=== PATIENT | female | born 1950 | race African-American/Black ===

== ENCOUNTER 2016-10-17 16:00 | Inpatient (IN) | payer OTHER ==
--- NOTE | 2016-10-17 16:33 | PDOC ---
History of Present Illness - General History Source: Patient, Family Exam Limitations: No Limitations - History of Present Illness Initial Comments: 10/17/16 18:46 The patient is a 66 year old female, with a significant past medical history of hypertension and diabetes, who presents to the emergency department via EMS for evaluation. The patient lives with family, who are at the bedside. Over the past couple of days, the patients family state that she has not been at her normal baseline. They report that she has been weak, has not been eating well and has seemed confused. The patient additionally reports some vague mid back pain. The patient denies fever, chills, nausea, vomiting, diarrhea or abdominal pain. The patient is a poor historian. The patient states that she has not seen a doctor in 2 years (questionable adherence to medications). Family members confirm that the patient does not have a primary care physician. Allergies: None reported. Past Surgical History: None reported. Social History: Non smoker. Denies alcohol or drug use. Family Contact Information: Ramila Valencia Relationship to Patient: Sister Cell <Patience Martin - Last Filed: 10/17/16 23:48> <Brian Anaya - Last Filed: 10/17/16 23:56> - General Chief Complaint: Weakness Stated Complaint: LOW BLOOD SUGAR Time Seen by Provider: 10/17/16 16:32 Past History <Patience Martin - Last Filed: 10/17/16 23:48> - Past Medical History Cancer: Yes Diabetes: Yes HTN: Yes - Immunization History Td Vaccination: Yes Immunization Up to Date: Yes - Psycho/Social/Smoking Cessation Hx Suicidal Ideation: No Smoking Status: No Number of Cigarettes Smoked Daily: 0 <Brian Anaya - Last Filed: 10/17/16 23:56> - Past Medical History Allergies/Adverse Reactions: Allergies Allergy/AdvReac Type Severity Reaction Status Date / Time No Known Allergies Allergy Verified 10/17/16 17:08 Home Medications: Ambulatory Orders Azithromycin [Zithromax Z-THEODORA (5 DAYS)] 250 mg PO DAILY #6 tablet 08/03/11 Fluticasone Prop 0.05% Nasal [Flonase] 2 spray NS BID #0 spraybtl 08/03/11 Review of Systems - Review of Systems Able to Perform ROS?: Yes Comments:: 10/17/16 17:48 CONSTITUTIONAL: +Weakness, confusion. No fever, no chills, no fatigue EYES: No visual changes ENT: No ear pain, no sore throat CARDIOVASCULAR: No chest pain, no palpitations RESPIRATORY: No cough, no SOB GI: No abdominal pain, no nausea, no vomiting, no constipation, no diarrhea GENITOURINARY: No dysuria, no frequency, no hematuria MUSCULOSKELETAL: +Back pain. No joint pain, no myalgias SKIN: No rash NEURO: No headache <Patience Martin - Last Filed: 10/17/16 23:48> *Physical Exam - Physical Exam Comments: 10/17/16 16:45 EXAMINATION CONSTITUTIONAL: Awake and alert; oriented to self, place, and month; does not know the day of the week or the year; well-nourished; in no apparent distress HEAD: Normocephalic; atraumatic EYES: Right pupil is irregular and poorly reactive; left cornea is partially opacified with an irregular and nonreactive pupil; conjunctiva are pale ENMT: External appears normal; mucous membranes are dry NECK: Supple; non-tender; no cervical lymphadenopathy CARD: Normal S1, S2; no murmurs, rubs, or gallops RESP: Normal chest excursion with respiration; breath sounds clear and equal bilaterally; no wheezes, rhonchi, or rales ABD: Soft, non-distended; non-tender; no palpable organomegaly, no palpable hernias EXT: Normal ROM in all four extremities; non-tender to palpation; distal pulses intact SKIN: Warm, dry, no rash NEURO: Cranial nerves II through XII are grossly intact; motor: Upper extremities: 5/5 bilaterally, lower extremities 4/5 bilaterally; no pronation drift; <Brian Anaya - Last Filed: 10/17/16 23:56> Heart Score/ECG Review #1 ECG reviewed & interpreted by me at: 16:29 (Vent Rate: 125 bpm. Sinus rhythm with frequent ventricular complexes. ) <Patience Martin - Last Filed: 10/17/16 23:48> ED Treatment Course - LABORATORY CBC & Chemistry Diagram: 10/17/16 22:40 10/17/16 22:40 <Patience Martin - Last Filed: 10/17/16 23:48> - LABORATORY CBC & Chemistry Diagram: 10/17/16 22:40 10/17/16 22:40 <Brian Anaya - Last Filed: 10/17/16 23:56> Medical Decision Making - Medical Decision Making 10/17/16 20:54 EXAM: CT/HEAD CT WITHOUT CONTRAST Reviewed By: Dr. Steven Mobley IMPRESSION: Negative exam. The intracranial structures demonstrate no discrete noncontrast abnormality. Apparent incidental note is made of scleral calcification of the partially imaged left ocular globe as well as increased density within the vitreous chamber probably on the basis of previous inflammation, injury or infection. Correlate clinically. Call placed to Dr. Zayra Covarrubias [phone] at 20:55. Connected and case discussed. <Patience Martin - Last Filed: 10/17/16 23:48> - Critical Care Time Total Critical Care Time (minutes): 50 Critical Care Statement: The care of this patient involved high complexity decision making to prevent further life threatening deterioration of the patient 's condition and/or to evalute & treat vital organ system(s) failure or risk of failure. - Medical Decision Making 10/17/16 21:54 Patient seen and evaluated by me immediately upon arrival. Patient is a 66-year-old female with history of hypertension, noncompliant with her medication regimen has not seen a physician in over 2 years presents with generalized weakness and malaise. In the ER, patient is awake, alert, oriented to place and month, but does not know the year, without focal neurological deficits. Patient's vital signs are noted to be normal and stable. Initial EKG revealed hyperacute T waves. CBC reveals moderate anemia likely of chronic disease. CMP reveals evidence of acute renal failure with hyperkalemia, hypocalcemia, elevated anion gap and significantly decreased bicarbonate. Montiel catheter was placed with no production of urine. I suspect prerenal azotemia at this time. Patient has been aggressively resuscitated with normal saline, she has also received an amp of calcium gluconate, 2 A of sodium bicarbonate, 2 A of dextrose and 5 units of insolent IV. Patient has also received 30 g of Kayexalate by mouth. Case was discussed with Dr. Bates of nephrology. He agrees with the plan of care. Will repeat chemistry to evaluate for progress and treatment. Will consider hemodialysis if patient becomes hemodynamically unstable, develops pulmonary edema or worsening acidosis. 10/17/16 23:55 Patient reassessed. Patient is currently resting comfortably without evidence of pulmonary edema. Bilateral renal ultrasound reveals atrophic kidneys, collapsed bladder without masses or lesions. Repeat potassium is noted to be 5.9. BUN/creatinine are unchanged. Sodium bicarbonate is now 10. We'll continue to hydrate. At this time, I do not believe patient requires emergent dialysis ( she may require later date). We'll continue as planned. <Brian Anaya - Last Filed: 10/17/16 23:56> *DC/Admit/Observation/Transfer - Attestations Scribe Attestion: 10/17/16 16:46 Documentation prepared by Patience Martin, acting as medical lab technologist for Brian Anaya MD. <Patience Martin - Last Filed: 10/17/16 23:48> - Discharge Dispostion Admit: Yes - Attestations Physician Attestion: 10/17/16 21:11 The documentation was prepared by the scribe under my direct supervision. I have reviewed the documentation which correctly represents the findings, medical decision-making and critical action taken by me. <Brian Anaya - Last Filed: 10/17/16 23:56> Diagnosis at time of Disposition: Hyperkalemia Acute renal failure Qualifiers: Acute renal failure type: unspecified Qualified Code(s): N17.9 - Acute kidney failure, unspecified
[2016-10-17] MEDS ORDERED: SODIUM CHLORIDE 500 ML IV STA ×2 (16:47→20:32)
[2016-10-17 17:08] VITALS: BMI 39.0
[2016-10-17 17:39] LABS: INR 1.04 (0.82-1.09); PROTHROMBIN TIME (PATIENT) 11.5 SEC (9.98-11.88)
[2016-10-17 18:22] LABS: MCH 21.7 pg (25.7-33.7); MCHC 31.5 g/dl (32.0-36.0); MEAN PLT VOLUME 7.7 fl (7.5-11.1); PLATELET COUNT 421 K/MM3 (134-434); RDW 16.2 % (11.6-15.6); WHITE BLOOD COUNT 7.6 K/mm3 (4.0-10.0)
[2016-10-17 20:08] LABS: HYPOCHROMIA 2+; METAMYELOCYTE 1 % (0-2); MICROCYTOSIS 2+
[2016-10-17 20:09] LABS: OVALOCYTES 1+
[2016-10-17 20:15] LABS: ALBUMIN 2.4 g/dl (3.4-5.0); BILIRUBIN,TOTAL 0.4 mg/dL (0.2-1.0); GLUCOSE,RANDOM 121 mg/dL (74-106); MAGNESIUM 1.9 mg/dL (1.8-2.4); SGOT/AST 17 U/L (15-37); SGPT/ALT 15 U/L (12-78); TOT PROT 6.5 g/dl (6.4-8.2)
[2016-10-17 20:20] LABS: ALK PHOS 124 U/L (45-117); COCKROFT - GAULT 3.6805; TROPONIN I 0.04 ng/ml (0.00-0.05)
[2016-10-17 20:27] LABS: ANION GAP 24 (8-16); CO2 5 mmol/L (21-32)
[2016-10-17 20:31] LABS: CREATININE 21.2 mg/dL (0.55-1.02)
[2016-10-17] MEDS ORDERED: SODIUM BICARBONATE 8.4% 50 MEQ/50 ML DISP.SYRIN IVPUSH ONE ×2 (20:31→20:58)
[2016-10-17] MEDS ORDERED: CALCIUM GLUCONATE 10% - 1,000 MG/10 ML VIAL IVPUSH ONE ×2 (20:31→23:40)
[2016-10-17] MEDS ORDERED: SODIUM POLYSTYRENE SULFONATE 15 GM/60 ML BOTTLE PO ONE (20:32)
[2016-10-17] MEDS ORDERED: SODIUM BICARBONATE 8.4% - 50 ML ONE ×2 (20:36→20:58)
[2016-10-17] MEDS ORDERED: CALCIUM GLUCONATE 10% - 1,000 MG/10 ML VIAL ONE ×2 (20:36→23:52)
[2016-10-17] MEDS ORDERED: SODIUM POLYSTYRENE SULFONATE 15 GM/60 ML BOTTLE ONE (20:36)
[2016-10-17 20:37] LABS: CALCIUM < 5.0 mg/dL (8.5-10.1)
[2016-10-17 20:46] LABS: URINE APPEARANCE CLOUDY; URINE BILIRUBIN NEGATIVE (NEGATIVE); URINE COLOR YELLOW; URINE GLUCOSE (UA) 1+ (NEGATIVE); URINE KETONE TRACE (NEGATIVE); URINE LEUK ESTERASE NEGATIVE (NEGATIVE); URINE NITRITE NEGATIVE (NEGATIVE); URINE UROBILINOGEN NEGATIVE E.U./dl (0.2-1.0)
[2016-10-17 20:48] LABS: URINE BLOOD 1+ (NEGATIVE); URINE PROTEIN 3+ (NEGATIVE)
[2016-10-17] MEDS ORDERED: DEXTROSE 50%-WATER 50 ML VIAL IVPUSH ONE (20:55)
[2016-10-17] MEDS ORDERED: INSULIN REGULAR HUMAN 100 UNITS/ML *VIAL IVPUSH ONE (20:56)
[2016-10-17] MEDS ORDERED: DEXTROSE 50%-WATER 50 ML DISP.SYRIN ONE (20:57)
[2016-10-17] MEDS ORDERED: INSULIN (NOVOLOG) ASPART 100 UNITS/ML 10ML VIAL ONE (20:59)
[2016-10-17 21:11] LABS: URINE MUCUS RARE; URINE RBC 4 /hpf (0-3); URINE WBC 11 /hpf (3-5); YEAST FEW
--- NOTE | 2016-10-17 22:01 | HP ---
CHIEF COMPLAINT: Lethargy, deviation from baseline functional status PCP: Has not seen a PCP in >2 years HISTORY OF PRESENT ILLNESS: Patient is a 66 year old female with PMH of HTN, DM & legally blind who is brought in to ED by sisters for lethargy & poor baseline functional status. Patient has been feeling lethargic for some time now, >1-2 weeks, and has had increasing difficulty with ambulation. In the last few days, her breathing has deteriorated and she has been bed-bound. Patient also notes vomiting & diarrhea in last few days. Patient reports that she has not seen a PCP in over 2 years. Denies fever, chest pain, abdominal pain, headache. ER course was notable for: (1)BUN/Creatinine: 90/21.2 (2)Potassium 7.4 with EKG changes (peaked T-waves) (3)Given Calcium gluconate, Kayexelate, Insulin & bicarb in ED Recent Travel: NONE REPORTED PAST MEDICAL HISTORY: ABOVE PAST SURGICAL HISTORY: NONE REPORTED Social History: Smoking: NONE REPORTED Alcohol: NONE REPORTED Drugs: NONE REPORTED Family History: Father: COLON CA Mother: LUNG CA Siblings: DIALYSIS, BREAST, RECTAL [place] Allergies No Known Allergies Allergy (Verified 10/17/16 17:08) HOME MEDICATIONS: Home Medications Medication Instructions Recorded Azithromycin [Zithromax Z-THEODORA (5 250 mg PO DAILY #6 tablet 08/03/11 DAYS)] Fluticasone Prop 0.05% Nasal 2 spray NS BID #0 spraybtl 08/03/11 [Flonase] REVIEW OF SYSTEMS CONSTITUTIONAL: Absent: fever, chills, diaphoresis, generalized weakness, malaise, loss of appetite, weight change HEENT: Absent: rhinorrhea, nasal congestion, throat pain, throat swelling, difficulty swallowing, mouth swelling, ear pain, eye pain, visual changes CARDIOVASCULAR: Absent: chest pain, syncope, palpitations, irregular heart rate, lightheadedness , peripheral edema RESPIRATORY: Absent: cough, shortness of breath, dyspnea with exertion, orthopnea, wheezing, stridor, hemoptysis GASTROINTESTINAL: Absent: abdominal pain, abdominal distension, nausea, vomiting, diarrhea, constipation, melena, hematochezia GENITOURINARY: Absent: dysuria, frequency, urgency, hesitancy, hematuria, flank pain, genital pain MUSCULOSKELETAL: Absent: myalgia, arthralgia, joint swelling, back pain, neck pain SKIN: Absent: rash, itching, pallor HEMATOLOGIC/IMMUNOLOGIC: Absent: easy bleeding, easy bruising, lymphadenopathy, frequent infections ENDOCRINE: Absent: unexplained weight gain, unexplained weight loss, heat intolerance, cold intolerance NEUROLOGIC: Absent: headache, focal weakness or paresthesias, dizziness, unsteady gait, seizure, mental status changes, bladder or bowel incontinence PSYCHIATRIC: Absent: anxiety, depression, suicidal or homicidal ideation, hallucinations. PHYSICAL EXAMINATION Vital Signs - 24 hr 10/17/16 10/17/16 16:00 19:54 Temperature 97.2 F L Pulse Rate 90 Pulse Rate [ 95 H Left] Respiratory 18 20 Rate Blood Pressure 117/50 Blood Pressure 120/40 [Arm] O2 Sat by Pulse 100 100 Oximetry (%) GENERAL: Awake, alert, and fully oriented, labored breathing. Morbidly obese HEAD: Normal with no signs of trauma. EYES: Pupils equal, round and reactive to light, extraocular movements intact, sclera anicteric, conjunctiva clear. No lid lag. EARS, NOSE, THROAT: Ears normal, nares patent, oropharynx clear without exudates. Moist mucous membranes. NECK: Normal range of motion, supple without lymphadenopathy, JVD, or masses. LUNGS: Mildly decreased breath sounds bilaterally, no wheezing noted HEART: Regular rate and rhythm, normal S1 and S2 without murmur, rub or gallop. ABDOMEN: Soft, nontender, not distended, normoactive bowel sounds, no guarding, no rebound, no masses. No hepatomegaly or splenomegaly. MUSCULOSKELETAL: Normal range of motion at all joints. No bony deformities or tenderness. No CVA tenderness. UPPER EXTREMITIES: 2+ pulses, warm, well-perfused. No cyanosis. No clubbing. No peripheral edema. LOWER EXTREMITIES: 2+ pulses, warm, well-perfused. No calf tenderness. (+) 1 pitting edema bilateral LE NEUROLOGICAL: Cranial nerves II-XII intact. Normal speech. Normal gait. PSYCHIATRIC: Cooperative. Good eye contact. Appropriate mood and affect. SKIN: Warm, dry, normal turgor, no rashes or lesions noted, normal capillary refill. Laboratory Results - last 24 hr 10/17/16 10/17/16 10/17/16 16:01 16:01 17:15 WBC 7.6 Cancelled Corrected WBC (auto) Cancelled RBC 3.71 Cancelled Hgb 8.1 L Cancelled Hct 25.6 L Cancelled MCV 69.0 L Cancelled MCHC 31.5 L Cancelled RDW 16.2 H Cancelled Plt Count 421 Cancelled MPV 7.7 Cancelled Neutrophils % 81.0 Cancelled Lymphocytes % 11.0 Cancelled Monocytes % 4.0 Cancelled Eosinophils % 1.0 Cancelled Basophils % Cancelled Band Neutrophils 1.0 Metamyelocytes 1 Myelocytes 1 Nucleated RBCs 1 H Cancelled Differential Comment Cancelled Hypersegmented Neuts Cancelled Smudge Cells Cancelled Toxic Granulation Cancelled Dohle Bodies Cancelled Trudy Rods Cancelled Platelet Estimate Cancelled Platelet Comment Cancelled RBC Morphology Cancelled Polychromasia Cancelled Hypochromic-Microcytic 2+ Cancelled Poikilocytosis Cancelled Basophilic Stippling Cancelled Anisocytosis Cancelled Microcytosis 2+ Cancelled Macrocytosis Cancelled Spherocytes Cancelled Siderocytes Cancelled Sickle Cells Cancelled Target Cells Cancelled Tear Drop Cells Cancelled Ovalocytes 1+ Cancelled Stomatocytes Cancelled Helmet Cells Cancelled Sampson-Conner Bodies Cancelled [place] Rings Cancelled [place] Cells Cancelled Acanthocytes (Spur) Cancelled Rouleaux 1+ Cancelled Fragmented RBCs Cancelled Schistocytes Cancelled Morphology Comment Cancelled INR Sodium Cancelled Potassium Cancelled Chloride Cancelled Carbon Dioxide Cancelled Anion Gap Cancelled BUN Cancelled Creatinine Cancelled Creat Clearance w eGFR Cancelled Random Glucose Cancelled Calcium Cancelled Magnesium Cancelled Total Bilirubin Cancelled AST Cancelled ALT Cancelled Alkaline Phosphatase Cancelled Creatine Kinase Cancelled CK-MB (CK-2) Troponin I Cancelled Total Protein Cancelled Albumin Cancelled Lipase Cancelled Urine Color Urine Appearance Urine pH Ur Specific [place] Urine Protein Urine Glucose (UA) Urine Ketones Urine Blood Urine Nitrite Urine Bilirubin Urine Urobilinogen Ur Leukocyte Esterase Urine RBC Urine WBC Ur Epithelial Cells Urine Mucus Urine Yeast 10/17/16 10/17/16 10/17/16 17:15 17:15 18:38 WBC Corrected WBC (auto) RBC Hgb Hct MCV MCHC RDW Plt Count MPV Neutrophils % Lymphocytes % Monocytes % Eosinophils % Basophils % Band Neutrophils Metamyelocytes Myelocytes Nucleated RBCs Differential Comment Hypersegmented Neuts Smudge Cells Toxic Granulation Dohle Bodies Trudy Rods Platelet Estimate Platelet Comment RBC Morphology Polychromasia Hypochromic-Microcytic Poikilocytosis Basophilic Stippling Anisocytosis Microcytosis Macrocytosis Spherocytes Siderocytes Sickle Cells Target Cells Tear Drop Cells Ovalocytes Stomatocytes Helmet Cells Sampson-Conner Bodies [place] Rings Jason Cells Acanthocytes (Spur) Rouleaux Fragmented RBCs Schistocytes Morphology Comment INR 1.04 Sodium Cancelled 137 Potassium Cancelled 7.4 H* Chloride Cancelled 108 H Carbon Dioxide Cancelled 5 L Anion Gap Cancelled 24 H BUN Cancelled 90 H Creatinine Cancelled 21.2 H* Creat Clearance w eGFR Cancelled 1.63 Random Glucose Cancelled 121 H Calcium Cancelled < 5.0 L* Magnesium Cancelled 1.9 Total Bilirubin Cancelled 0.4 AST Cancelled 17 ALT Cancelled 15 Alkaline Phosphatase Cancelled 124 H Creatine Kinase Cancelled 1134 H CK-MB (CK-2) 8.317 H Troponin I Cancelled 0.04 Total Protein Cancelled 6.5 Albumin Cancelled 2.4 L Lipase Cancelled 322 Urine Color Urine Appearance Urine pH Ur Specific [place] Urine Protein Urine Glucose (UA) Urine Ketones Urine Blood Urine Nitrite Urine Bilirubin Urine Urobilinogen Ur Leukocyte Esterase Urine RBC Urine WBC Ur Epithelial Cells Urine Mucus Urine Yeast 10/17/16 19:53 WBC Corrected WBC (auto) RBC Hgb Hct MCV MCHC RDW Plt Count MPV Neutrophils % Lymphocytes % Monocytes % Eosinophils % Basophils % Band Neutrophils Metamyelocytes Myelocytes Nucleated RBCs Differential Comment Hypersegmented Neuts Smudge Cells Toxic Granulation Dohle Bodies Trudy Rods Platelet Estimate Platelet Comment RBC Morphology Polychromasia Hypochromic-Microcytic Poikilocytosis Basophilic Stippling Anisocytosis Microcytosis Macrocytosis Spherocytes Siderocytes Sickle Cells Target Cells Tear Drop Cells Ovalocytes Stomatocytes Helmet Cells Sampson-Conner Bodies [place] Rings Jason Cells Acanthocytes (Spur) Rouleaux Fragmented RBCs Schistocytes Morphology Comment INR Sodium Potassium Chloride Carbon Dioxide Anion Gap BUN Creatinine Creat Clearance w eGFR Random Glucose Calcium Magnesium Total Bilirubin AST ALT Alkaline Phosphatase Creatine Kinase CK-MB (CK-2) Troponin I Total Protein Albumin Lipase Urine Color Yellow Urine Appearance Cloudy Urine pH 5.0 Ur Specific [place] 1.017 Urine Protein 3+ H Urine Glucose (UA) 1+ H Urine Ketones Trace H Urine Blood 1+ H Urine Nitrite Negative Urine Bilirubin Negative Urine Urobilinogen Negative Ur Leukocyte Esterase Negative Urine RBC 4 Urine WBC 11 Ur Epithelial Cells Rare Urine Mucus Rare Urine Yeast Few ASSESSMENT/PLAN: 66 year old female with PMH of HTN, DM & legally blind who is brought in to ED by sisters for lethargy & poor baseline functional status. Found to be in renal failure with hyperkalemia. #Acute on chronic? renal failure -IVF NS @125mls/hr -etiology unknown at this point (no new meds or contrast exposure) -US (-) for hydronephrosis but does show bilateral renal atrophy (suggesting a chronic etiology) -will need Dialysis in AM -discussed case with Dr Covarrubias, nephrology consulted -CXR reviewed; NEED to continue to monitor pulmonary function (to ensure no pulmonary edema) -continue to trend creatinine/BUN -monitor urine output #Hyperkalemia -Calcium gluconate, Kayexelate, Insulin given in ED -continue to trend (7.4 --> 5.9 thus far) -serial ECG -continuous cardiac monitoring; telemetry floor #DM -Insulin sliding scale -HBA1C #HTN -stable at present -reassess in AM Prophylaxis/FEN -SCD's -Diabetic, Renal diet; IVF NS@125; will monitor electrolytes Visit type - Emergency Visit Emergency Visit: Yes ED Registration Date: 10/17/16 Care time: The patient presented to the Emergency Department on the above date and was hospitalized for further evaluation of their emergent condition. - New Patient This patient is new to me today: Yes Date on this admission: 10/18/16 - Critical Care Critical Care patient: Yes Total Critical Care Time (in minutes): 40 Critical Care Statement: The care of this patient involved high complexity decision making to prevent further life threatening deterioration of the patient 's condition and/or to evalute & treat vital organ system(s) failure or risk of failure.
[2016-10-17 22:45] LABS: BASOPHIL 0.2 % (0-2.0); EOSINOPHIL 0.4 % (0-4.5); MCH 21.4 pg (25.7-33.7); MCHC 31.5 g/dl (32.0-36.0); MEAN CELL VOLUME 68.1 fl (80-96); MEAN PLT VOLUME 7.6 fl (7.5-11.1); NEUTROPHILS 76.5 % (42.8-82.8); PLATELET COUNT 427 K/MM3 (134-434); RDW 15.8 % (11.6-15.6); WHITE BLOOD COUNT 6.9 K/mm3 (4.0-10.0)
--- NOTE | 2016-10-17 23:11 | PN ---
<Jareth Gusman - Last Filed: 10/17/16 23:16> Teaching Attending Note Name of Resident: Teofilo Shin <Pierre Cordova - Last Filed: 10/17/16 23:19> Teaching Attending Note ATTENDING PHYSICIAN STATEMENT I saw and evaluated the patient. I reviewed the resident's note and discussed the case with the resident. I agree with the resident's findings and plan as documented. SUBJECTIVE: The patient is a 66 year old female, accompanied by family, with a significant past medical history of hypertension and diabetes, who presents to the emergency department via EMS for evaluation of abnormalities from her baseline, weakness, back pain, vomiting, and diarrhea. As per family the patient has seemed confused at home lately. Family members confirm that the patient does not have a primary care physician and has not been treated as an outpatient in over 2 years Allergies: None Past Surgical History: None reported. Social History: Non smoker. Denies alcohol or drug use. Lives with family Family History: Brother is on dialysis, Father: colon cancer. Mother: Lung cancer. Sisters: breast and rectal cancer. OBJECTIVE: Vital Signs: Last Vital Signs Temp Pulse Resp BP Pulse Ox 97.2 F L 95 H 20 120/40 100 10/17/16 16:00 10/17/16 19:54 10/17/16 19:54 10/17/16 19:54 10/17/16 19:54 Physical Exam: GENERAL: (+) Morbidly obese. Awake, alert, and fully oriented, in no acute distress HEENT: Atraumatic. PERRLA, EOMI. Moist mucosa. No JVD LUNGS: (+) Decreased air entry bilaterally. HEART: Regular rate and rhythm, normal S1 and S2, no murmurs, rubs or gallops, peripheral pulses normal and equal bilaterally. ABDOMEN: Soft, nontender, normoactive bowel sounds. No guarding, no rebound. No masses EXTREMITIES: (+) 1+ pitting edema b/l. Normal inspection, Normal range of motion, No clubbing or cyanosis. NEUROLOGICAL: Cranial nerves II through XII grossly intact. Normal speech, normal gait, no focal sensorimotor deficits SKIN: Warm, Dry, normal turgor, no rashes or lesions noted. Labs: CBCD WBC 6.9 K/mm3 (4.0-10.0) 10/17/16 22:40 RBC 3.35 M/mm3 (3.60-5.2) L 10/17/16 22:40 Hgb 7.2 GM/dL (10.7-15.3) L D 10/17/16 22:40 Hct 22.8 % (32.4-45.2) L 10/17/16 22:40 MCV 68.1 fl (80-96) L 10/17/16 22:40 MCHC 31.5 g/dl (32.0-36.0) L 10/17/16 22:40 RDW 15.8 % (11.6-15.6) H 10/17/16 22:40 Plt Count 427 K/MM3 (134-434) 10/17/16 22:40 MPV 7.6 fl (7.5-11.1) 10/17/16 22:40 CMP Sodium 137 mmol/L (136-145) 10/17/16 18:38 Potassium 7.4 mmol/L (3.5-5.1) H* 10/17/16 18:38 Chloride 108 mmol/L (98-107) H 10/17/16 18:38 Carbon Dioxide 5 mmol/L (21-32) L 10/17/16 18:38 Anion Gap 24 (8-16) H 10/17/16 18:38 BUN 90 mg/dL (7-18) H 10/17/16 18:38 Creatinine 21.2 mg/dL (0.55-1.02) H* 10/17/16 18:38 Creat Clearance w eGFR 1.63 (>60) 10/17/16 18:38 Calcium < 5.0 mg/dL (8.5-10.1) L* 10/17/16 18:38 Total Bilirubin 0.4 mg/dL (0.2-1.0) 10/17/16 18:38 AST 17 U/L (15-37) 10/17/16 18:38 ALT 15 U/L (12-78) 10/17/16 18:38 Alkaline Phosphatase 124 U/L (45-117) H 10/17/16 18:38 Total Protein 6.5 g/dl (6.4-8.2) 10/17/16 18:38 Albumin 2.4 g/dl (3.4-5.0) L 10/17/16 18:38 Imaging: ECG-hyperacute T waves ASSESSMENT AND PLAN: 66 year old female with acute renal failure. 1. Acute renal failure- etiology at this time unknown. Patient had no outpatient care for over 2 years. Minimal urinary output at this time. No contrast exposure, no new medications, no history of kidney stones. -Trial with IVF -Ultrasound of kidney stat -Monitor creatinine -As per ED physician, case was discussed with nephologist a plan is to correct electrolyte abnormalities and give trial of fluids, monitor creatinine levels. -If urinary output remains minimal and electrolyte abnormalities persist emergent dialysis will be indicated -Monitor on telemetry -Frequent reassessments of pulmonary status while on IVF 2. Acute hyperkalemia and hypocalcemia with evidence of hyperacute T waves on ECG. Received in ED with insulin, calcium gluconate, and Kayexalate. Will repeat potassium 3. History of diabetes- non compliant with outpatient follow up, does not take any medications at home. -Insulin sliding scale -Hemoglobin A1C 4. HTN stable monitor renal function and will adjust medications accordingly. This is 66 yof presented with acute renal insuff, 3 fold rise in serum creatinine from baseline, reduction of more than 75% in estimate GFR and amenorrhea complicated by significant electrolyte abnormality and based on these findings this patient meets medical necessity for inpatient hospitalization with anticipated length of stay greater than 2 midnights. Documentation prepared by Pierre Cordova, acting as medical device engineer for Dr. Naseem MD.
[2016-10-17] MEDS ORDERED: ACETAMINOPHEN 325 MG TABLET (FP) PO PRN (23:22)
[2016-10-17 23:23] LABS: ALBUMIN 2.3 g/dl (3.4-5.0); ANION GAP 22 (8-16); BILIRUBIN,TOTAL 0.3 mg/dL (0.2-1.0); CO2 10 mmol/L (21-32); GLUCOSE,RANDOM 92 mg/dL (74-106); SGOT/AST 16 U/L (15-37); SGPT/ALT 13 U/L (12-78)
[2016-10-17 23:35] LABS: ALK PHOS 113 U/L (45-117); COCKROFT - GAULT 3.6805
[2016-10-17 23:39] LABS: CREATININE 21.2 mg/dL (0.55-1.02)
[2016-10-17 23:40] LABS: CALCIUM < 5.0 mg/dL (8.5-10.1)
[2016-10-17] MEDS ORDERED: SODIUM CHLORIDE 1,000 ML IV SCH (23:45)
[2016-10-18 06:47] LABS: MCH 21.8 pg (25.7-33.7); MCHC 32.3 g/dl (32.0-36.0); MEAN CELL VOLUME 67.6 fl (80-96); PLATELET COUNT 413 K/MM3 (134-434); RDW 15.7 % (11.6-15.6); WHITE BLOOD COUNT 6.7 K/mm3 (4.0-10.0)
[2016-10-18 07:07] LABS: ALBUMIN 2.1 g/dl (3.4-5.0); ANION GAP 20 (8-16); CO2 10 mmol/L (21-32); GLUCOSE,RANDOM 68 mg/dL (74-106); MAGNESIUM 1.7 mg/dL (1.8-2.4)
[2016-10-18 07:19] LABS: ALK PHOS 108 U/L (45-117); BILIRUBIN,TOTAL 0.3 mg/dL (0.2-1.0); CHOLESTEROL 144 mg/dL (50-200); LDL CHOLESTEROL (ONLY SJRH) 69 mg/dL (5-100); SGOT/AST 18 U/L (15-37); SGPT/ALT 11 U/L (12-78); TOT PROT 5.6 g/dl (6.4-8.2); TROPONIN I 0.07 ng/ml (0.00-0.05)
[2016-10-18 07:42] LABS: ARTERIAL BLD GAS O2 SATURATION 97.7 % (90-98.9); ARTERIAL BLOOD GAS BASE EXCESS -16.7 meq/l (-2-2); ARTERIAL BLOOD GAS HCO3 9.7 meq/L (22-26)
[2016-10-18 07:53] LABS: CALCIUM < 5.0 mg/dL (8.5-10.1); CREATININE 20.5 mg/dL (0.55-1.02); PHOSPHOROUS 10.3 mg/dL (2.5-4.9)
[2016-10-18 07:57] LABS: ALLENS TEST POSITIVE; ART PUNCT SITE LEFT RADIAL; LPM/O2% 21%; PT. ON O2? NO
[2016-10-18 07:59] LABS: ARTERIAL BLOOD GAS pH 7.21 (7.35-7.45)
[2016-10-18] MEDS ORDERED: CALCIUM GLUCONATE 10% - 1,000 MG/10 ML VIAL IVPB ONE (08:43)
[2016-10-18] MEDS ORDERED: CALCIUM GLUCONATE IVPB SCH (08:45)
[2016-10-18] MEDS ORDERED: DEXTROSE IVPB SCH (08:45)
[2016-10-18] MEDS ORDERED: WATER IVPB SCH (08:45)
[2016-10-18] MEDS ORDERED: CALCIUM GLUCONATE 10% - 1,000 MG/10 ML VIAL ONE (09:07)
[2016-10-18 09:15] LABS: HYPOCHROMIA 2+; POLYCHROMASIA 1+
[2016-10-18 09:16] LABS: ANISOCYTOSIS 1+; MICROCYTOSIS 1+
[2016-10-18 09:22] LABS: TEAR DROP CELLS 1+
[2016-10-18 09:23] LABS: FRAGMENTED CELL 1+; OVALOCYTES 2+
--- NOTE | 2016-10-18 09:28 | CONSULT ---
Consult - text type - Consultation Consultation Note: Renal Consult for DAVI/Hyperkalemia/Hypocalcemia/Metabolic Acidosis This is a 66 year old woman with PMhx of Hypertension, DM Type 2 not currently taking medications that presented with fatigue/malaise and found to have acute renal failure, hyperkalemia and hypocalcemia. PMhx: as above Allergies: NKDA Family Hx: Brother with dialysis. ROS: No FERMIN, chest pain, abd pain, Vomiting. No flank pain, kidney stones, No confusion, lethargy, weakness. No metallic taste in the mouth. Home Meds: Home Medications Medication Instructions Recorded Unobtainable [Unobtainable] 10/18/16 Vital Signs Temperature 97.2 F L 10/17/16 16:00 Pulse Rate 88 10/18/16 08:42 Respiratory Rate 24 10/18/16 08:42 Blood Pressure 156/52 10/18/16 08:42 O2 Sat by Pulse Oximetry (%) 96 10/18/16 08:42 Intake & Output 10/15/16 10/16/16 10/17/16 10/18/16 23:59 23:59 23:59 23:59 Output Total 100 Balance -100 Weight 200 lb CBC, BMP 10/18/16 06:26 10/18/16 06:26 Laboratory Tests 10/17/16 10/18/16 10/18/16 19:53 06:26 06:26 MCV 67.6 L ABG pH ABG pCO2 at Pt Temp ABG HCO3 ABG O2 Content Phosphorus 10.3 H* Magnesium 1.7 L Creatine Kinase 948 H Albumin 2.1 L Urine Protein 3+ H Urine Glucose (UA) 1+ H Urine Ketones Trace H Urine Blood 1+ H 10/18/16 07:30 MCV ABG pH 7.21 L* ABG pCO2 at Pt Temp 25.3 L ABG HCO3 9.7 L* ABG O2 Content 9.6 L* Phosphorus Magnesium Creatine Kinase Albumin Urine Protein Urine Glucose (UA) Urine Ketones Urine Blood Current Medications Acetaminophen (Tylenol -) 650 mg PO Q6H PRN PRN Reason: FEVER OR PAIN Chlorhexidine Gluconate (Hibiclens For Decolonization -) 1 applic TP HS ZANA Epoetin Samuel (Epogen -) 10,000 units IVPUSH ONCE ONE Stop: 04/12/17 09:13 Sodium Chloride (Normal Saline -) 1,000 mls @ 125 mls/hr IV ASDIR [facility] Last Admin: 10/18/16 00:30 Dose: 125 mls/hr Calcium Gluconate 13,000 mg/ (Dextrose) 1,130 mls @ 50 mls/hr IVPB Q22H [facility] Insulin Aspart (Novolog Vial Sliding Scale -) 1 vial SQ ACHS ZANA PRN Reason: Protocol Mupirocin (Bactroban Ointment (For Decolonization) -) 1 applic NS BID [facility] Stop: 10/23/16 09:59 A/P 66 year old woman with PMhx of Hypertension, DM Type 2 not currently taking medications that presented with fatigue/malaise and found to have acute renal failure, hyperkalemia and hypocalcemia. #Acute Renal Failure Pt w/o significant improvement in renal function despite For Emergent HD Pt consented to procedure for temporary HD catheter placement per vascular Sx for 2.5 hr treatment today, and additional HD tomorrow Urine studies to determine etiology of CKD Dose all meds for Cr Cl less then 10 #Hyperkalemia secondary to renal failure improved s/p medical management Check EKG this AM #Anion Gap Metabolic acidosis secondary to renal failure check Lactic Acid level expect improvement with HD no bicarb gtt because of hypocalcemia #Hypocalcemia Ca < 5, etiology likely secondary hyperphospahtemia/renal failure Calcium Gluconate 2g IVPB followed by Calcium gluconate gtt Ternd Ca Q12h #Hyperphospahtemia Start Phos binders with meals low phos diet #Microcytic Anemia check stool occult bloot r/o bleed iron studies with dialysis no heparin with HD at this time will hold transfusion because of low Ca levels (citrate in PRBC can worsen Ca levels) #Hypertension Trend BP for now #Proteinuria Check UPCR Thank you Will follow Full consult to follow David Schroeder DO
--- NOTE | 2016-10-18 10:00 | MSN ---
Progress Note (short form) - Note Progress Note: SUBJECTIVE: Pt seen and examined at bedside. Pt has no complaints at this time. States she has noticed a decrease in urine output over the past few weeks and has been having diarrhea over the past few days. She has been bed bound over the past few days as well. Denies CP, palps, SOB, or abdominal pain. Denies nausea or vomiting. Denies headache or acute change in vision. GARCIA was performed at bedside to test for occult blood. Active Medications Generic Name Dose Route Start Last Admin Trade Name Freq PRN Reason Stop Dose Admin Acetaminophen 650 mg 10/17/16 23:22 Tylenol - PO Q6H PRN FEVER OR PAIN Chlorhexidine Gluconate 1 applic 10/18/16 22:00 Hibiclens For Decolonization - TP HS ZANA Epoetin Samuel 10,000 unit 10/18/16 11:00 Procrit - IVPUSH 10/18/16 11:01 ONCE ONE Sodium Chloride 1,000 mls @ 125 mls/hr 10/17/16 23:45 10/18/16 00:30 Normal Saline - IV 125 mls/hr ASDIR ZANA Administration Calcium Gluconate 13,000 mg/ 1,130 mls @ 50 mls/hr 10/18/16 09:22 Dextrose IVPB Q22H ZANA Insulin Aspart 1 vial 10/18/16 07:00 Novolog Vial Sliding Scale - SQ ACHS [facility] Protocol Mupirocin 1 applic 10/18/16 10:00 Bactroban Ointment (For Decolonization) - NS 10/23/16 09:59 BID ZANA OBJECTIVE: Vital Signs Period Temp Pulse Resp BP Sys/Rolle Pulse Ox Last 24 Hr 97.2 F 88-95 14-24 117-156/40-69 96-100 GENERAL: AAOx3 in NAD, appears lethargic HEAD: NC, AT, -icterus, EOMI, R PERRL, fixed dilated L pupil (pt has Hx of cataract Sx in L eye) NECK: -JVD, supple, -LAD HEART: RRR +S1/S2 with diastolic murmur LUNGS: CTAB ABDOMEN: Soft, ND, NTTP, no guarding/rigidity, NBS, no hemorrhoids seen, no masses palpated during GARCIA, no gross blood identified on fingertip EXT: Trace edema BL LE NEURO: Normal speech CBC,CMP WBC 6.7 K/mm3 (4.0-10.0) 10/18/16 06:26 Corrected WBC (auto) Cancelled 10/17/16 17:15 RBC 3.13 M/mm3 (3.60-5.2) L 10/18/16 06:26 Hgb 6.8 GM/dL (10.7-15.3) L* 10/18/16 06:26 Hct 21.2 % (32.4-45.2) L 10/18/16 06:26 MCV 67.6 fl (80-96) L 10/18/16 06:26 MCHC 32.3 g/dl (32.0-36.0) 10/18/16 06:26 RDW 15.7 % (11.6-15.6) H 10/18/16 06:26 Plt Count 413 K/MM3 (134-434) 10/18/16 06:26 MPV 8.0 fl (7.5-11.1) 10/18/16 06:26 Neutrophils % 82.0 % (42.8-82.8) 10/18/16 06:26 Lymphocytes % 15.0 % (8-40) 10/18/16 06:26 Monocytes % 3.0 % (3.8-10.2) L 10/18/16 06:26 Eosinophils % 0.4 % (0-4.5) 10/17/16 22:40 Basophils % 0.2 % (0-2.0) 10/17/16 22:40 Band Neutrophils 1.0 % (0-10) 10/17/16 16:01 Metamyelocytes 1 % (0-2) 10/17/16 16:01 Myelocytes 1 % (0-2) 10/17/16 16:01 Nucleated RBCs Cancelled 10/17/16 17:15 Differential Comment Cancelled 10/17/16 17:15 Hypersegmented Neuts Cancelled 10/17/16 17:15 Smudge Cells Cancelled 10/17/16 17:15 Toxic Granulation Cancelled 10/17/16 17:15 Dohle Bodies Cancelled 10/17/16 17:15 Trudy Rods Cancelled 10/17/16 17:15 Platelet Estimate Cancelled 10/17/16 17:15 Platelet Comment Cancelled 10/17/16 17:15 Platelet Comment Cancelled 10/17/16 17:15 RBC Morphology Cancelled 10/17/16 17:15 Polychromasia 1+ 10/18/16 06:26 Hypochromic-Microcytic 2+ 10/18/16 06:26 Poikilocytosis Cancelled 10/17/16 17:15 Basophilic Stippling Cancelled 10/17/16 17:15 Anisocytosis 1+ 10/18/16 06:26 Microcytosis 1+ 10/18/16 06:26 Macrocytosis Cancelled 10/17/16 17:15 Spherocytes Cancelled 10/17/16 17:15 Siderocytes Cancelled 10/17/16 17:15 Sickle Cells Cancelled 10/17/16 17:15 Target Cells Cancelled 10/17/16 17:15 Tear Drop Cells 1+ 10/18/16 06:26 Ovalocytes 2+ 10/18/16 06:26 Stomatocytes Cancelled 10/17/16 17:15 Helmet Cells Cancelled 10/17/16 17:15 [place] Bodies Cancelled 10/17/16 17:15 [place] Rings Cancelled 10/17/16 17:15 Steens Cells Cancelled 10/17/16 17:15 Acanthocytes (Spur) Cancelled 10/17/16 17:15 Rouleaux 1+ 10/18/16 06:26 Fragmented RBCs 1+ 10/18/16 06:26 Schistocytes Cancelled 10/17/16 17:15 Morphology Comment Slide scanned 10/18/16 06:26 Sodium 143 mmol/L (136-145) 10/18/16 06:26 Potassium 5.8 mmol/L (3.5-5.1) H 10/18/16 06:26 Chloride 113 mmol/L (98-107) H 10/18/16 06:26 Carbon Dioxide 10 mmol/L (21-32) L 10/18/16 06:26 Anion Gap 20 (8-16) H 10/18/16 06:26 BUN 88 mg/dL (7-18) H 10/18/16 06:26 Creatinine 20.5 mg/dL (0.55-1.02) H* 10/18/16 06:26 Creat Clearance w eGFR 1.69 (>60) 10/18/16 06:26 Random Glucose 68 mg/dL (74-106) L D 10/18/16 06:26 Hemoglobin A1c % 8.0 % (4.8-6.0) H 10/18/16 06:26 Calcium < 5.0 mg/dL (8.5-10.1) L* 10/18/16 06:26 Phosphorus 10.3 mg/dL (2.5-4.9) H* 10/18/16 06:26 Magnesium 1.7 mg/dL (1.8-2.4) L 10/18/16 06:26 Total Bilirubin 0.3 mg/dL (0.2-1.0) 10/18/16 06:26 AST 18 U/L (15-37) 10/18/16 06:26 ALT 11 U/L (12-78) L 10/18/16 06:26 Alkaline Phosphatase 108 U/L (45-117) 10/18/16 06:26 Creatine Kinase 948 IU/L (26-192) H 10/18/16 06:26 CK-MB (CK-2) 8.317 ng/ml (0.5-3.6) H 10/17/16 18:38 Troponin I 0.07 ng/ml (0.00-0.05) H 10/18/16 06:26 Total Protein 5.6 g/dl (6.4-8.2) L 10/18/16 06:26 Albumin 2.1 g/dl (3.4-5.0) L 10/18/16 06:26 Triglycerides 75 mg/dL (35-160) 10/18/16 06:26 Cholesterol 144 mg/dL (50-200) 10/18/16 06:26 Total LDL Cholesterol 69 mg/dL (5-100) 10/18/16 06:26 HDL Cholesterol 68 mg/dL (40-60) H 10/18/16 06:26 Lipase 322 U/L (73-393) 10/17/16 18:38 Urine Test Results Urine Color Yellow 10/17/16 19:53 Urine Appearance Cloudy 10/17/16 19:53 Urine pH 5.0 (5.0-8.0) 10/17/16 19:53 Ur Specific [place] 1.017 (1.001-1.035) 10/17/16 19:53 Urine Protein 3+ (NEGATIVE) H 10/17/16 19:53 Urine Glucose (UA) 1+ (NEGATIVE) H 10/17/16 19:53 Urine Ketones Trace (NEGATIVE) H 10/17/16 19:53 Urine Blood 1+ (NEGATIVE) H 10/17/16 19:53 Urine Nitrite Negative (NEGATIVE) 10/17/16 19:53 Urine Bilirubin Negative (NEGATIVE) 10/17/16 19:53 Ur Leukocyte Esterase Negative (NEGATIVE) 10/17/16 19:53 Urine RBC 4 /hpf (0-3) 10/17/16 19:53 Urine WBC 11 /hpf (3-5) 10/17/16 19:53 Ur Epithelial Cells Rare /hpf (FEW) 10/17/16 19:53 Urine Mucus Rare 10/17/16 19:[address]: No acute pathology CXR: Clear, no atelectasis or infiltrates Renal US: BL renal atrophy. No hydroneprhosis A/P: Pt is a 66 yo F with a PMHx of DM and HTN who presents to the ED with lethargy x1-2wks and SOB. Pt was found to have significantly elevated BUN/Cr with severe electrolyte imbalances 2/2 acute on chronic renal failure. Emergent HD was deferred overnight. 1. Acute renal failure with chronic kidney disease -BUN/Cr of 90/21.2 with metabolic acidosis and electrolyte imbalances upon presentation. Renal US shows BL renal atrophy. Pt has noticed oliguria past couple weeks -No significant improvement with Tx. Needs emergent HD -Most likely 2/2 to chronic condition (Hx of DM, HTN) -Renal consult appreciated -Surgery consult appreciated. HD cath placed -Pt to go for HD today (2.5 hrs) and tomorrow. Dr. Schroeder on the case -Urine Cr, Urine Na ordered -Dose meds with Cr Cl of <10 2. Hyperkalemia -2/2 renal failure -Trending down from 7.4 to 5.7 -EKG on presentation showed classic changes ([place] interval upper limit of nml, peaked T waves) -IV calcium, insulin, and kaexylate given in ED -Repeat EKG pending 3. Anion gap metabolic acidosis -2/2 renal failure -Expected improvement with HD -Lactic acid pending 4. Hypocalcemia -2/2 hyperphosphatemia/renal failure -Calcium gluconate 2g IVPB and gtt started -Trend Ca Q12H 5. Hyperphosphatemia -Phos binders with meals -Low phos diet 6. Microcytic anemia -Trending down, Hgb of 6.8 most recent -Stool occult negative -Iron studies pending -Hold heparin during HD -Hold PRBCs 2/2 hypocalcemia -? transfusion once calcium is nml and electrolyte imbalances corrected -Order type and screen and PRBCs 7. Diabetes -HgbA1C of 8.0% -Pt is not on anything at home for DM. Stopped taking Metformin 500mg BID two years ago per pt 8. HTN -Stable -Trend after HD -Start BP medication if necessary. Pt stopped taking BP med two years ago. Does not remember name of med 9. FEN -Given 1L NS in ED. Currently getting 1L NS @125cc/hr -Check CMP s/p HD -Renal diet 10. PPX -Hold AC 2/2 to anemia -SCDs -EAB 11. Dispo -Admitted to ICU. LOS in question right now Steven Holloway, MS3 Problem List - Problems (1) Acute renal failure (2) Hyperkalemia
--- NOTE | 2016-10-18 10:27 | PROC ---
Central Line Insertion - Procedure Note TIME OUT performed prior to this procedure with verbal confirmation of correct patient identity, correct side, agreement of the procedure, correct patient position, availability of necessary equipment. The consent form is complete and accurate. Risk of possible infection and bleeding have been discussed with the patient. Safety precautions based on patient history or medication use has been addressed. Indication: Other (hemodialysis) Central Line: Dialysis Cath, Dual Lumen Area prepped with Chlorhexidine solution then draped using sterile barrier protection. Anesthesia: Lidocaine 1% Technique used: Seldinger Site: Right Femoral Dark venous non-pulsatile flow noted from hub of needle. The catheter was introduced. Guide wire removed intact. Each port aspirated then flushed with sterile normal saline and capped. Line secured to skin with nylon suture. Biopatch placed around base of line. Sterile occlusive dressing applied. No complications. Patient tolerated the procedure well.
[2016-10-18 10:47] LABS: ANION GAP 21 (8-16); CO2 9 mmol/L (21-32); GLUCOSE,RANDOM 84 mg/dL (74-106)
[2016-10-18 11:00] LABS: CALCIUM < 5.0 mg/dL (8.5-10.1); CREATININE 19.5 mg/dL (0.55-1.02)
[2016-10-18] MEDS ORDERED: EPOETIN ALFA 10,000 UNIT/1 ML VIAL IVPUSH ONE (11:00)
[2016-10-18] MEDS: DEXTROSE 5% IVPB SCH (11:05)
[2016-10-18] MEDS: CALCIUM GLUCONATE IVPB SCH (11:05)
[2016-10-18] MEDS: WATER IVPB SCH (11:05)
--- NOTE | 2016-10-18 12:32 | EKG ---
Test Reason : Blood Pressure : / mmHG Vent. Rate : 115 BPM Atrial Rate : 091 BPM P-R Int : 170 ms QRS Dur : 076 ms QT Int : 430 ms P-R-T Axes : 056 -09 062 degrees QTc Int : 594 ms SINUS RHYTHM WITH FREQUENT PREMATURE VENTRICULAR COMPLEXES NONSPECIFIC ST ABNORMALITY PROLONGED QT ABNORMAL ECG WHEN COMPARED WITH ECG OF 17-OCT-2016 16:29, QRS DURATION HAS DECREASED CRITERIA FOR SEPTAL INFARCT ARE NO LONGER PRESENT Confirmed by KEENAN HURT MD ([id number]) on 10/18/2016 12:32:47 PM Referred By: Confirmed By:KEENAN HURT MD
[2016-10-18] MEDS ORDERED: PARICALCITOL 5 MCG/ML VIAL IVPUSH ONE (13:00)
--- NOTE | 2016-10-18 14:16 | EKG ---
Test Reason : Blood Pressure : / mmHG Vent. Rate : 097 BPM Atrial Rate : 097 BPM P-R Int : 140 ms QRS Dur : 062 ms QT Int : 404 ms P-R-T Axes : 056 031 -69 degrees QTc Int : 513 ms NORMAL SINUS RHYTHM NONSPECIFIC ST AND T WAVE ABNORMALITY PROLONGED QT ABNORMAL ECG WHEN COMPARED WITH ECG OF 17-OCT-2016 19:38, PREMATURE VENTRICULAR COMPLEXES ARE NO LONGER PRESENT NONSPECIFIC T WAVE ABNORMALITY NOW EVIDENT IN INFERIOR LEADS NONSPECIFIC T WAVE ABNORMALITY, WORSE IN LATERAL LEADS Confirmed by LICHA CERVANTES, KEENAN ([id number]) on 10/18/2016 2:16:39 PM Referred By: Confirmed By:KEENAN HURT MD
--- NOTE | 2016-10-18 14:16 | EKG ---
Test Reason : Blood Pressure : / mmHG Vent. Rate : 091 BPM Atrial Rate : 091 BPM P-R Int : 140 ms QRS Dur : 060 ms QT Int : 406 ms P-R-T Axes : 054 023 -27 degrees QTc Int : 499 ms NORMAL SINUS RHYTHM LOW VOLTAGE QRS PROLONGED QT ABNORMAL ECG WHEN COMPARED WITH ECG OF 18-OCT-2016 00:35, NO SIGNIFICANT CHANGE WAS FOUND Confirmed by KEENAN HURT MD ([id number]) on 10/18/2016 2:16:30 PM Referred By: Confirmed By:KEENAN HURT MD
--- NOTE | 2016-10-18 15:10 | PN ---
Teaching Attending Note Name of Resident: Natalia Maxwell ATTENDING PHYSICIAN STATEMENT I saw and evaluated the patient. I reviewed the resident's note and discussed the case with the resident. I agree with the resident's findings and plan as documented. SUBJECTIVE: Pt seen and examined in the ICU. Briefly, 66yo female with h/o HTN, DM who presented with worsening lethargy x 2 weeks. Also with difficulty ambulating and worsening shortness of breath, nausea, and vomiting. Does not follow up regularly with her PMD. No subjective fevers but with chills. Noted to be in acute renal failure with hyperkalemia and EKG changes, given medical treatment, HD catheter placed in right groin for HD. OBJECTIVE: Last Vital Signs Temp Pulse Resp BP Pulse Ox 97.2 F L 91 H 18 148/64 100 10/17/16 16:00 10/18/16 12:41 10/18/16 12:41 10/18/16 12:41 10/18/16 12:41 Intake & Output 10/15/16 10/16/16 10/17/16 10/18/16 23:59 23:59 23:59 23:59 Output Total 100 Balance -100 Weight 200 lb Gen: somnolent but arousable Heart: RRR Lung: decreased breath sounds at the bases Abd: soft, nontender Ext: no edema CBC, BMP 10/18/16 06:26 10/18/16 09:40 Active Medications Acetaminophen (Tylenol -) 650 mg PO Q6H PRN PRN Reason: FEVER OR PAIN Calcium Acetate (Phoslo -) 1,334 mg PO TID ZANA Chlorhexidine Gluconate (Hibiclens For Decolonization -) 1 applic TP HS ZANA Sodium Chloride (Normal Saline -) 1,000 mls @ 125 mls/hr IV ASDIR ZANA Last Admin: 10/18/16 00:30 Dose: 125 mls/hr Calcium Gluconate 13,000 mg/ (Dextrose) 1,130 mls @ 50 mls/hr IVPB Q22H [facility] Last Admin: 10/18/16 11:05 Dose: 50 mls/hr Insulin Aspart (Novolog Vial Sliding Scale -) 1 vial SQ ACHS ZANA PRN Reason: Protocol Mupirocin (Bactroban Ointment (For Decolonization) -) 1 applic NS BID ZANA Stop: 10/23/16 09:59 ASSESSMENT AND PLAN: Altered Mental Status Acute Kidney Injury Hyperkalemia Hypocalcemia Metabolic Acidosis Rhabdomyolysis Anemia HTN DM - HD per renal - received calcium, bicarb, albuterol, insulin/D50 - monitor lytes - IVF - monitor urine output, creatinine - trend CPK - monitor H/H - empiric protonix although likely chronic anemia - aspiration precautions - renal work up in progress - can monitor in ICU overnight critical care time spent in reviewing chart, evaluating patient and formulating plan 35 min Carlton Howe MD
--- NOTE | 2016-10-18 15:32 | CONSULT ---
Consultation: REQUESTING PROVIDER: CONSULT REQUEST: HISTORY OF PRESENT ILLNESS: 66 YF with PMH of HTN, DM & legally blind who is brought in to ED by sisters for lethargy & poor baseline functional status. Patient has been feeling lethargic,l and dificulty abulation for 2 weeks. Patient reports vomiting & diarrhea in last few days. been bed-bound for two weeks. found to have ARF, EKG changes 2/2 hyperkalemia. BUN/Creatinine: 90/21.2,Potassium 7.4 with EKG changes (peaked T-waves) Given Calcium gluconate, Kayexelate, Insulin & bicarb in ED. admitted to ICU for acute HD and EKG changes. The patient denies fever, chills, cough, hemoptysis, diaphoresis, chest pain, shortness of breath, headache. The patient denies jaw/ back pain lower extremity pain/swelling, calf tenderness/pain. The patient denies recent travel, recent surgery. Patient reports known HTN and DM, not taken meds and not seen a PCP in over 2 years. Recent Travel: NONE REPORTED PAST MEDICAL HISTORY: ABOVE PAST SURGICAL HISTORY: NONE REPORTED Social History: Smoking: NONE REPORTED Alcohol: NONE REPORTED Drugs: NONE REPORTED Family History: Father: COLON CA Mother: LUNG CA Siblings: DIALYSIS, BREAST, RECTAL CA REVIEW OF SYSTEMS: CONSTITUTIONAL: generalized weakness, malaise, Absent: fever, chills, diaphoresis, , loss of appetite, weight change HEENT: Absent: rhinorrhea, nasal congestion, throat pain, throat swelling, difficulty swallowing, mouth swelling, ear pain, eye pain, visual changes CARDIOVASCULAR: Absent: chest pain, syncope, palpitations, irregular heart rate, lightheadedness , peripheral edema RESPIRATORY: Absent: cough, shortness of breath, dyspnea with exertion, orthopnea, wheezing, stridor, hemoptysis GASTROINTESTINAL: Absent: abdominal pain, abdominal distension, nausea, vomiting, diarrhea, constipation, melena, hematochezia GENITOURINARY: Absent: dysuria, frequency, urgency, hesitancy, hematuria, flank pain, genital pain MUSCULOSKELETAL: Absent: myalgia, arthralgia, joint swelling, back pain, neck pain SKIN: Absent: rash, itching, pallor HEMATOLOGIC/IMMUNOLOGIC: Absent: easy bleeding, easy bruising, lymphadenopathy, frequent infections PHYSICAL EXAMINATION Vital Signs - 24 hr 10/18/16 10/18/16 10/18/16 06:35 08:42 12:41 Temperature Pulse Rate Pulse Rate [ 90 88 91 H Left] Respiratory 14 24 18 Rate Blood Pressure Blood Pressure 154/69 156/52 148/64 [Arm] O2 Sat by Pulse 98 96 100 Oximetry (%) 10/18/16 15:05 Temperature 98.4 F Pulse Rate 88 Pulse Rate [ Left] Respiratory 18 Rate Blood Pressure 158/66 Blood Pressure [Arm] O2 Sat by Pulse Oximetry (%) GENERAL: Awake, alert, and fully oriented, in no acute distress. HEAD: Normal with no signs of trauma. EYES: Pupils equal, round and reactive to light, extraocular movements intact, sclera anicteric, conjunctiva clear. No lid lag. EARS, NOSE, THROAT: Ears normal, nares patent, oropharynx clear without exudates. Moist mucous membranes. NECK: Normal range of motion, supple without lymphadenopathy, JVD, or masses. LUNGS: Breath sounds equal, clear to auscultation bilaterally. No wheezes, and no crackles. No accessory muscle use. HEART: Regular rate and rhythm, normal S1 and S2 without murmur, rub or gallop. ABDOMEN: Soft, nontender, not distended, normoactive bowel sounds, no guarding, no rebound, no masses. No hepatomegaly or splenomegaly. MUSCULOSKELETAL: Normal range of motion at all joints. No bony deformities or tenderness. No CVA tenderness. UPPER EXTREMITIES: 2+ pulses, warm, well-perfused. No cyanosis. No clubbing. Cap refill <2 seconds. No peripheral edema. LOWER EXTREMITIES: 2+ pulses, warm, well-perfused. No calf tenderness. No peripheral edema. NEUROLOGICAL: Cranial nerves II-XII intact. Normal speech. Normal gait. PSYCHIATRIC: Cooperative. Good eye contact. Appropriate mood and affect. SKIN: Warm, dry, normal turgor, no rashes or lesions noted. Laboratory Results - last 24 hr 10/17/16 10/17/16 10/17/16 22:40 22:40 22:40 WBC 6.9 RBC 3.35 L Hgb 7.2 L D Hct 22.8 L MCV 68.1 L MCHC 31.5 L RDW 15.8 H Plt Count 427 MPV 7.6 Neutrophils % 76.5 Lymphocytes % 14.6 D Monocytes % 8.3 D Eosinophils % 0.4 Basophils % 0.2 Polychromasia Hypochromic-Microcytic Anisocytosis Microcytosis Tear Drop Cells Ovalocytes Rouleaux Fragmented RBCs Morphology Comment Puncture Site ABG pH ABG pCO2 at Pt Temp ABG pO2 at Pt Temp ABG HCO3 ABG O2 Sat (Measured) ABG O2 Content ABG Base Excess Marcio Test O2 Delivery Device Oxygen Flow Rate PEEP Sodium 143 Potassium 5.9 H D Chloride 111 H Carbon Dioxide 10 L D Anion Gap 22 H BUN 92 H Creatinine 21.2 H* Creat Clearance w eGFR 1.63 POC Glucometer Random Glucose 92 D Hemoglobin A1c % Calcium < 5.0 L* Phosphorus Magnesium Ferritin Total Bilirubin 0.3 D AST 16 ALT 13 Alkaline Phosphatase 113 Creatine Kinase 1055 H Troponin I Total Protein 6.0 L Albumin 2.3 L Triglycerides Cholesterol Total LDL Cholesterol HDL Cholesterol Stool Occult Blood Blood Type O POSITIVE Antibody Screen Negative 10/18/16 10/18/16 10/18/16 06:26 06:26 06:26 WBC 6.7 RBC 3.13 L Hgb 6.8 L* Hct 21.2 L MCV 67.6 L MCHC 32.3 RDW 15.7 H Plt Count 413 MPV 8.0 Neutrophils % 82.0 Lymphocytes % 15.0 Monocytes % 3.0 L Eosinophils % Basophils % Polychromasia 1+ Hypochromic-Microcytic 2+ Anisocytosis 1+ Microcytosis 1+ Tear Drop Cells 1+ Ovalocytes 2+ Rouleaux 1+ Fragmented RBCs 1+ Morphology Comment Slide scanned Puncture Site ABG pH ABG pCO2 at Pt Temp ABG pO2 at Pt Temp ABG HCO3 ABG O2 Sat (Measured) ABG O2 Content ABG Base Excess Marcio Test O2 Delivery Device Oxygen Flow Rate PEEP Sodium 143 Potassium 5.8 H Chloride 113 H Carbon Dioxide 10 L Anion Gap 20 H BUN 88 H Creatinine 20.5 H* Creat Clearance w eGFR 1.69 POC Glucometer Random Glucose 68 L D Hemoglobin A1c % 8.0 H Calcium < 5.0 L* Phosphorus 10.3 H* Magnesium 1.7 L Ferritin Total Bilirubin 0.3 AST 18 ALT 11 L Alkaline Phosphatase 108 Creatine Kinase 948 H Troponin I 0.07 H Total Protein 5.6 L Albumin 2.1 L Triglycerides 75 Cholesterol 144 Total LDL Cholesterol 69 HDL Cholesterol 68 H Stool Occult Blood Blood Type Antibody Screen 10/18/16 10/18/16 10/18/16 07:30 09:35 09:40 WBC RBC Hgb Hct MCV MCHC RDW Plt Count MPV Neutrophils % Lymphocytes % Monocytes % Eosinophils % Basophils % Polychromasia Hypochromic-Microcytic Anisocytosis Microcytosis Tear Drop Cells Ovalocytes Rouleaux Fragmented RBCs Morphology Comment Puncture Site Left radial ABG pH 7.21 L* ABG pCO2 at Pt Temp 25.3 L ABG pO2 at Pt Temp 113.0 H ABG HCO3 9.7 L* ABG O2 Sat (Measured) 97.7 ABG O2 Content 9.6 L* ABG Base Excess -16.7 L* Marcio Test Positive O2 Delivery Device Room air Oxygen Flow Rate 21% PEEP 0.0 Sodium 141 Potassium 5.7 H Chloride 111 H Carbon Dioxide 9 L Anion Gap 21 H BUN 82 H Creatinine 19.5 H* Creat Clearance w eGFR POC Glucometer Random Glucose 84 D Hemoglobin A1c % Calcium < 5.0 L* Phosphorus Magnesium Ferritin Total Bilirubin AST ALT Alkaline Phosphatase Creatine Kinase Troponin I Total Protein Albumin Triglycerides Cholesterol Total LDL Cholesterol HDL Cholesterol Stool Occult Blood Negative Blood Type Antibody Screen 10/18/16 10/18/16 09:40 11:10 WBC RBC Hgb Hct MCV MCHC RDW Plt Count MPV Neutrophils % Lymphocytes % Monocytes % Eosinophils % Basophils % Polychromasia Hypochromic-Microcytic Anisocytosis Microcytosis Tear Drop Cells Ovalocytes Rouleaux Fragmented RBCs Morphology Comment Puncture Site ABG pH ABG pCO2 at Pt Temp ABG pO2 at Pt Temp ABG HCO3 ABG O2 Sat (Measured) ABG O2 Content ABG Base Excess Marcio Test O2 Delivery Device Oxygen Flow Rate PEEP Sodium Potassium Chloride Carbon Dioxide Anion Gap BUN Creatinine Creat Clearance w eGFR POC Glucometer 102.73516 Random Glucose Hemoglobin A1c % Calcium Phosphorus Magnesium Ferritin 160.467 Total Bilirubin AST ALT Alkaline Phosphatase Creatine Kinase Troponin I Total Protein Albumin Triglycerides Cholesterol Total LDL Cholesterol HDL Cholesterol Stool Occult Blood Blood Type Antibody Screen Active Medications Generic Name Dose Route Start Last Admin Trade Name Freq PRN Reason Stop Dose Admin Acetaminophen 650 mg 10/17/16 23:22 Tylenol - PO Q6H PRN FEVER OR PAIN Calcium Acetate 1,334 mg 10/18/16 14:00 Phoslo - PO TID ZANA Chlorhexidine Gluconate 1 applic 10/18/16 22:00 Hibiclens For Decolonization - TP HS ZANA Sodium Chloride 1,000 mls @ 125 mls/hr 10/17/16 23:45 10/18/16 00:30 Normal Saline - IV 125 mls/hr ASDIR ZANA Administration Calcium Gluconate 13,000 mg/ 1,130 mls @ 50 mls/hr 10/18/16 09:22 10/18/16 11: 05 Dextrose IVPB 50 mls/hr Q22H ZANA Administration Insulin Aspart 1 vial 10/18/16 07:00 Novolog Vial Sliding Scale - SQ ACHS [facility] Protocol Mupirocin 1 applic 10/18/16 10:00 Bactroban Ointment (For Decolonization) - NS 10/23/16 09:59 BID [facility] ASSESSMENT/PLAN: Pt is a 66 yo F with a PMHx of DM and HTN who presents to the ED with lethargy x1-2wks and SOB. Pt was found to have significantly elevated BUN/Cr with severe electrolyte imbalances 2/2 acute on chronic renal failure. Acute renal failure with chronic kidney disease: Metabolic AcidosisMost likely secondary to untreated uncontrolled chronic DM/HTN to chronic condition, BUN/Cr 90/21.2 unknown ideiology at [facility], Urine studies to determine etiology of CKD temporary HD cath in place. currently on HD per nephrology, and additional HD tomorrow BL renal atrophy on US. Cr Cl less then 10 Altered Mental Status- metabolic encephalopathy improving close to base line. Hyperkalemia-secondary to renal failure-EKG MI interval upper limit of nml, peaked T waves. Improvement with medical treatment will trend after HD - HD per renal - repeat EKG in AM Hypocalcemia <5, 2/2 to renal failure and hyperphosphatemia -Calcium gluconate 2g IVPB and gtt started -Trend Ca Q12H per nephrology Anion gap metabolic acidosis-secondary to renal failure lactic acid elevated trend, susspect improvement post HD Hyperphosphatemia -Phos binders with meals -Low phos diet Microcytic anemia-Trending down, Hgb of 6.8 most recent -Stool occult negative less likely GI bleed but not ruled out -Iron studies pending -Hold heparin during HD -Hold PRBCs 2/2 hypocalcemia -? transfusion once calcium is nml and electrolyte imbalances corrected -Order type and screen and PRBCs Rhabdomyolysis- secondary to kidney injury and bed ridden IVF Diabetes -HgbA1C of 8.0% -Pt is not on anything at home for DM. Stopped taking Metformin 500mg BID two years ago per pt HTN-Stable -Trend after HD -Start BP medication if necessary. Pt stopped taking BP med two years ago. Does not remember name of med FEN -NS @125cc/hr -replete electolyte as needed after HD. elevated Ca+ -Renal diebetic low Na diet PPX -SCDs- Hold AC 2/2 to anemia - empiric protonix although likely chronic anemia - aspiration precautions -EAB Dispo: We will continue to follow the patient in ICU . Thank you for this consultative opportunity. Visit type - Emergency Visit Emergency Visit: Yes ED Registration Date: 10/17/16 Care time: The patient presented to the Emergency Department on the above date and was hospitalized for further evaluation of their emergent condition. - New Patient This patient is new to me today: Yes Date on this admission: 10/17/16 - Critical Care Critical Care patient: Yes Total Critical Care Time (in minutes): 56 Critical Care Statement: The care of this patient involved high complexity decision making to prevent further life threatening deterioration of the patient 's condition and/or to evalute & treat vital organ system(s) failure or risk of failure.
[2016-10-18] MEDS ORDERED: ACETAMINOPHEN 325 MG TABLET (FP) PO PRN (15:39)
[2016-10-18] MEDS ORDERED: SODIUM CHLORIDE 1,000 ML IV SCH (15:39)
--- NOTE | 2016-10-18 16:10 | PN ---
Teaching Attending Note Name of Resident: Paula Mayfield ATTENDING PHYSICIAN STATEMENT I saw and evaluated the patient. I reviewed the resident's note and discussed the case with the resident. I agree with the resident's findings and plan as documented. SUBJECTIVE: Patient is fatigued. OBJECTIVE: Vital Signs Period Temp Pulse Resp BP Sys/Rolle Pulse Ox Last 24 Hr 98.4 F 88-95 14-24 120-158/40-69 96-100 HEART: S1 S2, RRR LUNGS: Clear ABDOMEN: Obese, soft, non-tender, non-distended, normal BS EXTREMITIES: No edema ASSESSMENT AND PLAN: This is a 66-year-old woman with a history of HTN, type 2 DM who presented to the ER with lethargy. 1. Acute renal failure with hyperkalemia, metabolic acidosis, hypocalcemia, hyperphosphatemia - HD to start today - Regular insulin, D50, calcium gluconate, sodium bicarbonate, Kayexalate given in ER - PhosLo and calcium gluconate IV drip started 2. Anemia secondary to CKD - Procrit started 3. Type 2 diabetes mellitus - Continue Novolog sliding scale 4. HTN
[2016-10-18] MEDS: INSULIN SLIDING SCALE (NOVOLOG) 1 VIAL SQ SCH ×2 (16:40→22:43)
[2016-10-18 17:12] LABS: COCKROFT - GAULT 3.9015
[2016-10-18 17:27] LABS: CALCIUM 5.3 mg/dL (8.5-10.1)
--- NOTE | 2016-10-18 17:27 | PN ---
Physical Exam: SUBJECTIVE: Patient seen and examined, feels weak, sob, denies chest pain, palpitations, headache dizziness, denies problems with bowel or bladder. OBJECTIVE: Vital Signs Period Temp Pulse Resp BP Sys/Rolle Pulse Ox Last 24 Hr 97.4 F-98.4 F 82-94 14-24 146-180/52-75 96-100 GENERAL: The patient is awake, alert, and fully oriented, in no acute distress. HEAD: Normal with no signs of trauma. NECK: Trachea midline, full range of motion, supple. LUNGS: tachypnic, Breath sounds equal, clear to auscultation bilaterally, no wheezes, no crackles, no accessory muscle use. HEART: Regular rate and rhythm, S1, S2 without murmur, rub or gallop. ABDOMEN: Soft, nontender, nondistended, normoactive bowel sounds, no guarding, no rebound, no hepatosplenomegaly, no masses. EXTREMITIES: 2+ pulses, warm, well-perfused, no edema. NEUROLOGICAL: Cranial nerves II through XII grossly intact. Normal speech, gait not observed. PSYCH: Normal mood, normal affect. SKIN: Warm, dry, normal turgor, no rashes or lesions noted Laboratory Results - last 24 hr 10/17/16 10/17/16 10/17/16 22:40 22:40 22:40 WBC 6.9 RBC 3.35 L Hgb 7.2 L D Hct 22.8 L MCV 68.1 L MCHC 31.5 L RDW 15.8 H Plt Count 427 MPV 7.6 Neutrophils % 76.5 Lymphocytes % 14.6 D Monocytes % 8.3 D Eosinophils % 0.4 Basophils % 0.2 Polychromasia Hypochromic-Microcytic Anisocytosis Microcytosis Tear Drop Cells Ovalocytes Rouleaux Fragmented RBCs Morphology Comment Puncture Site ABG pH ABG pCO2 at Pt Temp ABG pO2 at Pt Temp ABG HCO3 ABG O2 Sat (Measured) ABG O2 Content ABG Base Excess Marcio Test O2 Delivery Device Oxygen Flow Rate PEEP Sodium 143 Potassium 5.9 H D Chloride 111 H Carbon Dioxide 10 L D Anion Gap 22 H BUN 92 H Creatinine 21.2 H* Creat Clearance w eGFR 1.63 POC Glucometer Random Glucose 92 D Hemoglobin A1c % Calcium < 5.0 L* Phosphorus Magnesium Ferritin Total Bilirubin 0.3 D AST 16 ALT 13 Alkaline Phosphatase 113 Creatine Kinase 1055 H Troponin I Total Protein 6.0 L Albumin 2.3 L Triglycerides Cholesterol Total LDL Cholesterol HDL Cholesterol Stool Occult Blood Anti-Streptolysin Scrn Blood Type O POSITIVE Antibody Screen Negative 10/18/16 10/18/16 10/18/16 06:26 06:26 06:26 WBC 6.7 RBC 3.13 L Hgb 6.8 L* Hct 21.2 L MCV 67.6 L MCHC 32.3 RDW 15.7 H Plt Count 413 MPV 8.0 Neutrophils % 82.0 Lymphocytes % 15.0 Monocytes % 3.0 L Eosinophils % Basophils % Polychromasia 1+ Hypochromic-Microcytic 2+ Anisocytosis 1+ Microcytosis 1+ Tear Drop Cells 1+ Ovalocytes 2+ Rouleaux 1+ Fragmented RBCs 1+ Morphology Comment Slide scanned Puncture Site ABG pH ABG pCO2 at Pt Temp ABG pO2 at Pt Temp ABG HCO3 ABG O2 Sat (Measured) ABG O2 Content ABG Base Excess Marcio Test O2 Delivery Device Oxygen Flow Rate PEEP Sodium 143 Potassium 5.8 H Chloride 113 H Carbon Dioxide 10 L Anion Gap 20 H BUN 88 H Creatinine 20.5 H* Creat Clearance w eGFR 1.69 POC Glucometer Random Glucose 68 L D Hemoglobin A1c % 8.0 H Calcium < 5.0 L* Phosphorus 10.3 H* Magnesium 1.7 L Ferritin Total Bilirubin 0.3 AST 18 ALT 11 L Alkaline Phosphatase 108 Creatine Kinase 948 H Troponin I 0.07 H Total Protein 5.6 L Albumin 2.1 L Triglycerides 75 Cholesterol 144 Total LDL Cholesterol 69 HDL Cholesterol 68 H Stool Occult Blood Anti-Streptolysin Scrn Blood Type Antibody Screen 10/18/16 10/18/16 10/18/16 07:30 09:35 09:40 WBC RBC Hgb Hct MCV MCHC RDW Plt Count MPV Neutrophils % Lymphocytes % Monocytes % Eosinophils % Basophils % Polychromasia Hypochromic-Microcytic Anisocytosis Microcytosis Tear Drop Cells Ovalocytes Rouleaux Fragmented RBCs Morphology Comment Puncture Site Left radial ABG pH 7.21 L* ABG pCO2 at Pt Temp 25.3 L ABG pO2 at Pt Temp 113.0 H ABG HCO3 9.7 L* ABG O2 Sat (Measured) 97.7 ABG O2 Content 9.6 L* ABG Base Excess -16.7 L* Macrio Test Positive O2 Delivery Device Room air Oxygen Flow Rate 21% PEEP 0.0 Sodium 141 Potassium 5.7 H Chloride 111 H Carbon Dioxide 9 L Anion Gap 21 H BUN 82 H Creatinine 19.5 H* Creat Clearance w eGFR POC Glucometer Random Glucose 84 D Hemoglobin A1c % Calcium < 5.0 L* Phosphorus Magnesium Ferritin Total Bilirubin AST ALT Alkaline Phosphatase Creatine Kinase Troponin I Total Protein Albumin Triglycerides Cholesterol Total LDL Cholesterol HDL Cholesterol Stool Occult Blood Negative Anti-Streptolysin Scrn Blood Type Antibody Screen 10/18/16 10/18/16 10/18/16 09:40 11:10 13:05 WBC RBC Hgb Hct MCV MCHC RDW Plt Count MPV Neutrophils % Lymphocytes % Monocytes % Eosinophils % Basophils % Polychromasia Hypochromic-Microcytic Anisocytosis Microcytosis Tear Drop Cells Ovalocytes Rouleaux Fragmented RBCs Morphology Comment Puncture Site ABG pH ABG pCO2 at Pt Temp ABG pO2 at Pt Temp ABG HCO3 ABG O2 Sat (Measured) ABG O2 Content ABG Base Excess Marcio Test O2 Delivery Device Oxygen Flow Rate PEEP Sodium Potassium Chloride Carbon Dioxide Anion Gap BUN Creatinine Creat Clearance w eGFR POC Glucometer 102.53002 Random Glucose Hemoglobin A1c % Calcium Phosphorus Magnesium Ferritin 160.467 Total Bilirubin AST ALT Alkaline Phosphatase Creatine Kinase Troponin I Total Protein Albumin Triglycerides Cholesterol Total LDL Cholesterol HDL Cholesterol Stool Occult Blood Anti-Streptolysin Scrn < 200 Blood Type Antibody Screen 10/18/16 16:30 WBC RBC Hgb Hct MCV MCHC RDW Plt Count MPV Neutrophils % Lymphocytes % Monocytes % Eosinophils % Basophils % Polychromasia Hypochromic-Microcytic Anisocytosis Microcytosis Tear Drop Cells Ovalocytes Rouleaux Fragmented RBCs Morphology Comment Puncture Site ABG pH ABG pCO2 at Pt Temp ABG pO2 at Pt Temp ABG HCO3 ABG O2 Sat (Measured) ABG O2 Content ABG Base Excess Marcio Test O2 Delivery Device Oxygen Flow Rate PEEP Sodium Potassium Chloride Carbon Dioxide Anion Gap BUN Creatinine Creat Clearance w eGFR POC Glucometer 114.03502 Random Glucose Hemoglobin A1c % Calcium Phosphorus Magnesium Ferritin Total Bilirubin AST ALT Alkaline Phosphatase Creatine Kinase Troponin I Total Protein Albumin Triglycerides Cholesterol Total LDL Cholesterol HDL Cholesterol Stool Occult Blood Anti-Streptolysin Scrn Blood Type Antibody Screen Active Medications Generic Name Dose Route Start Last Admin Trade Name Freq PRN Reason Stop Dose Admin Acetaminophen 650 mg 10/18/16 15:39 Tylenol - PO Q6H PRN FEVER OR PAIN Calcium Acetate 1,334 mg 10/18/16 14:00 Phoslo - PO TID [facility] Chlorhexidine Gluconate 1 applic 10/18/16 22:00 Hibiclens For Decolonization - TP HS [facility] Epoetin Samuel 10,000 unit 10/19/16 06:00 Procrit - IVPUSH 10/19/16 06:01 ONCE ONE Calcium Gluconate 13,000 mg/ 1,130 mls @ 50 mls/hr 10/18/16 09:22 10/18/16 11: 05 Dextrose IVPB 50 mls/hr Q22H [facility] Administration Insulin Aspart 1 vial 10/18/16 16:30 10/18/16 16:40 Novolog Vial Sliding Scale - SQ Not Given ACHS [facility] Protocol Mupirocin 1 applic 10/18/16 10:00 Bactroban Ointment (For Decolonization) - NS 10/23/16 09:59 BID [facility] ASSESSMENT/PLAN: This is a 66 year old female with a PMHx of Chronic kidney disease, HTN, DM & legally blind, who presented to the emergency room for weakness. Patient has not seen a doctor nor taken any medications in 2 years. Found to be severely hyperkalemic and hypocalemic in the emergency room. Dialysis. #Altered mental status ml metabolic -correct electrolytes abnormalities #Acute on chronic kidney injury: -Dialysis today -nephro consult -avoid neprotoxic drugs #hyperkalemia: -received calcium, bicarb, albuterol, insulin/D50 -dialysis #hypocalcemia: -given calcium gluconate 2gm -started on calcium glucondate drip; 13gms in [id number] at 50cc/hr; recheck Ca; if >8 can stop -get ionized calcium #hyperphosphatemia: -will bring down slowly; -getting dialysis -phosphate binders #Anemia most likely chronic vs acute -iron studies -may be secondary to renal failure vs blood loss -denies blood/dark stool; -fobt negative -epgen -will get 1 Unit of PRBC after dialysis #htn: -cont home meds #DM: -insulin ss; bgm FEN Fluids: po Electrolytes: see above Diet: renal VTE prophylaxis: scds Disposition: icu monitoring overnight Visit type - Emergency Visit Emergency Visit: Yes ED Registration Date: 10/17/16 Care time: The patient presented to the Emergency Department on the above date and was hospitalized for further evaluation of their emergent condition. - New Patient This patient is new to me today: Yes Date on this admission: 10/18/16 - Critical Care Critical Care patient: Yes Total Critical Care Time (in minutes): 35 Critical Care Statement: The care of this patient involved high complexity decision making to prevent further life threatening deterioration of the patient 's condition and/or to evalute & treat vital organ system(s) failure or risk of failure.
[2016-10-18 20:53] LABS: MCH 21.1 pg (25.7-33.7); MCHC 31.6 g/dl (32.0-36.0); MEAN CELL VOLUME 66.9 fl (80-96); PLATELET COUNT 367 K/MM3 (134-434); RDW 15.2 % (11.6-15.6); WHITE BLOOD COUNT 6.7 K/mm3 (4.0-10.0)
[2016-10-18 21:51] LABS: COCKROFT - GAULT 6.7915; MAGNESIUM 1.6 mg/dL (1.8-2.4); PHOSPHOROUS 5.4 mg/dL (2.5-4.9)
[2016-10-18 22:00] LABS: CALCIUM 6.5 mg/dL (8.5-10.1); CREATININE 11.5 mg/dL (0.55-1.02)
[2016-10-18 22:26] LABS: HYPOCHROMIA 2+; MICROCYTOSIS 1+; PLATELET ESTIMATE ADEQUATE (NORMAL); POLYCHROMASIA 1+
[2016-10-18 22:27] LABS: SCHISTOCYTES 1+; TARGET CELLS 2+
[2016-10-18] MEDS: CALCIUM ACETATE 667 MG CAPSULE (FP) PO SCH (22:43)
[2016-10-18] MEDS: CHLORHEXIDINE GLUCONATE 4% CLEANSER FOR DECOLONIZATION TP SCH (22:43)
[2016-10-18] MEDS: MUPIROCIN 2% TOPICAL OINTMENT FOR DECOLONIZATION NS SCH (22:44)
[2016-10-19] MEDS ORDERED: CALCIUM GLUCONATE 10% - 1,000 MG/10 ML VIAL IVPB ONE (04:15)
[2016-10-19 06:06] LABS: SERUM IRON 86 ug/dL (27-139); TOTAL IRON BINDING CAPACITY 139 ug/dL (250-450); UIBC 53 ug/dL (118-369)
[2016-10-19 06:14] LABS: MCH 21.8 pg (25.7-33.7); MEAN CELL VOLUME 67.1 fl (80-96); MEAN PLT VOLUME 8.3 fl (7.5-11.1); PLATELET COUNT 335 K/MM3 (134-434); WHITE BLOOD COUNT 6.9 K/mm3 (4.0-10.0)
[2016-10-19] MEDS: INSULIN SLIDING SCALE (NOVOLOG) 1 VIAL SQ SCH ×4 (06:29→21:55)
[2016-10-19] MEDS: CALCIUM ACETATE 667 MG CAPSULE (FP) PO SCH ×3 (06:29→21:46)
[2016-10-19 06:31] LABS: MCHC 32.6 g/dl (32.0-36.0)
[2016-10-19 06:44] LABS: ALBUMIN 1.8 g/dl (3.4-5.0); BILIRUBIN,TOTAL 0.4 mg/dL (0.2-1.0); PHOSPHOROUS 6.2 mg/dL (2.5-4.9); TOT PROT 4.8 g/dl (6.4-8.2)
[2016-10-19 06:50] LABS: COCKROFT - GAULT 6.4005
[2016-10-19 07:03] LABS: CALCIUM 6.3 mg/dL (8.5-10.1); CREATININE 12.2 mg/dL (0.55-1.02)
[2016-10-19] MEDS: MUPIROCIN 2% TOPICAL OINTMENT FOR DECOLONIZATION NS SCH ×2 (09:59→21:58)
--- NOTE | 2016-10-19 10:47 | PN ---
Progress Note (short form) - Note Progress Note: Renal Follow up for DAVI/Hyperkalemia Pt seen and examined at the bedside s/p 1st dialysis yesterday pt without any complaints getting prbc transfusion BP high only 200cc urine output recorded no sob, chest pain, fever or chills Vital Signs Temperature 99.0 F 10/19/16 10:00 Pulse Rate 91 H 10/19/16 10:00 Respiratory Rate 26 H 10/19/16 10:00 Blood Pressure 172/64 10/19/16 10:00 O2 Sat by Pulse Oximetry (%) 100 10/19/16 06:47 Intake & Output 10/16/16 10/17/16 10/18/16 10/19/16 23:59 23:59 23:59 23:59 Intake Total 910 720 Output Total 100 200 150 Balance -100 710 570 Weight 200 lb 195 lb 9.6 oz Gen: NAD, awake and alert CVS: RRR, No M/R Lungs :CTA, no rales or wheeze Abd: soft, Obese, NT/ND Ext: NO edema, clubbing or cyanosis : No bladder distension, cueva in place Access: Femoral HD catheter CBC, BMP 10/19/16 05:15 10/19/16 05:15 Laboratory Tests 10/19/16 05:15 Calcium 6.3 L* Phosphorus 6.2 H Albumin 1.8 L Laboratory Tests 10/17/16 10/17/16 03:00 19:53 Urine Protein 3+ H Urine Glucose (UA) 1+ H Urine Ketones Trace H Urine Blood 1+ H Urine Creatinine Pending A/P 66 year old woman with PMhx of Hypertension, DM Type 2 not currently taking medications that presented with fatigue/malaise and found to have acute renal failure, hyperkalemia and hypocalcemia. #Acute Renal Failure Etiology of renal dysfunction unclear at this time pt does have family hx of SLE and ESRD (pt at risk for FSGS from APOL1 dyfucntion given that she is and has family hx of CKD and pt at risk for Lupus nephritis however pt denies any facial rash, arthritis, thrombocytopenia that would suggest SLE) SANDRO sent Urine studies pending for 2nd HD today trend BUN/Cr if renal function does not show signs of improvement may need to have halfway HD access placement #Hyperkalemia improved s/p dialysis low k/renal diet #Anion Gap Metabolic acidosis improved s/p HD #Hypocalcemia Corrected Ca is 8.06 d/c calcium gtt Continue Vit D with HD #Hyperphospahtemia continue phos binders #Microcytic Anemia getting PRBC goal Hgb at least > 8 Will give VON with HD #Hypertension Trend BP for now no NARENDRA or ARB until we can determine if the renal function can be improved #Proteinuria Check UPCR David Schroeder DO
--- NOTE | 2016-10-19 11:12 | MSN ---
Progress Note (short form) - Note Progress Note: SUBJECTIVE: Pt seen and examined at bedside. Pt has no complaints at this time. States she has no Sx. Denies fevers, chills, CP, SOB, abdominal pain, N/V/C. Pt states she had an episode of diarrhea this morning. Active Medications Generic Name Dose Route Start Last Admin Trade Name Freq PRN Reason Stop Dose Admin Acetaminophen 650 mg 10/18/16 15:39 Tylenol - PO Q6H PRN FEVER OR PAIN Calcium Acetate 1,334 mg 10/18/16 14:00 10/19/16 06:29 Phoslo - PO 1,334 mg TID ZANA Administration Chlorhexidine Gluconate 1 applic 10/18/16 22:00 10/18/16 22:43 Hibiclens For Decolonization - TP 1 applic HS ZANA Administration Epoetin Samuel 10,000 unit 10/19/16 06:00 Procrit - IVPUSH 10/19/16 06:01 ONCE ONE Insulin Aspart 1 vial 10/18/16 16:30 10/19/16 06:29 Novolog Vial Sliding Scale - SQ Not Given ACHS [facility] Protocol Mupirocin 1 applic 10/18/16 10:00 10/19/16 09:59 Bactroban Ointment (For Decolonization) - NS 10/23/16 09:59 1 applic BID ZANA Administration Paricalcitol 2 mcg 10/19/16 10:36 Zemplar - IVPUSH 10/19/16 10:37 ONCE ONE OBJECTIVE: Vital Signs Period Temp Pulse Resp BP Sys/Rolle Pulse Ox Last 24 Hr 97.4 F-100 F 80-96 17-27 124-180/43-75 98-100 Intake & Output 10/16/16 10/17/16 10/18/16 10/19/16 23:59 23:59 23:59 23:59 Intake Total 910 720 Output Total 100 200 150 Balance -100 710 570 Weight 200 lb 195 lb 9.6 oz GENERAL: AAOx3 in NAD, does not appear as lethargic as yesterday, mental status returning to baseline HEAD: NC, AT, -icterus, EOMI, R PERRL, fixed dilated L pupil (pt has Hx of cataract Sx in L eye) NECK: -JVD, supple, -LAD HEART: RRR +S1/S2 with ?diastolic/systolic murmur LUNGS: CTAB ABDOMEN: Soft, ND, NTTP, no guarding/rigidity, NBS, no hemorrhoids seen, no masses palpated during GARCIA, no gross blood identified on fingertip : Montiel in place draining <100cc clear, yellow urine EXT: Trace edema BL LE NEURO: Normal speech CBC, BMP 10/19/16 05:15 10/19/16 05:15 Urine Test Results Urine Color Yellow 10/17/16 19:53 Urine Appearance Cloudy 10/17/16 19:53 Urine pH 5.0 (5.0-8.0) 10/17/16 19:53 Ur Specific [place] 1.017 (1.001-1.035) 10/17/16 19:53 Urine Protein 3+ (NEGATIVE) H 10/17/16 19:53 Urine Glucose (UA) 1+ (NEGATIVE) H 10/17/16 19:53 Urine Ketones Trace (NEGATIVE) H 10/17/16 19:53 Urine Blood 1+ (NEGATIVE) H 10/17/16 19:53 Urine Nitrite Negative (NEGATIVE) 10/17/16 19:53 Urine Bilirubin Negative (NEGATIVE) 10/17/16 19:53 Ur Leukocyte Esterase Negative (NEGATIVE) 10/17/16 19:53 Urine RBC 4 /hpf (0-3) 10/17/16 19:53 Urine WBC 11 /hpf (3-5) 10/17/16 19:53 Ur Epithelial Cells Rare /hpf (FEW) 10/17/16 19:53 Urine Mucus Rare 10/17/16 19:53 Microbiology 10/17/16 19:53 Urine Culture - Final Urine - Urine Clean Catch NO GROWTH OBTAINED CXR: No change from previous CXR on 10/17/16. No signs of PNA, CHF, PTX, or pleural effusion A/P: Pt is a 66 yo F with a PMHx of DM and HTN who presents to the ED with lethargy x1-2wks and SOB. Pt was found to have significantly elevated BUN/Cr with severe electrolyte imbalances 2/2 acute on chronic renal failure. Emergent HD was deferred overnight. 1. Acute renal failure with chronic kidney disease -Improving s/p 1 HD session yesterday. BUN/Cr of 45/12.2 -Will get another HD session today per Dr. Schroeder -Most likely 2/2 to chronic condition (Hx of DM, HTN) vs. SLE vs. FSGS. Definitive etiology in question -Renal consult appreciated -Surgery consult appreciated. HD cath placed. ? permanent HD placement depending on renal fxn after HD sessions -Urine Cx negative -Urine Cr, Urine Na pending -Dose meds with Cr Cl of <10 2. Hyperkalemia -2/2 renal failure -Resolved. K+ of 4.2 today after 1st HD session -EKG on presentation showed classic changes (HI interval upper limit of nml, peaked T waves). Most recent EKG is normalizing -IV calcium, insulin, and kaexylate given in ED -Repeat EKG pending -Low K+ diet 3. Hypocalcemia -Improving with corrected calcium of ~8 today -2/2 hyperphosphatemia/renal failure -Calcium gluconate gtt stopped -Trend Ca Q12H 4. Hyperphosphatemia -Improving -PhosLo with meals -Low phos diet 5. Microcytic anemia -Trending down, Hgb of 6.1 today -Stool occult negative. Pt will need outpt FU with GI for colonoscopy -Iron studies consistent with anemia of chronic disease -Pt receiving PRBCs today. Goal is Hgb >8 6. Diabetes -HgbA1C of 8.0% -Pt is not on anything at home for DM. Stopped taking Metformin 500mg BID two years ago per pt -POC readings all <150 -Cont SSI -Will discuss DC pt on DM medication once stabilized 7. HTN -Stable -Will order ECHO. Pt has Hx of HTN and murmur/trace edema of BL LE on PE -Pt stopped taking BP med two years ago. Does not remember name of med -Hold NARENDRA/ARB for now until etiology of CKD discovered -Will discuss DC pt on HTN medication once stabilized 8. Anion gap metabolic acidosis -2/2 renal failure -Resolved s/p 1st HD session 9. FEN -No IVF currently -Continue to monitor CBC and CMP -Renal diet 10. PPX -Hold AC 2/2 to anemia -SCDs -EAB 11. Dispo -Admitted to ICU. LOS in question right now. Can be transferred out of ICU to floor today after HD session Steven Holloway, MS3 Problem List - Problems (1) Acute renal failure (2) Hyperkalemia
--- NOTE | 2016-10-19 11:42 | EKG ---
Test Reason : Blood Pressure : / mmHG Vent. Rate : 125 BPM Atrial Rate : 091 BPM P-R Int : 196 ms QRS Dur : 098 ms QT Int : 448 ms P-R-T Axes : 059 -29 071 degrees QTc Int : 646 ms SINUS TACHYCARDIA SEPTAL INFARCT , AGE UNDETERMINED ABNORMAL ECG NO PREVIOUS ECGS AVAILABLE Confirmed by STEFAN CERVANTES, JUAN CARLOS ([id number]) on 10/19/2016 11:42:15 AM Referred By: Confirmed By:JUAN CARLOS AVILES MD
[2016-10-19 14:18] LABS: CALCIUM 4.9 mg/dL (8.7-10.3)
[2016-10-19] MEDS ORDERED: EPOETIN ALFA 10,000 UNIT/1 ML VIAL IVPUSH ONE (15:15)
[2016-10-19] MEDS ORDERED: PARICALCITOL 5 MCG/ML VIAL IVPUSH ONE (15:15)
--- NOTE | 2016-10-19 16:04 | PN ---
Progress Note (short form) - Note Progress Note: Patient seen and examined in the ICU. Awake and alert. Currently receiving pRBCs. No CP or SOB. Intake & Output 10/16/16 10/17/16 10/18/16 10/19/16 23:59 23:59 23:59 23:59 Intake Total 910 870 Output Total 100 200 400 Balance -100 710 470 Weight 200 lb 195 lb 9.6 oz Last Vital Signs Temp Pulse Resp BP Pulse Ox 99.0 F 76 18 164/81 100 10/19/16 14:00 10/19/16 15:55 10/19/16 15:55 10/19/16 15:55 10/19/16 09:00 Active Medications Acetaminophen (Tylenol -) 650 mg PO Q6H PRN PRN Reason: FEVER OR PAIN Calcium Acetate (Phoslo -) 1,334 mg PO TID [facility] Last Admin: 10/19/16 06:29 Dose: 1,334 mg Chlorhexidine Gluconate (Hibiclens For Decolonization -) 1 applic TP HS [facility] Last Admin: 10/18/16 22:43 Dose: 1 applic Insulin Aspart (Novolog Vial Sliding Scale -) 1 vial SQ ACHS ZANA PRN Reason: Protocol Last Admin: 10/19/16 12:53 Dose: Not Given Mupirocin (Bactroban Ointment (For Decolonization) -) 1 applic NS BID [facility] Stop: 10/23/16 09:59 Last Admin: 10/19/16 09:59 Dose: 1 applic Gen: NAD, awake and alert Heart: RRR Lung: decreased breath sounds at the bases Abd: soft, nontender Ext: no edema Laboratory Results - last 24 hr 10/17/16 10/17/16 10/18/16 03:00 22:40 10:40 WBC RBC Hgb Hct MCV MCHC RDW Plt Count MPV Platelet Estimate Polychromasia Hypochromic-Microcytic Microcytosis Target Cells Schistocytes Sodium Potassium Chloride Carbon Dioxide Anion Gap BUN Creatinine Creat Clearance w eGFR POC Glucometer Random Glucose Calcium Phosphorus Magnesium Iron TIBC Iron Saturation Total Bilirubin AST ALT Alkaline Phosphatase Total Protein Albumin PTH Intact PTH Intact Intraop 0 m Urine Creatinine 57.4 Hepatitis A Ab Total Positive Hep Bs Antigen Negative Hep Bs Antibody Non reactive Hep B Core Total Ab Negative Hepatitis C Antibody Anti-Streptolysin Scrn Blood Type O POSITIVE Antibody Screen Negative Crossmatch See Detail Spec Expiration Date 10/18/16 10/18/16 10/18/16 10:40 13:05 13:05 WBC RBC Hgb Hct MCV MCHC RDW Plt Count MPV Platelet Estimate Polychromasia Hypochromic-Microcytic Microcytosis Target Cells Schistocytes Sodium Potassium Chloride Carbon Dioxide Anion Gap BUN Creatinine Creat Clearance w eGFR POC Glucometer Random Glucose Calcium 4.9 L* Phosphorus Magnesium Iron 86 TIBC 139 L Iron Saturation 62 H Total Bilirubin AST ALT Alkaline Phosphatase Total Protein Albumin PTH Intact 875 H PTH Intact Intraop 0 m Urine Creatinine Hepatitis A Ab Total Hep Bs Antigen Hep Bs Antibody Hep B Core Total Ab Hepatitis C Antibody 0.3 Anti-Streptolysin Scrn Blood Type Antibody Screen Crossmatch Spec Expiration Date 10/18/16 10/18/16 10/18/16 13:05 16:00 16:30 WBC RBC Hgb Hct MCV MCHC RDW Plt Count MPV Platelet Estimate Polychromasia Hypochromic-Microcytic Microcytosis Target Cells Schistocytes Sodium 138 Potassium 5.5 H Chloride 109 H Carbon Dioxide 11 L D Anion Gap 18 H BUN 82 H Creatinine 20.0 H* Creat Clearance w eGFR POC Glucometer 114.00700 Random Glucose 84 Calcium 5.3 L* Phosphorus Magnesium Iron TIBC Iron Saturation Total Bilirubin AST ALT Alkaline Phosphatase Total Protein Albumin PTH Intact PTH Intact Intraop 0 m Urine Creatinine Hepatitis A Ab Total Hep Bs Antigen Hep Bs Antibody Hep B Core Total Ab Hepatitis C Antibody Anti-Streptolysin Scrn < 200 Blood Type Antibody Screen Crossmatch Spec Expiration Date 10/18/16 10/18/16 10/18/16 20:35 20:35 22:33 WBC 6.7 RBC 3.12 L Hgb 6.6 L* Hct 20.9 L MCV 66.9 L MCHC 31.6 L RDW 15.2 Plt Count 367 MPV 8.0 Platelet Estimate Adequate Polychromasia 1+ Hypochromic-Microcytic 2+ Microcytosis 1+ Target Cells 2+ Schistocytes 1+ Sodium 139 Potassium 4.1 D Chloride 103 Carbon Dioxide 18 L D Anion Gap 18 H BUN 43 H D Creatinine 11.5 H* D Creat Clearance w eGFR POC Glucometer 148.93648 Random Glucose 79 Calcium 6.5 L* D Phosphorus 5.4 H D Magnesium 1.6 L Iron TIBC Iron Saturation Total Bilirubin AST ALT Alkaline Phosphatase Total Protein Albumin PTH Intact PTH Intact Intraop 0 m Urine Creatinine Hepatitis A Ab Total Hep Bs Antigen Hep Bs Antibody Hep B Core Total Ab Hepatitis C Antibody Anti-Streptolysin Scrn Blood Type Antibody Screen Crossmatch Spec Expiration Date 10/19/16 10/19/16 10/19/16 05:15 05:15 05:56 WBC 6.9 RBC 2.78 L Hgb 6.1 L* Hct 18.7 L MCV 67.1 L MCHC 32.6 RDW 15.0 Plt Count 335 MPV 8.3 Platelet Estimate Polychromasia Hypochromic-Microcytic Microcytosis Target Cells Schistocytes Sodium 138 Potassium 4.2 Chloride 102 Carbon Dioxide 21 Anion Gap 15 BUN 45 H Creatinine 12.2 H* Creat Clearance w eGFR 3.08 POC Glucometer 103.63341 Random Glucose 82 Calcium 6.3 L* Phosphorus 6.2 H Magnesium Iron TIBC Iron Saturation Total Bilirubin 0.4 D AST 15 ALT 13 Alkaline Phosphatase 87 Total Protein 4.8 L Albumin 1.8 L PTH Intact PTH Intact Intraop 0 m Urine Creatinine Hepatitis A Ab Total Hep Bs Antigen Hep Bs Antibody Hep B Core Total Ab Hepatitis C Antibody Anti-Streptolysin Scrn Blood Type Antibody Screen Crossmatch Spec Expiration Date 10/19/16 10/19/16 08:45 12:14 WBC RBC Hgb Hct MCV MCHC RDW Plt Count MPV Platelet Estimate Polychromasia Hypochromic-Microcytic Microcytosis Target Cells Schistocytes Sodium Potassium Chloride Carbon Dioxide Anion Gap BUN Creatinine Creat Clearance w eGFR POC Glucometer 132.04611 Random Glucose Calcium Phosphorus Magnesium Iron TIBC Iron Saturation Total Bilirubin AST ALT Alkaline Phosphatase Total Protein Albumin PTH Intact PTH Intact Intraop 0 m Urine Creatinine Hepatitis A Ab Total Hep Bs Antigen Hep Bs Antibody Hep B Core Total Ab Hepatitis C Antibody Anti-Streptolysin Scrn Blood Type O POSITIVE Antibody Screen Crossmatch See Detail Spec Expiration Date ASSESSMENT AND PLAN: Altered Mental Status Acute Kidney Injury Hyperkalemia Hypocalcemia Metabolic Acidosis Rhabdomyolysis Anemia HTN DM - HD per renal - monitor lytes - monitor urine output, creatinine - monitor H/H - PPI - renal work up in progress Dr Mccullough Critical care time spent in reviewing chart, evaluating patient and formulating plan 35 min
--- NOTE | 2016-10-19 16:15 | PN ---
Physical Exam: SUBJECTIVE: Patient seen and examined, no new complaints, states she is feeling better. Denies chest pain , sob, palpitations, abdominal pain. OBJECTIVE: Vital Signs Period Temp Pulse Resp BP Sys/Rolle Pulse Ox Last 24 Hr 98.5 F-100 F 69-96 17-27 122-180/43-81 98-100 GENERAL: The patient is awake, alert, and fully oriented, in no acute distress. HEAD: Normal with no signs of trauma. LUNGS: Breath sounds equal, clear to auscultation bilaterally, no wheezes, no crackles, no accessory muscle use. HEART: Regular rate and rhythm, S1, S2< +murmur, rub or gallop. ABDOMEN: Soft, nontender, nondistended, normoactive bowel sounds, no guarding, no rebound, no hepatosplenomegaly, no masses. EXTREMITIES: 2+ pulses, warm, well-perfused, Right LE trace edema NEUROLOGICAL: Cranial nerves II through XII grossly intact. Normal speech, gait not observed. PSYCH: Normal mood, normal affect. SKIN: Warm, dry, normal turgor, no rashes or lesions noted Laboratory Results - last 24 hr 10/17/16 10/18/16 10/18/16 22:40 10:40 10:40 WBC RBC Hgb Hct MCV MCHC RDW Plt Count MPV Platelet Estimate Polychromasia Hypochromic-Microcytic Microcytosis Target Cells Schistocytes Sodium Potassium Chloride Carbon Dioxide Anion Gap BUN Creatinine Creat Clearance w eGFR POC Glucometer Random Glucose Calcium Phosphorus Magnesium Iron TIBC Iron Saturation Total Bilirubin AST ALT Alkaline Phosphatase Total Protein Albumin PTH Intact PTH Intact Intraop 0 m Hepatitis A Ab Total Positive Hep Bs Antigen Negative Hep Bs Antibody Non reactive Hep B Core Total Ab Negative Hepatitis C Antibody 0.3 Anti-Streptolysin Scrn Blood Type O POSITIVE Antibody Screen Negative Crossmatch See Detail Spec Expiration Date 10/18/16 10/18/16 10/18/16 13:05 13:05 13:05 WBC RBC Hgb Hct MCV MCHC RDW Plt Count MPV Platelet Estimate Polychromasia Hypochromic-Microcytic Microcytosis Target Cells Schistocytes Sodium Potassium Chloride Carbon Dioxide Anion Gap BUN Creatinine Creat Clearance w eGFR POC Glucometer Random Glucose Calcium 4.9 L* Phosphorus Magnesium Iron 86 TIBC 139 L Iron Saturation 62 H Total Bilirubin AST ALT Alkaline Phosphatase Total Protein Albumin PTH Intact 875 H PTH Intact Intraop 0 m Hepatitis A Ab Total Hep Bs Antigen Hep Bs Antibody Hep B Core Total Ab Hepatitis C Antibody Anti-Streptolysin Scrn < 200 Blood Type Antibody Screen Crossmatch Spec Expiration Date 10/18/16 10/18/16 10/18/16 16:00 16:30 20:35 WBC RBC Hgb Hct MCV MCHC RDW Plt Count MPV Platelet Estimate Polychromasia Hypochromic-Microcytic Microcytosis Target Cells Schistocytes Sodium 138 139 Potassium 5.5 H 4.1 D Chloride 109 H 103 Carbon Dioxide 11 L D 18 L D Anion Gap 18 H 18 H BUN 82 H 43 H D Creatinine 20.0 H* 11.5 H* D Creat Clearance w eGFR POC Glucometer 114.59812 Random Glucose 84 79 Calcium 5.3 L* 6.5 L* D Phosphorus 5.4 H D Magnesium 1.6 L Iron TIBC Iron Saturation Total Bilirubin AST ALT Alkaline Phosphatase Total Protein Albumin PTH Intact PTH Intact Intraop 0 m Hepatitis A Ab Total Hep Bs Antigen Hep Bs Antibody Hep B Core Total Ab Hepatitis C Antibody Anti-Streptolysin Scrn Blood Type Antibody Screen Crossmatch Spec Expiration Date 10/18/16 10/18/16 10/19/16 20:35 22:33 05:15 WBC 6.7 6.9 RBC 3.12 L 2.78 L Hgb 6.6 L* 6.1 L* Hct 20.9 L 18.7 L MCV 66.9 L 67.1 L MCHC 31.6 L 32.6 RDW 15.2 15.0 Plt Count 367 335 MPV 8.0 8.3 Platelet Estimate Adequate Polychromasia 1+ Hypochromic-Microcytic 2+ Microcytosis 1+ Target Cells 2+ Schistocytes 1+ Sodium Potassium Chloride Carbon Dioxide Anion Gap BUN Creatinine Creat Clearance w eGFR POC Glucometer 148.36416 Random Glucose Calcium Phosphorus Magnesium Iron TIBC Iron Saturation Total Bilirubin AST ALT Alkaline Phosphatase Total Protein Albumin PTH Intact PTH Intact Intraop 0 m Hepatitis A Ab Total Hep Bs Antigen Hep Bs Antibody Hep B Core Total Ab Hepatitis C Antibody Anti-Streptolysin Scrn Blood Type Antibody Screen Crossmatch Spec Expiration Date 10/19/16 10/19/16 10/19/16 05:15 05:56 08:45 WBC RBC Hgb Hct MCV MCHC RDW Plt Count MPV Platelet Estimate Polychromasia Hypochromic-Microcytic Microcytosis Target Cells Schistocytes Sodium 138 Potassium 4.2 Chloride 102 Carbon Dioxide 21 Anion Gap 15 BUN 45 H Creatinine 12.2 H* Creat Clearance w eGFR 3.08 POC Glucometer 103.53495 Random Glucose 82 Calcium 6.3 L* Phosphorus 6.2 H Magnesium Iron TIBC Iron Saturation Total Bilirubin 0.4 D AST 15 ALT 13 Alkaline Phosphatase 87 Total Protein 4.8 L Albumin 1.8 L PTH Intact PTH Intact Intraop 0 m Hepatitis A Ab Total Hep Bs Antigen Hep Bs Antibody Hep B Core Total Ab Hepatitis C Antibody Anti-Streptolysin Scrn Blood Type O POSITIVE Antibody Screen Crossmatch See Detail Spec Expiration Date 10/19/16 12:14 WBC RBC Hgb Hct MCV MCHC RDW Plt Count MPV Platelet Estimate Polychromasia Hypochromic-Microcytic Microcytosis Target Cells Schistocytes Sodium Potassium Chloride Carbon Dioxide Anion Gap BUN Creatinine Creat Clearance w eGFR POC Glucometer 132.74248 Random Glucose Calcium Phosphorus Magnesium Iron TIBC Iron Saturation Total Bilirubin AST ALT Alkaline Phosphatase Total Protein Albumin PTH Intact PTH Intact Intraop 0 m Hepatitis A Ab Total Hep Bs Antigen Hep Bs Antibody Hep B Core Total Ab Hepatitis C Antibody Anti-Streptolysin Scrn Blood Type Antibody Screen Crossmatch Spec Expiration Date Active Medications Generic Name Dose Route Start Last Admin Trade Name Freq PRN Reason Stop Dose Admin Acetaminophen 650 mg 10/18/16 15:39 Tylenol - PO Q6H PRN FEVER OR PAIN Calcium Acetate 1,334 mg 10/18/16 14:00 10/19/16 06:29 Phoslo - PO 1,334 mg TID ZANA Administration Chlorhexidine Gluconate 1 applic 10/18/16 22:00 10/18/16 22:43 Hibiclens For Decolonization - TP 1 applic HS ZANA Administration Insulin Aspart 1 vial 10/18/16 16:30 10/19/16 12:53 Novolog Vial Sliding Scale - SQ Not Given ACHS [facility] Protocol Mupirocin 1 applic 10/18/16 10:00 10/19/16 09:59 Bactroban Ointment (For Decolonization) - NS 10/23/16 09:59 1 applic BID ZANA Administration ASSESSMENT/PLAN: This is a 66 year old female with a PMHx of Chronic kidney disease, HTN, DM & legally blind, who presented to the emergency room for weakness. Patient has not seen a doctor nor taken any medications in 2 years. Found to be severely hyperkalemic and hypocalemic in the emergency room. Dialysis. #Altered mental stat;l metabolic: metabolic adicosis: improved -correct electrolytes abnormalities #Acute on chronic kidney injury: -Dialysis as per nephro -nephro consult -avoid neprotoxic drugs #hyperkalemia: -received calcium, bicarb, albuterol, insulin/D50 -dialysis #hypocalcemia: -continue with replacement -trend : corrected Ca today 8.2 #hyperphosphatemia: -will bring down slowly; -getting dialysis -phosphate binders #Anemia most likely chronic vs acute -iron studies -may be secondary to renal failure vs blood loss -denies blood/dark stool; -fobt negative -epgen -2Units of blood today: repeat h/h/ 1-2hr after transfusion #htn: -cont home meds #DM: -insulin ss; bgm #hypoalbuminemia wit proteinuria: -work up for lupris nephritis/ glomerulous nephritic/nephrotic disease work up as per renal FEN Fluids: po Electrolytes: see above Diet: renal VTE prophylaxis: scds Disposition: icu monitoring' if stable after dialysis; transfer to floors Visit type - Emergency Visit Emergency Visit: Yes ED Registration Date: 10/17/16 Care time: The patient presented to the Emergency Department on the above date and was hospitalized for further evaluation of their emergent condition. - New Patient This patient is new to me today: No - Critical Care Critical Care patient: Yes Total Critical Care Time (in minutes): 35 Critical Care Statement: The care of this patient involved high complexity decision making to prevent further life threatening deterioration of the patient 's condition and/or to evalute & treat vital organ system(s) failure or risk of failure.
[2016-10-19 17:06] LABS: MCH 24.2 pg (25.7-33.7); MCHC 33.5 g/dl (32.0-36.0); MEAN CELL VOLUME 72.2 fl (80-96); MEAN PLT VOLUME 7.9 fl (7.5-11.1); PLATELET COUNT 242 K/MM3 (134-434); RDW 19.4 % (11.6-15.6); WHITE BLOOD COUNT 8.8 K/mm3 (4.0-10.0)
--- NOTE | 2016-10-19 17:29 | PN ---
Teaching Attending Note Name of Resident: Paula Mayfield ATTENDING PHYSICIAN STATEMENT I saw and evaluated the patient. I reviewed the resident's note and discussed the case with the resident. I agree with the resident's findings and plan as documented. SUBJECTIVE: No complaints. OBJECTIVE: Vital Signs Period Temp Pulse Resp BP Sys/Rolle Pulse Ox Last 24 Hr 98.5 F-100 F 69-96 17-27 122-179/43-84 98-100 HEART: S1 S2, RRR LUNGS: Clear ABDOMEN: Obese, soft, non-tender, non-distended, normal BS EXTREMITIES: No edema ASSESSMENT AND PLAN: This is a 66-year-old woman with a history of HTN, type 2 DM who presented to the ER with lethargy. 1. Acute renal failure with hyperkalemia, metabolic acidosis, hypocalcemia, hyperphosphatemia - Continue HD as per nephrology - Potassium improved - Metabolic acidosis improved - Continue PhosLo, vitamin D 2. Anemia secondary to CKD - Continue Procrit 3. Type 2 diabetes mellitus - Continue Novolog sliding scale 4. HTN
--- NOTE | 2016-10-19 17:49 | PN ---
Progress Note (short form) - Note Progress Note: Vascular Surgery Will be on stand by for PC when stable. Bandar Cuelalr DO
[2016-10-19] MEDS: hydrALAZINE HCL 10 MG TABLET PO SCH (21:52)
[2016-10-19] MEDS: CHLORHEXIDINE GLUCONATE 4% CLEANSER FOR DECOLONIZATION TP SCH (21:58)
[2016-10-20 00:12] LABS: HEP B SURFACE AB Non Reactive (.)
[2016-10-20 06:30] LABS: MCH 24.3 pg (25.7-33.7); MCHC 33.7 g/dl (32.0-36.0); MEAN CELL VOLUME 72.2 fl (80-96); PLATELET COUNT 259 K/MM3 (134-434); RDW 17.7 % (11.6-15.6); WHITE BLOOD COUNT 9.5 K/mm3 (4.0-10.0)
[2016-10-20 06:34] LABS: ALBUMIN 1.8 g/dl (3.4-5.0); BILIRUBIN,TOTAL 0.6 mg/dL (0.2-1.0)
[2016-10-20 06:41] LABS: COCKROFT - GAULT 8.126; TOT PROT 4.8 g/dl (6.4-8.2)
[2016-10-20] MEDS: CALCIUM ACETATE 667 MG CAPSULE (FP) PO SCH ×3 (06:43→22:33)
[2016-10-20] MEDS: hydrALAZINE HCL 10 MG TABLET PO SCH ×4 (06:43→22:33)
[2016-10-20 06:46] LABS: CREATININE 9.4 mg/dL (0.55-1.02)
[2016-10-20 06:47] LABS: CALCIUM 5.2 mg/dL (8.5-10.1)
[2016-10-20] MEDS: INSULIN SLIDING SCALE (NOVOLOG) 1 VIAL SQ SCH ×5 (07:00→22:44)
--- NOTE | 2016-10-20 07:22 | PN ---
Progress Note (short form) - Note Progress Note: 66 yo female with ARF and hypocalcemia. 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 Cont ICU management Monitor BUN/Cr Code(s): N17.9 - ACUTE KIDNEY FAILURE, UNSPECIFIED Qualifiers: Acute renal failure type: unspecified Qualified Code(s): N17.9 - Acute kidney failure, unspecified
[2016-10-20] MEDS ORDERED: CALCIUM GLUCONATE 10% - 1,000 MG/10 ML VIAL ONE (08:48)
[2016-10-20 08:54] LABS: PLATELET ESTIMATE ADEQUATE (NORMAL)
[2016-10-20] MEDS: MUPIROCIN 2% TOPICAL OINTMENT FOR DECOLONIZATION NS SCH ×3 (09:57→22:44)
[2016-10-20] MEDS ORDERED: CALCIUM GLUCONATE 10% - 1,000 MG/10 ML VIAL IVPB SCH (10:00)
[2016-10-20] MEDS: CALCIUM CARBONATE 650 MG TABLET PO SCH ×2 (12:13→22:33)
[2016-10-20] MEDS: CALCITRIOL 0.25 MCG CAPSULE (FP) PO SCH (12:19)
--- NOTE | 2016-10-20 12:25 | PN ---
Progress Note (short form) - Note Progress Note: Renal Follow up for DAVI/Hyperkalemia Pt seen and examined in the ICU s/p 2nd HD yesterday, tolerated it well no sob or chest pain no fever or chills no FERMIN Vital Signs Temperature 99 F 10/20/16 06:00 Pulse Rate 76 10/20/16 08:00 Respiratory Rate 14 10/20/16 08:00 Blood Pressure 156/65 10/20/16 08:00 O2 Sat by Pulse Oximetry (%) 100 10/20/16 07:54 Intake & Output 10/17/16 10/18/16 10/19/16 10/20/16 23:59 23:59 23:59 23:59 Intake Total 910 1870 120 Output Total 100 200 500 150 Balance -869 241 6971 -30 Weight 200 lb 195 lb 9.6 oz 193 lb 11.2 oz Gen: NAD, awake and alert CVS: RRR, No M/R Lungs :CTA, no rales or wheeze Abd: soft, Obese, NT/ND Ext: NO edema, clubbing or cyanosis : No bladder distension, cueva in place Access: Femoral HD catheter CBC, BMP 10/20/16 05:15 10/20/16 05:15 Current Medications Acetaminophen (Tylenol -) 650 mg PO Q6H PRN PRN Reason: FEVER OR PAIN Last Admin: 10/20/16 12:12 Dose: 650 mg Calcitriol (Rocaltrol -) 0.25 mcg PO DAILY [facility] Last Admin: 10/20/16 12:19 Dose: 0.25 mcg Calcium Acetate (Phoslo -) 1,334 mg PO TID [facility] Last Admin: 10/20/16 06:43 Dose: 1,334 mg Calcium Carbonate (Calcium Carbonate -) 1,300 mg PO BID [facility] Last Admin: 10/20/16 12:13 Dose: 1,300 mg Chlorhexidine Gluconate (Hibiclens For Decolonization -) 1 applic TP HS [facility] Last Admin: 10/19/16 21:58 Dose: 1 applic Hydralazine HCl (Apresoline -) 10 mg PO TID [facility] Last Admin: 10/20/16 12:11 Dose: 10 mg Insulin Aspart (Novolog Vial Sliding Scale -) 1 vial SQ ACHS [facility] PRN Reason: Protocol Last Admin: 10/20/16 12:00 Dose: Not Given Mupirocin (Bactroban Ointment (For Decolonization) -) 1 applic NS BID [facility] Stop: 10/23/16 09:59 Last Admin: 10/20/16 09:57 Dose: 1 applic A/P 66 year old woman with PMhx of Hypertension, DM Type 2 not currently taking medications that presented with fatigue/malaise and found to have acute renal failure, hyperkalemia and hypocalcemia. #Acute Renal Failure SANDRO negative, less likely Lupus Nephritis s/p HD x 2 Trend BUN/Cr no acute indication for dialysis today next dialysis planned for tomorrow Renal Diet #Hyperkalemia improved s/p dialysis low k/renal diet #Anion Gap Metabolic acidosis improved s/p HD #Hypocalcemia Corrected Ca is 6.9 today s/p Calcium Glucoante 2g IV Start PO Calcium, Calcitriol will use higher CA bath with HD #Hyperphospahtemia continue phos binders #Microcytic Anemia s/p PRBC with HD iron studies noted will get VON with HD D #Hypertension Trend BP for now no NARENDRA or ARB until we can determine if the renal function can be improved #Proteinuria Check UPCR David Schroeder DO
--- NOTE | 2016-10-20 13:00 | MSN ---
Progress Note (short form) - Note Progress Note: SUBJECTIVE: Pt seen and examined at bedside. Pt has no complaints at this time. States she has no Sx. Tolerating HD well. Feels less lethargic and more alert compared to presentation. Denies fevers, chills, CP, SOB, abdominal pain, N/V/ C. Pt states she has not had a BM since yesterday morning. Active Medications Generic Name Dose Route Start Last Admin Trade Name Freq PRN Reason Stop Dose Admin Acetaminophen 650 mg 10/18/16 15:39 10/20/16 12:12 Tylenol - PO 650 mg Q6H PRN Administration FEVER OR PAIN Calcitriol 0.25 mcg 10/20/16 11:30 10/20/16 12:19 Rocaltrol - PO 0.25 mcg DAILY [facility] Administration Calcium Acetate 1,334 mg 10/18/16 14:00 10/20/16 06:43 Phoslo - PO 1,334 mg TID [facility] Administration Calcium Carbonate 1,300 mg 10/20/16 11:30 10/20/16 12:13 Calcium Carbonate - PO 1,300 mg BID [facility] Administration Chlorhexidine Gluconate 1 applic 10/18/16 22:00 10/19/16 21:58 Hibiclens For Decolonization - TP 1 applic HS [facility] Administration Epoetin Samuel 10,000 units 10/21/16 08:00 Epogen - IVPUSH 10/21/16 08:01 ONCE ONE Hydralazine HCl 10 mg 10/19/16 22:00 10/20/16 12:11 Apresoline - PO 10 mg TID [facility] Administration Insulin Aspart 1 vial 10/18/16 16:30 10/20/16 12:00 Novolog Vial Sliding Scale - SQ Not Given ACHS [facility] Protocol Mupirocin 1 applic 10/18/16 10:00 10/20/16 09:57 Bactroban Ointment (For Decolonization) - NS 10/23/16 09:59 1 applic BID [facility] Administration OBJECTIVE: Vital Signs Period Temp Pulse Resp BP Sys/Rolle Pulse Ox Last 24 Hr 98.5 F-99.0 F 69-82 14-24 122-172/54-84 100-100 Intake & Output 10/17/16 10/18/16 10/19/16 10/20/16 23:59 23:59 23:59 23:59 Intake Total 910 1870 120 Output Total 100 200 500 150 Balance -594 203 8288 -30 Weight 200 lb 195 lb 9.6 oz 193 lb 11.2 oz GENERAL: AAOx3 in NAD, does not appear as lethargic as yesterday, mental status returning to baseline HEAD: NC, AT, -icterus, EOMI, R PERRL, fixed dilated L pupil (pt has Hx of cataract Sx in L eye) NECK: -JVD, supple, -LAD HEART: RRR +S1/S2 with ?diastolic/systolic murmur LUNGS: CTAB ABDOMEN: Soft, ND, NTTP, no guarding/rigidity, NBS, no hemorrhoids seen, no masses palpated during GARCIA, no gross blood identified on fingertip : Montiel in place draining <100cc clear, yellow urine EXT: Trace edema BL LE NEURO: Normal speech CBC WBC 9.5 K/mm3 (4.0-10.0) 10/20/16 05:15 Corrected WBC (auto) Cancelled 10/17/16 17:15 RBC 3.67 M/mm3 (3.60-5.2) 10/20/16 05:15 Hgb 8.9 GM/dL (10.7-15.3) L 10/20/16 05:15 Hct 26.5 % (32.4-45.2) L 10/20/16 05:15 MCV 72.2 fl (80-96) L 10/20/16 05:15 MCHC 33.7 g/dl (32.0-36.0) 10/20/16 05:15 RDW 17.7 % (11.6-15.6) H 10/20/16 05:15 Plt Count 259 K/MM3 (134-434) 10/20/16 05:15 MPV 8.0 fl (7.5-11.1) 10/20/16 05:15 Neutrophils % 76.0 % (42.8-82.8) 10/20/16 05:15 Lymphocytes % 19.0 % (8-40) D 10/20/16 05:15 Monocytes % 4.0 % (3.8-10.2) 10/20/16 05:15 Eosinophils % 1.0 % (0-4.5) D 10/20/16 05:15 Basophils % 0.2 % (0-2.0) 10/17/16 22:40 Band Neutrophils 1.0 % (0-10) 10/17/16 16:01 Metamyelocytes 1 % (0-2) 10/17/16 16:01 Myelocytes 1 % (0-2) 10/17/16 16:01 Nucleated RBCs Cancelled 10/17/16 17:15 Differential Comment Manual diff done 10/20/16 05:15 Hypersegmented Neuts Cancelled 10/17/16 17:15 Smudge Cells Cancelled 10/17/16 17:15 Toxic Granulation Cancelled 10/17/16 17:15 Dohle Bodies Cancelled 10/17/16 17:15 Trudy Rods Cancelled 10/17/16 17:15 Platelet Estimate Adequate (NORMAL) 10/20/16 05:15 Platelet Comment Cancelled 10/17/16 17:15 Platelet Comment Cancelled 10/17/16 17:15 RBC Morphology Cancelled 10/17/16 17:15 Polychromasia 1+ 10/18/16 20:35 Hypochromic-Microcytic 2+ 10/18/16 20:35 Poikilocytosis Cancelled 10/17/16 17:15 Basophilic Stippling Cancelled 10/17/16 17:15 Anisocytosis 1+ 10/18/16 06:26 Microcytosis 1+ 10/18/16 20:35 Macrocytosis Cancelled 10/17/16 17:15 Spherocytes Cancelled 10/17/16 17:15 Siderocytes Cancelled 10/17/16 17:15 Sickle Cells Cancelled 10/17/16 17:15 Target Cells 2+ 10/18/16 20:35 Tear Drop Cells 1+ 10/18/16 06:26 Ovalocytes 2+ 10/18/16 06:26 Stomatocytes Cancelled 10/17/16 17:15 Helmet Cells Cancelled 10/17/16 17:15 Sampson-[place]ms[place] Bodies Cancelled 10/17/16 17:15 [place] Rings Cancelled 10/17/16 17:15 [place] Cells Cancelled 10/17/16 17:15 Acanthocytes (Spur) Cancelled 10/17/16 17:15 Rouleaux 1+ 10/18/16 06:26 Fragmented RBCs 1+ 10/18/16 06:26 Schistocytes 1+ 10/18/16 20:35 Morphology Comment Slide scanned 10/18/16 06:26 CMP Sodium 136 mmol/L (136-145) 10/20/16 05:15 Potassium 3.8 mmol/L (3.5-5.1) 10/20/16 05:15 Chloride 99 mmol/L (98-107) 10/20/16 05:15 Carbon Dioxide 26 mmol/L (21-32) D 10/20/16 05:15 Anion Gap 11 (8-16) 10/20/16 05:15 BUN 32 mg/dL (7-18) H D 10/20/16 05:15 Creatinine 9.4 mg/dL (0.55-1.02) H* D 10/20/16 05:15 Creat Clearance w eGFR 4.17 (>60) 10/20/16 05:15 POC Glucometer 124.60140 UNITS (()) 10/20/16 06:55 Random Glucose 77 mg/dL (74-106) 10/20/16 05:15 Hemoglobin A1c % 8.0 % (4.8-6.0) H 10/18/16 06:26 Calcium 5.2 mg/dL (8.5-10.1) L* 10/20/16 05:15 Ionized Calcium < 3.0 mg/dL (4.5-5.6) L 10/18/16 13:05 Phosphorus 6.2 mg/dL (2.5-4.9) H 10/19/16 05:15 Magnesium 1.6 mg/dL (1.8-2.4) L 10/18/16 20:35 Iron 68 ug/dL (27-139) 10/19/16 05:15 TIBC 139 ug/dL (250-450) L 10/18/16 13:05 Iron Saturation 62 % (15-55) H 10/18/16 13:05 Ferritin 160.467 ng/ml (6.9-282.5) 10/18/16 09:40 Total Bilirubin 0.6 mg/dL (0.2-1.0) D 10/20/16 05:15 AST 18 U/L (15-37) 10/20/16 05:15 ALT 12 U/L (12-78) 10/20/16 05:15 Alkaline Phosphatase 89 U/L (45-117) 10/20/16 05:15 Creatine Kinase 948 IU/L (26-192) H 10/18/16 06:26 CK-MB (CK-2) 8.317 ng/ml (0.5-3.6) H 10/17/16 18:38 Troponin I 0.07 ng/ml (0.00-0.05) H 10/18/16 06:26 Total Protein 4.8 g/dl (6.4-8.2) L 10/20/16 05:15 Albumin 1.8 g/dl (3.4-5.0) L 10/20/16 05:15 Triglycerides 75 mg/dL (35-160) 10/18/16 06:26 Cholesterol 144 mg/dL (50-200) 10/18/16 06:26 Total LDL Cholesterol 69 mg/dL (5-100) 10/18/16 06:26 HDL Cholesterol 68 mg/dL (40-60) H 10/18/16 06:26 Lipase 322 U/L (73-393) 10/17/16 18:38 PTH Intact 875 pg/mL (15-65) H 10/18/16 13:05 PTH Intact Intraop 0 m (.) 10/18/16 13:05 Microbiology 10/17/16 19:53 Urine Culture - Final Urine - Urine Clean Catch NO GROWTH OBTAINED CXR: No change from previous CXR on 10/19/16. No signs of PNA, CHF, PTX, or pleural effusion A/P: Pt is a 66 yo F with a PMHx of DM and HTN who presents to the ED with lethargy x1-2wks and SOB. Pt was found to have significantly elevated BUN/Cr with severe electrolyte imbalances 2/2 acute on chronic renal failure. Emergent HD was deferred overnight. 1. Acute renal failure with chronic kidney disease -Improving s/p 2nd HD session yesterday. BUN/Cr of 32/9.4 -Will get another HD session tomorrow per Dr. Shaji. White to be removed after HD session tomorrow -Most likely 2/2 to chronic condition (Hx of DM, HTN) vs. FSGS. Less likely lupus nephritis (SANDRO -). Definitive etiology in question -Renal consult appreciated -Surgery consult appreciated. HD cath placed. Plan for permacath placement Sunday -Urine Cx negative -FeNa = 10.1% -Urine protein of 445 mg/dL. Upro/Ucr = 8.27. ? significance since estimated Cr Cl is <10 -Dose meds with Cr Cl of <10 2. Hyperkalemia -2/2 renal failure -Resolved. K+ of 3.8 today after 2nd HD session -EKG on presentation showed classic changes (AK interval upper limit of nml, peaked T waves). Most recent EKG is normalizing -Low K+ diet 3. Hypocalcemia -CCa of ~7 today. Decrease is most likely due to citrate in PRBCs -2/2 hyperphosphatemia/renal failure -Calcium gluconate 2gm IV given this morning -Start oral Ca supplements and calcitriol -Trend Ca Q12H 4. Hyperphosphatemia -Improving -Low phos diet 5. Microcytic anemia -Stable. Hgb of 8.9 today -Pt received 2 units PRBCs yesterday -Stool occult negative. Pt will need outpt FU with GI for colonoscopy -Iron studies consistent with anemia of chronic disease -Goal is to keep Hgb >8 6. Diabetes -HgbA1C of 8.0% -Pt is not on anything at home for DM. Stopped taking Metformin 500mg BID two years ago per pt -POC readings all <170 -Cont SSI. Has only required 2units x2 for coverage -Will discuss DC pt on DM medication once stabilized 7. HTN -Stable -Will order ECHO. Pt has Hx of HTN and murmur/trace edema of BL LE on PE -Pt stopped taking BP med two years ago. Does not remember name of med -Hold NARENDRA/ARB for now until etiology of CKD discovered -Started on Hydralazine 10mg PO TID overnight. FU with BP readings 8. Anion gap metabolic acidosis -2/2 renal failure -Resolved s/p 1st HD session 9. FEN -No IVF currently -Continue to monitor CBC and CMP -Renal diet 10. PPX -Hold AC 2/2 to anemia -SCDs -EAB 11. Dispo -Admitted to ICU. LOS in question right now. Can be transferred out of ICU to floor today. Will receive 3rd HD session tomorrow and then removal of Shiley after with permacath placement on Sunday Steven Holloway, MS3 Problem List - Problems (1) Acute renal failure (2) Hyperkalemia
--- NOTE | 2016-10-20 13:54 | PN ---
Teaching Attending Note Name of Resident: Paula Mayfield ATTENDING PHYSICIAN STATEMENT I saw and evaluated the patient. I reviewed the resident's note and discussed the case with the resident. I agree with the resident's findings and plan as documented. SUBJECTIVE: No complaints. OBJECTIVE: Vital Signs Period Temp Pulse Resp BP Sys/Rolle Pulse Ox Last 24 Hr 98.8 F-99.0 F 69-82 14-24 122-172/54-84 100-100 HEART: S1 S2, RRR LUNGS: Clear ABDOMEN: Obese, soft, non-tender, non-distended, normal BS EXTREMITIES: Trace edema ASSESSMENT AND PLAN: This is a 66-year-old woman with a history of HTN, type 2 DM who presented to the ER with lethargy. 1. Acute renal failure - s/p HD 10/18, 10/19 - Plan for HD tomorrow 2. Hyperkalemia - Improved 3. Hypocalcemia/hyperphosphatemia - s/p calcium gluconate - Continue PhosLo - Rocaltrol, calcium carbonate started 4. Metabolic acidosis - Resolved 5. Anemia secondary to CKD - Continue Epogen with HD - Transfused 2 units PRBCs yesterday 6. Type 2 diabetes mellitus - Continue Novolog sliding scale 7. HTN - Hydralazine started
--- NOTE | 2016-10-20 15:15 | PN ---
Physical Exam: SUBJECTIVE: Patient seen and examined mental status improved, no new complaints denies chest pain, fever, sob, leg swelling. OBJECTIVE: Vital Signs Period Temp Pulse Resp BP Sys/Rolle Pulse Ox Last 24 Hr 98.8 F-99 F 69-82 14-24 134-172/54-84 100-100 GENERAL: The patient is awake, alert, and fully oriented, in no acute distress. HEAD: Normal with no signs of trauma. EYES: PERRL, extraocular movements intact, sclera anicteric, conjunctiva clear. No ptosis. ENT: Ears normal, nares patent, oropharynx clear without exudates, moist mucous membranes. NECK: Trachea midline, full range of motion, supple. LUNGS: Breath sounds equal, clear to auscultation bilaterally, no wheezes, no crackles, no accessory muscle use. HEART: Regular rate and rhythm, S1, S2 +murmur, rub or gallop. ABDOMEN: Soft, nontender, nondistended, normoactive bowel sounds, no guarding, no rebound, no hepatosplenomegaly, no masses. EXTREMITIES: 2+ pulses, warm, well-perfused, no edema. NEUROLOGICAL: Cranial nerves II through XII grossly intact. Normal speech, gait not observed. PSYCH: Normal mood, normal affect. SKIN: Warm, dry, normal turgor, no rashes or lesions noted Laboratory Results - last 24 hr 10/18/16 10/18/16 10/18/16 10:40 13:05 13:05 WBC RBC Hgb Hct MCV MCHC RDW Plt Count MPV Neutrophils % Lymphocytes % Monocytes % Eosinophils % Differential Comment Platelet Estimate Sodium Potassium Chloride Carbon Dioxide Anion Gap BUN Creatinine Creat Clearance w eGFR POC Glucometer Random Glucose Calcium Ionized Calcium < 3.0 L Iron Total Bilirubin AST ALT Alkaline Phosphatase Total Protein Albumin U Random Total Protein Ur Random Sodium Urine Creatinine SANDRO Screen Negative Hep A IgM Ab Confirm Negative Hepatitis A Ab Total Positive H Hep Bs Antigen Negative Hep Bs Antibody Non reactive Hep B Core Total Ab Negative 10/19/16 10/19/16 10/19/16 05:15 15:50 15:50 WBC RBC Hgb Hct MCV MCHC RDW Plt Count MPV Neutrophils % Lymphocytes % Monocytes % Eosinophils % Differential Comment Platelet Estimate Sodium Potassium Chloride Carbon Dioxide Anion Gap BUN Creatinine Creat Clearance w eGFR POC Glucometer Random Glucose Calcium Ionized Calcium Iron 68 Total Bilirubin AST ALT Alkaline Phosphatase Total Protein Albumin U Random Total Protein 445 H Ur Random Sodium 79 Urine Creatinine SANDRO Screen Hep A IgM Ab Confirm Hepatitis A Ab Total Hep Bs Antigen Hep Bs Antibody Hep B Core Total Ab 10/19/16 10/19/16 10/19/16 15:50 16:30 16:59 WBC 8.8 RBC 3.90 D Hgb 9.4 L D Hct 28.1 L D MCV 72.2 L MCHC 33.5 RDW 19.4 H D Plt Count 242 D MPV 7.9 Neutrophils % Lymphocytes % Monocytes % Eosinophils % Differential Comment Platelet Estimate Sodium Potassium Chloride Carbon Dioxide Anion Gap BUN Creatinine Creat Clearance w eGFR POC Glucometer 167.11606 Random Glucose Calcium Ionized Calcium Iron Total Bilirubin AST ALT Alkaline Phosphatase Total Protein Albumin U Random Total Protein Ur Random Sodium Urine Creatinine 53.8 SANDRO Screen Hep A IgM Ab Confirm Hepatitis A Ab Total Hep Bs Antigen Hep Bs Antibody Hep B Core Total Ab 10/19/16 10/20/16 10/20/16 21:50 05:15 05:15 WBC 9.5 RBC 3.67 Hgb 8.9 L Hct 26.5 L MCV 72.2 L MCHC 33.7 RDW 17.7 H Plt Count 259 MPV 8.0 Neutrophils % 76.0 Lymphocytes % 19.0 D Monocytes % 4.0 Eosinophils % 1.0 D Differential Comment Manual diff done Platelet Estimate Adequate Sodium 136 Potassium 3.8 Chloride 99 Carbon Dioxide 26 D Anion Gap 11 BUN 32 H D Creatinine 9.4 H* D Creat Clearance w eGFR 4.17 POC Glucometer 159.62872 Random Glucose 77 Calcium 5.2 L* Ionized Calcium Iron Total Bilirubin 0.6 D AST 18 ALT 12 Alkaline Phosphatase 89 Total Protein 4.8 L Albumin 1.8 L U Random Total Protein Ur Random Sodium Urine Creatinine SANDRO Screen Hep A IgM Ab Confirm Hepatitis A Ab Total Hep Bs Antigen Hep Bs Antibody Hep B Core Total Ab 10/20/16 06:55 WBC RBC Hgb Hct MCV MCHC RDW Plt Count MPV Neutrophils % Lymphocytes % Monocytes % Eosinophils % Differential Comment Platelet Estimate Sodium Potassium Chloride Carbon Dioxide Anion Gap BUN Creatinine Creat Clearance w eGFR POC Glucometer 124.95223 Random Glucose Calcium Ionized Calcium Iron Total Bilirubin AST ALT Alkaline Phosphatase Total Protein Albumin U Random Total Protein Ur Random Sodium Urine Creatinine SANDRO Screen Hep A IgM Ab Confirm Hepatitis A Ab Total Hep Bs Antigen Hep Bs Antibody Hep B Core Total Ab Active Medications Generic Name Dose Route Start Last Admin Trade Name Freq PRN Reason Stop Dose Admin Acetaminophen 650 mg 10/18/16 15:39 10/20/16 12:12 Tylenol - PO 650 mg Q6H PRN Administration FEVER OR PAIN Calcitriol 0.25 mcg 10/20/16 11:30 10/20/16 12:19 Rocaltrol - PO 0.25 mcg DAILY [facility] Administration Calcium Acetate 1,334 mg 10/18/16 14:00 10/20/16 14:51 Phoslo - PO 1,334 mg TID [facility] Administration Calcium Carbonate 1,300 mg 10/20/16 11:30 10/20/16 12:13 Calcium Carbonate - PO 1,300 mg BID [facility] Administration Chlorhexidine Gluconate 1 applic 10/18/16 22:00 10/19/16 21:58 Hibiclens For Decolonization - TP 1 applic HS [facility] Administration Epoetin Samuel 10,000 units 10/21/16 08:00 Epogen - IVPUSH 10/21/16 08:01 ONCE ONE Hydralazine HCl 10 mg 10/19/16 22:00 10/20/16 13:11 Apresoline - PO Not Given TID [facility] Insulin Aspart 1 vial 10/18/16 16:30 10/20/16 12:00 Novolog Vial Sliding Scale - SQ Not Given ACHS [facility] Protocol Mupirocin 1 applic 10/18/16 10:00 10/20/16 09:57 Bactroban Ointment (For Decolonization) - NS 10/23/16 09:59 1 applic BID [facility] Administration ASSESSMENT/PLAN: This is a 66 year old female with a PMHx of Chronic kidney disease, HTN, DM & legally blind, who presented to the emergency room for weakness. Patient has not seen a doctor nor taken any medications in 2 years. Found to be severely hyperkalemic and hypocalemic in the emergency room. Dialysis. #Altered mental ml metabolic encephalopthy / metabolic acidosis secondary to renal failure and hypocalcemia : improved -correct electrolytes abnormalities -dialysis #Acute on chronic kidney injury: -Dialysis tomorrow again; then remove shily -assess renal function/need for permacth or not #hyperkalemia:improved -received calcium, bicarb, albuterol, insulin/D50 -dialysis #hypocalcemia:immporved -continue with replacement -increase calcium bath with dialysis -trend : corrected Ca today 8.2 #hyperphosphatemia: -will bring down slowly; -getting dialysis -phosphate binders #Anemia most likely chronic vs acute -iron studies -may be secondary to renal failure vs blood loss -denies blood/dark stool; -fobt negative -epogen -2Units of blood #htn: -cont home meds #DM: -insulin ss; bgm #hypoalbuminemia wit proteinuria: -work up for lupris nephritis/ glomerulous nephritic/nephrotic disease work up as per renal FEN Fluids: po Electrolytes: see above Diet: renal VTE prophylaxis: scds Disposition: icu monitoring' if stable after dialysis; transfer to floors Visit type - Emergency Visit Emergency Visit: Yes ED Registration Date: 10/17/16 Care time: The patient presented to the Emergency Department on the above date and was hospitalized for further evaluation of their emergent condition. - New Patient This patient is new to me today: No - Critical Care Critical Care patient: Yes Total Critical Care Time (in minutes): 35 Critical Care Statement: The care of this patient involved high complexity decision making to prevent further life threatening deterioration of the patient 's condition and/or to evalute & treat vital organ system(s) failure or risk of failure.
[2016-10-20] MEDS ORDERED: amLODIPine BESYLATE 10 MG TABLET (FP) PO ONE (15:36)
--- NOTE | 2016-10-20 16:11 | PN ---
Progress Note (short form) - Note Progress Note: Patient seen and examined in the ICU. Awake and alert. H&H has remained stable. No CP or SOB. No indication for return of renal function. For HD tomorrow. Intake & Output 10/17/16 10/18/16 10/19/16 10/20/16 23:59 23:59 23:59 23:59 Intake Total 910 1870 120 Output Total 100 200 500 350 Balance -075 887 5516 -230 Weight 200 lb 195 lb 9.6 oz 193 lb 11.2 oz Last Vital Signs Temp Pulse Resp BP Pulse Ox 100.3 F H 74 26 H 180/66 100 10/20/16 10:00 10/20/16 14:00 10/20/16 14:00 10/20/16 14:00 10/20/16 07:54 Active Medications Acetaminophen (Tylenol -) 650 mg PO Q6H PRN PRN Reason: FEVER OR PAIN Last Admin: 10/20/16 12:12 Dose: 650 mg Calcitriol (Rocaltrol -) 0.25 mcg PO DAILY [facility] Last Admin: 10/20/16 12:19 Dose: 0.25 mcg Calcium Acetate (Phoslo -) 1,334 mg PO TID [facility] Last Admin: 10/20/16 14:51 Dose: 1,334 mg Calcium Carbonate (Calcium Carbonate -) 1,300 mg PO BID [facility] Last Admin: 10/20/16 12:13 Dose: 1,300 mg Chlorhexidine Gluconate (Hibiclens For Decolonization -) 1 applic TP HS [facility] Last Admin: 10/19/16 21:58 Dose: 1 applic Epoetin Samuel (Epogen -) 10,000 units IVPUSH ONCE ONE Stop: 10/21/16 08:01 Hydralazine HCl (Apresoline -) 10 mg PO TID [facility] Last Admin: 10/20/16 13:11 Dose: Not Given Insulin Aspart (Novolog Vial Sliding Scale -) 1 vial SQ ACHS [facility] PRN Reason: Protocol Last Admin: 10/20/16 12:00 Dose: Not Given Mupirocin (Bactroban Ointment (For Decolonization) -) 1 applic NS BID [facility] Stop: 10/23/16 09:59 Last Admin: 10/20/16 09:57 Dose: 1 applic Gen: NAD, awake and alert Heart: RRR Lung: decreased breath sounds at the bases Abd: soft, nontender Ext: no edema Laboratory Results - last 24 hr 10/18/16 10/18/16 10/18/16 10:40 13:05 13:05 WBC RBC Hgb Hct MCV MCHC RDW Plt Count MPV Neutrophils % Lymphocytes % Monocytes % Eosinophils % Differential Comment Platelet Estimate Sodium Potassium Chloride Carbon Dioxide Anion Gap BUN Creatinine Creat Clearance w eGFR POC Glucometer Random Glucose Calcium Ionized Calcium < 3.0 L Iron Total Bilirubin AST ALT Alkaline Phosphatase Total Protein Albumin U Random Total Protein Ur Random Sodium Urine Creatinine SANDRO Screen Negative Hep A IgM Ab Confirm Negative Hepatitis A Ab Total Positive H Hep Bs Antigen Negative Hep Bs Antibody Non reactive Hep B Core Total Ab Negative 10/19/16 10/19/16 10/19/16 05:15 15:50 15:50 WBC RBC Hgb Hct MCV MCHC RDW Plt Count MPV Neutrophils % Lymphocytes % Monocytes % Eosinophils % Differential Comment Platelet Estimate Sodium Potassium Chloride Carbon Dioxide Anion Gap BUN Creatinine Creat Clearance w eGFR POC Glucometer Random Glucose Calcium Ionized Calcium Iron 68 Total Bilirubin AST ALT Alkaline Phosphatase Total Protein Albumin U Random Total Protein 445 H Ur Random Sodium 79 Urine Creatinine SANDRO Screen Hep A IgM Ab Confirm Hepatitis A Ab Total Hep Bs Antigen Hep Bs Antibody Hep B Core Total Ab 10/19/16 10/19/16 10/19/16 15:50 16:30 16:59 WBC 8.8 RBC 3.90 D Hgb 9.4 L D Hct 28.1 L D MCV 72.2 L MCHC 33.5 RDW 19.4 H D Plt Count 242 D MPV 7.9 Neutrophils % Lymphocytes % Monocytes % Eosinophils % Differential Comment Platelet Estimate Sodium Potassium Chloride Carbon Dioxide Anion Gap BUN Creatinine Creat Clearance w eGFR POC Glucometer [phone] Random Glucose Calcium Ionized Calcium Iron Total Bilirubin AST ALT Alkaline Phosphatase Total Protein Albumin U Random Total Protein Ur Random Sodium Urine Creatinine 53.8 SANDRO Screen Hep A IgM Ab Confirm Hepatitis A Ab Total Hep Bs Antigen Hep Bs Antibody Hep B Core Total Ab 10/19/16 10/20/16 10/20/16 21:50 05:15 05:15 WBC 9.5 RBC 3.67 Hgb 8.9 L Hct 26.5 L MCV 72.2 L MCHC 33.7 RDW 17.7 H Plt Count 259 MPV 8.0 Neutrophils % 76.0 Lymphocytes % 19.0 D Monocytes % 4.0 Eosinophils % 1.0 D Differential Comment Manual diff done Platelet Estimate Adequate Sodium 136 Potassium 3.8 Chloride 99 Carbon Dioxide 26 D Anion Gap 11 BUN 32 H D Creatinine 9.4 H* D Creat Clearance w eGFR 4.17 POC Glucometer [phone] Random Glucose 77 Calcium 5.2 L* Ionized Calcium Iron Total Bilirubin 0.6 D AST 18 ALT 12 Alkaline Phosphatase 89 Total Protein 4.8 L Albumin 1.8 L U Random Total Protein Ur Random Sodium Urine Creatinine SANDRO Screen Hep A IgM Ab Confirm Hepatitis A Ab Total Hep Bs Antigen Hep Bs Antibody Hep B Core Total Ab 10/20/16 06:55 WBC RBC Hgb Hct MCV MCHC RDW Plt Count MPV Neutrophils % Lymphocytes % Monocytes % Eosinophils % Differential Comment Platelet Estimate Sodium Potassium Chloride Carbon Dioxide Anion Gap BUN Creatinine Creat Clearance w eGFR POC Glucometer [phone] Random Glucose Calcium Ionized Calcium Iron Total Bilirubin AST ALT Alkaline Phosphatase Total Protein Albumin U Random Total Protein Ur Random Sodium Urine Creatinine SANDRO Screen Hep A IgM Ab Confirm Hepatitis A Ab Total Hep Bs Antigen Hep Bs Antibody Hep B Core Total Ab ASSESSMENT AND PLAN: Altered Mental Status Acute Kidney Injury Hyperkalemia Hypocalcemia Metabolic Acidosis Rhabdomyolysis Anemia HTN DM - HD per renal - monitor lytes - monitor urine output, creatinine - monitor H/H - PPI - renal work up in progress - Normal transfusion thresholds Dr Mccullough Critical care time spent in reviewing chart, evaluating patient and formulating plan 35 min
[2016-10-20] MEDS: DEXTROSE 5% IVPB SCH (19:37)
[2016-10-20] MEDS: WATER IVPB SCH (19:37)
[2016-10-20] MEDS: CALCIUM GLUCONATE IVPB SCH (19:37)
[2016-10-20] MEDS ORDERED: PT OWN MED DRAWER 7, Y5N ONE (21:49)
[2016-10-20] MEDS: CHLORHEXIDINE GLUCONATE 4% CLEANSER FOR DECOLONIZATION TP SCH (22:44)
[2016-10-21] MEDS ORDERED: PT OWN MED DRAWER 7, Y5N ONE ×4 (06:27→19:59)
[2016-10-21] MEDS: hydrALAZINE HCL 10 MG TABLET PO SCH ×3 (06:39→22:43)
[2016-10-21] MEDS: CALCIUM ACETATE 667 MG CAPSULE (FP) PO SCH ×3 (06:39→22:43)
[2016-10-21] MEDS: INSULIN SLIDING SCALE (NOVOLOG) 1 VIAL SQ SCH ×4 (06:39→22:44)
[2016-10-21] MEDS ORDERED: EPOETIN ALFA 10,000 UNIT/1 ML VIAL IVPUSH ONE (08:00)
[2016-10-21 08:42] LABS: MCH 24.2 pg (25.7-33.7); MEAN CELL VOLUME 73.3 fl (80-96); MEAN PLT VOLUME 8.1 fl (7.5-11.1); PLATELET COUNT 242 K/MM3 (134-434); RDW 17.9 % (11.6-15.6); WHITE BLOOD COUNT 10.6 K/mm3 (4.0-10.0)
[2016-10-21 09:08] LABS: ALBUMIN 1.8 g/dl (3.4-5.0); BILIRUBIN,TOTAL 0.3 mg/dL (0.2-1.0); COCKROFT - GAULT 7.429; PHOSPHOROUS 4.3 mg/dL (2.5-4.9); TOT PROT 5.2 g/dl (6.4-8.2)
[2016-10-21 09:49] LABS: CALCIUM 5.2 mg/dL (8.5-10.1); CREATININE 10.4 mg/dL (0.55-1.02)
[2016-10-21] MEDS: MUPIROCIN 2% TOPICAL OINTMENT FOR DECOLONIZATION NS SCH ×2 (09:55→22:44)
[2016-10-21] MEDS: CALCITRIOL 0.25 MCG CAPSULE (FP) PO SCH (09:56)
[2016-10-21] MEDS: CALCIUM CARBONATE 650 MG TABLET PO SCH ×2 (09:56→22:43)
--- NOTE | 2016-10-21 10:08 | PN ---
Progress Note (short form) - Note Progress Note: Renal Follow up for DAVI/Hyperkalemia Pt seen and examined in the ICU currently getting 3rd dialysis session tolerating it well UF goal is 2L no sob or chest pain apatite is poor Vital Signs Temperature 97.8 F 10/21/16 06:45 Pulse Rate 74 10/21/16 09:20 Respiratory Rate 18 10/21/16 09:20 Blood Pressure 130/62 10/21/16 09:20 O2 Sat by Pulse Oximetry (%) 97 10/21/16 08:55 Intake & Output 10/18/16 10/19/16 10/20/16 10/21/16 23:59 23:59 23:59 23:59 Intake Total 910 1870 120 480 Output Total 200 500 650 300 Balance 710 1370 -530 180 Weight 195 lb 9.6 oz 193 lb 11.2 oz 199 lb 9.6 oz Gen: NAD, awake and alert CVS: RRR, No M/R Lungs :CTA, no rales or wheeze Abd: soft, Obese, NT/ND Ext: NO edema, clubbing or cyanosis : No bladder distension, cueva in place Access: Femoral HD catheter CBC, BMP 10/21/16 06:50 10/21/16 06:50 Current Medications Acetaminophen (Tylenol -) 650 mg PO Q6H PRN PRN Reason: FEVER OR PAIN Last Admin: 10/20/16 12:12 Dose: 650 mg Calcitriol (Rocaltrol -) 0.25 mcg PO DAILY [facility] Last Admin: 10/21/16 09:56 Dose: 0.25 mcg Calcium Acetate (Phoslo -) 1,334 mg PO TID [facility] Last Admin: 10/21/16 06:39 Dose: 1,334 mg Calcium Carbonate (Calcium Carbonate -) 1,300 mg PO BID [facility] Last Admin: 10/21/16 09:56 Dose: 1,300 mg Chlorhexidine Gluconate (Hibiclens For Decolonization -) 1 applic TP HS [facility] Last Admin: 10/20/16 22:44 Dose: 1 applic Hydralazine HCl (Apresoline -) 10 mg PO TID [facility] Last Admin: 10/21/16 06:39 Dose: 10 mg Insulin Aspart (Novolog Vial Sliding Scale -) 1 vial SQ ACHS [facility] PRN Reason: Protocol Last Admin: 10/21/16 06:39 Dose: Not Given Mupirocin (Bactroban Ointment (For Decolonization) -) 1 applic NS BID [facility] Stop: 10/23/16 09:59 Last Admin: 10/21/16 09:55 Dose: 1 applic A/P 66 year old woman with PMhx of Hypertension, DM Type 2 not currently taking medications that presented with fatigue/malaise and found to have acute renal failure, hyperkalemia and hypocalcemia. #Acute Renal Failure with nephrotoic range proteinuria SANDRO negative, less likely Lupus Nephritis Currently getting 3d HD can d/c femoral HD catheter after dialysis today trend BUN/Cr over the next few days keep MAP> 65 avoid nephrotoxins if no improvement seen, will likely need longer term dialysis #Hypocalcemia Corrected Ca is 6.9 today Getting high Ca bath with dialysis on Calcitrol and oral Ca Carbonate Repeat BMP at 2 pm, if corrected Ca is < 7.5 will need IV Calcium Gluconate PTH pending #Hyperphospahtemia continue phos binders #Microcytic Anemia s/p PRBC with HD iron studies noted will get VON with HD David Schroeder DO
--- NOTE | 2016-10-21 10:17 | PN ---
Progress Note (short form) - Note Progress Note: PULMONARY/CCM Pt seen and examined in the ICU. More awake, alert. No fevers or chills. Receiving HD. Last Vital Signs Temp Pulse Resp BP Pulse Ox 97.8 F 77 18 120/55 97 10/21/16 06:45 10/21/16 10:00 10/21/16 10:00 10/21/16 10:00 10/21/16 08:55 Intake & Output 10/18/16 10/19/16 10/20/16 10/21/16 23:59 23:59 23:59 23:59 Intake Total 910 1870 120 480 Output Total 200 500 650 300 Balance 710 1370 -530 180 Weight 195 lb 9.6 oz 193 lb 11.2 oz 199 lb 9.6 oz Gen: NAD at rest Heart: RRR Lung: decreased breath sounds at the bases Abd: soft, nontender Ext: no edema CBC, BMP 10/21/16 06:50 10/21/16 06:50 Active Medications Acetaminophen (Tylenol -) 650 mg PO Q6H PRN PRN Reason: FEVER OR PAIN Last Admin: 10/20/16 12:12 Dose: 650 mg Calcitriol (Rocaltrol -) 0.25 mcg PO DAILY [facility] Last Admin: 10/21/16 09:56 Dose: 0.25 mcg Calcium Acetate (Phoslo -) 1,334 mg PO TID [facility] Last Admin: 10/21/16 06:39 Dose: 1,334 mg Calcium Carbonate (Calcium Carbonate -) 1,300 mg PO BID [facility] Last Admin: 10/21/16 09:56 Dose: 1,300 mg Chlorhexidine Gluconate (Hibiclens For Decolonization -) 1 applic TP HS [facility] Last Admin: 10/20/16 22:44 Dose: 1 applic Hydralazine HCl (Apresoline -) 10 mg PO TID [facility] Last Admin: 10/21/16 06:39 Dose: 10 mg Insulin Aspart (Novolog Vial Sliding Scale -) 1 vial SQ ACHS [facility] PRN Reason: Protocol Last Admin: 10/21/16 06:39 Dose: Not Given Mupirocin (Bactroban Ointment (For Decolonization) -) 1 applic NS BID [facility] Stop: 10/23/16 09:59 Last Admin: 10/21/16 09:55 Dose: 1 applic A/P Altered Mental Status resolved Acute Kidney Injury Hyperkalemia resolved Hypocalcemia Metabolic Acidosis improving Anemia HTN DM - HD per renal - will d/c HD catheter after today's session - monitor lytes - monitor urine output, creatinine - monitor H/H - aspiration precautions - renal work up in progress - can monitor on floor
--- NOTE | 2016-10-21 10:41 | PN ---
Addendum entered and electronically signed by Mikael Arevalo PA 10/23/16 13:22: LUE vein mapping ordered Original Note: Physical Exam: SUBJECTIVE: Patient seen and examined. She has no complaints. OBJECTIVE: Vital Signs Period Temp Pulse Resp BP Sys/Rolle Pulse Ox Last 24 Hr 97.8 F-99 F 72-87 15-27 120-180/54-95 97-97 GENERAL: The patient is awake, alert, and fully oriented, in no acute distress. LUNGS: Breath sounds equal, clear to auscultation bilaterally, no wheezes, no crackles, no accessory muscle use. HEART: Regular rate and rhythm, S1, S2 without murmur, rub or gallop. ABDOMEN: Obese, soft, nontender, nondistended, normoactive bowel sounds, no guarding, no rebound, no hepatosplenomegaly, no masses. EXTREMITIES: 2+ pulses, warm, well-perfused, trace edema. Laboratory Results - last 24 hr 10/20/16 10/20/16 10/20/16 11:30 17:41 22:39 WBC RBC Hgb Hct MCV MCHC RDW Plt Count MPV Sodium Potassium Chloride Carbon Dioxide Anion Gap BUN Creatinine Creat Clearance w eGFR POC Glucometer [phone] 179.83546 Random Glucose Calcium Phosphorus Total Bilirubin AST ALT Alkaline Phosphatase Total Protein Albumin 10/21/16 10/21/16 06:50 06:50 WBC 10.6 H RBC 4.04 Hgb 9.8 L D Hct 29.6 L MCV 73.3 L MCHC 33.0 RDW 17.9 H Plt Count 242 MPV 8.1 Sodium 133 L Potassium 4.0 Chloride 96 L Carbon Dioxide 28 Anion Gap 9 BUN 40 H D Creatinine 10.4 H* Creat Clearance w eGFR 3.67 POC Glucometer Random Glucose 87 Calcium 5.2 L* Phosphorus 4.3 D Total Bilirubin 0.3 D AST 20 ALT 14 Alkaline Phosphatase 96 Total Protein 5.2 L Albumin 1.8 L Active Medications Generic Name Dose Route Start Last Admin Trade Name Freq PRN Reason Stop Dose Admin Acetaminophen 650 mg 10/18/16 15:39 10/20/16 12:12 Tylenol - PO 650 mg Q6H PRN Administration FEVER OR PAIN Calcitriol 0.25 mcg 10/20/16 11:30 10/21/16 09:56 Rocaltrol - PO 0.25 mcg DAILY [facility] Administration Calcium Acetate 1,334 mg 10/18/16 14:00 10/21/16 06:39 Phoslo - PO 1,334 mg TID [facility] Administration Calcium Carbonate 1,300 mg 10/20/16 11:30 10/21/16 09:56 Calcium Carbonate - PO 1,300 mg BID [facility] Administration Chlorhexidine Gluconate 1 applic 10/18/16 22:00 10/20/16 22:44 Hibiclens For Decolonization - TP 1 applic HS [facility] Administration Hydralazine HCl 10 mg 10/19/16 22:00 10/21/16 06:39 Apresoline - PO 10 mg TID [facility] Administration Insulin Aspart 1 vial 10/18/16 16:30 10/21/16 06:39 Novolog Vial Sliding Scale - SQ Not Given ACHS [facility] Protocol Mupirocin 1 applic 10/18/16 10:00 10/21/16 09:55 Bactroban Ointment (For Decolonization) - NS 10/23/16 09:59 1 applic BID [facility] Administration ASSESSMENT/PLAN: This is a 66-year-old woman with a history of HTN, type 2 DM who presented to the ER with lethargy. 1. Acute renal failure - s/p HD 10/18, 10/19 - HD today - SANDRO negative 2. Hyperkalemia - Improved 3. Hypocalcemia/hyperphosphatemia - Phosphate improved - Calcium remains low (corrected Ca 7.0) - Continue PhosLo, Rocaltrol, calcium carbonate - Calcium gluconate IV as needed 4. Metabolic acidosis - Resolved 5. Anemia secondary to CKD - Hemoglobin stable - Continue Epogen with HD - Transfused 2 units PRBCs 10/19 6. Type 2 diabetes mellitus - Continue Novolog sliding scale 7. HTN - Continue Hydralazine Visit type - Emergency Visit Emergency Visit: Yes ED Registration Date: 10/17/16 Care time: The patient presented to the Emergency Department on the above date and was hospitalized for further evaluation of their emergent condition. - New Patient This patient is new to me today: No - Critical Care Critical Care patient: No - Discharge Referral Referred to [facility] Med P.C.: No
[2016-10-21 14:36] LABS: COCKROFT - GAULT 10.829; CREATININE 7.2 mg/dL (0.55-1.02)
[2016-10-21 16:00] LABS: CALCIUM 6.2 mg/dL (8.5-10.1)
[2016-10-21] MEDS: CHLORHEXIDINE GLUCONATE 4% CLEANSER FOR DECOLONIZATION TP SCH (22:44)
[2016-10-21] MEDS ORDERED: ACETAMINOPHEN 325 MG TABLET (FP) PO PRN (23:02)
[2016-10-22] MEDS: hydrALAZINE HCL 10 MG TABLET PO SCH ×3 (06:30→21:47)
[2016-10-22] MEDS: CALCIUM ACETATE 667 MG CAPSULE (FP) PO SCH ×3 (06:31→21:47)
[2016-10-22] MEDS: INSULIN SLIDING SCALE (NOVOLOG) 1 VIAL SQ SCH ×4 (06:31→22:05)
[2016-10-22 08:40] LABS: MCH 23.8 pg (25.7-33.7); MCHC 31.8 g/dl (32.0-36.0); MEAN CELL VOLUME 74.9 fl (80-96); MEAN PLT VOLUME 7.8 fl (7.5-11.1); PLATELET COUNT 211 K/MM3 (134-434); WHITE BLOOD COUNT 10.4 K/mm3 (4.0-10.0)
[2016-10-22 09:06] LABS: ALBUMIN 1.7 g/dl (3.4-5.0); BILIRUBIN,TOTAL 0.3 mg/dL (0.2-1.0); COCKROFT - GAULT 9.299; MAGNESIUM 1.5 mg/dL (1.8-2.4); PHOSPHOROUS 3.5 mg/dL (2.5-4.9); TOT PROT 4.9 g/dl (6.4-8.2)
[2016-10-22] MEDS: CALCIUM CARBONATE 650 MG TABLET PO SCH ×2 (09:28→21:47)
[2016-10-22] MEDS: CALCITRIOL 0.25 MCG CAPSULE (FP) PO SCH (09:28)
[2016-10-22] MEDS ORDERED: MUPIROCIN 2% TOPICAL OINTMENT FOR DECOLONIZATION NS SCH (10:00)
[2016-10-22 10:02] LABS: CREATININE 8.1 mg/dL (0.55-1.02)
[2016-10-22 10:03] LABS: CALCIUM 6.3 mg/dL (8.5-10.1)
[2016-10-22 11:21] LABS: HYPOCHROMIA 1+; PLATELET COMMENT2 NO CLOTTING DETECTED; PLATELET ESTIMATE ADEQUATE (NORMAL); POLYCHROMASIA 1+
--- NOTE | 2016-10-22 12:23 | PN ---
Physical Exam: SUBJECTIVE: Patient seen and examined. She has no complaints. OBJECTIVE: Vital Signs Period Temp Pulse Resp BP Sys/Rolle Pulse Ox Last 24 Hr 98.8 F-99.0 F 80-88 16-18 133-144/58-85 95-96 GENERAL: The patient is awake, alert, and fully oriented, in no acute distress. LUNGS: Breath sounds equal, clear to auscultation bilaterally, no wheezes, no crackles, no accessory muscle use. HEART: Regular rate and rhythm, S1, S2 without murmur, rub or gallop. ABDOMEN: Obese, soft, nontender, nondistended, normoactive bowel sounds, no guarding, no rebound, no hepatosplenomegaly, no masses. EXTREMITIES: 2+ pulses, warm, well-perfused, trace edema. Laboratory Results - last 24 hr 10/17/16 10/21/16 10/21/16 22:40 11:34 13:30 WBC RBC Hgb Hct MCV MCHC RDW Plt Count MPV Neutrophils % Lymphocytes % Monocytes % Eosinophils % Nucleated RBCs Platelet Estimate Platelet Comment Polychromasia Hypochromic-Microcytic Sodium 136 Potassium 3.7 Chloride 97 L Carbon Dioxide 28 Anion Gap 11 BUN 25 H D Creatinine 7.2 H D Creat Clearance w eGFR POC Glucometer [phone] Random Glucose 107 H D Calcium 6.2 L* Phosphorus Magnesium Total Bilirubin AST ALT Alkaline Phosphatase Total Protein Albumin Blood Type O POSITIVE Antibody Screen Negative Crossmatch See Detail Spec Expiration Date 10/21/16 10/21/16 10/22/16 16:43 21:07 05:50 WBC RBC Hgb Hct MCV MCHC RDW Plt Count MPV Neutrophils % Lymphocytes % Monocytes % Eosinophils % Nucleated RBCs Platelet Estimate Platelet Comment Polychromasia Hypochromic-Microcytic Sodium Potassium Chloride Carbon Dioxide Anion Gap BUN Creatinine Creat Clearance w eGFR POC Glucometer 180.56381 107 88 Random Glucose Calcium Phosphorus Magnesium Total Bilirubin AST ALT Alkaline Phosphatase Total Protein Albumin Blood Type Antibody Screen Crossmatch Spec Expiration Date 10/22/16 10/22/16 10/22/16 07:30 07:30 11:46 WBC 10.4 H RBC 3.90 Hgb 9.3 L Hct 29.2 L MCV 74.9 L MCHC 31.8 L RDW 18.0 H Plt Count 211 MPV 7.8 Neutrophils % 81.0 Lymphocytes % 13.0 D Monocytes % 3.0 L Eosinophils % 3.0 D Nucleated RBCs 2 H Platelet Estimate Adequate Platelet Comment No clotting detected Polychromasia 1+ Hypochromic-Microcytic 1+ Sodium 135 L Potassium 3.8 Chloride 97 L Carbon Dioxide 25 Anion Gap 13 BUN 27 H Creatinine 8.1 H* Creat Clearance w eGFR 4.95 POC Glucometer 85 Random Glucose 88 Calcium 6.3 L* Phosphorus 3.5 Magnesium 1.5 L Total Bilirubin 0.3 AST 14 L D ALT 13 Alkaline Phosphatase 83 Total Protein 4.9 L Albumin 1.7 L Blood Type Antibody Screen Crossmatch Spec Expiration Date Active Medications Generic Name Dose Route Start Last Admin Trade Name Freq PRN Reason Stop Dose Admin Acetaminophen 650 mg 10/21/16 23:02 Tylenol - PO Q6H PRN FEVER OR PAIN Calcitriol 0.25 mcg 10/22/16 10:00 10/22/16 09:28 Rocaltrol - PO 0.25 mcg DAILY [facility] Administration Calcium Acetate 1,334 mg 10/22/16 06:00 10/22/16 06:31 Phoslo - PO 1,334 mg TID [facility] Administration Calcium Carbonate 1,300 mg 10/22/16 10:00 10/22/16 09:28 Calcium Carbonate - PO 1,300 mg BID [facility] Administration Hydralazine HCl 10 mg 10/22/16 06:00 10/22/16 06:30 Apresoline - PO 10 mg TID [facility] Administration Insulin Aspart 1 vial 10/22/16 07:00 10/22/16 11:48 Novolog Vial Sliding Scale - SQ Not Given [facility]S [facility] Protocol ASSESSMENT/PLAN: This is a 66-year-old woman with a history of HTN, type 2 DM who presented to the ER with lethargy. 1. Acute renal failure - s/p HD 10/18, 10/19, 10/21 - SANDRO negative - Monitor BUN/creatinine 2. Hyperkalemia - Improved 3. Hypocalcemia/hyperphosphatemia - Phosphate improved - Corrected calcium is 8.1 - Continue PhosLo, Rocaltrol, calcium carbonate - Calcium gluconate IV as needed 4. Hypomagnesemia - Supplement magnesium 5. Metabolic acidosis - Resolved 6. Anemia secondary to CKD - Hemoglobin stable - Continue Epogen with HD - Transfused 2 units PRBCs 10/19 7. Type 2 diabetes mellitus - Continue Novolog sliding scale 8. HTN - Continue Hydralazine Visit type - Emergency Visit Emergency Visit: Yes ED Registration Date: 10/17/16 Care time: The patient presented to the Emergency Department on the above date and was hospitalized for further evaluation of their emergent condition. - New Patient This patient is new to me today: No - Critical Care Critical Care patient: No - Discharge Referral Referred to [facility] Med P.C.: No
[2016-10-22] MEDS: MAGNESIUM OXIDE 400 MG TABLET (FP) PO SCH ×2 (14:29→21:47)
[2016-10-22] MEDS ORDERED: CHLORHEXIDINE GLUCONATE 4% CLEANSER FOR DECOLONIZATION TP SCH (22:00)
[2016-10-23] MEDS: hydrALAZINE HCL 10 MG TABLET PO SCH ×3 (05:56→23:04)
[2016-10-23] MEDS: CALCIUM ACETATE 667 MG CAPSULE (FP) PO SCH ×3 (05:56→23:04)
[2016-10-23] MEDS: INSULIN SLIDING SCALE (NOVOLOG) 1 VIAL SQ SCH ×4 (06:01→23:00)
[2016-10-23] MEDS ORDERED: PT OWN MED DRAWER 7, Y5N ONE (06:55)
--- NOTE | 2016-10-23 07:54 | PN ---
Physical Exam: SUBJECTIVE: Patient seen and examined at bed side this morning. No complaints. Denies headache, fever, chest pain, sob, cough, palpitations, abdominal pain, nausea or vomiting. Bowel habit normal. Sleep/Appetite normal. OBJECTIVE: Vital Signs Period Temp Pulse Resp BP Sys/Rolle Pulse Ox Last 24 Hr 98.8 F-99.2 F 77-83 16-20 110-150/58-69 95-95 GENERAL: The patient is awake, alert, and fully oriented, in no acute distress. HEAD: Normal with no signs of trauma. EYES: Complete absence of vision of the left eye (legally blind). Right eye- vision normal. PERRL, extraocular movements intact, sclera anicteric, conjunctiva clear. No ptosis. ENT: Ears normal, nares patent, oropharynx clear without exudates, moist mucous membranes. NECK: Trachea midline, full range of motion, supple. LUNGS: Breath sounds equal, clear to auscultation bilaterally, no wheezes, no crackles, no accessory muscle use. HEART: Regular rate and rhythm, S1, S2 without murmur, rub or gallop. ABDOMEN: Soft, nontender, nondistended, normoactive bowel sounds, no guarding, no rebound, no hepatosplenomegaly, no masses. EXTREMITIES: Upper: 2+ pulses, warm, well-perfused, no edema. Lower: 2+ pulses, warm, well-perfused. No calf tenderness. (+) 1 pitting edema bilateral LE NEUROLOGICAL: Cranial nerves II through XII grossly intact. Normal speech, gait not observed. PSYCH: Normal mood, normal affect. SKIN: Warm, dry, normal turgor, no rashes or lesions noted Laboratory Results - last 24 hr 10/17/16 10/22/16 10/22/16 22:40 07:30 07:30 WBC 10.4 H RBC 3.90 Hgb 9.3 L Hct 29.2 L MCV 74.9 L MCHC 31.8 L RDW 18.0 H Plt Count 211 MPV 7.8 Neutrophils % 81.0 Lymphocytes % 13.0 D Monocytes % 3.0 L Eosinophils % 3.0 D Nucleated RBCs 2 H Platelet Estimate Adequate Platelet Comment No clotting detected Polychromasia 1+ Hypochromic-Microcytic 1+ Sodium 135 L Potassium 3.8 Chloride 97 L Carbon Dioxide 25 Anion Gap 13 BUN 27 H Creatinine 8.1 H* Creat Clearance w eGFR 4.95 POC Glucometer Random Glucose 88 Calcium 6.3 L* Phosphorus 3.5 Magnesium 1.5 L Total Bilirubin 0.3 AST 14 L D ALT 13 Alkaline Phosphatase 83 Total Protein 4.9 L Albumin 1.7 L Blood Type O POSITIVE Antibody Screen Negative Crossmatch See Detail Spec Expiration Date 10/22/16 10/22/16 10/22/16 11:46 16:27 22:02 WBC RBC Hgb Hct MCV MCHC RDW Plt Count MPV Neutrophils % Lymphocytes % Monocytes % Eosinophils % Nucleated RBCs Platelet Estimate Platelet Comment Polychromasia Hypochromic-Microcytic Sodium Potassium Chloride Carbon Dioxide Anion Gap BUN Creatinine Creat Clearance w eGFR POC Glucometer 85 160 111 Random Glucose Calcium Phosphorus Magnesium Total Bilirubin AST ALT Alkaline Phosphatase Total Protein Albumin Blood Type Antibody Screen Crossmatch Spec Expiration Date 10/23/16 05:55 WBC RBC Hgb Hct MCV MCHC RDW Plt Count MPV Neutrophils % Lymphocytes % Monocytes % Eosinophils % Nucleated RBCs Platelet Estimate Platelet Comment Polychromasia Hypochromic-Microcytic Sodium Potassium Chloride Carbon Dioxide Anion Gap BUN Creatinine Creat Clearance w eGFR POC Glucometer 181 Random Glucose Calcium Phosphorus Magnesium Total Bilirubin AST ALT Alkaline Phosphatase Total Protein Albumin Blood Type Antibody Screen Crossmatch Spec Expiration Date Active Medications Generic Name Dose Route Start Last Admin Trade Name Pauloq PRN Reason Stop Dose Admin Acetaminophen 650 mg 10/21/16 23:02 Tylenol - PO Q6H PRN FEVER OR PAIN Calcitriol 0.25 mcg 10/22/16 10:00 10/22/16 09:28 Rocaltrol - PO 0.25 mcg DAILY ZANA Administration Calcium Acetate 1,334 mg 10/22/16 06:00 10/23/16 05:56 Phoslo - PO 1,334 mg TID ZANA Administration Calcium Carbonate 1,300 mg 10/22/16 10:00 10/22/16 21:47 Calcium Carbonate - PO 1,300 mg BID ZANA Administration Hydralazine HCl 10 mg 10/22/16 06:00 10/23/16 05:56 Apresoline - PO 10 mg TID ZANA Administration Insulin Aspart 1 vial 10/22/16 07:00 10/23/16 06:01 Novolog Vial Sliding Scale - SQ 2 units ACHS ZANA Administration Protocol ASSESSMENT/PLAN: Patient is a 66 year old female with PMH of HTN, DM & legally blind who is brought in to ED by sisters for lethargy & poor baseline functional status. Found to be in renal failure with hyperkalemia. # Acute renal failure with nephrotic range proteinuria On arrival, patient's creatinine was 21.2. Dialysis was done and creatinine slowly improved and today's creatinine is 9.3 off dialysis Plan: Place a permacath and AVF placement Dialysis tomorrow after the permacath placement Difficult to perform a biopsy of the kidneys since its atrophic HD as outpatient. #Altered mental ml metabolic encephalopthy / metabolic acidosis secondary to renal failure and hypocalcemia : improved -correct electrolytes abnormalities -Dialysis # Hyperkalemia- resolved -Calcium gluconate, Kayexelate, Insulin given in ED -continue to trend potassium normal since 10/18, today's K-4.1 -continuous cardiac monitoring; telemetry floor # Hypocalcemia:improved -continue with replacement -increase calcium bath with dialysis -trend : corrected Ca today 8.2 # Hyperphosphatemia: - Dialysis tomorrow -Phosphate binders # Diabetes Mellitus -Insulin sliding scale -Diabetic diet -Diet and exercise counseling # Hypertension -stable at present -reassess in AM #Anemia most likely chronic vs acute - H/H 9.4/28.1 -Iron studies normal -may be secondary to renal failure vs blood loss -FOBT negative # FEN Not on IV fluids Electrolytes to be repeated tomorrow Renal diet # Prophylaxis For DVT: On SCD's For GI: Not indicated # Code Status: Full Code # Dispo: Admitted in Med-Surg. Duration of stay unknown. Illness, Investigation and Plan of care explained to the patient. She verbalized understanding. Visit type - Emergency Visit Emergency Visit: Yes ED Registration Date: 10/17/16 Care time: The patient presented to the Emergency Department on the above date and was hospitalized for further evaluation of their emergent condition. - New Patient This patient is new to me today: Yes Date on this admission: 10/23/16 - Critical Care Critical Care patient: No
[2016-10-23 08:06] LABS: MCH 23.7 pg (25.7-33.7); MCHC 31.9 g/dl (32.0-36.0); MEAN CELL VOLUME 74.2 fl (80-96); PLATELET COUNT 219 K/MM3 (134-434); RDW 17.5 % (11.6-15.6); WHITE BLOOD COUNT 6.6 K/mm3 (4.0-10.0)
[2016-10-23 08:51] LABS: COCKROFT - GAULT 8.109; MAGNESIUM 1.5 mg/dL (1.8-2.4); PHOSPHOROUS 3.8 mg/dL (2.5-4.9)
[2016-10-23 09:34] LABS: CALCIUM 6.5 mg/dL (8.5-10.1); CREATININE 9.3 mg/dL (0.55-1.02)
[2016-10-23] MEDS: CALCIUM CARBONATE 650 MG TABLET PO SCH ×2 (10:09→23:05)
[2016-10-23] MEDS: CALCITRIOL 0.25 MCG CAPSULE (FP) PO SCH (10:10)
--- NOTE | 2016-10-23 11:26 | PN ---
Progress Note (short form) - Note Progress Note: Renal Follow up for DAVI/Hyperkalemia Pt seen and examined at the bedside no acute complaints denies sob, chest pain, N/V/D, Abd pain making urine Vital Signs Temperature 99 F 10/23/16 10:00 Pulse Rate 77 10/23/16 10:00 Respiratory Rate 18 10/23/16 10:00 Blood Pressure 134/60 10/23/16 10:00 O2 Sat by Pulse Oximetry (%) 95 10/23/16 00:00 Intake & Output 10/20/16 10/21/16 10/22/16 10/23/16 23:59 23:59 23:59 23:59 Intake Total 120 1130 720 150 Output Total 650 750 Balance -530 380 720 150 Weight 193 lb 11.2 oz 199 lb 9.6 oz 192 lb 11.2 oz 193 lb Gen: NAD, awake and alert CVS: RRR, No M/R Lungs :CTA, no rales or wheeze Abd: soft, Obese, NT/ND Ext: NO edema, clubbing or cyanosis : No bladder distension, cueva in place Access: Femoral HD catheter CBC, BMP 10/23/16 05:56 10/23/16 05:56 Laboratory Tests 10/21/16 10/23/16 06:50 05:56 Calcium 5.2 L* 6.5 L* Phosphorus 3.8 Magnesium 1.5 L Albumin 1.8 L Current Medications Acetaminophen (Tylenol -) 650 mg PO Q6H PRN PRN Reason: FEVER OR PAIN Calcitriol (Rocaltrol -) 0.25 mcg PO DAILY [facility] Last Admin: 10/23/16 10:10 Dose: 0.25 mcg Calcium Acetate (Phoslo -) 1,334 mg PO TID [facility] Last Admin: 10/23/16 05:56 Dose: 1,334 mg Calcium Carbonate (Calcium Carbonate -) 1,300 mg PO BID [facility] Last Admin: 10/23/16 10:09 Dose: 1,300 mg Hydralazine HCl (Apresoline -) 10 mg PO TID [facility] Last Admin: 10/23/16 05:56 Dose: 10 mg Insulin Aspart (Novolog Vial Sliding Scale -) 1 vial SQ ACHS [facility] PRN Reason: Protocol Last Admin: 10/23/16 06:01 Dose: 2 units A/P 66 year old woman with PMhx of Hypertension, DM Type 2 not currently taking medications that presented with fatigue/malaise and found to have acute renal failure, hyperkalemia and hypocalcemia. #Acute Renal Failure with nephrotoic range proteinuria BUN/Cr uptending off dialysis, indicates continued renal dysfunction Will need dialysis termite control technician contacted Vascular about permacath and AVF placement called IR regarding possibility of biopsy however given atrophic kidneys unlikely to be able to do so and unlikely that biopsy will jacquard loom card changer given how advanced her kidney disease is will plan for dialysis tomorrow following access placement outpatient HD unit needs to be arranged #Hypocalcemia Corrected Ca is 8.2 continue Calcitrol and Po Calcium #Hyperphospahtemia continue phos binders #Microcytic Anemia Continue VON with HD David Schroeder DO
--- NOTE | 2016-10-23 13:20 | SPA.PREOP ---
Addendum entered and electronically signed by Mikael Arevalo PA 10/23/16 13:23: LUE vein mapping ordered Original Note: - PRE-OP NOTE Dx: ESRD on HD via shiley Planned Procedure: Insertion of permacatheter and [place] av fistula, possible graft Surgeon: Bandar Cuellar Consent: To be obtained by surgeon after risks, benefits and alternatives explained to patient. Last Vital Signs Temp Pulse Resp BP Pulse Ox 99 F 77 18 134/60 95 10/23/16 10:00 10/23/16 10:00 10/23/16 10:00 10/23/16 10:00 10/23/16 09:00 Lab Results WBC 6.6 K/mm3 (4.0-10.0) D 10/23/16 05:56 RBC 3.79 M/mm3 (3.60-5.2) 10/23/16 05:56 Hgb 9.0 GM/dL (10.7-15.3) L 10/23/16 05:56 Hct 28.2 % (32.4-45.2) L 10/23/16 05:56 MCV 74.2 fl (80-96) L 10/23/16 05:56 MCHC 31.9 g/dl (32.0-36.0) L 10/23/16 05:56 RDW 17.5 % (11.6-15.6) H 10/23/16 05:56 Plt Count 219 K/MM3 (134-434) 10/23/16 05:56 Sodium 134 mmol/L (136-145) L 10/23/16 05:56 Potassium 4.1 mmol/L (3.5-5.1) 10/23/16 05:56 Chloride 95 mmol/L (98-107) L 10/23/16 05:56 Carbon Dioxide 27 mmol/L (21-32) 10/23/16 05:56 Anion Gap 12 (8-16) 10/23/16 05:56 BUN 32 mg/dL (7-18) H 10/23/16 05:56 Creatinine 9.3 mg/dL (0.55-1.02) H* 10/23/16 05:56 Random Glucose 67 mg/dL (74-106) L D 10/23/16 05:56 Calcium 6.5 mg/dL (8.5-10.1) L* 10/23/16 05:56 Blood Type O POSITIVE 10/19/16 08:45 Antibody Screen Negative 10/17/16 22:40 INR 1.04 (0.82-1.09) 10/17/16 17:15 - ASSESSMENT/PLAN 1. Make NPO after midnight except po meds 2. GI/DVT PPX 3. Medical optimization / clearance Problem List - Problems (1) Acute renal failure Code(s): N17.9 - ACUTE KIDNEY FAILURE, UNSPECIFIED Qualifiers: Acute renal failure type: unspecified Qualified Code(s): N17.9 - Acute kidney failure, unspecified Visit type - Case Type Case Type: ED Admission
--- NOTE | 2016-10-23 18:39 | PN ---
Teaching Attending Note Name of Resident: Selena Ruiz ATTENDING PHYSICIAN STATEMENT I saw and evaluated the patient. I reviewed the resident's note and discussed the case with the resident. I agree with the resident's findings and plan as documented. SUBJECTIVE: No complaints. OBJECTIVE: Vital Signs Period Temp Pulse Resp BP Sys/Rolle Pulse Ox Last 24 Hr 98.9 F-99.2 F 77-82 18-18 110-150/60-69 95-95 GENERAL: The patient is awake, alert, and fully oriented, in no acute distress. LUNGS: Breath sounds equal, clear to auscultation bilaterally, no wheezes, no crackles, no accessory muscle use. HEART: Regular rate and rhythm, S1, S2 without murmur, rub or gallop. ABDOMEN: Obese, soft, nontender, nondistended, normoactive bowel sounds, no guarding, no rebound, no hepatosplenomegaly, no masses. EXTREMITIES: 2+ pulses, warm, well-perfused, trace edema. ASSESSMENT AND PLAN: This is a 66-year-old woman with a history of HTN, type 2 DM who presented to the ER with lethargy. 1. Acute renal failure with nephrotic range proteinuria - s/p HD 10/18, 10/19, 10/21 - SANDRO negative - Creatinine increasing - Permacath inserted today for continued HD - HD as per nephrology - Will need outpatient HD arranged 2. Hyperkalemia - Improved 3. Hypocalcemia/hyperphosphatemia - Continue PhosLo, Rocaltrol, calcium carbonate - Calcium gluconate IV as needed 4. Hypomagnesemia - Supplement magnesium 5. Metabolic acidosis - Resolved 6. Anemia secondary to CKD - Continue Epogen with HD - Transfused 2 units PRBCs 10/19 7. Type 2 diabetes mellitus - Continue Novolog sliding scale 8. HTN - Continue Hydralazine
--- NOTE | 2016-10-23 18:57 | PN ---
Progress Note (short form) - Note Progress Note: Vascular Surgery Pt seen and examined. Awaiting vein mapping for avf placement. For PC and avf in am. NPO past midnight Bandar Cuellar dO
[2016-10-24] MEDS: hydrALAZINE HCL 10 MG TABLET PO SCH ×3 (06:33→21:29)
[2016-10-24] MEDS: CALCIUM ACETATE 667 MG CAPSULE (FP) PO SCH ×3 (06:33→21:29)
[2016-10-24] MEDS: INSULIN SLIDING SCALE (NOVOLOG) 1 VIAL SQ SCH ×4 (06:33→21:34)
[2016-10-24 07:36] LABS: MCHC 32.5 g/dl (32.0-36.0); MEAN CELL VOLUME 73.8 fl (80-96); MEAN PLT VOLUME 7.9 fl (7.5-11.1); PLATELET COUNT 245 K/MM3 (134-434); RDW 18.1 % (11.6-15.6); WHITE BLOOD COUNT 5.2 K/mm3 (4.0-10.0)
[2016-10-24 08:08] LABS: MAGNESIUM 1.7 mg/dL (1.8-2.4); PHOSPHOROUS 4.1 mg/dL (2.5-4.9)
[2016-10-24 08:13] LABS: COCKROFT - GAULT 7.6245
[2016-10-24 08:34] LABS: CREATININE 9.9 mg/dL (0.55-1.02)
[2016-10-24 08:35] LABS: CALCIUM 6.6 mg/dL (8.5-10.1)
[2016-10-24] MEDS ORDERED: MAGNESIUM SULF 50% (8.12 MEQ/2 ML-1 GM VIAL) IVPB ONE (09:23)
[2016-10-24 10:11] LABS: METAMYELOCYTE 1 % (0-2); PLATELET ESTIMATE ADEQUATE (NORMAL)
[2016-10-24 10:15] LABS: ANISOCYTOSIS 2+; MICROCYTOSIS 1+; POIKILOCYTOSIS 3+; POLYCHROMASIA 1+
[2016-10-24 10:17] LABS: FRAGMENTED CELL 1+
[2016-10-24] MEDS ORDERED: PT OWN MED DRAWER 7, Y5N ONE ×2 (10:25→15:09)
[2016-10-24] MEDS: CALCIUM CARBONATE 650 MG TABLET PO SCH ×2 (10:56→21:29)
[2016-10-24] MEDS: CALCITRIOL 0.25 MCG CAPSULE (FP) PO SCH (10:56)
[2016-10-24] MEDS ORDERED: EPOETIN ALFA 2,000 UNITS/1 ML VIAL IVPUSH ONE (11:10)
--- NOTE | 2016-10-24 11:10 | PN ---
Progress Note (short form) - Note Progress Note: Renal Follow up for DAVI/Hyperkalemia Pt seen and examined at the bedside no acute complaints no sob, chest pain, fever, or chills s/p vein mapping this AM for AVF and tunneled hd catheter this afternoon Vital Signs Temperature 99 F 10/24/16 09:10 Pulse Rate 78 10/24/16 09:10 Respiratory Rate 18 10/24/16 09:10 Blood Pressure 152/64 10/24/16 09:10 O2 Sat by Pulse Oximetry (%) 95 10/24/16 09:00 Intake & Output 10/21/16 10/22/16 10/23/16 10/24/16 23:59 23:59 23:59 23:59 Intake Total 1130 720 550 Output Total 750 Balance 380 720 550 Weight 199 lb 9.6 oz 192 lb 11.2 oz 193 lb 193 lb 1.6 oz Gen: NAD, awake and alert CVS: RRR, No M/R Lungs :CTA, no rales or wheeze Abd: soft, Obese, NT/ND Ext: NO edema, clubbing or cyanosis CBC, BMP 10/24/16 06:20 10/24/16 06:20 Laboratory Tests 10/24/16 06:20 Phosphorus 4.1 Magnesium 1.7 L Current Medications Acetaminophen (Tylenol -) 650 mg PO Q6H PRN PRN Reason: FEVER OR PAIN Calcitriol (Rocaltrol -) 0.25 mcg PO DAILY [facility] Last Admin: 10/24/16 10:56 Dose: 0.25 mcg Calcium Acetate (Phoslo -) 1,334 mg PO TID [facility] Last Admin: 10/24/16 06:33 Dose: 1,334 mg Calcium Carbonate (Calcium Carbonate -) 1,300 mg PO BID [facility] Last Admin: 10/24/16 10:56 Dose: 1,300 mg Hydralazine HCl (Apresoline -) 10 mg PO TID [facility] Last Admin: 10/24/16 06:33 Dose: 10 mg Insulin Aspart (Novolog Vial Sliding Scale -) 1 vial SQ ACHS [facility] PRN Reason: Protocol Last Admin: 10/24/16 06:33 Dose: Not Given A/P 66 year old woman with PMhx of Hypertension, DM Type 2 not currently taking medications that presented with fatigue/malaise and found to have acute renal failure, hyperkalemia and hypocalcemia. #Subacute Renal failure w/o recovery now ESRD requiing dialysis lack of renal recovery at this time warrents continued HD etiology of CKD appears to be DM/Hypertension but cannot r/o FSGS in (APOL1) however given atrophic kidneys unlikely to recover renal function for permacath and HD catheter placement today HD today following OR outpatient HD unit placement pending #Hypocalcemia Corrected Ca is 8.2 continue Calcitrol and Po Calcium #Hyperphospahtemia continue phos binders #Microcytic Anemia Continue VON with HD David Schroeder DO
[2016-10-24] MEDS ORDERED: HEPARIN NA (PORCINE) 5,000 UNITS/ML 1ML VIAL ONE (11:25)
[2016-10-24] MEDS ORDERED: LIDOCAINE HCL 1%, 10 MG/ML (20ML VIAL) ONE (11:25)
[2016-10-24] MEDS ORDERED: MAGNESIUM OXIDE 400 MG TABLET (FP) PO ONE (11:30)
--- NOTE | 2016-10-24 11:48 | PN ---
Progress Note (short form) - Note Progress Note: Overall feels better. No CP or SOB. For AVF / permacath today. Intake & Output 10/21/16 10/22/16 10/23/16 10/24/16 23:59 23:59 23:59 23:59 Intake Total 1130 720 550 Output Total 750 Balance 380 720 550 Weight 199 lb 9.6 oz 192 lb 11.2 oz 193 lb 193 lb 1.6 oz Last Vital Signs Temp Pulse Resp BP Pulse Ox 99 F 78 18 152/64 95 10/24/16 09:10 10/24/16 09:10 10/24/16 09:10 10/24/16 09:10 10/24/16 09:00 Active Medications Acetaminophen (Tylenol -) 650 mg PO Q6H PRN PRN Reason: FEVER OR PAIN Calcitriol (Rocaltrol -) 0.25 mcg PO DAILY [facility] Last Admin: 10/24/16 10:56 Dose: 0.25 mcg Calcium Acetate (Phoslo -) 1,334 mg PO TID [facility] Last Admin: 10/24/16 06:33 Dose: 1,334 mg Calcium Carbonate (Calcium Carbonate -) 1,300 mg PO BID [facility] Last Admin: 10/24/16 10:56 Dose: 1,300 mg Epoetin Samuel (Epogen -) 10,000 units IVPUSH ONCE ONE Stop: 10/24/16 11:11 Hydralazine HCl (Apresoline -) 10 mg PO TID [facility] Last Admin: 10/24/16 06:33 Dose: 10 mg Insulin Aspart (Novolog Vial Sliding Scale -) 1 vial SQ ACHS [facility] PRN Reason: Protocol Last Admin: 10/24/16 11:18 Dose: Not Given Gen: NAD, awake and alert Heart: RRR Lung: decreased breath sounds at the bases Abd: soft, nontender Ext: no edema Laboratory Results - last 24 hr 10/23/16 10/23/16 10/24/16 16:14 22:58 06:20 WBC 5.2 RBC 4.10 Hgb 9.8 L Hct 30.3 L MCV 73.8 L MCHC 32.5 RDW 18.1 H Plt Count 245 MPV 7.9 Neutrophils % 59.0 D Lymphocytes % 25.0 D Monocytes % 12.0 H D Band Neutrophils 1.0 Metamyelocytes 1 Differential Comment Manual diff done Reactive Lymphocytes 2 Platelet Estimate Adequate Polychromasia 1+ Poikilocytosis 3+ Basophilic Stippling 1+ Anisocytosis 2+ Microcytosis 1+ Macrocytosis 1+ Fragmented RBCs 1+ Morphology Comment Slide scanned Sodium Potassium Chloride Carbon Dioxide Anion Gap BUN Creatinine POC Glucometer 121 132 Random Glucose Calcium Phosphorus Magnesium 10/24/16 10/24/16 10/24/16 06:20 06:31 11:05 WBC RBC Hgb Hct MCV MCHC RDW Plt Count MPV Neutrophils % Lymphocytes % Monocytes % Band Neutrophils Metamyelocytes Differential Comment Reactive Lymphocytes Platelet Estimate Polychromasia Poikilocytosis Basophilic Stippling Anisocytosis Microcytosis Macrocytosis Fragmented RBCs Morphology Comment Sodium 132 L Potassium 4.2 Chloride 96 L Carbon Dioxide 25 Anion Gap 11 BUN 35 H Creatinine 9.9 H* POC Glucometer 114 108 Random Glucose 108 H D Calcium 6.6 L* Phosphorus 4.1 Magnesium 1.7 L ASSESSMENT AND PLAN: Altered Mental Status Acute Kidney Injury Hyperkalemia Hypocalcemia Metabolic Acidosis Rhabdomyolysis Anemia HTN DM - For HD access today - HD per renal - monitor lytes - Normal transfusion thresholds Dr Mccullough
[2016-10-24] MEDS ORDERED: MIDAZOLAM HCL 2 MG/2 ML SINGLE DOSE VIAL ONE (11:51)
--- NOTE | 2016-10-24 13:36 | PN ---
Physical Exam: SUBJECTIVE: Patient seen and examine, no new complaints. Patient did not go for permacath today, she was eating apple sauce with her medications. NPO tonight, no meds, parmacath in am. Denies FERMIN, cp, sob, dizziness, GI or complaints. OBJECTIVE: Vital Signs Period Temp Pulse Resp BP Sys/Rolle Pulse Ox Last 24 Hr 97.5 F-99 F 68-83 18-18 136-153/57-68 95-95 GENERAL: The patient is awake, alert, and fully oriented, in no acute distress. HEAD: Normal with no signs of trauma. EYES: blind in left eye, PERRL, extraocular movements intact, sclera anicteric, conjunctiva clear. No ptosis. LUNGS: Breath sounds equal, clear to auscultation bilaterally, no wheezes, no crackles, no accessory muscle use. HEART: Regular rate and rhythm, S1, S2, systolic murmur, rub or gallop. ABDOMEN: Soft, nontender, nondistended, normoactive bowel sounds, no guarding, no rebound, no hepatosplenomegaly, no masses. EXTREMITIES: 2+ pulses, warm, well-perfused, no edema. NEUROLOGICAL: Cranial nerves II through XII grossly intact. Normal speech, gait not observed. PSYCH: Normal mood, normal affect. SKIN: Warm, dry, normal turgor, no rashes or lesions noted CBC, BMP 10/24/16 06:20 10/24/16 06:20 Active Medications Generic Name Dose Route Start Last Admin Trade Name Freq PRN Reason Stop Dose Admin Acetaminophen 650 mg 10/21/16 23:02 Tylenol - PO Q6H PRN FEVER OR PAIN Calcitriol 0.25 mcg 10/22/16 10:00 10/24/16 10:56 Rocaltrol - PO 0.25 mcg DAILY [facility]ANA Administration Calcium Acetate 1,334 mg 10/22/16 06:00 10/24/16 06:33 Phoslo - PO 1,334 mg TID [facility]ANA Administration Calcium Carbonate 1,300 mg 10/22/16 10:00 10/24/16 10:56 Calcium Carbonate - PO 1,300 mg BID [facility]ANA Administration Epoetin Samuel 10,000 units 10/24/16 11:10 Epogen - IVPUSH 10/24/16 11:11 ONCE ONE Hydralazine HCl 10 mg 10/22/16 06:00 10/24/16 06:33 Apresoline - PO 10 mg TID ZANA Administration Insulin Aspart 1 vial 10/22/16 07:00 10/24/16 11:18 Novolog Vial Sliding Scale - SQ Not Given ACHS [facility] Protocol ASSESSMENT/PLAN: This is a 66 year old female with a PMHx of Chronic kidney disease, HTN, DM & legally blind, who presented to the emergency room for weakness. Patient has not seen a doctor nor taken any medications in 2 years. Found to be severely hyperkalemic and hypocalemic in the emergency room. Dialysis. #Altered mental ml metabolic encephalopthy / metabolic acidosis secondary to renal failure and hypocalcemia : Mental status at baseline; resolved -correct electrolytes abnormalities -Dialysis as outpatient #Acute on chronic kidney injury: secondary to Diabetes and HTN; may even be form FSGS -Permacath tomorrow; keep npo after midnight; -dialysis unit set up #hyperkalemia:wnl; -corrected with; received calcium, bicarb, albuterol, insulin/D50 -dialysis #hypocalcemia: -continue with replacement: calcium carbonate 1300mg po bid and Calcitrol -calcium bath with dialysis #hyperphosphatemia: improved -getting dialysis -phosphate binders: phoslo po tid #Anemia most likely chronic vs acute most likely secondary to renal failure: stable -iron studies -denies blood/dark stool; -fobt negative -epogen -transfuse of hemoglobin <7 #htn: -hydralazine 10mg po tid [facility] #DM: -insulin ss; bgm #hypoalbuminemia with proteinuria: work up for lupuis nephritis/ glomerulous nephritic/nephrotic disease work up as per renal FEN Fluids: n/a Electrolytes: see above Diet: renal, low Na; npo after midnight VTE prophylaxis: scds Disposition: permacath in am Visit type - Emergency Visit Emergency Visit: Yes ED Registration Date: 10/17/16 Care time: The patient presented to the Emergency Department on the above date and was hospitalized for further evaluation of their emergent condition. - New Patient This patient is new to me today: No - Critical Care Critical Care patient: No - Discharge Referral Referred to [facility] Med P.C.: No
--- NOTE | 2016-10-24 13:50 | PN ---
Progress Note (short form) - Note Progress Note: Case canceled today because patient ate applesauce. Scheduled for insertion of permacath insertion and LUE avf tomorrow. Make NPO after midnight. Problem List - Problems (1) Acute renal failure Code(s): N17.9 - ACUTE KIDNEY FAILURE, UNSPECIFIED Qualifiers: Qualified Code(s): N17.9 - Acute kidney failure, unspecified
--- NOTE | 2016-10-24 13:58 | PN ---
Teaching Attending Note Name of Resident: Paula Mayfield ATTENDING PHYSICIAN STATEMENT I saw and evaluated the patient. I reviewed the resident's note and discussed the case with the resident. I agree with the resident's findings and plan as documented. SUBJECTIVE:currently asymptomatic. denies CP, SOB,fever, chills, N/V/C/D OBJECTIVE: Last Vital Signs Temp Pulse Resp BP Pulse Ox 98.1 F 83 18 150/62 95 10/24/16 12:16 10/24/16 12:16 10/24/16 12:16 10/24/16 12:16 10/24/16 09:00 General NAD CV S1 S2 RRR no murmur/rub/gallop Lungs CTA B/L no wheezing/rales/rhonchi ASSESSMENT AND PLAN: 66yo F with PMH HTN, DM and legally blind presented to the ER and was admitted for further evaluation of their emergent condition 1. Acute metabolic encephalopathy- likely uremic in the setting of CKD which has now progressed. s/p HD multiple sessions now tolerated well. plan was for vein mapping today which was cancelled because pt ate. plan for NPO for procedure in AM. cont HD per nephrology. Spoke with VALENTE who is currently setting up HD center for pt to report once medically optimized for discharge 2. Hyperkalemia- resolved with HD 3. Hypomagnesemia- MG iv and po today. recheck 4. Hypocalcemia- Corrected Ca 8.4 based on albumin from 2 days ago. on calcium supplementation 5. Hyperphosphatemia- phoslo 6. DM- controlled here A1c 8.8. not on medications at this time. as not requiring a lot of coverage at this time would not start long actining insulin. start januvia renally dosed. will need to follow up with PMD as outpatient 7. HTN- improved. on hydralazine 10mg TID 8. anemia of chronic disease- s/p 2 units PRBC this admission. Hgb stable 9. DVT ppx- hep sq for pending surgery 10. d/c planning tomorrow after fistula placement. VALENTE setting up HD center.
[2016-10-24] MEDS ORDERED: sitaGLIPtin PHOSPHATE 25 MG TABLET (FP) PO ONE (14:45)
--- NOTE | 2016-10-24 15:32 | PN ---
Progress Note (short form) - Note Progress Note: Pt unable to go for procedure today. No acute need for dialysis today, will delay treatment until tomorrow after tunneled HD catheter is inserted. David Schroeder DO
[2016-10-24] MEDS ORDERED: INSULIN (NOVOLOG) ASPART 100 UNITS/ML 10ML VIAL ONE (16:22)
[2016-10-25] MEDS: INSULIN SLIDING SCALE (NOVOLOG) 1 VIAL SQ SCH ×4 (06:18→21:50)
[2016-10-25] MEDS: hydrALAZINE HCL 10 MG TABLET PO SCH ×3 (06:19→21:53)
[2016-10-25] MEDS: CALCIUM ACETATE 667 MG CAPSULE (FP) PO SCH ×3 (06:20→21:52)
[2016-10-25 06:57] LABS: MCH 23.7 pg (25.7-33.7); MCHC 32.2 g/dl (32.0-36.0); MEAN CELL VOLUME 73.6 fl (80-96); MEAN PLT VOLUME 8.2 fl (7.5-11.1); PLATELET COUNT 241 K/MM3 (134-434); RDW 17.5 % (11.6-15.6); WHITE BLOOD COUNT 5.1 K/mm3 (4.0-10.0)
[2016-10-25 07:25] LABS: BILIRUBIN,TOTAL 0.4 mg/dL (0.2-1.0); COCKROFT - GAULT 7.327; MAGNESIUM 1.5 mg/dL (1.8-2.4); PHOSPHOROUS 4.1 mg/dL (2.5-4.9); TOT PROT 5.1 g/dl (6.4-8.2)
[2016-10-25 07:36] LABS: CALCIUM 6.2 mg/dL (8.5-10.1); CREATININE 10.3 mg/dL (0.55-1.02)
[2016-10-25] MEDS ORDERED: MAGNESIUM SULF 50% (8.12 MEQ/2 ML-1 GM VIAL) IVPB ONE (08:15)
[2016-10-25] MEDS: CALCIUM CARBONATE 650 MG TABLET PO SCH ×2 (09:45→21:52)
--- NOTE | 2016-10-25 10:40 | PN ---
Teaching Attending Note Name of Resident: Paula Mafyield ATTENDING PHYSICIAN STATEMENT I saw and evaluated the patient. I reviewed the resident's note and discussed the case with the resident. I agree with the resident's findings and plan as documented. SUBJECTIVE:currently asymptomatic. denies CP, SOb,fever, chills, N/V/C/D OBJECTIVE: Last Vital Signs Temp Pulse Resp BP Pulse Ox 98.7 F 77 18 132/54 97 10/25/16 09:59 10/25/16 09:59 10/25/16 09:59 10/25/16 09:59 10/24/16 22:00 General NAD CV S1 S2 RRR no murmur/rub/gallop Lungs CTA B/L no wheezing/rales/rhonchi ASSESSMENT AND PLAN: 66yo F with PMH HTN, DM and legally blind presented to the ER and was admitted for further evaluation of their emergent condition 1. Acute metabolic encephalopathy- likely uremic in the setting of CKD which has now progressed. s/p HD multiple sessions now tolerated well. NPO for vein mapping and fistula placement. HD to be set up outpatient by [facility], plan for HD after fistula placement. 2. Hyperkalemia- resolved with HD 3. Hypomagnesemia- MG iv and po today. will need to be d/c on several days of supplement 4. Hypocalcemia- Corrected Ca 8.4 based on albumin from 2 days ago. on calcium supplementation 5. Hyperphosphatemia- now within normal range. on phoslo 6. DM- controlled here A1c 8.8. not on medications at this time. as not requiring a lot of coverage at this time would not start long actining insulin. start januvia renally dosed. will need to follow up with PMD as outpatient 7. HTN- improved. on hydralazine 10mg TID 8. anemia of chronic disease- s/p 2 units PRBC this admission. Hgb stable 9. DVT ppx- hep sq for pending surgery 10. d/c planning today after HD and HD center established
--- NOTE | 2016-10-25 10:56 | PN ---
Progress Note (short form) - Note Progress Note: Renal Follow up for DAVI/Hyperkalemia -> ESRD on HD Pt seen and examined at the bedside awake and alert no acute complaints NPO for procedure for dialysis later today Vital Signs Temperature 98.7 F 10/25/16 09:59 Pulse Rate 77 10/25/16 09:59 Respiratory Rate 18 10/25/16 09:59 Blood Pressure 132/54 10/25/16 09:59 O2 Sat by Pulse Oximetry (%) 97 10/24/16 22:00 Intake & Output 10/22/16 10/23/16 10/24/16 10/25/16 23:59 23:59 23:59 23:59 Intake Total 720 550 950 100 Balance 720 550 950 100 Weight 192 lb 11.2 oz 193 lb 193 lb 1.6 oz 193 lb 3 oz Gen: NAD, awake and alert CVS: RRR, No M/R Lungs :CTA, no rales or wheeze Abd: soft, Obese, NT/ND Ext: NO edema, clubbing or cyanosis CBC, BMP 10/25/16 06:10 10/25/16 06:10 Laboratory Tests 10/25/16 06:10 Calcium 6.2 L* Phosphorus 4.1 Magnesium 1.5 L Albumin 2.0 L Current Medications Acetaminophen (Tylenol -) 650 mg PO Q6H PRN PRN Reason: FEVER OR PAIN Calcitriol (Rocaltrol -) 0.25 mcg PO DAILY [facility] Last Admin: 10/24/16 10:56 Dose: 0.25 mcg Calcium Acetate (Phoslo -) 1,334 mg PO TID [facility] Last Admin: 10/25/16 06:20 Dose: Not Given Calcium Carbonate (Calcium Carbonate -) 1,300 mg PO BID [facility] Last Admin: 10/25/16 09:45 Dose: Not Given Epoetin Samuel (Epogen -) 10,000 units IVPUSH ONCE ONE Stop: 10/25/16 11:11 Hydralazine HCl (Apresoline -) 10 mg PO TID [facility] Last Admin: 10/25/16 06:19 Dose: Not Given Insulin Aspart (Novolog Vial Sliding Scale -) 1 vial SQ ACHS [facility] PRN Reason: Protocol Last Admin: 10/25/16 06:18 Dose: Not Given A/P 66 year old woman with PMhx of Hypertension, DM Type 2 not currently taking medications that presented with fatigue/malaise and found to have acute renal failure, hyperkalemia and hypocalcemia. #Subacute Renal failure w/o recovery now ESRD requiing dialysis for AVF and Permacath placement today HD following the OR outpatient HD unit placement secured can continue HD as outpatient Dose all meds for intermittent HD Will monitor BUN/Cr as outpatient for any signs of recovery #Hypocalcemia Corrected Ca is 7.8 continue Calcitrol and Po Calcium will titrate medications as outpatient #Hyperphospahtemia continue phos binders #Microcytic Anemia Continue VON with HD David Schroeder DO
[2016-10-25] MEDS ORDERED: EPOETIN ALFA 2,000 UNITS/1 ML VIAL IVPUSH ONE (11:10)
[2016-10-25] MEDS ORDERED: MIDAZOLAM HCL 2 MG/2 ML SINGLE DOSE VIAL ONE ×2 (11:26→12:37)
[2016-10-25] MEDS ORDERED: LIDOCAINE HCL/PF 2% SDV 5ML VIAL ONE (11:26)
[2016-10-25] MEDS ORDERED: PROPOFOL 20 ML ONE (11:26)
[2016-10-25] MEDS ORDERED: HEPARIN NA (PORCINE) 5,000 UNITS/ML 1ML VIAL ONE (11:39)
[2016-10-25] MEDS ORDERED: ceFAZolin SODIUM 1 GM VIAL IVPB ONE (12:41)
[2016-10-25] MEDS ORDERED: LIDOCAINE HCL 1%, 10 MG/ML (20ML VIAL) IJ ONE (12:47)
[2016-10-25] MEDS ORDERED: ceFAZolin SODIUM 1 GM VIAL ONE (13:01)
--- NOTE | 2016-10-25 13:30 | OP ---
Operative Note - Note: Operative Date: 10/25/16 Pre-Operative Diagnosis: ESRD Operation: Insertion of permacath Post-Operative Diagnosis: Same as Pre-op Surgeon: Bandar Cuellar Anesthesia: Fractional Estimated Blood Loss (mls): 10 Operative Report Dictated: Yes
[2016-10-25] MEDS ORDERED: ACETAMINOPHEN 325 MG TABLET (FP) PO PRN (13:39)
[2016-10-25] MEDS ORDERED: EPOETIN ALFA 10,000 UNIT/1 ML VIAL IVPUSH ONE (15:00)
[2016-10-25] MEDS: BACITRACIN 30 GM TUBE TOPICAL OINTMENT TP SCH (15:19)
--- NOTE | 2016-10-25 17:04 | PN ---
Physical Exam: SUBJECTIVE: Patient seen and examined, going for AV fistula and permacath today OBJECTIVE: Vital Signs Period Temp Pulse Resp BP Sys/Rolle Pulse Ox Last 24 Hr 97.8 F-98.7 F 74-82 18-20 125-160/54-76 96-97 GENERAL: The patient is awake, alert, and fully oriented, in no acute distress. HEAD: Normal with no signs of trauma. EYES: PERRL, extraocular movements intact, sclera anicteric, conjunctiva clear. No ptosis. ENT: Ears normal, nares patent, oropharynx clear without exudates, moist mucous membranes. NECK: Trachea midline, full range of motion, supple. LUNGS: Breath sounds equal, clear to auscultation bilaterally, no wheezes, no crackles, no accessory muscle use. HEART: Regular rate and rhythm, S1, S2 murmur, rub or gallop. ABDOMEN: Soft, nontender, nondistended, normoactive bowel sounds, no guarding, no rebound, no hepatosplenomegaly, no masses. EXTREMITIES: 2+ pulses, warm, well-perfused, no edema. NEUROLOGICAL: Cranial nerves II through XII grossly intact. Normal speech, gait not observed. PSYCH: Normal mood, normal affect. SKIN: Warm, dry, normal turgor, no rashes or lesions noted Laboratory Results - last 24 hr 10/24/16 10/25/16 10/25/16 21:12 05:46 06:10 WBC 5.1 RBC 3.71 Hgb 8.8 L D Hct 27.3 L MCV 73.6 L MCHC 32.2 RDW 17.5 H Plt Count 241 MPV 8.2 Sodium Potassium Chloride Carbon Dioxide Anion Gap BUN Creatinine Creat Clearance w eGFR POC Glucometer 97 97 Random Glucose Calcium Phosphorus Magnesium Total Bilirubin AST ALT Alkaline Phosphatase Total Protein Albumin 10/25/16 10/25/16 10/25/16 06:10 11:38 14:05 WBC RBC Hgb Hct MCV MCHC RDW Plt Count MPV Sodium 133 L Potassium 4.0 Chloride 96 L Carbon Dioxide 28 Anion Gap 9 BUN 39 H Creatinine 10.3 H* Creat Clearance w eGFR 3.75 POC Glucometer 85 102 Random Glucose 84 D Calcium 6.2 L* Phosphorus 4.1 Magnesium 1.5 L Total Bilirubin 0.4 D AST 9 L D ALT 11 L Alkaline Phosphatase 78 Total Protein 5.1 L Albumin 2.0 L Active Medications Generic Name Dose Route Start Last Admin Trade Name Rosita PRN Reason Stop Dose Admin Acetaminophen 650 mg 10/25/16 13:39 Tylenol - PO Q6H PRN FEVER OR PAIN Bacitracin 1 applic 10/25/16 15:15 10/25/16 15:19 Bacitracin - TP 1 applic DAILY [facility] Administration Calcitriol 0.25 mcg 10/26/16 10:00 Rocaltrol - PO DAILY [facility] Calcium Acetate 1,334 mg 10/25/16 14:00 10/25/16 14:00 Phoslo - PO Not Given TID [facility] Calcium Carbonate 1,300 mg 10/25/16 22:00 Calcium Carbonate - PO BID [facility] Hydralazine HCl 10 mg 10/25/16 14:00 10/25/16 14:00 Apresoline - PO Not Given TID [facility] Insulin Aspart 1 vial 10/25/16 16:30 Novolog Vial Sliding Scale - SQ ACHS [facility] Protocol ASSESSMENT/PLAN: This is a 66 year old female with a PMHx of Chronic kidney disease, HTN, DM & legally blind, who presented to the emergency room for weakness. Patient has not seen a doctor nor taken any medications in 2 years. Found to be severely hyperkalemic and hypocalemic in the emergency room. Dialysis. #Altered mental ml metabolic encephalopthy / metabolic acidosis secondary to renal failure and hypocalcemia : Mental status at baseline; resolved -correct electrolytes abnormalities -Dialysis as outpatient #Acute on chronic kidney injury: secondary to Diabetes and HTN; may even be form FSGS -Permacath -AV fistula not done due to area of open skin laceration ; previous iv? : apply bacitracin -dialysis unit set up #hyperkalemia:wnl; -corrected with; received calcium, bicarb, albuterol, insulin/D50 -dialysis #hypocalcemia: -continue with replacement: calcium carbonate 1300mg po bid and Calcitrol -calcium bath with dialysis #hyperphosphatemia: improved -getting dialysis -phosphate binders: phoslo po tid #Anemia most likely chronic vs acute most likely secondary to renal failure: stable -iron studies -denies blood/dark stool; -fobt negative -epogen -transfuse of hemoglobin <7 #htn: -hydralazine 10mg po tid [facility] #DM: -insulin ss; bgm #hypoalbuminemia with proteinuria: work up for lupuis nephritis/ glomerulous nephritic/nephrotic disease work up as per renal FEN Fluids: n/a Electrolytes: see above Diet: renal, low Na; npo after midnight VTE prophylaxis: scds Disposition: bacitracin apply ; HD TTS Appointment Sunday with Dr. Cuellar Visit type - Emergency Visit Emergency Visit: Yes ED Registration Date: 10/17/16 Care time: The patient presented to the Emergency Department on the above date and was hospitalized for further evaluation of their emergent condition. - New Patient This patient is new to me today: No - Critical Care Critical Care patient: No
--- NOTE | 2016-10-26 00:43 | OP ---
DATE OF OPERATION: 10/25/2016 PREOPERATIVE DIAGNOSIS: End-stage renal disease. POSTOPERATIVE DIAGNOSIS: End-stage renal disease. PROCEDURE: Insertion of PermCath. SURGEON: Bandar Galeano D.O. ANESTHESIA: Fractional. BLOOD LOSS: 10 mL. INDICATION: The patient is a 61-year-old female that needs temporary dialysis, catheter placement. Patient was consented for the procedure understanding all risks, benefits, and alternatives and then taken to the operating room. DESCRIPTION OF PROCEDURE: Once in the operating room, patient was laid on the operating table in a supine manner, and the area of the right neck and chest was prepped and draped in a sterile surgical manner. We then under ultrasound guidance, we visualized the right internal jugular vein and 10 mL of lidocaine 1% was injected there. We then went ahead and punctured the right internal jugular vein and a Micropuncture wire was inserted under fluoroscopy, micropuncture sheath was inserted under fluoroscopy, and a 0.035 floppy guidewire was inserted. We then injected 10 mL of lidocaine 1% above and below the clavicle. We then used a number 15 blade and made a 1-cm incision below the clavicle. We then took a number 11 blade and made a 1-cm incision in the puncture site then tunneled the PermCath up to the puncture site. We then placed our breakaway sheath over the guidewire into the vein under fluoroscopy. Inner cannula and guidewire were removed. Catheter was placed inside the sheath. The sheath was broken away as the catheter was placed inside the vein. Neck of the catheter was tip of the catheter was located outside the right atrium. We then franky back on each port of the catheter. There was good flow. Heparinized saline was injected and 2000 units of IV heparin were injected. 4-0 Biosyn was then used and 2 simple stitches were placed at the puncture site. 2-0 nylon was used to attach the catheter to the skin. Biopatch, Steri-Strips, 4x4s, Tegaderm was then placed. The patient tolerated the procedure without complications. Patient was transferred to PACU in stable condition where chest x-ray will be obtained. BANDAR GALEANO DO [id number]
[2016-10-26] MEDS: CALCIUM ACETATE 667 MG CAPSULE (FP) PO SCH ×2 (05:48→13:39)
[2016-10-26] MEDS: hydrALAZINE HCL 10 MG TABLET PO SCH ×2 (05:48→13:39)
[2016-10-26] MEDS: INSULIN SLIDING SCALE (NOVOLOG) 1 VIAL SQ SCH ×3 (06:19→16:30)
[2016-10-26 08:54] LABS: MCHC 32.3 g/dl (32.0-36.0); MEAN CELL VOLUME 74.5 fl (80-96); MEAN PLT VOLUME 8.2 fl (7.5-11.1); PLATELET COUNT 196 K/MM3 (134-434); RDW 17.9 % (11.6-15.6); WHITE BLOOD COUNT 4.9 K/mm3 (4.0-10.0)
[2016-10-26 09:12] LABS: BILIRUBIN,TOTAL 0.2 mg/dL (0.2-1.0); COCKROFT - GAULT 10.7185; CREATININE 6.9 mg/dL (0.55-1.02); PHOSPHOROUS 3.5 mg/dL (2.5-4.9); TOT PROT 5.1 g/dl (6.4-8.2)
[2016-10-26 09:19] LABS: CALCIUM 6.9 mg/dL (8.5-10.1)
[2016-10-26] MEDS ORDERED: CALCITRIOL 0.25 MCG CAPSULE (FP) PO SCH (10:00)
[2016-10-26] MEDS: CALCIUM CARBONATE 650 MG TABLET PO SCH (10:17)
[2016-10-26] MEDS: BACITRACIN 30 GM TUBE TOPICAL OINTMENT TP SCH (10:18)
--- NOTE | 2016-10-26 11:05 | PN ---
Progress Note (short form) - Note Progress Note: Overall feels better. No CP or SOB. Intake & Output 10/23/16 10/24/16 10/25/16 10/26/16 23:59 23:59 23:59 23:59 Intake Total 550 950 450 150 Output Total 150 Balance 550 950 300 150 Weight 193 lb 193 lb 1.6 oz 193 lb 3 oz 189 lb 4 oz Last Vital Signs Temp Pulse Resp BP Pulse Ox 98.3 F 84 18 157/61 97 10/26/16 08:26 10/26/16 08:26 10/26/16 08:26 10/26/16 08:26 10/26/16 08:27 Active Medications Acetaminophen (Tylenol -) 650 mg PO Q6H PRN PRN Reason: FEVER OR PAIN Bacitracin (Bacitracin -) 1 applic TP DAILY [facility] Last Admin: 10/26/16 10:18 Dose: 1 applic Calcitriol (Rocaltrol -) 0.25 mcg PO DAILY [facility] Last Admin: 10/26/16 10:17 Dose: 0.25 mcg Calcium Acetate (Phoslo -) 1,334 mg PO TID [facility] Last Admin: 10/26/16 05:48 Dose: 1,334 mg Calcium Carbonate (Calcium Carbonate -) 1,300 mg PO BID [facility] Last Admin: 10/26/16 10:17 Dose: 1,300 mg Hydralazine HCl (Apresoline -) 10 mg PO TID [facility] Last Admin: 10/26/16 05:48 Dose: 10 mg Insulin Aspart (Novolog Vial Sliding Scale -) 1 vial SQ ACHS [facility] PRN Reason: Protocol Last Admin: 10/26/16 06:19 Dose: Not Given Gen: NAD, awake and alert Heart: RRR Lung: decreased breath sounds at the bases Abd: soft, nontender Ext: no edema Laboratory Results - last 24 hr 10/25/16 10/25/16 10/25/16 11:38 14:05 17:57 WBC RBC Hgb Hct MCV MCHC RDW Plt Count MPV Sodium Potassium Chloride Carbon Dioxide Anion Gap BUN Creatinine Creat Clearance w eGFR POC Glucometer 85 102 110 Random Glucose Calcium Phosphorus Magnesium Total Bilirubin AST ALT Alkaline Phosphatase Total Protein Albumin 10/25/16 10/26/16 10/26/16 21:48 05:30 07:50 WBC 4.9 RBC 3.71 Hgb 8.9 L Hct 27.6 L MCV 74.5 L MCHC 32.3 RDW 17.9 H Plt Count 196 MPV 8.2 Sodium Potassium Chloride Carbon Dioxide Anion Gap BUN Creatinine Creat Clearance w eGFR POC Glucometer 125 98 Random Glucose Calcium Phosphorus Magnesium Total Bilirubin AST ALT Alkaline Phosphatase Total Protein Albumin 10/26/16 10/26/16 07:50 10:44 WBC RBC Hgb Hct MCV MCHC RDW Plt Count MPV Sodium 137 Potassium 3.7 Chloride 99 Carbon Dioxide 30 Anion Gap 8 BUN 23 H D Creatinine 6.9 H D Creat Clearance w eGFR 5.95 POC Glucometer 124 Random Glucose 93 Calcium 6.9 L* Phosphorus 3.5 Magnesium 2.0 D Total Bilirubin 0.2 D AST 12 L D ALT 9 L Alkaline Phosphatase 76 Total Protein 5.1 L Albumin 2.0 L ASSESSMENT AND PLAN: Altered Mental Status Acute Kidney Injury Hyperkalemia Hypocalcemia Metabolic Acidosis Rhabdomyolysis Anemia HTN DM - HD per renal - monitor lytes - Normal transfusion thresholds Dr Mccullough
--- NOTE | 2016-10-26 11:39 | PN ---
Progress Note (short form) - Note Progress Note: Renal Follow up for DAVI/Hyperkalemia -> ESRD on HD Pt seen and examined at the bedside s/p permacath insertion yesterday s/p dialysis yesterday with 1.5L UF no acute complaints Vital Signs Temperature 98.3 F 10/26/16 11:30 Pulse Rate 82 10/26/16 11:30 Respiratory Rate 18 10/26/16 11:30 Blood Pressure 155/63 10/26/16 11:30 O2 Sat by Pulse Oximetry (%) 97 10/26/16 08:27 Intake & Output 10/23/16 10/24/16 10/25/16 10/26/16 23:59 23:59 23:59 23:59 Intake Total 550 950 450 150 Output Total 150 Balance 550 950 300 150 Weight 193 lb 193 lb 1.6 oz 193 lb 3 oz 189 lb 4 oz Gen: NAD, awake and alert CVS: RRR, No M/R Lungs :CTA, no rales or wheeze Abd: soft, Obese, NT/ND Ext: NO edema, clubbing or cyanosis CBC, BMP 10/26/16 07:50 10/26/16 07:50 Current Medications Acetaminophen (Tylenol -) 650 mg PO Q6H PRN PRN Reason: FEVER OR PAIN Bacitracin (Bacitracin -) 1 applic TP DAILY [facility] Last Admin: 10/26/16 10:18 Dose: 1 applic Calcitriol (Rocaltrol -) 0.25 mcg PO DAILY [facility] Last Admin: 10/26/16 10:17 Dose: 0.25 mcg Calcium Acetate (Phoslo -) 1,334 mg PO TID [facility] Last Admin: 10/26/16 05:48 Dose: 1,334 mg Calcium Carbonate (Calcium Carbonate -) 1,300 mg PO BID [facility] Last Admin: 10/26/16 10:17 Dose: 1,300 mg Hydralazine HCl (Apresoline -) 10 mg PO TID [facility] Last Admin: 10/26/16 05:48 Dose: 10 mg Insulin Aspart (Novolog Vial Sliding Scale -) 1 vial SQ ACHS [facility] PRN Reason: Protocol Last Admin: 10/26/16 11:13 Dose: Not Given A/P 66 year old woman with PMhx of Hypertension, DM Type 2 not currently taking medications that presented with fatigue/malaise and found to have acute renal failure, hyperkalemia and hypocalcemia. #Subacute Renal failure w/o recovery now ESRD requiing dialysis s/p HD yesterday permacath inserted, no AVF placed because of some superficial phlebitis pt to start outpatient dialysis tomorrow at [facility] dialysis tomorrow at 10am #Hypocalcemia continue PO Calcium Carbonate, and Calcitriolo will titrate as outpatient #Hyperphospahtemia continue phos binders #Microcytic Anemia Continue VON with HD David Schroeder DO
--- NOTE | 2016-10-26 12:00 | DS ---
Physical Exam: SUBJECTIVE: Patient seen and examined, AAOx3, does not endorse anymore weakness , HD yesterday. Wanting to go home. Denies chest pain, sob, FERMIN, dizziness, n,v, change din bowel or bladder. OBJECTIVE: Vital Signs Period Temp Pulse Resp BP Sys/Rolle Pulse Ox Last 24 Hr 97.6 F-98.7 F 60-84 17-20 121-162/50-77 97-98 PHYSICAL EXAM GENERAL: The patient is awake, alert, and fully oriented, in no acute distress. HEAD: Normal with no signs of trauma. EYES: PERRL, extraocular movements intact, sclera anicteric, conjunctiva clear. ENT: Ears normal, nares patent, oropharynx clear without exudates, moist mucous membranes. NECK: Trachea midline, full range of motion, supple. LUNGS: Breath sounds equal, clear to auscultation bilaterally, no wheezes, no crackles, no accessory muscle use. HEART: Regular rate and rhythm, S1, S2, +murmur, rub or gallop. ABDOMEN: Soft, nontender, nondistended, normoactive bowel sounds, no guarding, no rebound, no hepatosplenomegaly, no masses. EXTREMITIES: 2+ pulses, warm, well-perfused, no edema. NEUROLOGICAL: Cranial nerves II through XII grossly intact. Normal speech, gait not observed. PSYCH: Normal mood, normal affect. SKIN: Warm, dry, normal turgor, no rashes or lesions noted. LABS Laboratory Results - last 24 hr 10/25/16 10/25/16 10/25/16 14:05 17:57 21:48 WBC RBC Hgb Hct MCV MCHC RDW Plt Count MPV Sodium Potassium Chloride Carbon Dioxide Anion Gap BUN Creatinine Creat Clearance w eGFR POC Glucometer 102 110 125 Random Glucose Calcium Phosphorus Magnesium Total Bilirubin AST ALT Alkaline Phosphatase Total Protein Albumin 10/26/16 10/26/16 10/26/16 05:30 07:50 07:50 WBC 4.9 RBC 3.71 Hgb 8.9 L Hct 27.6 L MCV 74.5 L MCHC 32.3 RDW 17.9 H Plt Count 196 MPV 8.2 Sodium 137 Potassium 3.7 Chloride 99 Carbon Dioxide 30 Anion Gap 8 BUN 23 H D Creatinine 6.9 H D Creat Clearance w eGFR 5.95 POC Glucometer 98 Random Glucose 93 Calcium 6.9 L* Phosphorus 3.5 Magnesium 2.0 D Total Bilirubin 0.2 D AST 12 L D ALT 9 L Alkaline Phosphatase 76 Total Protein 5.1 L Albumin 2.0 L 10/26/16 10:44 WBC RBC Hgb Hct MCV MCHC RDW Plt Count MPV Sodium Potassium Chloride Carbon Dioxide Anion Gap BUN Creatinine Creat Clearance w eGFR POC Glucometer 124 Random Glucose Calcium Phosphorus Magnesium Total Bilirubin AST ALT Alkaline Phosphatase Total Protein Albumin HOSPITAL COURSE: Date of Admission:10/17/16 Date of Discharge: 10/26/16 This is a 66 year old female with a PMHx of Chronic kidney disease, HTN, DM & legally blind, who presented to the emergency room for weakness. Patient has not seen a doctor nor taken any medications in 2 years. Found to be severely hyperkalemic and hypocalemic with altered mental status. She was sse by nephrology and quickly set up for dialysis. Electrolytes were managed medically and with dialysis. She is set up for HD, TTS, at [facility], with follow up with nephrology with in one week. She had permacath placed. AV fistula was not done due to superficial phlebitis, she has appointment with vascular, Dr. Cuellar for this Sunday. #Altered mental ml metabolic encephalopthy / metabolic acidosis secondary to renal failure and hypocalcemia : Mental status at baseline; resolved -correct electrolytes abnormalities medically and with dialysis #Acute on chronic kidney injury: secondary to Diabetes and HTN; may even be form FSGS -Permacath -AV fistula as outpatient -dialysis unit set up #hyperkalemia:wnl; -corrected with; received calcium, bicarb, albuterol, insulin/D50 -dialysis #hypocalcemia: -initially corrected with calcium gluconate drip; continue with replacement: calcium carbonate 1300mg po bid and Calcitrol -calcium bath with dialysis #hyperphosphatemia: improved -getting dialysis -phosphate binders: phoslo po tid #Anemia most likely chronic vs acute most likely secondary to renal failure: stable -iron studies indicate iron deficient anemia -fobt negative -epogen -transfused U PRBC in ER with adequate response #htn: -hydralazine 10mg po tid anisha #DM:controlled -sent home on januvia 25mg daily #hypoalbuminemia with proteinuria: work up for lupuis nephritis/ glomerulous nephritic/nephrotic disease work up as per renal Minutes to complete discharge: 35 Discharge Summary Reason For Visit: ACUTE RENAL FAILURE Current Active Problems Acute metabolic encephalopathy (Acute) Acute renal failure (Acute) Hyperkalemia (Acute) Hyperphosphatemia (Acute) Hypocalcemia (Acute) Condition: Improved - Instructions Diet, Activity, Other Instructions: Mrs. Knapp, please continue to take recommended medications as directed. You are set up for dialysis three times per week, information included. Please follow up with your primary care physician and your leave coordinator to monitor your electrolytes and renal functioning within one week. Follow up appointment with Dr [facility] 5th floor 10/30/16 @ 12:30 If you experience any worsening of symptoms included altered mental status, chest pain, shortness of breath, please return to the emergency room. Referrals: Bandar Cuellar MD [Staff Physician] - David Schroeder MD [Staff Physician] - Disposition: HOME - Home Medications Comprehensive Discharge Medication List: Ambulatory Orders Acetaminophen [Tylenol .Regular Strength -] 650 mg PO Q6H PRN #0 tablet Bacitracin - [Bacitracin Topical Ointment -] 1 applic TP DAILY #1 tube 10/25/16 Calcitriol [Calcitriol -] 0.25 mcg PO DAILY #30 cap 10/25/16 Calcium Acetate [Phoslo -] 1,334 mg PO TID #120 cap 10/25/16 Calcium Carbonate - 1,300 mg PO BID #120 tablet 10/25/16 Hydralazine HCl [Apresoline -] 10 mg PO TID #90 tablet 10/25/16 This patient is new to me today: No Emergency Visit: Yes ED Registration Date: 10/17/16 Care time: The patient presented to the Emergency Department on the above date and was hospitalized for further evaluation of their emergent condition. Critical Care patient: No - Discharge Referral Referred to [facility] Med [facility].C.: No
[2016-10-26 13:39] VITALS: BP 157/68; PULSE 88; TEMP 98.8
--- NOTE | 2016-10-26 14:32 | PN ---
Teaching Attending Note Name of Resident: Paula Mayfield ATTENDING PHYSICIAN STATEMENT I saw and evaluated the patient. I reviewed the resident's note and discussed the case with the resident. I agree with the resident's findings and plan as documented. SUBJECTIVE:currently asymptomatic. states she felt dizzy yesterday but resolved in the evening. has not had any more episodes. able to ambulate to bathroom today. denies CP, SOb,fever, chills, N/V/C/D OBJECTIVE: Last Vital Signs Temp Pulse Resp BP Pulse Ox 98.8 F 88 18 157/68 97 10/26/16 13:38 10/26/16 13:38 10/26/16 13:38 10/26/16 13:38 10/26/16 08:27 General NAD CV S1 S2 RRR no murmur/rub/gallop Lungs CTA B/L no wheezing/rales/rhonchi ASSESSMENT AND PLAN: 66yo F with PMH HTN, DM and legally blind presented to the ER and was admitted for further evaluation of their emergent condition 1. Acute metabolic encephalopathy- likely uremic in the setting of CKD which has now progressed. s/p HD multiple sessions now tolerated well. AV fistula placement cancelled due to skin abrasion on the arm. plan is to do as outpatient. scheduled HD tomorrow at HD center. 2. Hyperkalemia- resolved with HD 3. Hypomagnesemia- MG po for several days 4. Hypocalcemia- Corrected Ca 8.4 based on albumin from 2 days ago. on calcium supplementation 5. Hyperphosphatemia- now within normal range. on phoslo 6. DM- controlled here A1c 8.8. not on medications at this time. as not requiring a lot of coverage at this time would not start long actining insulin. start januvia renally dosed. will need to follow up with PMD as outpatient 7. HTN- improved. on hydralazine 10mg TID 8. anemia of chronic disease- s/p 2 units PRBC this admission. Hgb stable 9. DVT ppx- hep sq 10. d/c home
== END 2016-10-26 17:51 | disposition home health service (06) | DRG 682 ==
LOC: JER 16:00 → JERBED 21:15 → UNDOADMIN 23:10 → JICU 10-18 13:48 → J5S 10-21 22:34
PROVIDERS: ADMIT Internal Medicine; ATTEND Internal Medicine
PROC: 06HM33Z Insertion of Infusion Device into Right Femoral Vein, Percutaneous Approach (ICD-10-PCS; principal; 2016-10-18)
PROC: 30233N1 Transfusion of Nonautologous Red Blood Cells into Peripheral Vein, Percutaneous Approach (ICD-10-PCS; 2016-10-19)
PROC: 5A1D00Z (ICD-10-PCS; 2016-10-25)
DX: N17.9 Acute kidney failure, unspecified (principal); G93.41 Metabolic encephalopathy; I12.0 Hypertensive chronic kidney disease with stage 5 chronic kidney disease or end stage renal disease; E87.2 Acidosis; M62.82 Rhabdomyolysis; H54.8 Legal blindness, as defined in USA; E11.22 Type 2 diabetes mellitus with diabetic chronic kidney disease; N18.6 End stage renal disease; E83.51 Hypocalcemia; Z91.14 Patient's other noncompliance with medication regimen; E83.39 Other disorders of phosphorus metabolism; D63.1 Anemia in chronic kidney disease; R80.8 Other proteinuria; E87.5 Hyperkalemia
CPT/HCPCS: 36415; 36430; 36600; 70450-TC; 71010-TC; 76000-TC; 76775-TC; 76856-TC; 80048; 80053; 80061; 81003; 81015; 82272; 82310; 82330; 82550; 82553; 82570; 82728; 82803; 83036; 83540; 83550; 83690; 83721; 83735; 83970; 84100; 84156; 84300; 84484; 85025; 85027; 85610; 86038; 86063; 86704; 86706; 86708; 86850; 86900; 86901; 86922; 87086; 87340; 93005; 93010; 93306-TC; 93931; 93971; 94760; 97116-GP; 97161-GP; 99285-25; J0885; J1644; P9038; P9058

== ENCOUNTER 2016-11-02 06:55 | Day surgery (SDC) | payer OTHER ==
[2016-11-01 14:51] VITALS: BMI 36.9
[~2016-11-02 06:55] MED LIST: LIDOCAINE HCL 1%, 10 MG/ML (20ML VIAL) IJ ONE
[2016-11-02] MEDS ORDERED: ONDANSETRON 4 MG/2 ML VIAL IVPUSH PRN (08:40)
[2016-11-02] MEDS ORDERED: PROMETHAZINE HCL 25 MG/1 ML VIAL IVPUSH PRN (08:40)
[2016-11-02] MEDS ORDERED: MIDAZOLAM HCL 2 MG/2 ML SINGLE DOSE VIAL ONE (08:55)
[2016-11-02] MEDS ORDERED: PROPOFOL 20 ML ONE ×3 (08:55→10:27)
[2016-11-02] MEDS ORDERED: HEPARIN NA (PORCINE) 5,000 UNITS/ML 1ML VIAL ONE ×2 (09:01→10:11)
[2016-11-02] MEDS ORDERED: LIDOCAINE HCL 1%, 10 MG/ML (20ML VIAL) ONE (09:01)
[2016-11-02] MEDS ORDERED: SODIUM CHLORIDE 1,000 ML IV SCH (09:15)
[2016-11-02] MEDS ORDERED: ceFAZolin SODIUM 1 GM VIAL ONE ×2 (09:26→09:31)
[2016-11-02] MEDS ORDERED: SODIUM CHLORIDE 0.9% P/F 10 ML VIAL IJ ONE ×2 (09:26→09:31)
[2016-11-02] MEDS ORDERED: LIDOCAINE HCL/PF 2% SDV 5ML VIAL ONE (09:29)
[2016-11-02] MEDS ORDERED: ceFAZolin SODIUM 1 GM VIAL IVPB ONE (09:34)
[2016-11-02] MEDS ORDERED: LIDOCAINE HCL 1%, 10 MG/ML (20ML VIAL) IJ ONE (09:41)
[2016-11-02] MEDS ORDERED: hydrALAZINE HCL 20 MG/ML VIAL ONE (09:42)
--- NOTE | 2016-11-02 11:42 | OP ---
Operative Note - Note: Operative Date: 11/02/16 Pre-Operative Diagnosis: ESRD Operation: Creation of left avf Post-Operative Diagnosis: Same as Pre-op Surgeon: Bandar Cuellar Anesthesia: Fractional Estimated Blood Loss (mls): 50 Operative Report Dictated: Yes
--- NOTE | 2016-11-02 11:46 | HP ---
Admitting History and Physical - Admission Chief Complaint: ESRD - Past Medical History Renal/: Yes: Renal Failure - Smoking History Smoking history: Never smoked Have you smoked in the past 12 months: No Aproximately how many cigarettes per day: 0 - Alcohol/Substance Use Hx Alcohol Use: No Home Medications - Allergies Allergies/Adverse Reactions: Allergies Allergy/AdvReac Type Severity Reaction Status Date / Time No Known Allergies Allergy Verified 11/01/16 14:51 - Home Medications Home Medications: Ambulatory Orders Acetaminophen [Tylenol .Regular Strength -] 650 mg PO Q6H PRN #0 tablet Calcitriol [Calcitriol -] 0.25 mcg PO DAILY #30 cap 10/25/16 Calcium Acetate [Phoslo -] 1,334 mg PO TID #120 cap 10/25/16 Calcium Carbonate - 1,300 mg PO BID #120 tablet 10/25/16 Hydralazine HCl [Apresoline -] 10 mg PO TID #90 tablet 10/25/16 Sitagliptin Phosphate [Januvia -] 25 mg PO DAILY@0700 #30 tab 10/26/16 Physical Examination Vital Signs: Vital Signs Temperature 99.1 F 11/02/16 07:31 Pulse Rate 96 H 11/02/16 07:31 Respiratory Rate 20 11/02/16 07:31 Blood Pressure 149/74 11/02/16 07:31 O2 Sat by Pulse Oximetry (%) 98 11/02/16 07:31 Constitutional: Yes: Well Nourished Eyes: Yes: WNL HENT: Yes: WNL Neck: Yes: WNL Cardiovascular: Yes: WNL Respiratory: Yes: WNL Gastrointestinal: Yes: WNL Extremities: Yes: WNL Labs: CBC, BMP 11/02/16 07:20 Assessment/Plan ESRD 1. For creation of avf today
[2016-11-02 12:19] VITALS: TEMP 97.9
[2016-11-02 13:30] VITALS: BP 150/69; PULSE 87
== END 2016-11-02 13:33 | disposition home or self-care (01) ==
LOC: JASU-SURG 06:55
PROVIDERS: ATTEND Surgery Vascular Surgery
PROC: 03180ZD Bypass Left Brachial Artery to Upper Arm Vein, Open Approach (ICD-10-PCS; principal; 2016-11-02 09:00)
DX: E11.22 Type 2 diabetes mellitus with diabetic chronic kidney disease (principal); N18.6 End stage renal disease; Z99.2 Dependence on renal dialysis
CPT/HCPCS: 36415; 84132; 94760; J1644

== ENCOUNTER 2017-01-17 09:41 | Day surgery (SDC) | payer OTHER ==
[2017-01-16 11:32] VITALS: BMI 34.7
[2017-01-17] MEDS ORDERED: MIDAZOLAM HCL 2 MG/2 ML SINGLE DOSE VIAL ONE ×2 (11:27→11:45)
[2017-01-17] MEDS ORDERED: ceFAZolin SODIUM 1 GM VIAL IVPB ONE (11:35)
[2017-01-17] MEDS ORDERED: LIDOCAINE HCL 1%, 10 MG/ML (20ML VIAL) INF ONE (11:45)
[2017-01-17] MEDS ORDERED: LIDOCAINE HCL 1%, 10 MG/ML (20ML VIAL) IJ ONE (11:45)
[2017-01-17] MEDS ORDERED: HEPARIN NA (PORCINE) 5,000 UNITS/ML 1ML VIAL SQ ONE (11:50)
[2017-01-17] MEDS ORDERED: ceFAZolin SODIUM 1 GM VIAL ONE (12:09)
[2017-01-17] MEDS ORDERED: HEPARIN NA (PORCINE) 5,000 UNITS/ML 1ML VIAL ONE (12:09)
[2017-01-17] MEDS ORDERED: PROMETHAZINE HCL 25 MG/1 ML VIAL IVPUSH PRN (13:19)
[2017-01-17] MEDS ORDERED: oxyCODONE HCL 5 MG TABLET PO PRN (13:19)
[2017-01-17] MEDS ORDERED: ONDANSETRON 4 MG/2 ML VIAL IVPUSH PRN (13:19)
[2017-01-17] MEDS ORDERED: POVIDONE-IODINE OINTMENT 10% - 28.4 GM TUBE ONE (13:20)
--- NOTE | 2017-01-17 13:41 | HP ---
Admitting History and Physical - Admission Chief Complaint: ESRD -- here for dialysis access - Past Medical History Renal/: Yes: Renal Failure - Smoking History Smoking history: Never smoked Have you smoked in the past 12 months: No Aproximately how many cigarettes per day: 0 - Alcohol/Substance Use Hx Alcohol Use: No Home Medications - Allergies Allergies/Adverse Reactions: Allergies Allergy/AdvReac Type Severity Reaction Status Date / Time No Known Allergies Allergy Verified 01/16/17 11:23 - Home Medications Home Medications: Ambulatory Orders Hydralazine HCl [Apresoline -] 10 mg PO TID #90 tablet 10/25/16 Sitagliptin Phosphate [Januvia -] 25 mg PO DAILY@0700 #30 tab 10/26/16 Calcium Acetate 667 mg PO TID 01/16/17 Physical Examination Vital Signs: Vital Signs Temperature 98.8 F 01/17/17 10:21 Pulse Rate 87 01/17/17 10:21 Respiratory Rate 20 01/17/17 10:21 Blood Pressure 121/60 01/17/17 10:21 O2 Sat by Pulse Oximetry (%) 100 01/17/17 10:22 Constitutional: Yes: Well Nourished Eyes: Yes: WNL HENT: Yes: WNL Neck: Yes: WNL Cardiovascular: Yes: WNL Respiratory: Yes: WNL Gastrointestinal: Yes: WNL Musculoskeletal: Yes: WNL Extremities: Yes: WNL Edema: No Peripheral Pulses WNL: Yes Labs: CBC, BMP 01/17/17 09:47 Assessment/Plan ESRD 1. for left avg today
--- NOTE | 2017-01-17 13:41 | OP ---
Operative Note - Note: Operative Date: 01/17/17 Pre-Operative Diagnosis: ESRD Operation: Insertion of left avg Post-Operative Diagnosis: Same as Pre-op Surgeon: Bandar Cuellar Anesthesia: Fractional Estimated Blood Loss (mls): 50 Operative Report Dictated: Yes
[2017-01-17 14:17] VITALS: TEMP 98.4
[2017-01-17 16:49] VITALS: BP 90/52; PULSE 88
--- NOTE | 2017-01-19 11:32 | OP ---
DATE OF OPERATION: 01/17/2017 PREOPERATIVE DIAGNOSIS: End-stage renal disease. POSTOPERATIVE DIAGNOSIS: End-stage renal disease. PROCEDURE: Insertion of left arteriovenous graft. SURGEON: Bandar Galeano MD ANESTHESIA: Fractional. BLOOD LOSS: 50 mL. The patient is a 66-year-old female that comes in with a right IJ Perm-A-Cath and needs permanent dialysis access. She had a left AV fistula placed a couple months ago that did not mature and function. Thus, she needs a left AV graft. Patient was consented for the procedure, understanding all risks, benefits, alternatives. Then taken to the operating room. Once in the operating room, she was laid on the operating table in the supine manner and the area of the left arm was prepped and draped in sterile surgical manner. Under ultrasound guidance, using a skin marker we were able to heather our brachial artery above the antecubital space and we were able to heather our axillary vein in the axilla. We then went ahead and injected 15 mL of lidocaine 1% in the left axilla. We then used a 15 blade and made a 7-cm incision. Bovie electrocautery was used to control hemostasis and we were able to get down through all the subcutaneous tissue using Bovie electrocautery. We then got down to the axillary vein. Axillary vein was dissected anterior and posteriorly and vessel loops were placed around it. At this point, we then went ahead and went to above the antecubital space and 10 mL of lidocaine 1% was injected and a 7-cm incision was made using a 15 blade. Bovie electrocautery was then used to control hemostasis. We were able to get down through all the subcutaneous tissue and using Metzenbaum scissors we were able to dissect through the fascia and get down to the brachial artery. Brachial artery was dissected anterior and posteriorly and vessel loops were placed around it proximally and distally. We then went ahead and used a 4-to-7 Propaten graft and using our tunneler we tunneled it from the arterial to the venous portion. Heparin IV 5000 units were administered to the patient. We then went ahead and beveled our arterial end. After 3 minutes of being on IV heparin, we got distal and proximal control on our artery. Using a 15 blade, we made an arteriotomy, extended it to 7 mm using Hayes scissors. Prolene 6-0 stay sutures were placed. We then used 6-0 Prolene double arm and went outside-in on the graft and inside-out on the artery and ran the suture out, performing an anastomosis between the artery and the graft. Once completed, we opened the distal artery first, then the proximal artery, and there was good flow in our AV graft and the AV graft was clamped. The AV graft was then flushed with heparinized saline and sucked out clean. At this point, we went to the venous portion and we got distal and proximal control on our vein. We cut our graft to size and beveled it to about 8 mm. At this point, we went ahead and using a 15 blade made a venotomy and did it for 8 cm using Hayes scissors. We then used 6-0 Prolene stay sutures on the vein. There was a good match between the length on the graft and the venotomy that we just made. We then used 6-0 Prolene double arm, went outside-in on the graft and inside-out on the vein and ran the suture around, performing an anastomosis between the vein and the graft. Once completed, we opened the distal vein first, then the proximal vein. We then opened our vascular clamp on the graft and there was a good thrill in our AV graft and there was good flow in our graft. At this point, both wounds were well irrigated. Vicryl 3-0 was used and the subcutaneous tissue was approximated in an interrupted manner. Surgicel was placed on each wound as well prior. The skin was closed with skin olga for both wounds. Once closed, the area was wet and dried and 4 x 4 Tegaderms were placed. Patient tolerated the procedure well with no complication. Patient transferred to PACU in stable condition. Patient has a good thrill and bruit in the left AV graft. BANDAR GALEANO MD NP/[id number]
== END 2017-01-17 15:00 | disposition home or self-care (01) ==
LOC: JASU-SURG 09:41
PROVIDERS: ATTEND Surgery Vascular Surgery
DX: N18.6 End stage renal disease (principal)
CPT/HCPCS: 36415; 84132; 94760; J1644

== ENCOUNTER 2017-06-30 07:37 | Observation (INO) | payer OTHER ==
--- NOTE | 2017-06-30 08:07 | PDOC ---
Attending Attestation - HPI HPI: 06/30/17 08:29 The patient is a 67 year old female with a significant PMH of HTN, non-insulin dependent diabetes (on Januvia), and ESRD (on dialysis Tue., Thur., Sat.) who presents to the emergency department s/p issues with dialysis access. The patient reports being at dialysis this morning and notes that her Nephrology providers were unable to access her fistula. The patient reports being unable to complete any portion of her dialysis today. Allergies: NKA PCP: Dr. Schultz [place]: Dr. Zayra Covarrubias Vascular: Dr. Bandar Rucker - Physicial Exam PE: 06/30/17 08:29 GENERAL: Awake, alert, and fully oriented, in no acute distress HEAD: No signs of trauma EYES: PERRLA, EOMI, sclera anicteric, conjunctiva clear ENT: Auricles normal inspection, hearing grossly normal, nares patent, oropharynx clear without exudates. Moist mucosa NECK: Normal ROM, supple, no lymphadenopathy, JVD, or masses LUNGS: Breath sounds equal, clear to auscultation bilaterally. No wheezes, and no crackles HEART: (+) Systolic ejection murmur. Regular rate and rhythm, normal S1 and S2, no rubs or gallops ABDOMEN: Soft, nontender, normoactive bowel sounds. No guarding, no rebound. No masses EXTREMITIES: (+) LUE fistula, no bruits. Normal range of motion, no edema. No clubbing or cyanosis. No cords, erythema, or tenderness NEUROLOGICAL: Cranial nerves II through XII grossly intact. Normal speech, normal gait SKIN: Warm, Dry, normal turgor, no rashes or lesions noted. - Medical Decision Making 06/30/17 09:[address] Bandar Rucker regarding this patient. Spoke with Dr. Zayra Covarrubias regarding this patient. Spoke with Dr. Adams for observation of this patient. <Ty Ospina - Last Filed: 06/30/17 13:24> - Resident Resident Name: Mary Coon - ED Attending Attestation I have performed the following: I have examined & evaluated the patient, The case was reviewed & discussed with the resident, I agree w/resident's findings & plan, Exceptions are as noted - Medical Decision Making 06/30/17 08:07 I, Dr. Maru Bobo, DO, attest that this document has been prepared under my direction and personally reviewed by me in its entirety. I further attest, that it accurately reflects all work, treatment, procedures and medical decision -making performed by me. 06/30/17 08:58 a/p: 67yo female due for HD today LUE fistula - vascular surgeon is Dr. Rucker Nephpeyman - Dr. Zayra Root -will check labs -no flow in fistula call placed to [facility] Sx and Nephro 06/30/17 09:[address] Rucker who requests an ultrasound of the graft to eval patency 06/30/17 13:[address] Adams who accepts pt to service ultrasound shows occluded graft - call placed to Dr. Rucker 06/30/17 13:[address] rucker, will go to OR tomorrow to declot the graft <Maru Bobo - Last Filed: 06/30/17 13:46> Heart Score/ECG Review - ECG Intrepretation Comment:: 06/30/17 08:53 sinus at 72, nl axis, nl interval, no acute st/t wave findings <Maru Bobo - Last Filed: 06/30/17 13:46>
--- NOTE | 2017-06-30 08:24 | PDOC ---
History of Present Illness - General Chief Complaint: Dialysis Shunt Problem Stated Complaint: PCP SENT,DIALYSIS SHUNT PROBLEM Time Seen by Provider: 06/30/17 07:54 History Source: Patient Exam Limitations: No Limitations - History of Present Illness Initial Comments: This is a 67 YOF with h/o ESRD (on HD T/Th/Sat and makes a small amount of urine at baseline), NIDDM (on Januvia), HTN (on HCTZ), and glaucoma (uses eyedrops) who presents from her dialysis clinic where staff was unable to draw blood from her LUE AV fistula or to hear a bruit. She did not have any portion of her normal HD session this morning. Her usual sessions last 3 hours 45 minutes, and she has not missed any sessions recently. The patient has no symptoms this morning (no chest pain, palpitations, SOB, swelling of the LUE or other areas of the body, skin changes, itchiness, or other symptoms). She did take her normal medications this morning. Past History - Past Medical History Allergies/Adverse Reactions: Allergies Allergy/AdvReac Type Severity Reaction Status Date / Time No Known Allergies Allergy Verified 06/30/17 07:42 Home Medications: Ambulatory Orders Hydralazine HCl [Apresoline -] 10 mg PO TID #90 tablet 10/25/16 Sitagliptin Phosphate [Januvia -] 25 mg PO DAILY@0700 #30 tab 10/26/16 Calcium Acetate 667 mg PO TID 01/16/17 Anemia: No Asthma: No Cancer: No Cardiac Disorders: No CVA: No COPD: No CHF: No DVT: No Dementia: No Diabetes: Yes Dialysis: Yes (Left arm fistula) GI Disorders: No Disorders: No HTN: Yes Hypercholesterolemia: No Liver Disease: No Seizures: No Thyroid Disease: No - Surgical History Abdominal Surgery: Yes (D&C) Appendectomy: No Cardiac Surgery: No Cholecystectomy: No Lung Surgery: No Neurologic Surgery: No Orthopedic Surgery: No - Immunization History Td Vaccination: Yes Immunization Up to Date: Yes - Suicide/Smoking/Psychosocial Hx Smoking Status: No Smoking History: Never smoked Have you smoked in the past 12 months: No Number of Cigarettes Smoked Daily: 0 Information on smoking cessation initiated: No Hx Alcohol Use: No Drug/Substance Use Hx: No Substance Use Type: None Hx Substance Use Treatment: No Review of Systems - Review of Systems Able to Perform ROS?: Yes Constitutional: No: Chills, Fever, Unexplained wgt Loss HEENTM: No: Nose Congestion, Throat Pain Respiratory: No: Cough, Shortness of Breath Cardiac (ROS): No: Chest Pain, Palpitations ABD/GI: No: Constipated, Diarrhea, Nausea, Vomiting : No: Burning, Dysuria Musculoskeletal: No: Back Pain, Neck Pain Integumentary: No: Bruising, Rash Neurological: No: Headache, Numbness, Tingling, Weakness, Dizziness Endocrine: No: Unexplained Weight Gain, Unexplained Weight Loss *Physical Exam - Vital Signs Last Vital Signs Temp Pulse Resp BP Pulse Ox 98.2 F 76 18 143/68 98 06/30/17 07:39 06/30/17 07:39 06/30/17 07:39 06/30/17 07:39 06/30/17 07:39 - Physical Exam General Appearance: Yes: Nourished, Appropriately Dressed, Other (very pleasant and appropriate adult female ). No: Apparent Distress HEENT: positive: EOMI, MICHAEL, Normal Voice, Hearing Grossly Normal. negative: Scleral Icterus (R), Scleral Icterus (L), Nasal Congestion Neck: positive: Trachea midline, Supple. negative: Tender, Rigid Respiratory/Chest: positive: Lungs Clear, Normal Breath Sounds. negative: Respiratory Distress, Crackles, Rhonchi, Stridor, Wheezing Cardiovascular: positive: Regular Rhythm, Regular Rate, Murmur (2/6 systolic crescebdo-decrescendo murmur at LUSB), Other (AV fistula in place proximal LUE without bruit or thrill). negative: Edema, JVD Gastrointestinal/Abdominal: positive: Normal Bowel Sounds, Soft. negative: Tender, Organomegaly, Pulsatile Mass, Guarding Musculoskeletal: positive: Normal Inspection. negative: Decreased Range of Motion, Vertebral Tenderness Extremity: positive: Normal Capillary Refill, Normal Inspection, Normal Range of Motion. negative: Tender, Cyanosis, Swelling Integumentary: positive: Normal Color, Dry, Warm. negative: Erythema, Rash, Bruising Neurologic: positive: supervisor tan room II-XII NML intact (grossly), Fully Oriented, Alert, Normal Mood/Affect, Normal Response, Motor Strength 5/5, Other (normal gait) ED Treatment Course - LABORATORY CBC & Chemistry Diagram: 06/30/17 08:30 06/30/17 08:30 Medical Decision Making - Medical Decision Making 67F with h/o ESRD on HD TThSat missed HD today as clinic staff noted AV fistula malfunction. Patient states she has been moving many boxes, may have bent the AVF, and she slept on the fistula too. On exam her VS are wnl and she is in no distress, but no bruit or thrill to the LUE AV fistula. 2/6 systolic murmur at LUSB, no edema, no JVD, no e/o fluid overload. Ordered is CBCD, CMP, Mg, Phos, EKG, pages sent to Dr. Cuellar (vascular) and Dr. Schultz (nephrology). 06/30/17 11:[address] Brito who will check in on the patient later today. Will notify HD that the patient will need session as soon as she has access. 06/30/17 12:14 Patient in [place] awaiting eval for access patency. Consult orders placed for Dr. Cuellar (Vascular) and Dr. Covarrubias (Nephrology). *DC/Admit/Observation/Transfer Diagnosis at time of Disposition: ESRD (end stage renal disease) on dialysis AV fistula occlusion Qualifiers: Encounter type: initial encounter Qualified Code(s): T82.898A - Other specified complication of vascular prosthetic devices, implants and grafts, initial encounter - Discharge Dispostion Condition at time of disposition: Guarded Admit: Yes - Referrals - Patient Instructions - Post Discharge Activity
[2017-06-30 08:46] LABS: EOS % 4.6 % (0-4.5); HEMOGLOBIN 13.3 GM/dL (10.7-15.3); LYMPH % 26.5 % (8-40); MCH 23.1 pg (25.7-33.7); MCHC 30.1 g/dl (32.0-36.0); MEAN CELL VOLUME 76.8 fl (80-96); MEAN PLT VOLUME 9.1 fl (7.5-11.1); MONO % 7.3 % (3.8-10.2); NEUT % 60.6 % (42.8-82.8); PLATELET COUNT 261 K/MM3 (134-434); RBC 5.73 M/mm3 (3.60-5.2); RDW 18.2 % (11.6-15.6); WHITE BLOOD COUNT 6.9 K/mm3 (4.0-10.0)
[2017-06-30 09:11] LABS: ALBUMIN 3.9 g/dl (3.4-5.0); ANION GAP 11 (8-16); BILIRUBIN,TOTAL 0.4 mg/dL (0.2-1.0); BLOOD UREA NITROGEN 49 mg/dL (7-18); CALCIUM 9.3 mg/dL (8.5-10.1); CHLORIDE 99 mmol/L (98-107); CO2 25 mmol/L (21-32); GLUCOSE,RANDOM 140 mg/dL (74-106); MAGNESIUM 2.4 mg/dL (1.8-2.4); PHOSPHOROUS 5.3 mg/dL (2.5-4.9); POTASSIUM 4.9 mmol/L (3.5-5.1); SGOT/AST 7 U/L (15-37); SGPT/ALT 11 U/L (12-78); SODIUM 135 mmol/L (136-145); TOT PROT 7.8 g/dl (6.4-8.2)
[2017-06-30 09:17] LABS: ALK PHOS 87 U/L (45-117)
[2017-06-30 09:25] LABS: CREATININE 9.2 mg/dL (0.55-1.02)
[2017-06-30] MEDS ORDERED: ACETAMINOPHEN 325 MG TABLET (FP) PO PRN (16:08)
--- NOTE | 2017-06-30 16:12 | HP ---
Admitting History and Physical - Primary Care Physician PCP: Chanda Schultz - Admission History of Present Illness: The patient is a 67 year old female with a significant PMH of HTN, non-insulin dependent diabetes (on Januvia), and ESRD (on dialysis Tue., Thur., Sat.) who presents to the emergency department s/p issues with dialysis access. The patient reports being at dialysis this morning and notes that her Nephrology providers were unable to access her fistula. The patient reports being unable to complete any portion of her dialysis today. Allergies: NKA PCP: Dr. Schultz Dependency Case Manager: Dr. Zayra Covarrubias Vascular: Dr. Bandar Cuellar pt sen by me in er No other issues vascular and renal consulted History Source: Patient Limitations to Obtaining History: No Limitations - Past Medical History Renal/: Yes: Renal Failure - Smoking History Smoking history: Never smoked Have you smoked in the past 12 months: No Aproximately how many cigarettes per day: 0 - Alcohol/Substance Use Hx Alcohol Use: No Home Medications - Allergies Allergies/Adverse Reactions: Allergies Allergy/AdvReac Type Severity Reaction Status Date / Time No Known Allergies Allergy Verified 06/30/17 07:42 - Home Medications Home Medications: Ambulatory Orders Hydralazine HCl [Apresoline -] 10 mg PO TID #90 tablet 10/25/16 Sitagliptin Phosphate [Januvia -] 25 mg PO DAILY@0700 #30 tab 10/26/16 Calcium Acetate 667 mg PO TID 01/16/17 Review of Systems - Review of Systems Constitutional: reports: No Symptoms Eyes: reports: No Symptoms Neck: reports: No Symptoms Cardiovascular: reports: No Symptoms Respiratory: reports: No Symptoms Gastrointestinal: reports: No Symptoms Genitourinary: reports: No Symptoms Neurological: reports: No Symptoms Endocrine: reports: No Symptoms Psychiatric: reports: No Symptoms Physical Examination Vital Signs: Vital Signs Temperature 98.2 F 06/30/17 07:39 Pulse Rate 68 06/30/17 15:53 Respiratory Rate 20 06/30/17 15:53 Blood Pressure 139/68 06/30/17 15:53 O2 Sat by Pulse Oximetry (%) 97 06/30/17 15:53 Constitutional: Yes: No Distress, Calm Eyes: Yes: Conjunctiva Clear Neck: Yes: Supple Cardiovascular: Yes: Regular Rate and Rhythm Respiratory: Yes: CTA Bilaterally, Diminished (at bases) Gastrointestinal: Yes: Soft Extremities: Yes: Other (left upper - extremity -- no bruie) Edema: No Neurological: Yes: Alert Psychiatric: Yes: Alert Labs: CBC, BMP 06/30/17 08:30 06/30/17 08:30 Imaging - Results Ultrasound: Report Reviewed EKG: Report Reviewed Problem List - Problems (1) Diabetes Code(s): E11.9 - TYPE 2 DIABETES MELLITUS WITHOUT COMPLICATIONS (2) AV fistula occlusion Code(s): T82.898A - [facility] COMPLICATION OF VASCULAR PROSTH DEV/GRFT, INIT Qualifiers: Encounter type: initial encounter Qualified Code(s): T82.898A - Other specified complication of vascular prosthetic devices, implants and grafts, initial encounter (3) ESRD (end stage renal disease) on dialysis Code(s): N18.6 - END STAGE RENAL DISEASE; Z99.2 - DEPENDENCE ON RENAL DIALYSIS Assessment/Plan observe vascular consulted. further management after that keep npo hold po diabetic meds will follow. discussed with er attending also.
--- NOTE | 2017-06-30 16:32 | EKG ---
Test Reason : Blood Pressure : / mmHG Vent. Rate : 072 BPM Atrial Rate : 072 BPM P-R Int : 158 ms QRS Dur : 070 ms QT Int : 376 ms P-R-T Axes : 058 024 042 degrees QTc Int : 411 ms NORMAL SINUS RHYTHM NORMAL ECG WHEN COMPARED WITH ECG OF 18-OCT-2016 11:01, NON-SPECIFIC CHANGE IN ST SEGMENT IN INFERIOR LEADS NONSPECIFIC T WAVE ABNORMALITY NO LONGER EVIDENT IN INFERIOR LEADS QT HAS SHORTENED Confirmed by ANNABELLE CERVANTES, TAN ([id number]) on 06/30/2017 4:31:39 PM Referred By: Confirmed By:TAN ALANIS MD
--- NOTE | 2017-06-30 18:07 | CON.NEP ---
Consult Consult Specialty:: nephrology Reason for Consultation:: hemodialysis management - History of Present Illness Chief Complaint: unable to get dialysis because of nonfunctioning History of Present Illness: recurrent malfunction of av access unable to get dialysis - History Source History Provided By: Patient Limitations to Obtaining History: No Limitations - Past Medical History Renal/: Yes: Renal Failure - Alcohol/Substance Use Hx Alcohol Use: No - Smoking History Smoking history: Never smoked Have you smoked in the past 12 months: No Aproximately how many cigarettes per day: 0 Home Medications - Allergies Allergies/Adverse Reactions: Allergies Allergy/AdvReac Type Severity Reaction Status Date / Time No Known Allergies Allergy Verified 06/30/17 07:42 - Home Medications Home Medications: Ambulatory Orders Hydralazine HCl [Apresoline -] 10 mg PO TID #90 tablet 10/25/16 Sitagliptin Phosphate [Januvia -] 25 mg PO DAILY@0700 #30 tab 10/26/16 Calcium Acetate 667 mg PO TID 01/16/17 Nephrology Consult - Height Height: 5 ft - Weight Weight: 158 lb - BMI Body Mass Index (BMI): 30.8 - Lab Results CBC,BMP: CBC, BMP 06/30/17 08:30 06/30/17 08:30 Anion Gap: Anion Gap Anion Gap 11 (8-16) 06/30/17 08:30 - Physical Examination Vital Signs: Vital Signs Temperature 98.2 F 06/30/17 07:39 Pulse Rate 68 06/30/17 15:53 Respiratory Rate 20 06/30/17 15:53 Blood Pressure 139/68 06/30/17 15:53 O2 Sat by Pulse Oximetry (%) 97 06/30/17 15:53 Constitutional: Yes: Well Nourished, No Distress, Calm Eyes: Yes: WNL, Conjunctiva Clear, EOM Intact HENT: Yes: WNL, Atraumatic, Normocephalic Neck: Yes: WNL, Supple, Trachea Midline Cardiovascular: Yes: WNL, Regular Rate and Rhythm Respiratory: Yes: WNL, Regular, CTA Bilaterally Gastrointestinal: Yes: WNL, Normal Bowel Sounds Renal/: Yes: WNL Access for Hemodialysis: AV Fistula Musculoskeletal: Yes: WNL Extremities: Yes: WNL Edema: No Peripheral Pulses WNL: Yes Integumentary: Yes: WNL Neurological: Yes: WNL, Alert, Oriented Psychiatric: Yes: WNL, Alert, Oriented Assessment/Plan esrd on hd presents with clotted access waiting for vascular eval will dialyze when she has an access no urgent indication for hd
[2017-06-30] MEDS: hydrALAZINE HCL 10 MG TABLET PO SCH (21:34)
[2017-06-30] MEDS: CALCIUM ACETATE 667 MG CAPSULE (FP) PO SCH (21:34)
[2017-06-30] MEDS: INSULIN SLIDING SCALE (NOVOLOG) 1 VIAL SQ SCH (21:34)
[2017-06-30] MEDS: HEPARIN NA (PORCINE) 5,000 UNITS/ML 1ML VIAL SQ SCH (21:36)
[2017-06-30 22:37] VITALS: BMI 30.8
[2017-07-01] MEDS: hydrALAZINE HCL 10 MG TABLET PO SCH (06:10)
[2017-07-01] MEDS: CALCIUM ACETATE 667 MG CAPSULE (FP) PO SCH (06:10)
[2017-07-01] MEDS: INSULIN SLIDING SCALE (NOVOLOG) 1 VIAL SQ SCH (06:10)
[2017-07-01 08:05] LABS: HEMATOCRIT 39.7 % (32.4-45.2); HEMOGLOBIN 12.1 GM/dL (10.7-15.3); MCH 23.2 pg (25.7-33.7); MCHC 30.4 g/dl (32.0-36.0); MEAN CELL VOLUME 76.4 fl (80-96); MEAN PLT VOLUME 8.9 fl (7.5-11.1); PLATELET COUNT 234 K/MM3 (134-434); RDW 17.6 % (11.6-15.6)
[2017-07-01 08:26] LABS: ANION GAP 10 (8-16); BLOOD UREA NITROGEN 57 mg/dL (7-18); CALCIUM 8.7 mg/dL (8.5-10.1); CHLORIDE 101 mmol/L (98-107); CO2 24 mmol/L (21-32); GLUCOSE,RANDOM 87 mg/dL (74-106); POTASSIUM 5.6 mmol/L (3.5-5.1); SODIUM 135 mmol/L (136-145)
[2017-07-01 08:58] LABS: CREATININE 11.3 mg/dL (0.55-1.02)
[2017-07-01] MEDS ORDERED: PROMETHAZINE HCL 25 MG/1 ML VIAL IVPUSH PRN ×2 (09:38→10:56)
[2017-07-01] MEDS ORDERED: ONDANSETRON 4 MG/2 ML VIAL IVPUSH PRN ×2 (09:38→10:56)
[2017-07-01] MEDS ORDERED: SODIUM CHLORIDE 1,000 ML IV SCH ×2 (09:45→10:56)
[2017-07-01] MEDS ORDERED: LIDOCAINE HCL 1%, 10 MG/ML (20ML VIAL) ONE ×2 (09:46→09:57)
[2017-07-01] MEDS ORDERED: HEPARIN NA (PORCINE) 5,000 UNITS/ML 1ML VIAL ONE ×2 (09:47→10:10)
[2017-07-01] MEDS ORDERED: PROPOFOL 20 ML ONE ×2 (09:50)
[2017-07-01] MEDS ORDERED: SODIUM CHLORIDE 0.9% P/F 10 ML VIAL IJ ONE (09:58)
[2017-07-01] MEDS ORDERED: ceFAZolin SODIUM 1 GM VIAL IVPB ONE (09:58)
[2017-07-01] MEDS ORDERED: ceFAZolin SODIUM 1 GM VIAL ONE (09:58)
[2017-07-01] MEDS ORDERED: ASPIRIN 81 MG CHEWABLE TABLETS PO SCH (10:00)
--- NOTE | 2017-07-01 10:34 | OP ---
Operative Note - Note: Operative Date: 07/01/17 Pre-Operative Diagnosis: clottd left avg Operation: venogram, suction thrombectomy, venoplasty left avg Post-Operative Diagnosis: Same as Pre-op Surgeon: Bandar Cuellar Anesthesia: Fractional Estimated Blood Loss (mls): 20 Operative Report Dictated: Yes
[2017-07-01] MEDS: HEPARIN NA (PORCINE) 5,000 UNITS/ML 1ML VIAL SQ SCH (10:37)
[2017-07-01] MEDS ORDERED: ACETAMINOPHEN 325 MG TABLET (FP) PO PRN (10:56)
[2017-07-01] MEDS ORDERED: INSULIN SLIDING SCALE (NOVOLOG) 1 VIAL SQ SCH (11:00)
--- NOTE | 2017-07-01 13:26 | DS ---
Physical Examination Vital Signs: Vital Signs Temperature 98.3 F 07/01/17 11:15 Pulse Rate 79 07/01/17 11:15 Respiratory Rate 20 07/01/17 11:15 Blood Pressure 144/57 07/01/17 11:15 O2 Sat by Pulse Oximetry (%) 98 07/01/17 11:00 Findings/Remarks: comfortable no issues feels well underwent thrombectomy today eating lunch. Constitutional: Yes: No Distress, Calm Eyes: Yes: Conjunctiva Clear Neck: Yes: Supple Cardiovascular: Yes: Regular Rate and Rhythm Respiratory: Yes: CTA Bilaterally Gastrointestinal: Yes: Soft Extremities: Yes: Other (bruie+ - fistula) Edema: No Neurological: Yes: Alert Psychiatric: Yes: Alert Labs: CBC, BMP 07/01/17 05:45 07/01/17 05:45 Discharge Summary Reason For Visit: ARTERIAL FISTULA OCCLUSION; E.R.S.D. Current Active Problems AV fistula occlusion (Acute) Diabetes (Acute) ESRD (end stage renal disease) on dialysis (Acute) Hospital Course: The patient is a 67 year old female with a significant PMH of HTN, non-insulin dependent diabetes (on Januvia), and ESRD (on dialysis Tue., Thur., Sat.) who presents to the emergency department s/p issues with dialysis access. The patient reports being at dialysis this morning and notes that her Nephrology providers were unable to access her fistula. underwent thrombectomy today scheduled for dialysis today If no issues - will discharge after that. pt also wants to home meds reconciled f/u on office in 2 weeks discussed with nursing staff also. Condition: Improved - Instructions Disposition: HOME - Home Medications Comprehensive Discharge Medication List: Ambulatory Orders Hydralazine HCl [Apresoline -] 10 mg PO TID #90 tablet 10/25/16 Sitagliptin Phosphate [Januvia -] 25 mg PO DAILY@0700 #30 tab 10/26/16 Calcium Acetate 667 mg PO TID 01/16/17 Acetaminophen [Tylenol .Regular Strength -] 650 mg PO Q4H PRN tablet 07/01/17 Aspirin [ASA -] 81 mg PO DAILY #0 tab.chew 07/01/17
[2017-07-01] MEDS ORDERED: CALCIUM ACETATE 667 MG CAPSULE (FP) PO SCH (14:00)
[2017-07-01] MEDS ORDERED: hydrALAZINE HCL 10 MG TABLET PO SCH (14:00)
--- NOTE | 2017-07-01 16:17 | PN ---
Progress Note (short form) - Note Progress Note: esrd clotted access Current Medications Acetaminophen (Tylenol -) 650 mg PO Q4H PRN PRN Reason: FEVER OR PAIN Aspirin (Asa -) 81 mg PO DAILY [facility] Calcium Acetate (Phoslo -) 667 mg PO TID [facility] Last Admin: 07/01/17 13:25 Dose: 667 mg Fentanyl (Sublimaze Injection -) 50 mcg IVPUSH [id number] PRN PRN Reason: PAIN Heparin Sodium (Porcine) (Heparin -) 5,000 unit SQ BID [facility] Hydralazine HCl (Apresoline -) 10 mg PO TID [facility] Last Admin: 07/01/17 13:25 Dose: 10 mg Sodium Chloride (Normal Saline -) 1,000 mls @ 42 mls/hr IV ASDIR [facility] Last Admin: 07/01/17 13:24 Dose: Not Given Insulin Aspart (Novolog Vial Sliding Scale -) 1 vial SQ TIDAC [facility] PRN Reason: Protocol Last Admin: 07/01/17 12:18 Dose: Not Given Ondansetron HCl (Zofran Injection) 4 mg IVPUSH Q6H PRN PRN Reason: NAUSEA AND/OR VOMITING Promethazine HCl (Phenergan Injection -) 12.5 mg IVPUSH Q6H PRN PRN Reason: NAUSEA-FOR RESCUE AFTER 15 MIN Last Vital Signs Temp Pulse Resp BP Pulse Ox 98.2 F 74 18 80/53 98 07/01/17 15:00 07/01/17 15:50 07/01/17 15:50 07/01/17 15:50 07/01/17 11:00 Lungs clear Heart reg Abd soft no edema CBC, BMP 07/01/17 05:45 07/01/17 05:45 IMP- esrd clotted access s/p declotting seen while on dialysis- stable during treatment Plan- agree to d/c home after dialysis
[2017-07-01 18:12] VITALS: BP 144/79; PULSE 80; TEMP 98.5
[2017-07-01] MEDS ORDERED: HEPARIN NA (PORCINE) 5,000 UNITS/ML 1ML VIAL SQ SCH (22:00)
[2017-07-02] MEDS ORDERED: ASPIRIN 81 MG CHEWABLE TABLETS PO SCH (10:00)
--- NOTE | 2017-07-03 11:12 | OP ---
DATE OF OPERATION: 07/01/2017 PREOPERATIVE DIAGNOSIS: Clotted left arteriovenous graft. POSTOPERATIVE DIAGNOSIS: Clotted left arteriovenous graft. PROCEDURE: Venogram suction thrombectomy, venoplasty of left arteriovenous graft. SURGEON: Bandar Galeano DO ANESTHESIA: Fractional. BLOOD LOSS: 20 mL. INDICATIONS: The patient is a 67-year-old female who comes in with a clotted left AV graft to the emergency room yesterday. She had an ultrasound done showing that the left AV graft was clotted and that she needed a thrombectomy. Patient was consented for the procedure, understanding all of the risks, benefits, and alternatives. DESCRIPTION OF PROCEDURE: She was then taken to the operating room. Once in the operating room, was placed on the operating table in the supine manner. The left arm was prepped and draped in the sterile surgical manner. We then went ahead and injected 10 mL of Xylocaine over the proximal AV graft. We then went ahead and used the micropuncture needle to puncture the AV graft. Micropuncture awl was inserted and micropuncture sheath was then introduced and a short 6-Botswanan sheath was inserted. We then shot a venogram by hand injection showing that the graft is clotted. There was a 98% stenosis at the venous anastomosis. We then went ahead and placed the guidewire through the graft and through the venous anastomosis. We then used an AVX suction thrombectomy catheter and performed suctioned thrombectomy of the entire AV graft and across the venous anastomosis. We then went ahead and used a 9 x 8 Durata balloon and performed venoplasty of the venous anastomosis and the entire graft venogram now showed that the graft was patent. We then went ahead and injected 5 mL of over the distal AV graft and used our micropuncture needle and punctured the right AV graft. Micropuncture awl was inserted and introducer with a short 6-Botswanan sheath was inserted facing the arterial anastomosis. We then shot a venogram through that sheath showing that the arterial anastomosis was closed. We went ahead and placed a No. 4 Jesús and we performed thrombectomy of the proximal AV graft. We then went ahead and used a 6 x 4 Durata balloon and performed venoplasty of the proximal AV graft. Completion venogram now showed that the graft was patent. There was a good view of the AV graft as well. At this point, we used a Briligyn stitch and a jsmoyv-ye-pankr stitch was placed around each sheath and the sheaths were pulled. The areas were well irrigated and Dermabond was placed. Patient tolerated the procedure with no complication. Patient transferred to the PACU in stable condition. She will now go for dialysis. BANDAR GALEANO DO [id number]
[2017-07-04 06:07] LABS: HBSAG SCREEN Negative (Negative); HEP A AB, IGM Negative (Negative); HEP B CORE AB, TOT Negative (Negative)
== END 2017-07-01 18:41 | disposition home or self-care (01) | DRG 252 ==
LOC: JER 07:37 → INTOOBSV 13:41 → JERBED 13:41 → UNDOADMOB 13:41 → JERBED 16:08 → J4W 18:01 → JERBED 18:01 → J4W 18:01 → UNDODISOB 07-01 18:41
PROVIDERS: ADMIT Internal Medicine; ATTEND Internal Medicine
PROC: 05CY3ZZ Extirpation of Matter from Upper Vein, Percutaneous Approach (ICD-10-PCS; principal; 2017-07-01 09:30)
DX: T82.868A Thrombosis due to vascular prosthetic devices, implants and grafts, initial encounter (principal); I12.0 Hypertensive chronic kidney disease with stage 5 chronic kidney disease or end stage renal disease; E11.22 Type 2 diabetes mellitus with diabetic chronic kidney disease; N18.6 End stage renal disease; Z99.2 Dependence on renal dialysis; Z79.84 Long term (current) use of oral hypoglycemic drugs; H40.9 Unspecified glaucoma; Y83.8 Other surgical procedures as the cause of abnormal reaction of the patient, or of later complication, without mention of misadventure at the time of the procedure
CPT/HCPCS: 36415; 76000-TC; 80048; 80053; 83735; 84100; 85025; 85027; 86704; 86706; 86708; 86803; 87340; 93005; 93010; 93971; 94760; 99283-25; G0378; J1644

== ENCOUNTER 2017-10-19 13:37 | Day surgery (SDC) | payer OTHER ==
[2017-10-18 14:46] VITALS: BMI 30.8
[2017-10-20 12:02] VITALS: PULSE 84
[2017-10-20 12:04] VITALS: BP 138/76; TEMP 98.9
== END 2017-10-20 13:41 | disposition home or self-care (01) ==
LOC: JASU-SURG 13:37 → J8W 20:49 → JASU-SURG 10-20 13:41
PROVIDERS: ATTEND Surgery Vascular Surgery
PROC: 057Y3ZZ Dilation of Upper Vein, Percutaneous Approach (ICD-10-PCS; principal; 2017-10-19)
DX: T82.898A Other specified complication of vascular prosthetic devices, implants and grafts, initial encounter (principal); I12.0 Hypertensive chronic kidney disease with stage 5 chronic kidney disease or end stage renal disease; N18.6 End stage renal disease; Z99.2 Dependence on renal dialysis; E11.22 Type 2 diabetes mellitus with diabetic chronic kidney disease
CPT/HCPCS: 36415; 76000-TC-FY; 82947; 82962; 84132; 86704; 86706; 86708; 87340; 93005; 93010; 94760

== ENCOUNTER 2017-11-24 08:21 | Observation (INO) | payer OTHER ==
--- NOTE | 2017-11-24 10:15 | PDOC ---
History of Present Illness - General History Source: Patient Exam Limitations: No Limitations - History of Present Illness Initial Comments: 11/24/17 10:33 The patient is a 67 year old female, with a significant past medical history of HTN, CKD on ESRD (last dialysis 3 days ago), who presents to the emergency department complaining of a malfunctioning fistula. She notes that her fistula has been clotted multiple times in the past. She denies any other kind of complaint. The patient denies chest pain, shortness of breath, headache or dizziness. Denies fever, chills, nausea, vomiting, diarrhea and constipation. Denies dysuria, frequency, urgency and hematuria. Allergies: None Past surgical history: Left upper extremity Fistula Social History: No alcohol, tobacco or drug use reported <Figueroa Tracy - Last Filed: 11/24/17 10:33> - General History Source: Patient Exam Limitations: No Limitations <Isha Cornejo - Last Filed: 11/24/17 11:48> - General Chief Complaint: Dialysis Shunt Problem Stated Complaint: ARM PAIN Past History <Figueroa Tracy - Last Filed: 11/24/17 10:33> - Past Medical History Anemia: No Asthma: No Cancer: No Cardiac Disorders: No (HEART MURMUR"ALITTLE BIT") CVA: No COPD: No CHF: No DVT: No Dementia: No Diabetes: Yes Dialysis: Yes (Left arm fistula) GI Disorders: No Disorders: No HTN: Yes Hypercholesterolemia: No Liver Disease: No Seizures: No Thyroid Disease: No - Surgical History Abdominal Surgery: No Appendectomy: No Cardiac Surgery: No Cholecystectomy: No Lung Surgery: No Neurologic Surgery: No Orthopedic Surgery: No - Immunization History Td Vaccination: Yes Immunization Up to Date: Yes - Suicide/Smoking/Psychosocial Hx Smoking Status: No Smoking History: Never smoked Have you smoked in the past 12 months: No Number of Cigarettes Smoked Daily: 0 Hx Alcohol Use: No Drug/Substance Use Hx: No Substance Use Type: None Hx Substance Use Treatment: No <Isha Cornejo - Last Filed: 11/24/17 11:48> - Past Medical History Allergies/Adverse Reactions: Allergies Allergy/AdvReac Type Severity Reaction Status Date / Time No Known Allergies Allergy Verified 11/24/17 08:35 Home Medications: Ambulatory Orders Sitagliptin Phosphate [Januvia -] 25 mg PO DAILY@0700 #30 tab 10/26/16 Calcium Acetate 667 mg PO TID 01/16/17 Brimonidine Tartrate/Timolol [Combigan Eye Drops] 1 drop OU BID 08/28/17 Latanoprost 0.005% Eye Drops [Xalatan 0.005% Eye Drops -] 1 drop OU HS 08/28/17 Review of Systems - Review of Systems Able to Perform ROS?: Yes Comments:: 11/24/17 10:33 GENERAL/CONSTITUTIONAL: No fever or chills. No weakness. HEAD, EYES, EARS, NOSE AND THROAT: No change in vision. No ear pain or discharge. No sore throat. CARDIOVASCULAR: No chest pain or shortness of breath. RESPIRATORY: No cough, wheezing, or hemoptysis. GASTROINTESTINAL: No nausea, vomiting, diarrhea or constipation. GENITOURINARY: No dysuria, frequency, or change in urination. MUSCULOSKELETAL: No joint or muscle swelling or pain. No neck or back pain. EXTREMITIES: (+) Left upper extremity fistula SKIN: No rash NEUROLOGIC: No headache, vertigo, loss of consciousness, or change in strength/ sensation. ENDOCRINE: No increased thirst. No abnormal weight change. HEMATOLOGIC/LYMPHATIC: No anemia, easy bleeding, or history of blood clots. ALLERGIC/IMMUNOLOGIC: No hives or skin allergy. <Figueroa Tracy - Last Filed: 11/24/17 10:33> *Physical Exam - Vital Signs Last Vital Signs Temp Pulse Resp BP Pulse Ox 98.6 F 64 18 180/64 100 11/24/17 08:32 11/24/17 08:32 11/24/17 08:32 11/24/17 08:32 11/24/17 08:32 - Physical Exam Comments: 11/24/17 10:34 GENERAL: Awake, alert, and fully oriented, in no acute distress HEAD: No signs of trauma EYES: PERRLA, EOMI, sclera anicteric, conjunctiva clear ENT: Auricles normal inspection, nares patent. Moist mucosa NECK: Normal ROM, supple, no JVD, or masses LUNGS: Breath sounds equal, clear to auscultation bilaterally. No wheezes, and no crackles HEART: Regular rate and rhythm, normal S1 and S2, no murmurs, rubs or gallops ABDOMEN: Soft, nontender, normoactive bowel sounds. No guarding, no rebound. No masses EXTREMITIES: (+) Left upper extremity fisutla, no bruit or palpable thrill, no erythema. Normal range of motion, no edema. No clubbing or cyanosis. No cords, erythema, or tenderness NEUROLOGICAL: Alert and oriented x 3. Moves all extremities. Face is symmetric. SKIN: Warm, Dry, normal turgor, no rashes or lesions noted. L <Figueroa Tracy - Last Filed: 11/24/17 10:33> - Vital Signs Last Vital Signs Temp Pulse Resp BP Pulse Ox 98.6 F 64 18 180/64 100 11/24/17 08:32 11/24/17 08:32 11/24/17 08:32 11/24/17 08:32 11/24/17 08:32 <Isha Cornejo - Last Filed: 11/24/17 11:48> Heart Score/ECG Review #1 General ECG Interpretation: Sinus Rhythm, Normal Rate (66), Normal Intervals, No acute ischemic changes <Isha Cornejo - Last Filed: 11/24/17 11:48> ED Treatment Course - LABORATORY CBC & Chemistry Diagram: 11/24/17 10:04 11/24/17 10:04 <Isha Cornejo - Last Filed: 11/24/17 11:48> Medical Decision Making - Medical Decision Making 11/24/17 10:13 67 yo F with h/o DM, CKD on ESRD on dialysis x one year T/R Sat last dialysis 3 days ago here from dialysis for clotted dysfunctional fistula. has happened several times in the past. no sob. no cp no other complaints. meds: januvia, calcium acetate . plan r/o hyperkalemia, ekg labs will dw/ dr. rucker pt vascular surgeon. 11/24/17 10:32 <Isha Cornejo - Last Filed: 11/24/17 11:48> *DC/Admit/Observation/Transfer - Attestations Scribe Attestion: 11/24/17 10:34 Documentation prepared by Figueroa Tracy, acting as medical physics professor for Isha Cornejo MD <Figueroa Tracy - Last Filed: 11/24/17 10:33> - Discharge Dispostion Decision to Admit order: Yes <Isha Cornejo - Last Filed: 11/24/17 11:48> Diagnosis at time of Disposition: AV fistula occlusion - Referrals Referrals: Chanda Schultz MD [Primary Care Provider] - - Patient Instructions - Post Discharge Activity
[2017-11-24 10:58] LABS: BASO % 1.4 % (0-2.0); EOS % 5.4 % (0-4.5); HEMATOCRIT 35.4 % (32.4-45.2); HEMOGLOBIN 11.1 GM/dL (10.7-15.3); LYMPH % 34.6 % (8-40); MCH 24.5 pg (25.7-33.7); MCHC 31.3 g/dl (32.0-36.0); MEAN CELL VOLUME 78.1 fl (80-96); MEAN PLT VOLUME 8.4 fl (7.5-11.1); MONO % 6.9 % (3.8-10.2); NEUT % 51.7 % (42.8-82.8); PLATELET COUNT 241 K/MM3 (134-434); RBC 4.54 M/mm3 (3.60-5.2); RDW 15.8 % (11.6-15.6); WHITE BLOOD COUNT 5.1 K/mm3 (4.0-10.0)
[2017-11-24 11:24] LABS: ALBUMIN 3.8 g/dl (3.4-5.0); ALK PHOS 69 U/L (45-117); ANION GAP 8 (8-16); BILIRUBIN,TOTAL 0.7 mg/dL (0.2-1.0); BLOOD UREA NITROGEN 56 mg/dL (7-18); CALCIUM 8.6 mg/dL (8.5-10.1); CHLORIDE 102 mmol/L (98-107); CO2 26 mmol/L (21-32); GLUCOSE,RANDOM 98 mg/dL (74-106); POTASSIUM 5.3 mmol/L (3.5-5.1); SGOT/AST 11 U/L (15-37); SGPT/ALT 9 U/L (12-78); SODIUM 136 mmol/L (136-145); TOT PROT 7.5 g/dl (6.4-8.2)
[2017-11-24 11:29] LABS: INR 0.95 (0.82-1.09); PROTHROMBIN TIME (PATIENT) 10.7 SEC (9.7-13.0)
[2017-11-24 11:41] LABS: CREATININE 10.2 mg/dL (0.55-1.02)
[2017-11-24] MEDS ORDERED: HEPARIN NA (PORCINE) 5,000 UNITS/ML 1ML VIAL IVPUSH SCH (12:45)
[2017-11-24] MEDS ORDERED: SODIUM CHLORIDE 250 ML IV PRN ×2 (12:45→14:02)
[2017-11-24] MEDS ORDERED: HEPARIN NA (PORCINE) 5,000 UNITS/ML 1ML VIAL IVPUSH ONE ×2 (12:45→14:02)
--- NOTE | 2017-11-24 12:50 | CONSULT ---
Consult - text type - Consultation Consultation Note: Renal Consult for ESRD and Clotted AVG This is a 67 year old AA woman with PMhx of ESRD on HD, Hypertension, DM who presented with clotted AVG. Pt went to HD today and was found not to have thrill and bruit. Last full dialysis was . No sob, chest pain, abd pain , N/V/D. No LE swelling. For vascular sx intervention today. PMhx: as above Allergies: NKDA Family Hx: NC Social Hx: no T/A/D ROS: as per HPI Home Medications Medication Instructions Recorded Sitagliptin Phosphate [Januvia -] 25 mg PO DAILY@0700 #30 tab 10/26/16 Calcium Acetate 667 mg PO TID 01/16/17 Brimonidine Tartrate/Timolol 1 drop OU BID 08/28/17 [Combigan Eye Drops] Latanoprost 0.005% Eye Drops 1 drop OU HS 08/28/17 [Xalatan 0.005% Eye Drops -] Vital Signs Temperature 98.0 F 11/24/17 11:45 Pulse Rate 67 11/24/17 11:45 Respiratory Rate 16 11/24/17 11:45 Blood Pressure 150/61 11/24/17 11:45 O2 Sat by Pulse Oximetry (%) 98 11/24/17 11:45 NAD neck supple, No JVD RRR, no m/r CTA soft NT/ND NO LE edema left arm AVG, no thrill CBC, BMP 11/24/17 10:04 11/24/17 10:04 Current Medications Heparin Sodium (Porcine) (Heparin -) 1,000 unit IVPUSH ONCE ONE Stop: 11/24/17 12:46 Heparin Sodium (Porcine) (Heparin -) 500 unit IVPUSH Q1H ZANA Stop: 11/24/17 14:46 Sodium Chloride (Normal Saline -) 250 mls @ 3,000 mls/hr IV PRN PRN PRN Reason: Hypotension during Dialysis Stop: 11/25/17 12:45 67 year old AA woman with PMhx of ESRD on HD, Hypertension, DM who presented with clotted AVG. Pt went to HD today and was found not to have thrill and bruit. #Clotted AVG #ESRD on HD #Hypertension #Hyperkalemia For vascular- suction thrombectomy today will have dialysis following with planned 2.5kg UF Renal diet continue anti-hypertensives at home can be discharged following dialysis Discussed with Dr. Polo Schroeder DO
[2017-11-24] MEDS ORDERED: MIDAZOLAM HCL 2 MG/2 ML SINGLE DOSE VIAL ONE (12:58)
[2017-11-24] MEDS ORDERED: ceFAZolin SODIUM 1 GM VIAL ONE (12:59)
[2017-11-24] MEDS ORDERED: ceFAZolin SODIUM 1 GM VIAL IVPB ONE (13:00)
[2017-11-24] MEDS ORDERED: LIDOCAINE HCL 1%, 10 MG/ML (20ML VIAL) PNB ONE (13:15)
[2017-11-24] MEDS ORDERED: IOHEXOL 300 MG/ML INFUS..BTL IV ONE (13:30)
--- NOTE | 2017-11-24 13:47 | PN ---
Progress Note (short form) - Note Progress Note: Vascular Surgery s/p Declot left avg. Will go to hD Can be dc home after Hd. Follow up in one week for suture removal in office. Bandar Cuellar DO
--- NOTE | 2017-11-24 13:48 | OP ---
Operative Note - Note: Operative Date: 11/24/17 Pre-Operative Diagnosis: clotted left avg Operation: Venogram, Suction thrombectomy, venoplasty left avg Post-Operative Diagnosis: Same as Pre-op Surgeon: Bandar Cuellar Anesthesia: Fractional Estimated Blood Loss (mls): 30 Operative Report Dictated: Yes
[2017-11-24] MEDS: HEPARIN NA (PORCINE) 5,000 UNITS/ML 1ML VIAL IVPUSH SCH ×3 (14:45→16:45)
--- NOTE | 2017-11-24 15:17 | OP ---
DATE OF OPERATION: 11/24/2017 PREOPERATIVE DIAGNOSIS: Clotted left arteriovenous graft. POSTOPERATIVE DIAGNOSIS: Clotted left arteriovenous graft. PROCEDURES: Venogram, suction thrombectomy, venoplasty, left arteriovenous graft. SURGEON: Bandar Galeano DO ANESTHESIA: Fractional. BLOOD LOSS: 30 mL. INDICATIONS FOR PROCEDURE: The patient is a 67-year-old female that came in to the ER today after going to the hemodialysis unit where they found that her access in her left arm was clotted. She came in to the ER. Vascular Surgery was consulted and it was decided the patient would need a declot of her left AV graft. The patient was consented for the procedure, understanding all risks, benefits, and alternatives. DESCRIPTION OF PROCEDURE: The patient was then taken to the operating room. Once the patient came into the operating room, she laid on the operating room table in a supine manner, and the area of the left arm was prepped and draped in a sterile surgical manner. We then went ahead and injected the lidocaine 1% over the proximal left AV graft. We then used a Micropuncture needle to puncture the left AV graft. Micropuncture wire was inserted and a traditional short, 6-[place] Zealander sheath was inserted. We then went ahead and shot a venogram via hand injection showing that the graft was clotted. We then placed a 0.035 floppy guide wire up into the central veins. We then used a suction-thrombectomy catheter and performed suction thrombectomy of the entire AV graft. We then shot a venogram which showed that the graft was patent and the central veins were patent. We then went to the distal AV graft and injected 10 mL of lidocaine 1% over the distal AV graft. We then used a Micropuncture needle and punctured the AV graft. Micropuncture wire was inserted and a short, 6-[place] Zealander sheath was inserted. We then shot a venogram of the proximal AV graft including the anastomosis showing that the proximal AV graft was severely stenotic. At this point, we used a 6 x 4 balloon and performed venoplasty of the arterial anastomosis in the proximal AV graft. All throughout the procedure, the patient had been given 5000 units of IV heparin. Once the proximal anastomosis was angioplastied, we went ahead and shot another venogram showing that the graft was now completely patent. There was a good thrill in her AV graft. At this point, we used a 4-0 Biosyn suture and a [id number] stitch was placed around each sheath and the sheaths were pulled. Area was wet and dried. Dermabond was placed. The patient tolerated the procedure with no complications. There was a good thrill and bruit in her AV graft now. Patient transferred to PACU in stable condition. BANDAR GALEANO DO NP/[id number]
[2017-11-24] MEDS ORDERED: INSULIN (NOVOLOG) ASPART 100 UNITS/ML 10ML VIAL SQ SCH (16:30)
--- NOTE | 2017-11-24 16:49 | DS ---
Physical Examination Vital Signs: Vital Signs Temperature 97.9 F 11/24/17 14:15 Pulse Rate 66 11/24/17 16:05 Respiratory Rate 18 11/24/17 16:05 Blood Pressure 149/63 11/24/17 16:05 O2 Sat by Pulse Oximetry (%) 100 11/24/17 14:15 Labs: CBC, BMP 11/24/17 10:04 11/24/17 10:04 Discharge Summary Reason For Visit: ARTERIOVENUS FISTULA OCCLUSION Current Active Problems AV fistula occlusion (Acute) Hospital Course: see h and p Condition: Guarded - Instructions Referrals: Chanda Schultz MD [Staff Physician] - Disposition: HOME - Home Medications Comprehensive Discharge Medication List: Ambulatory Orders Sitagliptin Phosphate [Januvia -] 25 mg PO DAILY@0700 #30 tab 10/26/16 Calcium Acetate 667 mg PO TID 01/16/17 Brimonidine Tartrate/Timolol [Combigan Eye Drops] 1 drop OU BID 08/28/17 Latanoprost 0.005% Eye Drops [Xalatan 0.005% Eye Drops -] 1 drop OU HS 08/28/17
--- NOTE | 2017-11-24 16:49 | HP ---
Satellite [facility] - Chief Complaint Chief Complaint: AVF malfunction History Source: Patient Limitations to Obtaining History: No Limitations - Past Medical History Allergies/Adverse Reactions: Allergies Allergy/AdvReac Type Severity Reaction Status Date / Time No Known Allergies Allergy Verified 11/24/17 08:35 Cardiovascular: Yes: HTN Renal/: Yes: Renal Failure - Current Medications Current Medications: Home Medications Medication Instructions Recorded Sitagliptin Phosphate [Januvia -] 25 mg PO DAILY@0700 #30 tab 10/26/16 Calcium Acetate 667 mg PO TID 01/16/17 Brimonidine Tartrate/Timolol 1 drop OU BID 08/28/17 [Combigan 0.2%-0.5% Eye Drops] Latanoprost 0.005% Eye Drops 1 drop OU HS 08/28/17 [Xalatan 0.005% Eye Drops -] Satellite Physical Exam - Physical Examination Vital Signs: Vital Signs Period Temp Pulse Resp BP Sys/Rolle Pulse Ox Last 24 Hr 97.4 F-98.6 F 61-85 16-18 145-182/55-85 98-100 General Appearance: Alert & Oriented x3 Heart: Regular rate & rhythm Abdomen: Soft, No tenderness Extremities: No edema Satellite Impression/Plan - Impression/Plan Impression: malfunction AVF. ESRD ON HD Operative Procedure: DECLOTTING TODAY. HD afterwards- maybe dc after
[2017-11-24 19:34] LABS: CREATININE 2.8 mg/dL (0.55-1.02)
[2017-11-24 20:49] VITALS: BP 134/56; PULSE 79; TEMP 97.6; BMI 32.3
[2017-11-24] MEDS ORDERED: PATIENT'S OWN MEDICATION (NON-FORMULARY) (Brimonidine Tartrate/Timolol [Combigan 0.2%-0.5% OU SCH (22:00)
[2017-11-24] MEDS ORDERED: CALCIUM ACETATE 667 MG CAPSULE (FP) PO SCH (22:00)
[2017-11-24] MEDS ORDERED: BRIMONIDINE TARTRATE 0.2% OPHTHALMIC 5 ML BOTTLE OU SCH (22:00)
[2017-11-24] MEDS ORDERED: TIMOLOL 0.5% OPHTHALMIC SOL 5 ML BOTTLE OU SCH (22:00)
[2017-11-24] MEDS ORDERED: LATANOPROST 0.005% OPHTH SOLN 2.5ML BOTTLE OU SCH (22:00)
[2017-11-25] MEDS ORDERED: sitaGLIPtin PHOSPHATE 25 MG TABLET (FP) PO SCH (07:00)
--- NOTE | 2017-11-27 00:33 | EKG ---
Test Reason : Blood Pressure : / mmHG Vent. Rate : 066 BPM Atrial Rate : 066 BPM P-R Int : 156 ms QRS Dur : 072 ms QT Int : 388 ms P-R-T Axes : 060 024 030 degrees QTc Int : 406 ms NORMAL SINUS RHYTHM NORMAL ECG WHEN COMPARED WITH ECG OF 19-OCT-2017 15:03, VENT. RATE HAS DECREASED BY 57 BPM Confirmed by MONY GUIDO MD ([id number]) on 11/27/2017 12:32:36 AM Referred By: Confirmed By:MONY GUIDO MD
[2017-11-29 00:11] LABS: HBSAG SCREEN Negative (Negative); HEP A AB, IGM Negative (Negative); HEP B CORE AB, TOT Negative (Negative)
== END 2017-11-24 20:45 | disposition home or self-care (01) ==
LOC: JER 08:21 → JERBED 11:48 → J7W 19:12
PROVIDERS: ADMIT Internal Medicine; ATTEND Internal Medicine
PROC: 05CY3ZZ Extirpation of Matter from Upper Vein, Percutaneous Approach (ICD-10-PCS; principal; 2017-11-24 13:20)
DX: T82.590A Other mechanical complication of surgically created arteriovenous fistula, initial encounter (principal); Y83.9 Surgical procedure, unspecified as the cause of abnormal reaction of the patient, or of later complication, without mention of misadventure at the time of the procedure; Y92.9 Unspecified place or not applicable; E11.22 Type 2 diabetes mellitus with diabetic chronic kidney disease; I12.0 Hypertensive chronic kidney disease with stage 5 chronic kidney disease or end stage renal disease; N18.6 End stage renal disease; Z99.2 Dependence on renal dialysis; R01.1 Cardiac murmur, unspecified
CPT/HCPCS: 36415; 76000-TC-FY; 80053; 82565; 84520; 85025; 85610; 85730; 86704; 86706; 86708; 87340; 93005; 93010; 94760; 99283-25; G0378; J1644

== ENCOUNTER 2018-01-23 10:46 | Day surgery (SDC) | payer OTHER ==
[2018-01-23] MEDS ORDERED: ceFAZolin SODIUM 1 GM VIAL IVPB ONE (12:43)
[2018-01-23] MEDS ORDERED: HEPARIN NA (PORCINE) 5,000 UNITS/ML 1ML VIAL ONE (12:53)
--- NOTE | 2018-01-23 13:23 | HP ---
Admitting History and Physical - Admission Chief Complaint: Stenosis in left avg found on preoperative ultrasound Limitations to Obtaining History: No Limitations - Past Medical History Cardiovascular: Yes: HTN Renal/: Yes: Renal Failure ...: No - Smoking History Smoking history: Never smoked Have you smoked in the past 12 months: No Aproximately how many cigarettes per day: 0 - Alcohol/Substance Use Hx Alcohol Use: No Home Medications - Allergies Allergies/Adverse Reactions: Allergies Allergy/AdvReac Type Severity Reaction Status Date / Time No Known Allergies Allergy Verified 11/24/17 08:35 - Home Medications Home Medications: Ambulatory Orders Sitagliptin Phosphate [Januvia -] 25 mg PO DAILY@0700 #30 tab 10/26/16 Calcium Acetate 667 mg PO TID 01/16/17 Brimonidine Tartrate/Timolol [Combigan 0.2%-0.5% Eye Drops] 1 drop OU BID Latanoprost 0.005% Eye Drops [Xalatan 0.005% Eye Drops -] 1 drop OU BID Review of Systems - Review of Systems Constitutional: reports: No Symptoms Eyes: reports: No Symptoms HENT: reports: No Symptoms Neck: reports: No Symptoms Cardiovascular: reports: No Symptoms Respiratory: reports: No Symptoms Gastrointestinal: reports: No Symptoms Genitourinary: reports: No Symptoms Breasts: reports: No Symptoms Reported Musculoskeletal: reports: No Symptoms Integumentary: reports: No Symptoms Neurological: reports: No Symptoms Endocrine: reports: No Symptoms Hematology/Lymphatic: reports: No Symptoms Psychiatric: reports: No Symptoms Physical Examination Vital Signs: Vital Signs Temperature 98.2 F 01/23/18 12:12 Pulse Rate 70 01/23/18 12:12 Respiratory Rate 20 01/23/18 12:12 Blood Pressure 153/67 01/23/18 12:12 O2 Sat by Pulse Oximetry (%) 98 01/23/18 12:12 Constitutional: Yes: Well Nourished, No Distress, Calm Eyes: Yes: WNL, Conjunctiva Clear, EOM Intact HENT: Yes: WNL, Atraumatic, Normocephalic Neck: Yes: WNL, Supple, Trachea Midline Cardiovascular: Yes: WNL, Regular Rate and Rhythm Respiratory: Yes: WNL, Regular, CTA Bilaterally Gastrointestinal: Yes: WNL, Normal Bowel Sounds Musculoskeletal: Yes: WNL Extremities: Yes: WNL Edema: No Integumentary: Yes: WNL Neurological: Yes: WNL, Alert, Oriented ...Motor Strength: WNL Psychiatric: Yes: WNL Labs: CBC, BMP 01/23/18 10:55 Problem List - Problems (1) ESRD (end stage renal disease) on dialysis Code(s): N18.6 - END STAGE RENAL DISEASE; Z99.2 - DEPENDENCE ON RENAL DIALYSIS Assessment/Plan Stenosis left avg 1. for venogram , venoplasty today
--- NOTE | 2018-01-23 13:25 | OP ---
Operative Note - Note: Operative Date: 01/23/18 Pre-Operative Diagnosis: Stenosis left avg Operation: venogram, venoplasty left avg Post-Operative Diagnosis: Same as Pre-op Surgeon: Bandar Cuellar Anesthesia: Fractional Estimated Blood Loss (mls): 20 Operative Report Dictated: Yes
[2018-01-23] MEDS ORDERED: LIDOCAINE HCL 1%, 10 MG/ML (20ML VIAL) INF ONE (13:37)
[2018-01-23 14:38] VITALS: TEMP 98.2
[2018-01-23 14:53] VITALS: BP 176/70; PULSE 71
--- NOTE | 2018-01-23 16:14 | OP ---
DATE OF OPERATION: 01/23/2018 PREOPERATIVE DIAGNOSIS: Stenosis left arteriovenous graft. POSTOPERATIVE DIAGNOSIS: Stenosis left arteriovenous graft. PROCEDURE: Venogram, venoplasty, left arteriovenous graft. SURGEON: Bandar Galeano D.O. ANESTHESIA: Fractional. BLOOD LOSS: 20 mL. INDICATION: The patient is a 67-year-old female that has stenosis in her left AV graft on preoperative ultrasound. She has been having some difficult cannulations and dialysis as well, it was decided that she should get a venogram. Patient was consented for the procedure understanding all risks, benefits, and alternatives and then taken to the operating room. DESCRIPTION OF PROCEDURE: Once in the operating room, she was laid on the operating table in a supine manner, and the area of the left arm are prepped and draped in a sterile surgical manner. We then injected 2 mL of lidocaine 1% approximately at the AV graft. We then used our Micropuncture needle and punctured the AV graft. A Micropuncture wire was inserted, and a traditional short 6-Irish sheath was inserted. 3000 units of IV heparin were administered to the patient. We then went ahead and shot a venogram of the AV graft showing that the mid graft had probably 80 to 90 percent stenosis and beyond that it was narrow throughout 50 to 60 percent. At this point, we placed our 0.035 floppy guidewire across this venous anastomosis, and the outflow basilic vein. We then went ahead and used an 8 x 8 Durata balloon and performed venoplasty of the outflow basilic vein and the mid to distal AV graft. Completion venogram now showed that there was a good thrill in her AV graft. There was good flow and no recoil, and was brisk. At this point, we took a 4-0 Biosyn stitch and a [id number] stitch was placed around the sheath, and the sheath was pulled. Area was then dried. Dermabond was placed. Patient tolerated the procedure without complications. Patient was transferred to PACU in stable condition. BANDAR GALEANO DO NP/[id number]
[2018-01-23] MEDS ORDERED: ONDANSETRON 4 MG/2 ML VIAL IVPUSH PRN (17:23)
== END 2018-01-23 15:00 | disposition home or self-care (01) ==
LOC: JASU-SURG 10:46
PROVIDERS: ATTEND Surgery Vascular Surgery
PROC: 057C3DZ Dilation of Left Basilic Vein with Intraluminal Device, Percutaneous Approach (ICD-10-PCS; principal; 2018-01-23 12:30)
DX: T82.858A Stenosis of other vascular prosthetic devices, implants and grafts, initial encounter (principal); I12.0 Hypertensive chronic kidney disease with stage 5 chronic kidney disease or end stage renal disease; N18.6 End stage renal disease; Z99.2 Dependence on renal dialysis
CPT/HCPCS: 36415; 76000-TC-FY; 82962; 84132; J1644

== ENCOUNTER 2018-03-28 08:32 | Observation (INO) | payer OTHER ==
[2018-03-28 08:45] VITALS: BMI 33.7
--- NOTE | 2018-03-28 10:02 | PDOC ---
History of Present Illness <Madeleine Sagastume - Last Filed: 03/28/18 10:53> - General History Source: Patient Exam Limitations: No Limitations - History of Present Illness Initial Comments: 03/28/18 09:57 68-year-old female history of diabetes, hypertension, end-stage renal disease, on dialysis Sunday here today because she was unable to get dialysis due to her left upper extremity AV fistula malfunction. Patient states it feels hard and is clotted at the top she has had these issues in the past. Was unable to have dialysis today denies any muscle aches no chest pain no shortness of breath currently her last dialysis was 2 days prior on Sunday as scheduled. Patient follows Dr. Cuellar her vascular surgeon who has had to declot the fistula in the past. No fevers or chills does have mild pain at the fistula site after they were trying to access that <Isha Cornejo - Last Filed: 03/28/18 11:38> - General Chief Complaint: Dialysis Shunt Problem Stated Complaint: DIALYSIS SHUNT PROBLEM Past History <Madeleine Sagastume - Last Filed: 03/28/18 10:53> - Past Medical History Anemia: No Asthma: No Cancer: No Cardiac Disorders: No (HEART MURMUR"A LITTLE BIT") CVA: No COPD: No CHF: No DVT: No Dementia: No Diabetes: Yes (NIDDM) Dialysis: Yes (Left arm fistula) GI Disorders: No Disorders: No HTN: Yes (H/O) Hypercholesterolemia: No Liver Disease: No Seizures: No Thyroid Disease: No - Surgical History Abdominal Surgery: No Appendectomy: No Cardiac Surgery: No Cholecystectomy: No Lung Surgery: No Neurologic Surgery: No Orthopedic Surgery: No - Immunization History Td Vaccination: Yes Immunization Up to Date: Yes - Suicide/Smoking/Psychosocial Hx Smoking Status: No Smoking History: Never smoked Have you smoked in the past 12 months: No Number of Cigarettes Smoked Daily: 0 Hx Alcohol Use: No Drug/Substance Use Hx: No Substance Use Type: None Hx Substance Use Treatment: No <Isha Cornejo - Last Filed: 03/28/18 11:38> - Past Medical History Allergies/Adverse Reactions: Allergies Allergy/AdvReac Type Severity Reaction Status Date / Time No Known Allergies Allergy Verified 03/28/18 08:41 Home Medications: Ambulatory Orders Sitagliptin Phosphate [Januvia -] 25 mg PO DAILY@0700 #30 tab 10/26/16 Calcium Acetate 667 mg PO TID 01/16/17 Brimonidine Tartrate/Timolol [Combigan 0.2%-0.5% Eye Drops] 1 drop OU BID Latanoprost 0.005% Eye Drops [Xalatan 0.005% Eye Drops -] 1 drop OU BID Review of Systems - Review of Systems Constitutional: No: Chills, Diaphoresis Respiratory: No: Cough, Orthopnea, Shortness of Breath Cardiac (ROS): No: Chest Pain, Edema : No: Burning, Dysuria Musculoskeletal: No: Back Pain Integumentary: No: Bruising Neurological: Yes: Other (fistula pain). No: Headache, Numbness <Isha Cornejo - Last Filed: 03/28/18 11:38> *Physical Exam - Vital Signs Last Vital Signs Temp Pulse Resp BP Pulse Ox 98.7 F 62 16 134/76 97 03/28/18 08:40 03/28/18 08:40 03/28/18 08:40 03/28/18 08:40 03/28/18 08:40 <Madeleine Sagastume - Last Filed: 03/28/18 10:53> - Vital Signs Last Vital Signs Temp Pulse Resp BP Pulse Ox 98.7 F 62 16 134/76 97 03/28/18 08:40 03/28/18 08:40 03/28/18 08:40 03/28/18 08:40 03/28/18 08:40 - Physical Exam Comments: 03/28/18 09:59 Awake alert no acute distress lungs are clear bilaterally heart is regular wo murmurs rubs or gallops abdomen is soft and nontender. Extremities are warm and well-perfused left upper extremity fistula is noted for the superior portion with hardening and probable clot no bruit in that portion is mildly tender to palpation there is no overlying erythema or swelling noted. Neurologically patient is alert and oriented 3 no lower extremity edema General Appearance: Yes: Appropriately Dressed <Isha Cornejo - Last Filed: 03/28/18 11:38> Heart Score/ECG Review #1 General ECG Interpretation: Sinus Rhythm, Normal Rate (67), Normal Intervals, No acute ischemic changes <Isha Cornejo - Last Filed: 03/28/18 11:38> ED Treatment Course - LABORATORY CBC & Chemistry Diagram: 03/28/18 10:21 03/28/18 10:21 <Isha Cornejo - Last Filed: 03/28/18 11:38> Medical Decision Making - Medical Decision Making 03/28/18 10:33 Dr. Chanda Schultz was paged and notified via phone service and paged overhead. Second page was placed at 10:54 <Madeleine Sagastume - Last Filed: 03/28/18 10:53> - Medical Decision Making 03/28/18 10:01 68-year-old female hypertension diabetes end-stage renal with a malfunctioning AV fistula. Plan labs will discuss with Dr. Cuellar for possible declotting likely admit will require dialysis following. order CBC and electrolytes EKG to rule out any hyperkalemia or other abnormalities <Isha Cornejo - Last Filed: 03/28/18 11:38> *DC/Admit/Observation/Transfer <Madeleine Sagastume - Last Filed: 03/28/18 10:53> - Discharge Dispostion Decision to Admit order: Yes <Isha Cornejo - Last Filed: 03/28/18 11:38> Diagnosis at time of Disposition: AV fistula - Referrals Referrals: Chanda Schultz MD [Primary Care Provider] - - Patient Instructions - Post Discharge Activity
--- NOTE | 2018-03-28 11:20 | HP ---
Admitting History and Physical - Primary Care Physician PCP: Chanda Schultz - Admission Chief Complaint: clotted AVF History of Present Illness: Pt examined by me in ER Sent from dialysis for clotted AVF - left- has recurrent episodes of clotted fistula.Last dialysis was Sunday no SOB , chest pain History Source: Patient Limitations to Obtaining History: No Limitations - Past Medical History Cardiovascular: Yes: HTN Renal/: Yes: Renal Failure - Smoking History Smoking history: Never smoked Have you smoked in the past 12 months: No Aproximately how many cigarettes per day: 0 - Alcohol/Substance Use Hx Alcohol Use: No Home Medications - Allergies Allergies/Adverse Reactions: Allergies Allergy/AdvReac Type Severity Reaction Status Date / Time No Known Allergies Allergy Verified 03/28/18 08:41 - Home Medications Home Medications: Ambulatory Orders Sitagliptin Phosphate [Januvia -] 25 mg PO DAILY@0700 #30 tab 10/26/16 Calcium Acetate 667 mg PO TID 01/16/17 Brimonidine Tartrate/Timolol [Combigan 0.2%-0.5% Eye Drops] 1 drop OU BID Latanoprost 0.005% Eye Drops [Xalatan 0.005% Eye Drops -] 1 drop OU BID Review of Systems - Review of Systems Constitutional: denies: Chills, Fever, Weakness Cardiovascular: denies: Chest Pain, Edema, Palpitations Respiratory: denies: SOB, SOB on Exertion, Wheezing Physical Examination Vital Signs: Vital Signs Temperature 98.7 F 03/28/18 08:40 Pulse Rate 62 03/28/18 08:40 Respiratory Rate 16 03/28/18 08:40 Blood Pressure 134/76 03/28/18 08:40 O2 Sat by Pulse Oximetry (%) 97 03/28/18 08:40 Constitutional: Yes: No Distress, Calm Cardiovascular: Yes: Regular Rate and Rhythm Respiratory: Yes: CTA Bilaterally. No: Rales, Rhonchi Gastrointestinal: Yes: Normal Bowel Sounds, Soft. No: Tenderness Edema: No Imaging - Results EKG: Image Reviewed (NSR) Problem List - Problems (1) AV fistula occlusion Code(s): T82.898A - [facility] COMPLICATION OF VASCULAR PROSTH DEV/GRFT, INIT Qualifiers: (2) Diabetes Code(s): E11.9 - TYPE 2 DIABETES MELLITUS WITHOUT COMPLICATIONS (3) ESRD (end stage renal disease) on dialysis Code(s): N18.6 - END STAGE RENAL DISEASE; Z99.2 - DEPENDENCE ON RENAL DIALYSIS (4) Hyperkalemia Code(s): E87.5 - HYPERKALEMIA Assessment/Plan PLAN Not in volume overload mild elevated potassium Vascular eval keep NPO Spoke with Renal continue with meds
[2018-03-28 11:36] LABS: BASO % 1.2 % (0-2.0); EOS % 4.1 % (0-4.5); HEMATOCRIT 38.6 % (32.4-45.2); HEMOGLOBIN 12.1 GM/dL (10.7-15.3); LYMPH % 29.6 % (8-40); MCH 24.3 pg (25.7-33.7); MCHC 31.3 g/dl (32.0-36.0); MEAN CELL VOLUME 77.7 fl (80-96); MEAN PLT VOLUME 8.7 fl (7.5-11.1); MONO % 6.8 % (3.8-10.2); NEUT % 58.3 % (42.8-82.8); PLATELET COUNT 192 K/MM3 (134-434); RBC 4.97 M/mm3 (3.60-5.2); RDW 14.1 % (11.6-15.6); WHITE BLOOD COUNT 6.5 K/mm3 (4.0-10.0)
[2018-03-28 12:22] LABS: ALBUMIN 3.5 g/dl (3.4-5.0); ALK PHOS 69 U/L (45-117); ANION GAP 8 MMOL/L (8-16); BILIRUBIN,TOTAL 0.4 mg/dL (0.2-1); BLOOD UREA NITROGEN 59 mg/dL (7-18); CALCIUM 8.7 mg/dL (8.5-10.1); CHLORIDE 103 mmol/L (98-107); CO2 27 mmol/L (21-32); GLUCOSE,RANDOM 97 mg/dL (74-106); POTASSIUM 5.3 mmol/L (3.5-5.1); SGOT/AST 9 U/L (15-37); SGPT/ALT 10 U/L (13-61); SODIUM 138 mmol/L (136-145)
[2018-03-28 12:23] LABS: CREATININE 10.6 mg/dL (0.55-1.3)
--- NOTE | 2018-03-28 13:19 | CONSULT ---
Consult - text type - Consultation Consultation Note: Renal Consult for ESRD on HD This is a 68 year old AA woman with hx of ESRD on HD, Hypertension, DM who presented from her dialysis unit with a clotted AVF. Last dialysis treatment was Sunday w/o complication. She denies any sob, cp, abd pain, N/V/D. No pain in access arm. No LE swelling. PMhx: as above Allergies: NKDA Family Hx: NC Social Hx: No T/A/D ROS: as per HPI Home Medications Medication Instructions Recorded Sitagliptin Phosphate [Januvia -] 25 mg PO DAILY@0700 #30 tab 10/26/16 Calcium Acetate 667 mg PO TID 01/16/17 Brimonidine Tartrate/Timolol 1 drop OU BID 08/28/17 [Combigan 0.2%-0.5% Eye Drops] Latanoprost 0.005% Eye Drops 1 drop OU BID 08/28/17 [Xalatan 0.005% Eye Drops -] Vital Signs Temperature 98.7 F 03/28/18 08:40 Pulse Rate 62 03/28/18 08:40 Respiratory Rate 16 03/28/18 08:40 Blood Pressure 134/76 03/28/18 08:40 O2 Sat by Pulse Oximetry (%) 97 03/28/18 08:40 Intake & Output 03/25/18 03/26/18 03/27/18 03/28/18 23:59 23:59 23:59 23:59 Weight 78.471 kg NAD awake and alert RRR, No M/R CTA no rales or wheeze soft NT/ND no LE edema, clubbing or cyanosis left AM AVF, no thrill or bruit CBC, BMP 03/28/18 10:21 03/28/18 10:21 68 year old AA woman with hx of ESRD on HD, Hypertension, DM who presented from her dialysis unit with a clotted AVF. #Dialysis access dysfunction #ESRD on HD #Mild Hyperkalemia #Hypertension Dr. Bandar Cuellar consulted for access intervention, he is aware will defer dialysis until after access is declotted if pt is unable to have HD today, will need medical management of mild hyperkalemia (kayexalate) discharge planning after access intervention Keep NPO for now BP is acceptable Thank you Will follow David Schroeder DO
[2018-03-28] MEDS ORDERED: PATIENT'S OWN MEDICATION (NON-FORMULARY) (Calcium Acetate [Calcium Acetate] 667 MG) PO SCH (14:00)
[2018-03-28] MEDS ORDERED: CALCIUM ACETATE 667 MG CAPSULE (FP) PO SCH (14:02)
[2018-03-28] MEDS ORDERED: SODIUM POLYSTYRENE SULFONATE 15 GM/60 ML BOTTLE PO ONE (14:36)
--- NOTE | 2018-03-28 14:38 | EKG ---
Test Reason : Blood Pressure : / mmHG Vent. Rate : 067 BPM Atrial Rate : 067 BPM P-R Int : 154 ms QRS Dur : 076 ms QT Int : 380 ms P-R-T Axes : 025 018 038 degrees QTc Int : 401 ms NORMAL SINUS RHYTHM SEPTAL INFARCT , AGE UNDETERMINED ABNORMAL ECG WHEN COMPARED WITH ECG OF 24-NOV-2017 10:14, NO SIGNIFICANT CHANGE WAS FOUND Confirmed by JUAN CARLOS AVILES MD ([id number]) on 03/28/2018 2:38:40 PM Referred By: Confirmed By:JUAN CARLOS AVILES MD
--- NOTE | 2018-03-28 14:55 | DS ---
Physical Examination Vital Signs: Vital Signs Temperature 98.1 F 03/28/18 14:36 Pulse Rate 77 03/28/18 14:36 Respiratory Rate 17 03/28/18 14:36 Blood Pressure 172/61 03/28/18 14:36 O2 Sat by Pulse Oximetry (%) 97 03/28/18 08:40 Labs: CBC, BMP 03/28/18 10:21 03/28/18 10:21 Discharge Summary Reason For Visit: ARTERIOVENOUS FISTULA OCCLUSION,ESRD ON DIALYSIS Current Active Problems AV fistula (Acute) Hospital Course: Pt dc to go home and will come in AM for declotting pt would like go home and come back spoke with Vascular and renal pt received kayexalate prior to dc Condition: Improved - Instructions Referrals: Chanda Schultz MD [Primary Care Provider] - Disposition: HOME - Home Medications Comprehensive Discharge Medication List: Ambulatory Orders Sitagliptin Phosphate [Januvia -] 25 mg PO DAILY@0700 #30 tab 10/26/16 Calcium Acetate 667 mg PO TID 01/16/17 Brimonidine Tartrate/Timolol [Combigan 0.2%-0.5% Eye Drops] 1 drop OU BID Latanoprost 0.005% Eye Drops [Xalatan 0.005% Eye Drops -] 1 drop OU BID
[2018-03-28] MEDS ORDERED: INSULIN (NOVOLOG) ASPART 100 UNITS/ML 10ML VIAL SQ SCH (16:30)
[2018-03-28] MEDS ORDERED: TIMOLOL 0.5% OPHTHALMIC SOL 5 ML BOTTLE OU SCH (22:00)
[2018-03-28] MEDS ORDERED: LATANOPROST 0.005% OPHTH SOLN 2.5ML BOTTLE OU SCH ×2 (22:00)
[2018-03-28] MEDS ORDERED: BRIMONIDINE TARTRATE 0.2% OPHTHALMIC 5 ML BOTTLE OU SCH (22:00)
[2018-03-29] MEDS ORDERED: ONDANSETRON 4 MG/2 ML VIAL IVPUSH PRN (15:06)
[2018-03-29] MEDS ORDERED: ceFAZolin SODIUM 1 GM VIAL IVPB ONE (15:45)
[2018-03-29 17:27] VITALS: PULSE 68
[2018-03-29 17:28] VITALS: BP 167/64; TEMP 97.5
== END 2018-03-28 15:15 | disposition home or self-care (01) ==
LOC: JER 08:32 → JERBED 11:34
PROVIDERS: ADMIT Internal Medicine; ATTEND Internal Medicine
DX: T82.898A Other specified complication of vascular prosthetic devices, implants and grafts, initial encounter (principal); I77.0 Arteriovenous fistula, acquired; I12.0 Hypertensive chronic kidney disease with stage 5 chronic kidney disease or end stage renal disease; E11.22 Type 2 diabetes mellitus with diabetic chronic kidney disease; N18.6 End stage renal disease; N17.8 Other acute kidney failure; Z99.2 Dependence on renal dialysis; Z79.84 Long term (current) use of oral hypoglycemic drugs; E87.5 Hyperkalemia
CPT/HCPCS: 36415; 80053; 85025; 93005; 93010; 94760; 99284-25; G0378

== ENCOUNTER 2018-03-29 09:26 | Day surgery (SDC) | payer OTHER ==
[2018-03-29 09:37] VITALS: BMI 33.5
--- NOTE | 2018-03-29 09:54 | PDOC ---
History of Present Illness - General Chief Complaint: Dialysis Shunt Problem Stated Complaint: REVISIT, DIALYSIS SHUNT PROBLEM Time Seen by Provider: 03/29/18 09:43 History Source: Patient Exam Limitations: No Limitations - History of Present Illness Initial Comments: 03/29/18 09:46 This is a 68 YOF with h/o ESRD on HD T//Sun with last Tx Sunday, recurrent clotted LUE AV graft, NIDDM, and HTN, who returns to the ED for admission for a vascular procedure she has scheduled for today with Dr. Bandar Cuellar to unclog her LUE AV graft. The patient was discharged from the hospital yesterday at her request after she found out her procedure was going to be today instead of yesterday. She had kyperkalemia yesterday to 5.3 without EKG changes and was given kayexalate. She has been NPO since last night per her report. She denies any symptoms. PCP is Dr. Chanda Schultz, vascular provider is Dr. Bandar Cuellar. Past History - Past Medical History Allergies/Adverse Reactions: Allergies Allergy/AdvReac Type Severity Reaction Status Date / Time No Known Allergies Allergy Verified 03/29/18 09:37 Home Medications: Ambulatory Orders Sitagliptin Phosphate [Januvia -] 25 mg PO DAILY@0700 #30 tab 10/26/16 Calcium Acetate 667 mg PO TID 01/16/17 Brimonidine Tartrate/Timolol [Combigan 0.2%-0.5% Eye Drops] 1 drop OU BID Latanoprost 0.005% Eye Drops [Xalatan 0.005% Eye Drops -] 1 drop OU BID Anemia: No Asthma: No Cancer: No Cardiac Disorders: No (HEART MURMUR"A LITTLE BIT") CVA: No COPD: No CHF: No DVT: No Dementia: No Diabetes: Yes (NIDDM) Dialysis: Yes (Left arm fistula) GI Disorders: No Disorders: No HTN: Yes (H/O) Hypercholesterolemia: No Liver Disease: No Seizures: No Thyroid Disease: No - Surgical History Abdominal Surgery: No Appendectomy: No Cardiac Surgery: No Cholecystectomy: No Lung Surgery: No Neurologic Surgery: No Orthopedic Surgery: No - Immunization History Td Vaccination: Yes Immunization Up to Date: Yes - Suicide/Smoking/Psychosocial Hx Smoking Status: No Smoking History: Never smoked Have you smoked in the past 12 months: No Number of Cigarettes Smoked Daily: 0 Hx Alcohol Use: No Drug/Substance Use Hx: No Substance Use Type: None Hx Substance Use Treatment: No Review of Systems - Review of Systems Able to Perform ROS?: Yes Constitutional: No: Chills, Fever, Unexplained wgt Loss HEENTM: No: Nose Congestion, Throat Pain Respiratory: No: Cough, Shortness of Breath Cardiac (ROS): No: Chest Pain, Palpitations ABD/GI: No: Constipated, Diarrhea, Nausea, Vomiting : No: Burning, Dysuria Musculoskeletal: No: Back Pain, Neck Pain Integumentary: No: Bruising, Rash Neurological: No: Headache, Numbness, Tingling, Weakness, Dizziness Endocrine: No: Unexplained Weight Gain, Unexplained Weight Loss *Physical Exam - Vital Signs Temp Pulse Resp BP Pulse Ox 98.5 F 73 16 163/59 L 100 03/29/18 09:34 03/29/18 09:34 03/29/18 09:34 03/29/18 09:34 03/29/18 09:34 03/29/18 09:54 GENERAL: nontoxic and well-appearing, nourished, A/Ox4, no acute distress, speaking in full sentences, answers questions appropriately, pleasant, accompanied by family member, obvious stated-chronic left sided facial droop as noted in Neuro exam HEENT: PERRLA, EOMI, moist mucous membranes, no posterior pharyngeal erythema, no tonsillar swelling or exudates, no cervical lymphadenopathy NECK: No cervical spine midline ttp or stepoff or deformity, full ROM, supple CARDIOVASCULAR: LUE AV graft with pulse palpable, no bruit or thrill, heart regular rate and rhythm, normal S1S2, no MGR, radial and DP pulses 2+ and symmetric, capillary refill <2 seconds, extremities warm and well-perfused Chest wall: Normal appearance, no rash, no bruising, no costal stepoff or deformity, nontender to compression LUNGS/RESPIRATORY: No respiratory distress, normal and symmetric chest movements during respirations, lungs CTA bilaterally, equal breath sounds, no cyanosis, no nail clubbing GI/ABDOMEN: Normal symmetric appearance, normoactive bowel sounds, soft, no tenderness to palpation, no midline pulsatile masses, no palpated organomegaly : No CVA tenderness, normal external appearance, no lesions BACK: No midline ttp or stepoff or deformity of thoracic or lumbar spine EXTREMITIES: distal pulses 2+, warm and well-perfused, no LE edema SKIN: Warm and dry, no pallor, no jaundice, no bruising, no rash, no skin breakdown, no cuts, no lesions NEUROLOGICAL: GCS 15, CN II-XII grossly intact, ambulating with normal gait, moving all extremities, 5/5 strength proximally and distally, no decreased sensation, Left sided facial droop most prominent at the left superior eyelid, which patient states is chronic. Heart Score/ECG Review #1 03/29/18 10:06 NSR rate 65, normal axis and intervals, no ST-T changes, no pattern of universally peaked T-waves ED Treatment Course - LABORATORY CBC & Chemistry Diagram: 03/29/18 10:15 03/29/18 10:15 Medical Decision Making - Medical Decision Making Adult patient on ESRD with recurrent AV graft occlusion presents for admission and procedure scheduled today with Vascular to unclog her LUE HD access. Initial Vital Signs Temp Pulse Resp BP Pulse Ox 98.5 F 73 16 163/59 L 100 03/29/18 09:34 03/29/18 09:34 03/29/18 09:34 03/29/18 09:34 03/29/18 09:34 Exam: As noted in Physical Exam section. W/U ordered: CBCD CMP Coags Type & Screen EKG TX ordered: PIV placement EKG: Reviewed; results as noted in ECG Review section. Reassessment: exam unchanged, patient remains asymptomatic. 03/29/18 10:[address] Cuellar. Patient's procedure scheduled for 3 pm. Will keep her NPO and school counselor her that she will need to stay the night per hospital protocol. She will need HD. Pre-op labs and EKG ordered. Dr. Cabrera also spoke with Dr. Adams on for Chanda Schultz. Dr. Adams aware of the patient's arrival to the ED and of the plan for admission and procedure. Decision to Admit order placed to Dr. Adams to Med/Surg Obs. Will f/u results of pre-op workup to ensure no worsened hyperkalemia or EKG changes. If significant changes will need to consider placing patient on Telemetry. 03/29/18 03/29/18 10:15 10:15 WBC 5.1 RBC 4.83 Hgb 11.8 Hct 37.2 MCV 77.1 L MCH 24.4 L MCHC 31.6 L RDW 14.3 Plt Count 192 MPV 8.9 Absolute Neuts (auto) 2.9 Neutrophils % 56.2 Lymphocytes % 31.3 Monocytes % 6.3 Eosinophils % 5.3 H Basophils % 0.9 Nucleated RBC % 0 Sodium 138 Potassium 5.0 Chloride 103 Carbon Dioxide 24 Anion Gap 11 BUN 70 H Creat Clearance w eGFR 3.12 Random Glucose 82 Calcium 9.4 Total Bilirubin 0.5 AST 11 L ALT 11 L Alkaline Phosphatase 72 Total Protein 7.1 Albumin 3.6 03/29/18 10:15 RBC 4.83 MCV 77.1 L MCHC 31.6 L RDW 14.3 MPV 8.9 Neutrophils % 56.2 Lymphocytes % 31.3 Monocytes % 6.3 Eosinophils % 5.3 H Basophils % 0.9 03/29/18 10:54 Decision to Admit order placed to IP Med/Surg to Dr. Adams. Consult orders to Vascular and Renal have been placed. *DC/Admit/Observation/Transfer Diagnosis at time of Disposition: AV graft malfunction Qualifiers: Encounter type: initial encounter Qualified Code(s): T82.590A - Other mechanical complication of surgically created arteriovenous fistula, initial encounter - Discharge Dispostion Condition at time of disposition: Guarded Decision to Admit order: Yes - Referrals - Patient Instructions - Post Discharge Activity
--- NOTE | 2018-03-29 10:14 | PDOC ---
Attending Attestation - Resident Resident Name: Mary Coon - ED Attending Attestation I have performed the following: I have examined & evaluated the patient, The case was reviewed & discussed with the resident, I agree w/resident's findings & plan, Exceptions are as noted - HPI HPI: 03/29/18 10:14 68-year-old female history of end-stage renal disease on dialysis, last dialysis 3 days ago, diabetes, hypertension presents for admission for clotted left upper extremity fistula. The patient has currently no complaints at this time. The patient is scheduled to undergo the procedure today by vascular surgeon, Dr. Bandar Cuellar. - Physicial Exam PE: 03/29/18 10:17 GENERAL: Awake, alert, and fully oriented, in no acute distress HEAD: No signs of trauma EYES: EOMI, sclera anicteric, conjunctiva clear ENT: Auricles normal inspection, hearing grossly normal, nares patent,Moist mucosa NECK: Normal ROM, supple LUE: AV fistula with NO palpable thrill NEUROLOGICAL: Cranial nerves II through XII grossly intact. Normal speech SKIN: Warm, Dry, normal turgor, no rashes or lesions noted. - Medical Decision Making 03/29/18 10:18 Vital Signs Temp Pulse Resp BP Pulse Ox 98.5 F 73 16 163/59 L 100 03/29/18 09:34 03/29/18 09:34 03/29/18 09:34 03/29/18 09:34 03/29/18 09:34 Dr. Cuellar aware pt is in ER. Will admit for clotted AV fistula. Check potassium levels. ECG is reassuring and no evidence of hyperkalemia. Admit. Heart Score/ECG Review #1 ECG reviewed & interpreted by me at: 10:05 03/29/18 10:14 NSR 65, no std/padmaja, normal axis, normal intervals, no signs of hyperkalemia, QTC 409 msec
[2018-03-29 10:32] LABS: BASO % 0.9 % (0-2.0); EOS % 5.3 % (0-4.5); HEMATOCRIT 37.2 % (32.4-45.2); HEMOGLOBIN 11.8 GM/dL (10.7-15.3); LYMPH % 31.3 % (8-40); MCH 24.4 pg (25.7-33.7); MCHC 31.6 g/dl (32.0-36.0); MEAN CELL VOLUME 77.1 fl (80-96); MEAN PLT VOLUME 8.9 fl (7.5-11.1); MONO % 6.3 % (3.8-10.2); NEUT % 56.2 % (42.8-82.8); PLATELET COUNT 192 K/MM3 (134-434); RBC 4.83 M/mm3 (3.60-5.2); RDW 14.3 % (11.6-15.6); WHITE BLOOD COUNT 5.1 K/mm3 (4.0-10.0)
[2018-03-29 10:52] LABS: INR 0.97 (0.83-1.09)
[2018-03-29 10:53] LABS: ALBUMIN 3.6 g/dl (3.4-5.0); ALK PHOS 72 U/L (45-117); ANION GAP 11 MMOL/L (8-16); BILIRUBIN,TOTAL 0.5 mg/dL (0.2-1); BLOOD UREA NITROGEN 70 mg/dL (7-18); CALCIUM 9.4 mg/dL (8.5-10.1); CHLORIDE 103 mmol/L (98-107); CO2 24 mmol/L (21-32); GLUCOSE,RANDOM 82 mg/dL (74-106); SGOT/AST 11 U/L (15-37); SGPT/ALT 11 U/L (13-61); SODIUM 138 mmol/L (136-145); TOT PROT 7.1 g/dl (6.4-8.2)
[2018-03-29 10:54] LABS: ACTIVATED PTT 28.5 SECONDS (25.2-36.5)
--- NOTE | 2018-03-29 12:20 | HP ---
Admitting History and Physical - Primary Care Physician PCP: Dea Adasm - Admission History of Present Illness: 68-year-old female history of end-stage renal disease on dialysis, last dialysis 3 days ago, diabetes, hypertension presents for admission for clotted left upper extremity fistula. The patient has currently no complaints at this time. The patient is scheduled to undergo the procedure today by vascular surgeon, Dr. Bandar Cuellar. no issues today was in er for same yesterday chart reviewed pt seen / examined in er discussed with er bernardino/ Dr. Cuellar Scheduled for procedure later today pt comfortable no complains History Source: Patient, Medical Record Limitations to Obtaining History: No Limitations - Past Medical History Cardiovascular: Yes: HTN Renal/: Yes: Renal Failure - Smoking History Smoking history: Never smoked Have you smoked in the past 12 months: No Aproximately how many cigarettes per day: 0 - Alcohol/Substance Use Hx Alcohol Use: No Home Medications - Allergies Allergies/Adverse Reactions: Allergies Allergy/AdvReac Type Severity Reaction Status Date / Time No Known Allergies Allergy Verified 03/29/18 09:37 - Home Medications Home Medications: Ambulatory Orders Sitagliptin Phosphate [Januvia -] 25 mg PO DAILY@0700 #30 tab 10/26/16 Calcium Acetate 667 mg PO TID 01/16/17 Brimonidine Tartrate/Timolol [Combigan 0.2%-0.5% Eye Drops] 1 drop OU BID Latanoprost 0.005% Eye Drops [Xalatan 0.005% Eye Drops -] 1 drop OU BID Review of Systems Unable to obtain ROS, reason: see [place] Physical Examination Vital Signs: Vital Signs Temperature 98.5 F 03/29/18 09:34 Pulse Rate 73 03/29/18 09:34 Respiratory Rate 16 03/29/18 09:34 Blood Pressure 163/59 L 03/29/18 09:34 O2 Sat by Pulse Oximetry (%) 100 03/29/18 09:34 Constitutional: Yes: No Distress Eyes: Yes: Conjunctiva Clear Neck: Yes: Supple Cardiovascular: Yes: Regular Rate and Rhythm Gastrointestinal: Yes: Soft Edema: No Neurological: Yes: Alert Psychiatric: Yes: Alert Labs: CBC, BMP 03/29/18 10:15 03/29/18 10:15 Problem List - Problems (1) AV fistula occlusion Code(s): T82.898A - [facility] COMPLICATION OF VASCULAR PROSTH DEV/GRFT, INIT Qualifiers: (2) ESRD (end stage renal disease) on dialysis Code(s): N18.6 - END STAGE RENAL DISEASE; Z99.2 - DEPENDENCE ON RENAL DIALYSIS Assessment/Plan 68-year-old female history of end-stage renal disease on dialysis, last dialysis 3 days ago, diabetes, hypertension presents for admission for clotted left upper extremity fistula. The patient has currently no complaints at this time. The patient is scheduled to undergo the procedure today by vascular surgeon, Dr. Bandar Cuellar. stable discussed with Dr. Cuellar/Dr. Schroeder anticipate d/c later today after procedure next dialysis as out pt - tomorrow pt in agreement
--- NOTE | 2018-03-29 13:03 | PN ---
Progress Note (short form) - Note Progress Note: Renal follow up for ESRD on HD with clotted AV Acesss Pt seen and examined at the bedside awake and alert no complaints no sob, cp, abd pain last dialysis was Sunday Vital Signs Temperature 98.3 F 03/29/18 12:25 Pulse Rate 61 03/29/18 12:25 Respiratory Rate 16 03/29/18 12:25 Blood Pressure 160/58 L 03/29/18 12:25 O2 Sat by Pulse Oximetry (%) 100 03/29/18 12:25 Intake & Output 03/26/18 03/27/18 03/28/18 03/29/18 23:59 23:59 23:59 23:59 Weight 78.018 kg NAD awake and alert MMM RRR CTA no rales or wheeze no LE edema CBC, BMP 03/29/18 10:15 03/29/18 10:15 Current Medications Calcium Acetate (Phoslo -) 667 mg PO TIDCM ZANA Heparin Sodium (Porcine) (Heparin -) 5,000 unit SQ BID ZANA Insulin Aspart (Novolog Vial Sliding Scale -) 1 vial SQ BIDAC ZANA; Protocol Latanoprost (Xalatan 0.005% Eye Drops -) 1 drop OU BID ZANA Non-Formulary Medication (Brimonidine Tartrate/Timolol [Combigan 0.2%-0.5% Eye Drops]) 1 drop OU BID ZANA Sitagliptin Phosphate (Januvia -) 25 mg PO DAILY@0700 [facility] 68 year old AA woman with hx of ESRD on HD, Hypertension, DM who presented with clotted AV access. #AVF dysfunction #ESRD on HD pt for OR fistulagram and thombectomy today with Dr. Cuellar Pt is w/o signs of volume overload and does not have hyperkalemia she can be discharged following dialysis and resume outpatient HD tomorrow morning Renal diet after OR pt advised to be careful with her fluid intake and avoid ingestion of high potassium foods Thank you David Schroeder DO
--- NOTE | 2018-03-29 13:12 | CONSULT ---
Consult Consult Specialty:: vascular surgery Reason for Consultation:: left avg thrombosis - History Source Limitations to Obtaining History: No Limitations - Past Medical History Cardio/Vascular: Yes: HTN Renal/: Yes: Renal Failure - Alcohol/Substance Use Hx Alcohol Use: No - Smoking History Smoking history: Never smoked Have you smoked in the past 12 months: No Aproximately how many cigarettes per day: 0 Home Medications - Allergies Allergies/Adverse Reactions: Allergies Allergy/AdvReac Type Severity Reaction Status Date / Time No Known Allergies Allergy Verified 03/29/18 09:37 - Home Medications Home Medications: Ambulatory Orders Sitagliptin Phosphate [Januvia -] 25 mg PO DAILY@0700 #30 tab 10/26/16 Calcium Acetate 667 mg PO TID 01/16/17 Brimonidine Tartrate/Timolol [Combigan 0.2%-0.5% Eye Drops] 1 drop OU BID Latanoprost 0.005% Eye Drops [Xalatan 0.005% Eye Drops -] 1 drop OU BID Review of Systems - Review of Systems Constitutional: reports: No Symptoms Eyes: reports: No Symptoms HENT: reports: No Symptoms Neck: reports: No Symptoms Cardiovascular: reports: No Symptoms Respiratory: reports: No Symptoms Gastrointestinal: reports: No Symptoms Musculoskeletal: reports: No Symptoms Integumentary: reports: No Symptoms Neurological: reports: No Symptoms Endocrine: reports: No Symptoms Hematology/Lymphatic: reports: No Symptoms Psychiatric: reports: No Symptoms Physical Exam Vital Signs: Vital Signs Temperature 98.3 F 03/29/18 12:25 Pulse Rate 61 03/29/18 12:25 Respiratory Rate 16 03/29/18 12:25 Blood Pressure 160/58 L 03/29/18 12:25 O2 Sat by Pulse Oximetry (%) 100 03/29/18 12:25 Constitutional: Yes: Well Nourished, No Distress, Calm Eyes: Yes: WNL, Conjunctiva Clear, EOM Intact HENT: Yes: WNL, Atraumatic, Normocephalic Neck: Yes: WNL, Supple, Trachea Midline Cardiovascular: Yes: WNL, Regular Rate and Rhythm Respiratory: Yes: WNL, Regular, CTA Bilaterally Gastrointestinal: Yes: WNL, Normal Bowel Sounds ...Rectal Exam: Yes: WNL Renal/: Yes: WNL Breast(s): Yes: WNL Musculoskeletal: Yes: WNL Extremities: Yes: WNL Integumentary: Yes: WNL Neurological: Yes: WNL, Alert, Oriented ...Motor Strength: WNL Psychiatric: Yes: WNL Labs: CBC, BMP 03/29/18 10:15 03/29/18 10:15 Problem List - Problems (1) AV graft malfunction Assessment/Plan: Left avg thrombosis 1. for suction thrombectomy today at 3pm. Code(s): T82.590A - [facility] COMPL OF SURGICALLY CREATED ARTERIOVENOUS FISTULA, INIT Qualifiers: Encounter type: initial encounter Qualified Code(s): T82.590A - Other mechanical complication of surgically created arteriovenous fistula, initial encounter (2) ESRD (end stage renal disease) on dialysis Code(s): N18.6 - END STAGE RENAL DISEASE; Z99.2 - DEPENDENCE ON RENAL DIALYSIS
[2018-03-29] MEDS ORDERED: MIDAZOLAM HCL 2 MG/2 ML SINGLE DOSE VIAL ONE (15:34)
[2018-03-29] MEDS ORDERED: ceFAZolin SODIUM 1 GM VIAL ONE (15:46)
[2018-03-29] MEDS ORDERED: INSULIN SLIDING SCALE (NOVOLOG) 1 VIAL SQ SCH (16:30)
--- NOTE | 2018-03-29 16:37 | OP ---
Operative Note - Note: Operative Date: 03/29/18 Pre-Operative Diagnosis: clotted left avg Operation: venogram, suction thrombectomy, venoplasty left avg Post-Operative Diagnosis: Same as Pre-op Surgeon: Bandar Cuellar Anesthesia: Fractional Estimated Blood Loss (mls): 50 Operative Report Dictated: Yes
[2018-03-29] MEDS ORDERED: CALCIUM ACETATE 667 MG CAPSULE (FP) PO SCH (17:30)
[2018-03-29 19:08] VITALS: BP 155/105; PULSE 70; TEMP 98.4
[2018-03-29] MEDS ORDERED: BRIMONIDINE TARTRATE 0.2% OPHTHALMIC 5 ML BOTTLE OU SCH (22:00)
[2018-03-29] MEDS ORDERED: HEPARIN NA (PORCINE) 5,000 UNITS/ML 1ML VIAL SQ SCH (22:00)
[2018-03-29] MEDS ORDERED: LATANOPROST 0.005% OPHTH SOLN 2.5ML BOTTLE OU SCH (22:00)
[2018-03-29] MEDS ORDERED: TIMOLOL 0.5% OPHTHALMIC SOL 5 ML BOTTLE OU SCH (22:00)
[2018-03-29] MEDS ORDERED: PATIENT'S OWN MEDICATION (NON-FORMULARY) (Brimonidine Tartrate/Timolol [Combigan 0.2%-0.5% OU SCH (22:00)
[2018-03-30] MEDS ORDERED: sitaGLIPtin PHOSPHATE 25 MG TABLET (FP) PO SCH (07:00)
--- NOTE | 2018-03-30 15:39 | EKG ---
Test Reason : Blood Pressure : / mmHG Vent. Rate : 065 BPM Atrial Rate : 065 BPM P-R Int : 160 ms QRS Dur : 070 ms QT Int : 394 ms P-R-T Axes : 025 024 036 degrees QTc Int : 409 ms NORMAL SINUS RHYTHM NORMAL ECG WHEN COMPARED WITH ECG OF 28-MAR-2018 10:55, NO SIGNIFICANT CHANGE WAS FOUND Confirmed by MD Lee Daniel ([id number]) on 03/30/2018 3:39:29 PM Referred By: Confirmed By:Ricco Lee MD
--- NOTE | 2018-04-10 20:48 | OP ---
DATE OF OPERATION: 03/29/2018 PREOPERATIVE DIAGNOSIS: Clotted left arteriovenous graft. POSTOPERATIVE DIAGNOSIS: Clotted left arteriovenous graft. PROCEDURE: Venogram, suction thrombectomy, venoplasty, left arteriovenous graft. SURGEON: Bandar Galeano DO ANESTHESIA: Fractional. ESTIMATED BLOOD LOSS: 50 mL. The patient is a 68-year-old female who was sent from the dialysis unit with a clotted left AV graft. She was admitted through the ER and came up to the floor. She was then taken to the operating room. Patient was consented for the procedure, understanding all risks, benefits, alternatives. Patient was then laid down on the operating room table, and the area of the left arm was prepped and draped in a sterile surgical manner. We then went ahead and injected 10 mL of lidocaine 1% at the proximal AV graft and, using a micropuncture needle, we accessed the graft. Micropuncture wire was inserted and a short 6-Japanese sheath was inserted. We then shot our venogram via hand injection, showing that the left AV graft was clotted, especially at the venous anastomosis, so at this point we placed a 0.035 floppy guidewire across the venous anastomosis into the central veins. We then used an AVX suction thrombectomy catheter and performed suction thrombectomy of the entire AV graft and the central veins. We then went ahead and shot our venogram, showing that there is a severe stenosis of about 80% at the venous anastomosis. Using an 8 x 8 Blair balloon, we performed venoplasty of the central veins and the AV graft. IV heparin 3000 units were administered to the patient. We then went ahead and went to the distal graft and injected 10 mL of lidocaine 1% and, using a micropuncture needle, we punctured the graft towards the arterial anastomosis and placed a short 6-Japanese sheath. We then placed a 0.035 floppy guidewire across the arterial anastomosis. We shot our venogram, showing that the proximal graft was clotted. At this point, using a number 4 Jesús, we were able to perform a thrombectomy of the arterial anastomosis and now there was a good thrill. We then shot our venogram again, showing that the proximal anastomosis was stenotic. We went ahead and placed a 7 x 4 Blair balloon and performed a venoplasty of the proximal AV graft and the anastomosis. Completion venogram now showed that the graft was patent, there was good flow into the central veins, there was a good thrill in our AV graft. We then went ahead and used a 4-0 Biosyn stitch, and a ojveoi-bw-ampvi stitch was placed around the sheath, and the sheaths were pulled. The area was wet and dried and a Dermabond was placed. Patient tolerated the procedure with no complications. Patient transferred to PACU in stable condition. Total blood loss 50 mL. BANDAR GALEANO DO [id number]
== END 2018-03-29 18:35 | disposition home or self-care (01) ==
LOC: JER 09:26 → INTOOBSV 10:56 → UNDOADMOB 10:56 → JERBED 10:56 → JASUSAT 11:20 → JERBED 12:18 → UNDOADMOB 12:18 → JASUSAT 18:35
PROVIDERS: ATTEND Internal Medicine
PROC: 057Y3ZZ Dilation of Upper Vein, Percutaneous Approach (ICD-10-PCS; principal; 2018-03-29)
DX: T82.898A Other specified complication of vascular prosthetic devices, implants and grafts, initial encounter (principal); I12.0 Hypertensive chronic kidney disease with stage 5 chronic kidney disease or end stage renal disease; E11.22 Type 2 diabetes mellitus with diabetic chronic kidney disease; N18.6 End stage renal disease; Z99.2 Dependence on renal dialysis
CPT/HCPCS: 36415; 75710-TC-FY; 80053; 85025; 85610; 85730; 86850; 86900; 86901; 93005; 93010; 94760; 99284-25; J1644

== ENCOUNTER 2018-05-21 08:37 | Observation (INO) | payer OTHER ==
--- NOTE | 2018-05-21 09:16 | PDOC ---
History of Present Illness - General Chief Complaint: Dialysis Shunt Problem Stated Complaint: ACCESS PORT PROBLEM Time Seen by Provider: 05/21/18 09:15 - History of Present Illness Initial Comments: 68yo F with ESRD on dialysis TuThSa, DM, glaucoma presenting with LUE fistula problem. Patient presented to dialysis today, but problems with the fistula prevented her from starting the session. She has had fistule problems four or five times previous. Most recent dialysis session was on Sunday and was nearly completed, except for the last twenty minutes. Patient requested that we get in touch with Dr. Cuellar to schedule the procedure. If the procedure is not today, she would like to go home. Last meal was last night. No acute complaints. No fever, chills, chest pain, shortness of breath, or abdominal pain. Past History - Past Medical History Allergies/Adverse Reactions: Allergies Allergy/AdvReac Type Severity Reaction Status Date / Time No Known Allergies Allergy Verified 05/21/18 10:17 Home Medications: Ambulatory Orders Sitagliptin Phosphate [Januvia -] 25 mg PO DAILY@0700 #30 tab 10/26/16 Calcium Acetate 667 mg PO TID 01/16/17 Brimonidine Tartrate/Timolol [Combigan 0.2%-0.5% Eye Drops] 1 drop OU BID Latanoprost 0.005% Eye Drops [Xalatan 0.005% Eye Drops -] 1 drop OU BID Anemia: No Asthma: No Cancer: No Cardiac Disorders: No (HEART MURMUR"A LITTLE BIT") CVA: No COPD: No CHF: No DVT: No Dementia: No Diabetes: Yes (NIDDM) Dialysis: Yes (Left arm fistula) GI Disorders: No Disorders: No HTN: Yes (H/O) Hypercholesterolemia: No Liver Disease: No Seizures: No Thyroid Disease: No - Surgical History Abdominal Surgery: No Appendectomy: No Cardiac Surgery: No Cholecystectomy: No Lung Surgery: No Neurologic Surgery: No Orthopedic Surgery: No - Immunization History Td Vaccination: Yes Immunization Up to Date: Yes - Suicide/Smoking/Psychosocial Hx Smoking Status: No Smoking History: Never smoked Have you smoked in the past 12 months: No Number of Cigarettes Smoked Daily: 0 Information on smoking cessation initiated: No Hx Alcohol Use: No Drug/Substance Use Hx: No Substance Use Type: None Hx Substance Use Treatment: No Review of Systems - Review of Systems Comments:: Constitutional: no fever, no chills HEENT: no throat pain, no dysphagia Cardiovascular: no chest pain, no palpitations Respiratory: no cough, no shortness of breath Gastrointestinal: no abdominal pain, no nausea, no vomiting, no diarrhea, no constipation Genitourinary: no dysuria, no frequency Musculoskeletal: no myalgia, no arthralgia Skin: no rash, no itching Neurologic: no headache, no dizziness *Physical Exam - Vital Signs Last Vital Signs Temp Pulse Resp BP Pulse Ox 98.2 F 69 16 170/70 100 05/21/18 08:48 05/21/18 08:48 05/21/18 08:48 05/21/18 08:48 05/21/18 08:48 - Physical Exam Comments: General: Awake, alert, and fully oriented, in no acute distress Head: No signs of trauma Eyes: EOMI, sclera anicteric ENT: Moist mucus membranes Neck: Normal ROM, supple Lungs: Lungs clear, Normal breath sounds Cardio: Regular rhythm, S1 and S2 present Abdomen: Soft, nontender. No guarding, no rebound, no masses Extremities: Normal range of motion, Distal pulses present; LUE fistule present without audible bruit/thrill SKIN: Warm, Dry, normal turgor Neurologic: Cranial nerves II through XII grossly intact. Normal speech ED Treatment Course - LABORATORY CBC & Chemistry Diagram: 05/21/18 09:55 05/21/18 09:55 Medical Decision Making - Medical Decision Making 68yo F with ESRD on dialysis TuThSa, DM, glaucoma presenting with LUE fistula problem. -Pre-op labs -Page sent to Dr. Bandar Cuellar -Patient NPO 05/21/18 10:40 -Discussed case with Dr. Schultz who accepted patient for admission -Dr. Tang spoke with Dr. Schroeder, travel trailer components assembler -Dr. Tang spoke with Dr. Cuellar, vascular surgeon, who can perform the procedure on the patient later today 05/21/18 11:45 *DC/Admit/Observation/Transfer Diagnosis at time of Disposition: AV fistula occlusion - Discharge Dispostion Condition at time of disposition: Guarded Decision to Admit order: Yes - Referrals - Patient Instructions - Post Discharge Activity
[2018-05-21 10:04] LABS: BASO % 1.5 % (0-2.0); EOS % 5.1 % (0-4.5); HEMATOCRIT 36.6 % (32.4-45.2); HEMOGLOBIN 11.3 GM/dL (10.7-15.3); LYMPH % 29.6 % (8-40); MCH 23.7 pg (25.7-33.7); MCHC 30.9 g/dl (32.0-36.0); MEAN CELL VOLUME 76.7 fl (80-96); MEAN PLT VOLUME 8.5 fl (7.5-11.1); MONO % 5.3 % (3.8-10.2); NEUT % 58.5 % (42.8-82.8); PLATELET COUNT 230 K/MM3 (134-434); RBC 4.77 M/mm3 (3.60-5.2); RDW 15.7 % (11.6-15.6); WHITE BLOOD COUNT 6.4 K/mm3 (4.0-10.0)
[2018-05-21 10:26] LABS: INR 0.97 (0.83-1.09); PROTHROMBIN TIME (PATIENT) 11.5 SEC (9.7-13.0)
[2018-05-21 10:37] LABS: ALBUMIN 3.8 g/dl (3.4-5.0); ALK PHOS 75 U/L (45-117); ANION GAP 12 MMOL/L (8-16); BILIRUBIN,TOTAL 0.4 mg/dL (0.2-1); BLOOD UREA NITROGEN 82 mg/dL (7-18); CALCIUM 8.8 mg/dL (8.5-10.1); CHLORIDE 98 mmol/L (98-107); CO2 23 mmol/L (21-32); GLUCOSE,RANDOM 87 mg/dL (74-106); POTASSIUM 5.5 mmol/L (3.5-5.1); SGOT/AST 10 U/L (15-37); SGPT/ALT 10 U/L (13-61); SODIUM 134 mmol/L (136-145); TOT PROT 7.5 g/dl (6.4-8.2)
--- NOTE | 2018-05-21 10:41 | PDOC ---
Attending Attestation - Resident Resident Name: KatelynVikasRamila - ED Attending Attestation I have performed the following: I have examined & evaluated the patient, The case was reviewed & discussed with the resident, I agree w/resident's findings & plan - HPI HPI: 05/21/18 10:36 68-year-old female end-stage renal disease on dialysis Sunday// Sunday with history of left upper extremity fistula thrombosis, most recently repaired in March, last received dialysis on Sunday with some difficulty accessing the fistula, now presents from her scheduled dialysis appointment with clogged fistula, did not receive dialysis. She has no symptoms, no pain or swelling or fevers or chills. - Physicial Exam PE: 05/21/18 10:40 Vital signs normal Well-appearing Lungs are clear No palpable thrill in left upper shimmery fistula, no edema or erythema or swelling, 2+ distal pulse - Medical Decision Making 05/21/18 10:40 68-year-old female with clogged left upper extremity AV fistula, here for repair and will need her scheduled dialysis. Discussed with Dr. Cuellar, knows the patient well, admitted for or later today Dr. Schroeder consulted to arrange for dialysis after procedure Preoperative labs, EKG shows no evidence of acute hyperkalemia Heart Score/ECG Review #1 ECG reviewed & interpreted by me at: 10:14 General ECG Interpretation: Sinus Rhythm, Normal Rate (70), Normal Intervals ( qtc 412, qrs 76), No acute ischemic changes
--- NOTE | 2018-05-21 11:40 | HP ---
Admitting History and Physical - Past Medical History Cardiovascular: Yes: HTN Renal/: Yes: Renal Failure - Smoking History Smoking history: Never smoked Have you smoked in the past 12 months: No Aproximately how many cigarettes per day: 0 - Alcohol/Substance Use Hx Alcohol Use: No Home Medications - Allergies Allergies/Adverse Reactions: Allergies Allergy/AdvReac Type Severity Reaction Status Date / Time No Known Allergies Allergy Verified 05/21/18 10:17 - Home Medications Home Medications: Ambulatory Orders Sitagliptin Phosphate [Januvia -] 25 mg PO DAILY@0700 #30 tab 10/26/16 Calcium Acetate 667 mg PO TID 01/16/17 Brimonidine Tartrate/Timolol [Combigan 0.2%-0.5% Eye Drops] 1 drop OU BID Latanoprost 0.005% Eye Drops [Xalatan 0.005% Eye Drops -] 1 drop OU BID Physical Examination Vital Signs: Vital Signs Temperature 98.2 F 05/21/18 08:48 Pulse Rate 69 05/21/18 08:48 Respiratory Rate 16 05/21/18 08:48 Blood Pressure 170/70 05/21/18 08:48 O2 Sat by Pulse Oximetry (%) 100 05/21/18 08:48 Labs: CBC, BMP 05/21/18 09:55 05/21/18 09:55
[2018-05-21 11:49] LABS: CREATININE 12.6 mg/dL (0.55-1.3)
--- NOTE | 2018-05-21 15:01 | CONSULT ---
Consult - text type - Consultation Consultation Note: Renal Consult for ESRD on HD This is a 68 year old woman with hx of ESRD on HD (TTS), DM, [place] who presented clotted AVG. Pt last had dialysis on Sunday during which time they were having difficulty establishing good blood flow. Currenlty she has no acute complaints. Denies any sob, cp, abd pain, N/V/D. Continues to make urine. PMhx: as above Allergies: NKDA Family Hx: NC Social Hx: No T/A/D ROS: as per HPI, all other pertinent ros negative Home Medications Medication Instructions Recorded Sitagliptin Phosphate [Januvia -] 25 mg PO DAILY@0700 #30 tab 10/26/16 Calcium Acetate 667 mg PO TID 01/16/17 Brimonidine Tartrate/Timolol 1 drop OU BID 08/28/17 [Combigan 0.2%-0.5% Eye Drops] Latanoprost 0.005% Eye Drops 1 drop OU BID 08/28/17 [Xalatan 0.005% Eye Drops -] Vital Signs Temperature 98.1 F 05/21/18 13:31 Pulse Rate 60 05/21/18 13:31 Respiratory Rate 18 05/21/18 13:31 Blood Pressure 175/67 H 05/21/18 13:31 O2 Sat by Pulse Oximetry (%) 99 05/21/18 13:31 NAD Neck supple No JVD RRR, No M/R CTA, no rales or wheeze soft NT/ND no LE edema left arm AVG - no thrill or buit CBC, BMP 05/21/18 09:55 05/21/18 09:55 68 year old woman with hx of ESRD on HD (TTS), DM, [place] who presented clotted AVG. #Clotted AVG #ESRD on HD #CKD Anemia #Renal Osteodystrophy for OR graft thrombecotmy by Dr. Cuellar today Will need to consider anticoagulation for pt with recurrnet graft thrombosis will arrange for dialysis following OR Expect K to improve with HD Renal diet when able to eat continue phos binders Thank you Will follow David Schroeder DO
[2018-05-21] MEDS ORDERED: SODIUM CHLORIDE 250 ML IV PRN ×2 (15:06→19:15)
[2018-05-21] MEDS ORDERED: HEPARIN NA (PORCINE) 5,000 UNITS/ML 1ML VIAL IVPUSH ONE ×2 (15:06→19:15)
--- NOTE | 2018-05-21 16:21 | EKG ---
Test Reason : Blood Pressure : / mmHG Vent. Rate : 070 BPM Atrial Rate : 070 BPM P-R Int : 166 ms QRS Dur : 076 ms QT Int : 382 ms P-R-T Axes : 029 043 041 degrees QTc Int : 412 ms NORMAL SINUS RHYTHM NORMAL ECG WHEN COMPARED WITH ECG OF 29-MAR-2018 10:06, NO SIGNIFICANT CHANGE WAS FOUND Confirmed by MD Buchanan Edward ([id number]) on 05/21/2018 4:21:21 PM Referred By: Confirmed By:Noah Buchanan MD
[2018-05-21] MEDS ORDERED: INSULIN SLIDING SCALE (NOVOLOG) 1 VIAL SQ SCH (16:30)
[2018-05-21 17:13] VITALS: BMI 33.7
[2018-05-21] MEDS ORDERED: LIDOCAINE HCL 1%, 10 MG/ML (20ML VIAL) ONE (17:41)
[2018-05-21] MEDS ORDERED: MIDAZOLAM HCL 2 MG/2 ML SINGLE DOSE VIAL ONE ×2 (17:42)
[2018-05-21] MEDS ORDERED: ceFAZolin SODIUM 1 GM VIAL ONE (18:01)
[2018-05-21] MEDS ORDERED: ceFAZolin SODIUM 1 GM VIAL IVPB ONE (18:05)
[2018-05-21] MEDS ORDERED: LIDOCAINE HCL 1%, 10 MG/ML (20ML VIAL) INF ONE (18:27)
[2018-05-21] MEDS ORDERED: ONDANSETRON 4 MG/2 ML VIAL IVPUSH PRN ×2 (18:46→19:15)
[2018-05-21] MEDS ORDERED: oxyCODONE HCL 5 MG TABLET PO PRN ×2 (18:46→19:15)
[2018-05-21] MEDS ORDERED: PROMETHAZINE HCL 25 MG/1 ML VIAL IVPB PRN ×2 (18:46→19:15)
--- NOTE | 2018-05-21 18:50 | OP ---
Operative Note - Note: Operative Date: 05/21/18 Pre-Operative Diagnosis: Clotted left avg Operation: venogram, suction thrombectomy, venoplasty left avg Findings: graft stenosis Post-Operative Diagnosis: Same as Pre-op Surgeon: Bandar Cuellar Anesthesia: Fractional Estimated Blood Loss (mls): 50 Operative Report Dictated: Yes
--- NOTE | 2018-05-21 19:44 | OP ---
DATE OF OPERATION: 05/21/2018 PREOPERATIVE DIAGNOSIS: Clotted left arteriovenous graft. POSTOPERATIVE DIAGNOSIS: Clotted left arteriovenous graft. PROCEDURE: Venogram , venoplasty left arteriovenous graft. SURGEON: Bandar Galeano M.D. ANESTHESIA: Fractional. BLOOD LOSS: 50 mL. INDICATION: The patient is a 68-year-old female that comes in with a clotted left AV graft when she went to dialysis today, she was then sent to the emergency room. Patient was evaluated and has clotted left AV graft. Patient thought that she would need a venogram. Patient was consented for the procedure, understanding all risks, benefits, and alternatives then taken to the operating room. DESCRIPTION OF PROCEDURE: Once in the operating room, she was laid on the operating table in a supine manner, and the area of the left arm are prepped and draped in a sterile surgical manner. We then injected 2 mL of lidocaine 1% over the proximal AV graft. We then took our Micropuncture needle and punctured the proximal AV graft. A Micropuncture wire was inserted, and a short 6-Lebanese sheath was inserted. We then shot a venogram by hand injection showing that the graft was clotted all the way to the venous anastomosis and beyond it. It was opened. At this point, we placed our 0.035 floppy guidewire up into the central veins. We then used an AV of the proximal AV graft all the way to the central veins. We did that in 2 passes. Completion venogram now shows that the graft was patent, but had significant in-graft stenosis and venous anastomosis stenosis of about at least 70% to 80%. At this point, we went ahead and used an 8 x 6 balloon and performed venoplasty of the outflow vein venous anastomosis and the mid to distal AV graft. Completion venogram now showed that the graft was patent, with no areas of stenosis or recoil. At this point, we went ahead and went to the distal AV graft. 5 mL of 1% lidocaine was injected there. We then placed a micropuncture needle in the graft, and micropuncture wire was placed. Micropuncture sheath was placed. We then placed a short 6 Lebanese sheath. We then shot a venogram towards the arterial anastomosis showing that the proximal AV graft was patent but was stenotic of about 40% to 50%, 60% in certain areas. At this point we placed our 0.035 floppy guidewire into the proximal AV graft and into the brachial artery retrograde. We went ahead and used a 7 x 6 balloon and performed venoplasty of the arterial anastomosis in the proximal AV graft. Completion venogram now showed that the graft was patent. The proximal AV graft was patent. There was good brisk flow going all the way up into the central veins without any stenosis. At this point we used a 4-0 Biosyn stitch and a pfublp-ur-zfhom stitch was placed around the sheath, and the sheath was pulled. Area was then dried. Dermabond was placed. Patient tolerated the procedure without complications. Patient was transferred to PACU in stable condition. BANDAR GALEANO DO [id number]
[2018-05-21] MEDS: HEPARIN NA (PORCINE) 5,000 UNITS/ML 1ML VIAL IVPUSH SCH ×3 (20:30→22:09)
[2018-05-21] MEDS ORDERED: TIMOLOL 0.5% OPHTHALMIC SOL 5 ML BOTTLE OU SCH (22:00)
[2018-05-21] MEDS ORDERED: BRIMONIDINE TARTRATE 0.2% OPHTHALMIC 5 ML BOTTLE OU SCH (22:00)
[2018-05-21] MEDS ORDERED: LATANOPROST 0.005% OPHTH SOLN 2.5ML BOTTLE OU SCH (22:00)
[2018-05-21] MEDS: BRIMONIDINE TARTRATE 0.2% OPHTHALMIC 5 ML BOTTLE OU SCH (22:56)
[2018-05-21] MEDS: LATANOPROST 0.005% OPHTH SOLN 2.5ML BOTTLE OU SCH (22:57)
[2018-05-21] MEDS: TIMOLOL 0.5% OPHTHALMIC SOL 5 ML BOTTLE OU SCH ×2 (22:57→23:27)
[2018-05-22] MEDS ORDERED: INSULIN SLIDING SCALE (NOVOLOG) 1 VIAL SQ SCH (07:00)
[2018-05-22 08:46] LABS: ALBUMIN 3.1 g/dl (3.4-5.0); ALK PHOS 66 U/L (45-117); ANION GAP 10 MMOL/L (8-16); BILIRUBIN,TOTAL 0.5 mg/dL (0.2-1); BLOOD UREA NITROGEN 36 mg/dL (7-18); CALCIUM 7.9 mg/dL (8.5-10.1); CHLORIDE 102 mmol/L (98-107); CO2 28 mmol/L (21-32); GLUCOSE,RANDOM 78 mg/dL (74-106); POTASSIUM 4.6 mmol/L (3.5-5.1); SGOT/AST 20 U/L (15-37); SGPT/ALT 9 U/L (13-61); SODIUM 139 mmol/L (136-145); TOT PROT 6.4 g/dl (6.4-8.2)
[2018-05-22 08:54] LABS: CREATININE 7.8 mg/dL (0.55-1.3)
--- NOTE | 2018-05-22 09:05 | PN ---
Progress Note (short form) - Note Progress Note: POD 1, s/p venogram, suction thrombectomy, venoplasty left avg Pt seen and examined. States she is doing well after OR yesterday. Had HD last night without issue. NAYANA haque c/d/i with dermabond in place. + thrill over AVG. Continue care per medicine and renal. Please page [phone] with any questions/concerns.
[2018-05-22] MEDS ORDERED: PT OWN MED DRAWER 7, Y5N ONE (09:31)
[2018-05-22] MEDS: BRIMONIDINE TARTRATE 0.2% OPHTHALMIC 5 ML BOTTLE OU SCH (09:35)
[2018-05-22] MEDS: TIMOLOL 0.5% OPHTHALMIC SOL 5 ML BOTTLE OU SCH (09:35)
[2018-05-22] MEDS: LATANOPROST 0.005% OPHTH SOLN 2.5ML BOTTLE OU SCH (09:36)
[2018-05-22 10:06] VITALS: BP 130/58; PULSE 74; TEMP 98.6
--- NOTE | 2018-05-22 10:16 | DS ---
Physical Examination Vital Signs: Vital Signs Temperature 98.6 F 05/22/18 10:00 Pulse Rate 74 05/22/18 10:00 Respiratory Rate 18 05/22/18 10:00 Blood Pressure 130/58 L 05/22/18 10:00 O2 Sat by Pulse Oximetry (%) 98 05/21/18 23:00 Labs: CBC, BMP 05/21/18 09:55 05/22/18 06:30 Discharge Summary Reason For Visit: ARTERIOVENOUS FISTULA OCCLUSION, END-STAGE RENAL Current Active Problems AV fistula occlusion (Acute) Condition: Guarded - Instructions Referrals: Chanda Schultz MD [Primary Care Provider] - - Home Medications Comprehensive Discharge Medication List: Ambulatory Orders Sitagliptin Phosphate [Januvia -] 25 mg PO DAILY@0700 #30 tab 10/26/16 Calcium Acetate 667 mg PO TID 01/16/17 Brimonidine Tartrate/Timolol [Combigan 0.2%-0.5% Eye Drops] 1 drop OU BID Latanoprost 0.005% Eye Drops [Xalatan 0.005% Eye Drops -] 1 drop OU BID
[2018-05-24 00:07] LABS: HBSAG SCREEN Negative (Negative); HEP A AB, IGM Negative (Negative); HEP B CORE AB, TOT Negative (Negative)
== END 2018-05-22 10:39 | disposition home or self-care (01) ==
LOC: JER 08:37 → JERBED 11:20 → J5S 15:44
PROVIDERS: ADMIT Internal Medicine; ATTEND Internal Medicine
PROC: 3E03329 Introduction of Other Anti-infective into Peripheral Vein, Percutaneous Approach (ICD-10-PCS; 2018-05-21)
PROC: 3E033GC Introduction of Other Therapeutic Substance into Peripheral Vein, Percutaneous Approach (ICD-10-PCS; 2018-05-21)
PROC: 057C3DZ Dilation of Left Basilic Vein with Intraluminal Device, Percutaneous Approach (ICD-10-PCS; principal; 2018-05-21 17:00)
DX: T82.858A Stenosis of other vascular prosthetic devices, implants and grafts, initial encounter (principal); E11.22 Type 2 diabetes mellitus with diabetic chronic kidney disease; I12.0 Hypertensive chronic kidney disease with stage 5 chronic kidney disease or end stage renal disease; N18.6 End stage renal disease; Z99.2 Dependence on renal dialysis; D64.9 Anemia, unspecified; H40.9 Unspecified glaucoma; Y82.8 Other medical devices associated with adverse incidents; Y92.9 Unspecified place or not applicable
CPT/HCPCS: 36415; 76000-TC-FY; 80053; 82962; 85025; 85610; 85730; 86704; 86706; 86708; 86803; 86850; 86900; 86901; 87340; 93005; 93010; 94760; 96374; 96375; 96376; 99285-25; G0378; J1644

== ENCOUNTER 2018-07-23 12:39 | Day surgery (SDC) | payer OTHER ==
[2018-07-22 15:29] VITALS: BMI 34.0
[2018-07-23 14:03] LABS: ALBUMIN 3.6 g/dl (3.4-5.0); ALK PHOS 65 U/L (45-117); ANION GAP 11 MMOL/L (8-16); BILIRUBIN,TOTAL 0.4 mg/dL (0.2-1); BLOOD UREA NITROGEN 85 mg/dL (7-18); CHLORIDE 103 mmol/L (98-107); CO2 24 mmol/L (21-32); GLUCOSE,RANDOM 98 mg/dL (74-106); POTASSIUM 5.9 mmol/L (3.5-5.1); SGOT/AST 10 U/L (15-37); SGPT/ALT 11 U/L (13-61); SODIUM 137 mmol/L (136-145); TOT PROT 7.2 g/dl (6.4-8.2)
[2018-07-23 14:05] LABS: CREATININE 13.4 mg/dL (0.55-1.3)
[2018-07-23] MEDS ORDERED: HEPARIN NA (PORCINE) 5,000 UNITS/ML 1ML VIAL ONE ×2 (14:11→15:25)
[2018-07-23] MEDS ORDERED: MIDAZOLAM HCL 2 MG/2 ML SINGLE DOSE VIAL ONE ×2 (14:14→15:12)
[2018-07-23] MEDS ORDERED: PROPOFOL 20 ML ONE (14:19)
[2018-07-23] MEDS ORDERED: LIDOCAINE HCL 1%, 10 MG/ML (50 mL VIAL) IJ ONE ×2 (14:23)
--- NOTE | 2018-07-23 15:37 | HP ---
Admitting History and Physical - Admission Chief Complaint: Clotted left avg Limitations to Obtaining History: No Limitations - Past Medical History Cardiovascular: Yes: HTN Renal/: Yes: Renal Failure - Smoking History Smoking history: Never smoked Have you smoked in the past 12 months: No Aproximately how many cigarettes per day: 0 - Alcohol/Substance Use Hx Alcohol Use: No Home Medications - Allergies Allergies/Adverse Reactions: Allergies Allergy/AdvReac Type Severity Reaction Status Date / Time No Known Allergies Allergy Verified 07/23/18 13:24 - Home Medications Home Medications: Ambulatory Orders Sitagliptin Phosphate [Januvia -] 25 mg PO DAILY@0700 #30 tab 10/26/16 Calcium Acetate 667 mg PO TID 01/16/17 Brimonidine Tartrate/Timolol [Combigan 0.2%-0.5% Eye Drops] 1 drop OU BID Latanoprost 0.005% Eye Drops [Xalatan 0.005% Eye Drops -] 1 drop OU BID Review of Systems - Review of Systems Constitutional: reports: No Symptoms Eyes: reports: No Symptoms HENT: reports: No Symptoms Neck: reports: No Symptoms Cardiovascular: reports: No Symptoms Respiratory: reports: No Symptoms Gastrointestinal: reports: No Symptoms Breasts: reports: No Symptoms Reported Musculoskeletal: reports: No Symptoms Integumentary: reports: No Symptoms Neurological: reports: No Symptoms Endocrine: reports: No Symptoms Hematology/Lymphatic: reports: No Symptoms Psychiatric: reports: No Symptoms Physical Examination Vital Signs: Vital Signs Temperature 98.4 F 07/23/18 13:22 Pulse Rate 73 07/23/18 13:22 Respiratory Rate 20 07/23/18 13:19 Blood Pressure 131/70 07/23/18 13:22 O2 Sat by Pulse Oximetry (%) 99 07/23/18 13:21 Constitutional: Yes: Well Nourished, No Distress, Calm Eyes: Yes: WNL, Conjunctiva Clear, EOM Intact HENT: Yes: WNL, Atraumatic, Normocephalic Neck: Yes: WNL, Supple, Trachea Midline Cardiovascular: Yes: WNL, Regular Rate and Rhythm Respiratory: Yes: WNL, Regular, CTA Bilaterally Gastrointestinal: Yes: WNL, Normal Bowel Sounds Musculoskeletal: Yes: WNL Extremities: Yes: WNL Edema: No Peripheral Pulses WNL: Yes Integumentary: Yes: WNL Neurological: Yes: WNL, Alert, Oriented ...Motor Strength: WNL Psychiatric: Yes: WNL Labs: CBC, BMP 07/23/18 12:52 Problem List - Problems (1) AV fistula occlusion Assessment/Plan: for suction thrombectomy today Code(s): T82.898A - [facility] COMPLICATION OF VASCULAR PROSTH DEV/GRFT, INIT Qualifiers:
--- NOTE | 2018-07-23 15:38 | OP ---
Operative Note - Note: Operative Date: 07/23/18 Pre-Operative Diagnosis: cloetted left avg Operation: venogram, suction thrombectomy, venoplasty left avg, angiogram, angioplasty with stent placement left brachial artery Post-Operative Diagnosis: Same as Pre-op Surgeon: Bandar Cuellar Anesthesia: Fractional Estimated Blood Loss (mls): 75 Operative Report Dictated: Yes
[2018-07-23] MEDS ORDERED: ONDANSETRON 4 MG/2 ML VIAL ONE (15:59)
--- NOTE | 2018-07-23 16:52 | PN ---
Progress Note (short form) - Note Progress Note: Pt seen and examined in PACU s/p AVG de-clotting procedure. K noted to be 5.9. EKG was done in the PACU that showed no acute changed related to hyperkalemia such as peaked t wave or QRS widening. PT to be discharged from PACU and go straight to outpatient dialysis to have treatment there. This was discussed with the patient and Dr. Cuellar. Pt has family in the waiting room that will transport her to dialysis. David Schroeder DO
[2018-07-23 17:08] VITALS: TEMP 98
[2018-07-23 17:26] VITALS: BP 145/58; PULSE 74
--- NOTE | 2018-07-24 09:56 | EKG ---
Test Reason : Blood Pressure : / mmHG Vent. Rate : 136 BPM Atrial Rate : 136 BPM P-R Int : 158 ms QRS Dur : 072 ms QT Int : 214 ms P-R-T Axes : 067 031 018 degrees QTc Int : 322 ms SINUS TACHYCARDIA WITH FREQUENT PREMATURE VENTRICULAR COMPLEXES IN A PATTERN OF BIGEMINY LOW VOLTAGE QRS NONSPECIFIC T WAVE ABNORMALITY ABNORMAL ECG WHEN COMPARED WITH ECG OF 21-MAY-2018 10:14, PREMATURE VENTRICULAR COMPLEXES ARE NOW PRESENT VENT. RATE HAS INCREASED BY 66 BPM NONSPECIFIC T WAVE ABNORMALITY NOW EVIDENT IN INFERIOR LEADS NONSPECIFIC T WAVE ABNORMALITY NOW EVIDENT IN ANTEROLATERAL LEADS Confirmed by LICHA CERVANTES, KEENAN ([id number]) on 07/24/2018 9:56:09 AM Referred By: Bandar Cuellar Confirmed By:KEENAN HURT MD
--- NOTE | 2018-07-25 11:14 | OP ---
DATE OF OPERATION: 07/23/2018 PREOPERATIVE DIAGNOSIS: Clotted left arteriovenous graft. POSTOPERATIVE DIAGNOSIS: Clotted left arteriovenous graft. PROCEDURE: Venogram, suction thrombectomy, venoplasty of left arteriorvenous graft, brachial artery angiogram, angioplasty with stent placement.. SURGEON: Bandar Galeano MD ANESTHESIA: Fractional. BLOOD LOSS: 75 mL. INDICATIONS: The patient is a 68-year-old female who comes into ambulatory surgery because her left AV graft was clotted the day before. It was decided that she would need a suction thrombectomy. Patient was consented for the procedure understanding all risks, benefits, and alternatives, and then taken to the operating room. DESCRIPTION OF PROCEDURE: Once in the operating suite, she was placed on the operating table in the supine manner, and the area of the left arm was prepped and draped in a sterile surgical manner. We then injected 10 mL of lidocaine 1% over the proximal AV graft above the anastomosis. We then used our micropuncture needle, punctured the AV graft. Micropuncture wire was inserted, micropuncture sheath was inserted. A 0.035 floppy guidewire was inserted and a short 6-Ivorian sheath was inserted. We then shot a venogram showing that the graft was clotted and that it seemed like there was a stenosis at the venous anastomosis. We then placed a 0.035 floppy guidewire up into the central veins. We then used an AV suction thrombectomy catheter and performed suction thrombectomy of the AV graft and the outflow veins. We then shot a venogram subsequently, and it showed that there was probably an 80% stenosis at the venous anastomosis. At this point, we went ahead and administered 5000 units of IV heparin, and we then went ahead and used an 8 x 8 [place] and performed venoplasty of the outflow veins and the AV graft, and then, we used a 9 x8 [place] balloon and performed venoplasty of the outflow veins and the graft. Completion venogram now showed that there was good outflow all the up into the central veins. We then went ahead and injected 10 mL Lidocaine 1% at the distal AV graft. We then punctured the AV graft using our micropuncture needle. Micropuncture wire was inserted and a short 6-Ivorian sheath was inserted. We then shot a venogram showing that the proximal AV graft was clotted. We then used a 0.035 floppy guidewire and placed a wire into the graft and into the brachial artery going up the arm. We then went ahead and used an AV suction thrombectomy catheter and performed suction thrombectomy of the entire area. We then went ahead and used our KYLE catheter and put it at the anastomosis and shot a venogram/angiogram, and we were able to get the KYLE catheter into the brachial artery. We then shot an angiogram showing that the brachial artery proximal to the AV graft was significantly diseased causing an inflow stenosis. At this point, we placed a 0.035 floppy guidewire across that area. We then went ahead and used a LifeStream stent and placed a 7 x 4 LifeStream stent in the brachial artery along with angioplasty. We then shot a completion angiogram, now, showing that the artery was patent, there was good brisk flow going all the way into the hand, and now, there was a good thrill in our AV graft. We then took a 7 x 8 balloon and performed venoplasty of the proximal AV graft, and there was a great thrill in our AV graft. At this point, no more intervention was needed. Patient has a good palpable radial pulse. We used a 4-0 Biosyn stitch, and a figure-of-8 stitch was placed around each sheath, and the sheaths were pulled. The area was wet and dried, and Dermabond was placed. The patient tolerated the procedure with no complications. Patient transferred to PACU in stable condition. BANDAR GALEANO DO NP/[id number]
== END 2018-07-23 17:35 | disposition home or self-care (01) ==
LOC: JASU-SURG 12:39
PROVIDERS: ATTEND Surgery Vascular Surgery
PROC: 05CA3ZZ Extirpation of Matter from Left Brachial Vein, Percutaneous Approach (ICD-10-PCS; 2018-07-23)
PROC: 03783DZ Dilation of Left Brachial Artery with Intraluminal Device, Percutaneous Approach (ICD-10-PCS; principal; 2018-07-23 14:00)
DX: T82.898A Other specified complication of vascular prosthetic devices, implants and grafts, initial encounter (principal); I12.0 Hypertensive chronic kidney disease with stage 5 chronic kidney disease or end stage renal disease; E11.22 Type 2 diabetes mellitus with diabetic chronic kidney disease; Z99.2 Dependence on renal dialysis; N18.6 End stage renal disease
CPT/HCPCS: 36215; 36906; 75710; C1726; 36415; 76000-TC-FY; 80053; 93005; 93010; 94760; J1644

== ENCOUNTER 2018-10-29 09:39 | Inpatient (IN) | payer OTHER ==
--- NOTE | 2018-10-29 10:39 | PDOC ---
History of Present Illness - General Chief Complaint: AV shunt bleeding Stated Complaint: FISTUL OCCLUSION Time Seen by Provider: 10/29/18 09:54 History Source: Patient Exam Limitations: No Limitations - History of Present Illness Initial Comments: 10/29/18 10:38 68F with PMH of ESRD on dialysis TuThSa, DM, glaucoma presenting with LUE AVG problem. The patient states that she is in her normal state of health, went to dialysis, and they said "her graft is clogged". Pt denies any symptoms including CP, SOB, fever, chills, nausea, vomiting, numbness, tingling, weakness , lightheadedness, palpitations. She has no acute complaints. Past History - Past Medical History Allergies/Adverse Reactions: Allergies Allergy/AdvReac Type Severity Reaction Status Date / Time No Known Allergies Allergy Verified 07/23/18 13:24 Home Medications: Ambulatory Orders Sitagliptin Phosphate [Januvia -] 25 mg PO DAILY@0700 #30 tab 10/26/16 Calcium Acetate 667 mg PO TID 01/16/17 Brimonidine Tartrate/Timolol [Combigan 0.2%-0.5% Eye Drops] 1 drop OU BID Latanoprost 0.005% Eye Drops [Xalatan 0.005% Eye Drops -] 1 drop OU BID Anemia: Yes Asthma: No Cancer: No Cardiac Disorders: No CVA: No COPD: No CHF: No DVT: No Dementia: No Diabetes: Yes (NIDDM) Dialysis: Yes GI Disorders: No Disorders: No HTN: Yes (NO MORE B/P MEDS) Hypercholesterolemia: Yes Liver Disease: No Seizures: No Thyroid Disease: No - Surgical History Abdominal Surgery: No Appendectomy: No Cardiac Surgery: No Cholecystectomy: No Lung Surgery: No Neurologic Surgery: No Orthopedic Surgery: No - Immunization History Td Vaccination: Yes Immunization Up to Date: Yes - Suicide/Smoking/Psychosocial Hx Smoking Status: No Smoking History: Never smoked Have you smoked in the past 12 months: No Number of Cigarettes Smoked Daily: 0 Information on smoking cessation initiated: No Hx Alcohol Use: No Drug/Substance Use Hx: No Substance Use Type: None Hx Substance Use Treatment: No Review of Systems - Review of Systems Able to Perform ROS?: Yes Comments:: 10/29/18 11:19 GENERAL/CONSTITUTIONAL: No fever or chills. No weakness. HEAD, EYES, EARS, NOSE AND THROAT: No change in vision. No ear pain or discharge. No sore throat. CARDIOVASCULAR: No chest pain, palpitations, or lightheadedness. RESPIRATORY: No cough, wheezing, shortness of breath, or hemoptysis. GASTROINTESTINAL: No nausea, vomiting, diarrhea, constipation, or abdominal pain. GENITOURINARY: No dysuria, frequency, hematuria, or change in urination. MUSCULOSKELETAL: + for clogged AVG. No joint or muscle swelling or pain. No neck or back pain. SKIN: No rash or lesions. NEUROLOGIC: No headache, numbness, tingling, focal weakness, loss of consciousness, or change in strength/sensation. Is the patient limited Afghan proficient: No *Physical Exam - Vital Signs Last Vital Signs Temp Pulse Resp BP Pulse Ox 98.3 F 71 16 175/63 H 99 10/29/18 09:46 10/29/18 09:46 10/29/18 09:46 10/29/18 09:46 10/29/18 09:46 - Physical Exam Comments: 10/29/18 11:20 GENERAL: Well developed, well nourished. Awake and alert. No acute distress. HEENT: Normocephalic, atraumatic. Hearing grossly normal. Moist mucous membranes. PERRLA, EOMI. No conjunctival pallor. Sclera are non-icteric. NECK: Supple. Full ROM. No JVD. CARDIOVASCULAR: Regular rate and rhythm. No murmurs, rubs, or gallops. PULMONARY: No evidence of respiratory distress. Lungs clear to auscultation bilaterally. No wheezing, rales or rhonchi. ABDOMINAL: Soft. Non-tender. Non-distended. No rebound or guarding. GENITOURINARY: No CVA tenderness bilaterally. MUSCULOSKELETAL: L AVG scar noted without palpable thrill or audible bruit. Normal range of motion at all joints. No bony deformities or tenderness. EXTREMITIES: No cyanosis. No clubbing. No edema. No calf tenderness or swelling. SKIN: Warm and dry. Normal capillary refill. No rashes. No jaundice. NEUROLOGICAL: Alert, awake, appropriate. Cranial nerves 2-12 grossly intact. Normal speech. Gait is normal without ataxia. PSYCHIATRIC: Cooperative. Good eye contact. Appropriate mood and affect. ED Treatment Course - LABORATORY CBC & Chemistry Diagram: 10/29/18 12:56 10/29/18 12:56 Medical Decision Making - Medical Decision Making 10/29/18 11:20 68F with a PMH of ESRD with L AVG that was sent from dialysis for clogged graft. Last dialysis was Sunday (3 days ago). EKG and labs pending. Will d/w vascular after labs completed. 10/29/18 14:04 K of 6.0. Giving insulin, dextrose, and albuterol. Polo Conroy, and Chanda Schultz paged. 10/29/18 14:29 Case d/w Dr. Schroeder who agrees w/ plan and recommends adding kayexelate. Order placed. Pending call back from Dr. Cuellar and Antoine. 10/29/18 14:37 Case d/w Dr. Cuellar who will operate tomorrow morning. Pt endorsed to Dr. Schultz. *DC/Admit/Observation/Transfer Diagnosis at time of Disposition: AV graft malfunction Qualifiers: Encounter type: initial encounter Qualified Code(s): T82.590A - Other mechanical complication of surgically created arteriovenous fistula, initial encounter - Discharge Dispostion Condition at time of disposition: Guarded Decision to Admit order: Yes - Referrals Referrals: Chanda Schultz MD [Primary Care Provider] - - Patient Instructions - Post Discharge Activity
--- NOTE | 2018-10-29 12:36 | EKG ---
Test Reason : Blood Pressure : / mmHG Vent. Rate : 064 BPM Atrial Rate : 064 BPM P-R Int : 162 ms QRS Dur : 068 ms QT Int : 392 ms P-R-T Axes : 066 038 055 degrees QTc Int : 404 ms NORMAL SINUS RHYTHM NORMAL ECG Confirmed by MD TOMAS, DESEAN ([id number]) on 10/29/2018 12:35:51 PM Referred By: Confirmed By:DESEAN MARIN MD
--- NOTE | 2018-10-29 12:38 | PDOC ---
Documentation entered by Julissa Tai SCRIBE, acting as scribe for Maverick Tang MD. Maverick Tang MD: This documentation has been prepared by the Zaire vedre Amanda, SCRIBE, under my direction and personally reviewed by me in its entirety. I confirm that the documentation accurately reflects all work, treatment, procedures, and medical decision making performed by me. Attending Attestation - Resident Resident Name: Killian Martinez - HPI HPI: 10/29/18 10:27 The patient is a 68 year old female, with a significant past medical history of ESRD on HD //Sun with last Tx Sunday, recurrent clotted LUE AV graft, NIDDM , and HTN, who presents to the emergency department with clogged left upper extremity shunt sent from dialysis today. Did not have HD today. The patient denies chest pain, shortness of breath, headache and dizziness. The patient denies fever, chills, nausea, vomit, diarrhea and constipation. The patient denies dysuria, frequency, urgency and hematuria. Allergies: NKDA PCP - Dr. Chanda Schultz Vascular: Dr. Bandar Cuellar - Physicial Exam PE: 10/29/18 12:21 hypertensive, afebrile no acute respiratory distress fistula as noted - Medical Decision Making 10/29/18 12:22 68y/o F from dialysis with clotted fistula. EKG without acute changes labs vascular consult admit Heart Score/ECG Review #1 ECG reviewed & interpreted by me at: 11:45 General ECG Interpretation: Sinus Rhythm, Normal Rate (64), Normal Intervals ( qtc 404, isolated peak T V2), No acute ischemic changes
[2018-10-29 13:26] LABS: BASO % 0.9 % (0-2.0); EOS % 4.6 % (0-4.5); HEMATOCRIT 37.5 % (32.4-45.2); HEMOGLOBIN 11.9 GM/dL (10.7-15.3); LYMPH % 31.3 % (8-40); MCH 24.4 pg (25.7-33.7); MCHC 31.6 g/dl (32.0-36.0); MEAN CELL VOLUME 77.1 fl (80-96); MEAN PLT VOLUME 9.1 fl (7.5-11.1); MONO % 6.2 % (3.8-10.2); PLATELET COUNT 235 K/MM3 (134-434); RBC 4.87 M/mm3 (3.60-5.2); RDW 14.7 % (11.6-15.6); WHITE BLOOD COUNT 6.1 K/mm3 (4.0-10.0)
[2018-10-29 13:43] LABS: ALBUMIN 3.6 g/dl (3.4-5.0); ALK PHOS 63 U/L (45-117); ANION GAP 11 MMOL/L (8-16); BILIRUBIN,TOTAL 0.4 mg/dL (0.2-1); BLOOD UREA NITROGEN 83 mg/dL (7-18); CALCIUM 9.3 mg/dL (8.5-10.1); CHLORIDE 100 mmol/L (98-107); CO2 23 mmol/L (21-32); GLUCOSE,RANDOM 89 mg/dL (74-106); INR 1.01 (0.83-1.09); PROTHROMBIN TIME (PATIENT) 11.9 SEC (9.7-13.0); SGOT/AST 12 U/L (15-37); SGPT/ALT 12 U/L (13-61); SODIUM 133 mmol/L (136-145); TOT PROT 7.5 g/dl (6.4-8.2)
[2018-10-29] MEDS ORDERED: INSULIN REGULAR HUMAN 100 UNITS/ML *VIAL IVPUSH ONE (13:50)
[2018-10-29] MEDS ORDERED: ALBUTEROL SO4 0.083% IH SOL 2.5 MG/3 ML VIAL.NEB. NEB ONE ×2 (13:51→14:00)
[2018-10-29 14:05] LABS: CREATININE 11.8 mg/dL (0.55-1.3)
[2018-10-29] MEDS ORDERED: DEXTROSE 50%-WATER 25 GM/50 ML DISP.SYRIN ONE ×2 (14:12→14:57)
[2018-10-29] MEDS ORDERED: INSULIN REGULAR HUMAN 100 UNITS/ML *VIAL ONE (14:13)
[2018-10-29] MEDS: DEXTROSE 50%-WATER - 25 GM/50 ML VIAL IVPUSH PRN ×2 (14:18→16:00)
[2018-10-29] MEDS ORDERED: SODIUM POLYSTYRENE SULFONATE 15 GM/60 ML BOTTLE PO ONE (14:28)
[2018-10-29] MEDS ORDERED: SODIUM CHLORIDE 250 ML IV PRN (14:38)
--- NOTE | 2018-10-29 14:45 | CONSULT ---
Consult - text type - Consultation Consultation Note: Renal Consult for ESRD, AVG dysfunction This is a 68 year old woman with hx of ESRD on HD (TTS), Hypertension, DM2 who presented from outpatient HD unit with clotted AVG. Last dialysis was Sunday. No pain in access arm. No sob, cp, abd pain, N/V/D. K was noted to be 6 in the ER. Denies any leg swelling. PMhx: As above Allergies: NKDA Family Hx: NC Social Hx: No T/A/D ROS: as per HPI, all other pertinent ros negative Home Medications Medication Instructions Recorded Sitagliptin Phosphate [Januvia -] 25 mg PO DAILY@0700 #30 tab 10/26/16 Calcium Acetate 667 mg PO TID 01/16/17 Brimonidine Tartrate/Timolol 1 drop OU BID 08/28/17 [Combigan 0.2%-0.5% Eye Drops] Latanoprost 0.005% Eye Drops 1 drop OU BID 08/28/17 [Xalatan 0.005% Eye Drops -] Vital Signs Temperature 98.3 F 10/29/18 09:46 Pulse Rate 71 10/29/18 09:46 Respiratory Rate 16 10/29/18 09:46 Blood Pressure 175/63 H 10/29/18 09:46 O2 Sat by Pulse Oximetry (%) 99 10/29/18 09:46 Intake & Output 10/26/18 10/27/18 10/28/18 10/29/18 23:59 23:59 23:59 23:59 Weight 78.925 kg NAD awake and alert neck supple, no JVD RRR CTA No LE edema left arm AVG - no thrill or bruit CBC, BMP 10/29/18 12:56 10/29/18 12:56 Current Medications Dextrose (D50w (Vial) -) 25 gm IVPUSH PRN PRN PRN Reason: HYPOGLYCEMIA Last Admin: 10/29/18 14:18 Dose: 25 gm Sodium Chloride (Normal Saline -) 250 mls @ 3,000 mls/hr IV PRN PRN PRN Reason: Hypotension during Dialysis Stop: 10/30/18 14:38 68 year old woman with hx of ESRD on HD (TTS), Hypertension, DM2 who presented from outpatient HD unit with clotted AVG. #Clotted AVG #ESRD on HD #Hyperkalemia #HTN for vascualr surgery declott tomorrow morning EKG w/o changes related to hyperkalemia will give kayexalate 30g PO x 1 will arrange for dialysis tomorrow following OR procedure Renal diet NPO after midnight if BP remains high give CCB i.e. amlodipine Thank you David Schroeder DO
[2018-10-29] MEDS ORDERED: SODIUM POLYSTYRENE SULFONATE 15 GM/60 ML BOTTLE ONE (14:56)
--- NOTE | 2018-10-29 19:49 | HP ---
Admitting History and Physical - Primary Care Physician PCP: Chanda Schultz - Admission Chief Complaint: clotted AVF History of Present Illness: admitted for malfunction AVF no SOB She missed today's dialysis last dialysis was Sunday History Source: Patient Limitations to Obtaining History: No Limitations - Past Medical History Cardiovascular: Yes: HTN Renal/: Yes: Renal Failure - Smoking History Smoking history: Never smoked Have you smoked in the past 12 months: No Aproximately how many cigarettes per day: 0 - Alcohol/Substance Use Hx Alcohol Use: No Home Medications - Allergies Allergies/Adverse Reactions: Allergies Allergy/AdvReac Type Severity Reaction Status Date / Time No Known Allergies Allergy Verified 07/23/18 13:24 - Home Medications Home Medications: Ambulatory Orders Sitagliptin Phosphate [Januvia -] 25 mg PO DAILY@0700 #30 tab 10/26/16 Calcium Acetate 667 mg PO TID 01/16/17 Brimonidine Tartrate/Timolol [Combigan 0.2%-0.5% Eye Drops] 1 drop OU BID Latanoprost 0.005% Eye Drops [Xalatan 0.005% Eye Drops -] 1 drop OU BID Review of Systems - Review of Systems Constitutional: denies: Chills Cardiovascular: denies: Chest Pain, Edema, Palpitations, Shortness of Breath Physical Examination Vital Signs: Vital Signs Temperature 97.3 F L 10/29/18 17:42 Pulse Rate 56 L 10/29/18 17:42 Respiratory Rate 16 10/29/18 17:42 Blood Pressure 196/67 H 10/29/18 17:42 O2 Sat by Pulse Oximetry (%) 100 10/29/18 17:42 Constitutional: Yes: No Distress, Calm Cardiovascular: Yes: Regular Rate and Rhythm Respiratory: Yes: CTA Bilaterally Gastrointestinal: Yes: Normal Bowel Sounds, Soft. No: Tenderness Edema: No Labs: CBC, BMP 10/29/18 12:56 10/29/18 12:56 Imaging - Results EKG: Image Reviewed (NSR) Problem List - Problems (1) AV graft malfunction Code(s): T82.590A - [facility] COMPL OF SURGICALLY CREATED ARTERIOVENOUS FISTULA, INIT Qualifiers: Encounter type: initial encounter Qualified Code(s): T82.590A - Other mechanical complication of surgically created arteriovenous fistula, initial encounter (2) Diabetes Code(s): E11.9 - TYPE 2 DIABETES MELLITUS WITHOUT COMPLICATIONS (3) ESRD (end stage renal disease) Code(s): N18.6 - END STAGE RENAL DISEASE (4) ESRD (end stage renal disease) on dialysis Code(s): N18.6 - END STAGE RENAL DISEASE; Z99.2 - DEPENDENCE ON RENAL DIALYSIS (5) Hyperkalemia Code(s): E87.5 - HYPERKALEMIA Assessment/Plan PLAN Hyperkalemia medically managed Renal eval Vascular eval-- pt to go to OR tomorrow in AM and will get dialysis afterwards continue with meds not in volume overload
--- NOTE | 2018-10-29 20:27 | SPA.PREOP ---
- PRE-OP NOTE Dx: Clotted LUE AVG Planned Procedure: AVG declot Surgeon: Bandar Cuellar Last Vital Signs Temp Pulse Resp BP Pulse Ox 97.3 F L 56 L 16 196/67 H 100 10/29/18 17:42 10/29/18 17:42 10/29/18 17:42 10/29/18 17:42 10/29/18 17:42 Lab Results WBC 6.1 K/mm3 (4.0-10.0) 10/29/18 12:56 RBC 4.87 M/mm3 (3.60-5.2) 10/29/18 12:56 Hgb 11.9 GM/dL (10.7-15.3) 10/29/18 12:56 Hct 37.5 % (32.4-45.2) 10/29/18 12:56 MCV 77.1 fl (80-96) L 10/29/18 12:56 MCHC 31.6 g/dl (32.0-36.0) L 10/29/18 12:56 RDW 14.7 % (11.6-15.6) 10/29/18 12:56 Plt Count 235 K/MM3 (134-434) 10/29/18 12:56 Sodium 133 mmol/L (136-145) L 10/29/18 12:56 Potassium 6.0 mmol/L (3.5-5.1) H 10/29/18 12:56 Chloride 100 mmol/L (98-107) 10/29/18 12:56 Carbon Dioxide 23 mmol/L (21-32) 10/29/18 12:56 Anion Gap 11 MMOL/L (8-16) 10/29/18 12:56 BUN 83 mg/dL (7-18) H 10/29/18 12:56 Creatinine 11.8 mg/dL (0.55-1.3) H* 10/29/18 12:56 Random Glucose 89 mg/dL (74-106) 10/29/18 12:56 Calcium 9.3 mg/dL (8.5-10.1) 10/29/18 12:56 Blood Type O POSITIVE 10/29/18 12:56 Antibody Screen Negative 10/29/18 12:56 INR 1.01 (0.83-1.09) 10/29/18 12:56 - ASSESSMENT/PLAN 1. Make NPO after midnight except po meds 2. GI/DVT PPX 3. Medical optimization / clearance 4. Tight glycemic control 5. Consent to be obtained by surgeon after risks, benefits and alternatives discussed with patient and or Health Care Proxy. Problem List - Problems (1) AV fistula occlusion Code(s): T82.898A - [facility] COMPLICATION OF VASCULAR PROSTH DEV/GRFT, INIT Qualifiers: (2) Diabetes Code(s): E11.9 - TYPE 2 DIABETES MELLITUS WITHOUT COMPLICATIONS (3) ESRD (end stage renal disease) Code(s): N18.6 - END STAGE RENAL DISEASE Visit type - Case Type Case Type: ED Admission - Emergency Emergency Visit: Yes ED Registration Date: 10/29/18 Care time: The patient presented to the Emergency Department on the above date and was hospitalized for further evaluation of their emergent condition. - New patient This patient is new to me today: Yes Date on this admission: 10/29/18
[2018-10-29] MEDS ORDERED: LATANOPROST 0.005% OPHTH SOLN 2.5ML BOTTLE OU SCH (22:00)
[2018-10-29] MEDS ORDERED: PATIENT'S OWN MEDICATION (NON-FORMULARY) (Brimonidine Tartrate/Timolol [Combigan 0.2%-0.5% OU SCH (22:00)
[2018-10-30] MEDS ORDERED: IOHEXOL 300 MG/ML INFUS..BTL IV ONE ×2
[2018-10-30] MEDS ORDERED: LIDOCAINE HCL 1%, 10 MG/ML (20ML VIAL) NR ONE ×2
[2018-10-30] MEDS: BRIMONIDINE TARTRATE 0.2% OPHTHALMIC 5 ML BOTTLE OU SCH ×2 (00:05→17:32)
[2018-10-30] MEDS: TIMOLOL 0.5% OPHTHALMIC SOL 5 ML BOTTLE OU SCH ×2 (00:08→17:33)
[2018-10-30] MEDS ORDERED: sitaGLIPtin PHOSPHATE 25 MG TABLET (FP) PO SCH (07:00)
[2018-10-30] MEDS ORDERED: HEPARIN NA (PORCINE) 5,000 UNITS/ML 1ML VIAL ONE ×2 (07:14→08:21)
[2018-10-30] MEDS ORDERED: LIDOCAINE HCL 1%, 10 MG/ML (20ML VIAL) ONE (07:15)
[2018-10-30] MEDS ORDERED: MIDAZOLAM HCL 2 MG/2 ML SINGLE DOSE VIAL ONE ×2 (07:54→08:05)
[2018-10-30] MEDS ORDERED: ceFAZolin SODIUM 1 GM VIAL ONE (07:55)
[2018-10-30] MEDS ORDERED: ceFAZolin SODIUM 1 GM VIAL IVPB ONE (08:00)
--- NOTE | 2018-10-30 09:03 | OP ---
Operative Note - Note: Operative Date: 10/30/18 Pre-Operative Diagnosis: ESRD, clotted left avg Operation: venogram, suction thrombectomy, venoplasty left avg Post-Operative Diagnosis: Same as Pre-op Surgeon: Bandar Cuellar Anesthesia: Fractional Estimated Blood Loss (mls): 30 Operative Report Dictated: Yes
[2018-10-30] MEDS ORDERED: ONDANSETRON 4 MG/2 ML VIAL IVPUSH PRN (09:38)
--- NOTE | 2018-10-30 11:35 | DS ---
Physical Examination Vital Signs: Vital Signs Temperature 98.0 F 10/30/18 10:00 Pulse Rate 74 10/30/18 10:00 Respiratory Rate 18 10/30/18 10:00 Blood Pressure 181/67 H 10/30/18 10:00 O2 Sat by Pulse Oximetry (%) 100 10/30/18 09:45 Constitutional: Yes: No Distress, Calm Cardiovascular: Yes: Regular Rate and Rhythm Respiratory: Yes: CTA Bilaterally Gastrointestinal: Yes: Normal Bowel Sounds, Soft. No: Tenderness Edema: No Labs: CBC, BMP 10/29/18 12:56 10/29/18 12:56 Discharge Summary Reason For Visit: MALFUNCTION OF ARTERIOVENOUS GRAFT Current Active Problems AV graft malfunction (Acute) Hyperkalemia (Acute) Hospital Course: Admitted for malfunction AVF Hyperkalemia No SOB She had declotting done today in AM by Vascular Hyperkalemia medically managed by Renal Dialysis today Stable for dc home after dialysis Condition: Improved - Instructions Disposition: HOME - Home Medications Comprehensive Discharge Medication List: Ambulatory Orders Sitagliptin Phosphate [Januvia -] 25 mg PO DAILY@0700 #30 tab 10/26/16 Calcium Acetate 667 mg PO TID 01/16/17 Brimonidine Tartrate/Timolol [Combigan 0.2%-0.5% Eye Drops] 1 drop OU BID Latanoprost 0.005% Eye Drops [Xalatan 0.005% Eye Drops -] 1 drop OU HS 08/28/17
[2018-10-30 15:28] LABS: ANION GAP 13 MMOL/L (8-16); BLOOD UREA NITROGEN 90 mg/dL (7-18); CALCIUM 8.5 mg/dL (8.5-10.1); CHLORIDE 102 mmol/L (98-107); CO2 19 mmol/L (21-32); GLUCOSE,RANDOM 128 mg/dL (74-106); POTASSIUM 4.9 mmol/L (3.5-5.1); SODIUM 134 mmol/L (136-145)
[2018-10-30 15:36] LABS: CREATININE 13.1 mg/dL (0.55-1.3)
--- NOTE | 2018-10-30 15:52 | PN ---
Progress Note (short form) - Note Progress Note: Renal follow up for ESRD with dialysis access dysfunction Pt seen and examined at the bedside no acute complaints s/p vascular intervention this am no sob, cp, abd pain, N/V/D Vital Signs Temperature 98.0 F 10/30/18 14:26 Pulse Rate 75 10/30/18 15:15 Respiratory Rate 18 10/30/18 15:15 Blood Pressure 168/67 10/30/18 15:15 O2 Sat by Pulse Oximetry (%) 100 10/30/18 09:45 Intake & Output 10/27/18 10/28/18 10/29/18 10/30/18 23:59 23:59 23:59 23:59 Intake Total 400 Output Total 30 Balance 370 Weight 78.925 kg NAD awake and alert neck supple, no JVD RRR CTA No LE edema left arm AVG - no thrill or bruit CBC, BMP 10/29/18 12:56 10/30/18 14:20 Current Medications Brimonidine Tartrate (Alphagan 0.2% -) 1 drop OU BID ZANA Last Admin: 10/30/18 00:05 Dose: 1 drop Calcium Acetate (Phoslo -) 667 mg PO TIDCM ZANA Sodium Chloride (Normal Saline -) 250 mls @ 3,000 mls/hr IV PRN PRN PRN Reason: Hypotension during Dialysis Stop: 10/30/18 14:38 Insulin Aspart (Novolog Vial Sliding Scale -) 1 vial SQ BIDAC ZANA; Protocol Latanoprost (Xalatan 0.005% Eye Drops -) 1 drop OU HS ZANA Last Admin: 10/30/18 00:09 Dose: 1 drop Ondansetron HCl (Zofran Injection) 4 mg IVPUSH Q6H PRN PRN Reason: NAUSEA AND/OR VOMITING Sitagliptin Phosphate (Januvia -) 25 mg PO DAILY@0700 ZANA Timolol Maleate (Timoptic 0.5%) 1 drop OU BID ZANA Last Admin: 10/30/18 00:08 Dose: 1 drop 68 year old woman with hx of ESRD on HD (TTS), Hypertension, DM2 who presented from outpatient HD unit with clotted AVG. #Clotted AVG #ESRD on HD #Hyperkalemia #HTN s/p vascular intervention for HD today as inpatient and then discharge home can resume outpatient dialysis tomorrow Thank you David Schroeder DO
--- NOTE | 2018-10-30 15:57 | OP ---
DATE OF OPERATION: 10/30/2018 PREOPERATIVE DIAGNOSIS: Clotted left arteriovenous graft. POSTOPERATIVE DIAGNOSIS: Clotted left arteriovenous graft. PROCEDURE: Venogram, suction thrombectomy, venoplasty left arteriovenous graft. SURGEON: Bandar Galeano DO ANESTHESIA: Fractional. BLOOD LOSS: 30 mL The patient is a 68-year-old female that comes from the dialysis unit with a clotted left AV graft. It was decided that she would need a venogram. Patient was consented for the procedure understanding all risks, benefits and alternatives, then taken to the operating room. Once in the operative suite, laid on the operating table in the supine manner and the area of the left arm was prepped and draped in a sterile surgical manner. We then went ahead and injected 10 mL of lidocaine 1% over the proximal AV fistula above the anastomosis. We took our micropuncture needle, punctured the graft. Micropuncture wire was inserted, micropuncture sheath was inserted, and a short 6-Japanese sheath was inserted. We then shot a venogram showing that the graft was clotted. We then placed a 0.035 floppy guidewire up into the central veins and using an AVX suction thrombectomy catheter we performed suction thrombectomy of the entire graft and into the central vein. We then shot a completion venogram showing that the graft was now patent all the way up to the central veins, but the distal graft and the outflow veins were stenotic. Patient was then administered 3000 units of IV heparin. We then used an 8 x 8 [place] balloon and performed venoplasty of the entire outflow veins and the graft. We then went ahead and went to the distal AV graft. Five mL of lidocaine 1% were injected there and we took our micropuncture needle, punctured the graft and a short 6-Japanese sheath was placed. We then went ahead and placed 0.035 floppy guidewire through the proximal AV graft and across the anastomosis. We used an AVX suction thrombectomy catheter and performed suction thrombectomy of the proximal AV graft. We then shot a venogram showing that the proximal AV graft was stenotic. We used a 7 x 6 [place] balloon and performed venoplasty of the proximal AV graft. Once that was done there was a good thrill in her AV graft and at this point we shot a completion venogram showing that the graft was patent all the way up to the central veins. At this point we used a 4-0 Biosyn stitch and a [id number] stitch was placed around sheath and the sheaths were pulled. Areas were wet and dried and Dermabond was placed. The patient tolerated the procedure with no complications. Patient transferred to PACU in stable condition. BANDAR GALEANO DO NP/[id number]
[2018-10-30 17:03] VITALS: BP 131/69; PULSE 72
[2018-10-30] MEDS: INSULIN SLIDING SCALE (NOVOLOG) 1 VIAL SQ SCH ×2 (17:31→17:32)
[2018-10-30 19:37] VITALS: TEMP 98.1; BMI 30.8
[2018-10-30] MEDS ORDERED: CALCIUM ACETATE 667 MG CAPSULE (FP) PO SCH (21:00)
[2018-11-01 12:20] LABS: HBSAG SCREEN Negative (Negative); HEP A AB, IGM Negative (Negative); HEP B CORE AB, TOT Negative (Negative)
== END 2018-10-30 18:49 | disposition home or self-care (01) | DRG 252 ==
LOC: JER 09:39 → JERBED 14:38 → OBSVTOIN 10-30 09:06 → J5S 10-30 10:41
PROVIDERS: ADMIT Internal Medicine; ATTEND Internal Medicine
PROC: 057Y3ZZ Dilation of Upper Vein, Percutaneous Approach (ICD-10-PCS; 2018-10-30)
PROC: B51WYZZ Fluoroscopy of Dialysis Shunt/Fistula using Other Contrast (ICD-10-PCS; 2018-10-30)
PROC: 3E033GC Introduction of Other Therapeutic Substance into Peripheral Vein, Percutaneous Approach (ICD-10-PCS; 2018-10-30)
PROC: 5A1D70Z Performance of Urinary Filtration, Intermittent, Less than 6 Hours Per Day (ICD-10-PCS; 2018-10-30)
PROC: 05CY3ZZ Extirpation of Matter from Upper Vein, Percutaneous Approach (ICD-10-PCS; principal; 2018-10-30 07:30)
DX: T82.590A Other mechanical complication of surgically created arteriovenous fistula, initial encounter (principal); N18.6 End stage renal disease; I12.0 Hypertensive chronic kidney disease with stage 5 chronic kidney disease or end stage renal disease; E11.22 Type 2 diabetes mellitus with diabetic chronic kidney disease; Z99.2 Dependence on renal dialysis; H40.9 Unspecified glaucoma; Z79.84 Long term (current) use of oral hypoglycemic drugs; Y83.8 Other surgical procedures as the cause of abnormal reaction of the patient, or of later complication, without mention of misadventure at the time of the procedure; E87.5 Hyperkalemia
CPT/HCPCS: 36415; 76000-TC-FY; 80048; 80053; 82962; 85025; 85610; 86704; 86706; 86708; 86803; 86850; 86900; 86901; 87340; 93005; 93010; 94760; 99284-25; G0378; J1644

== ENCOUNTER 2019-01-11 10:02 | Emergency (ER) | payer OTHER ==
[2019-01-11 10:11] VITALS: TEMP 98; BMI 31.1
--- NOTE | 2019-01-11 10:33 | PDOC ---
History of Present Illness - General Chief Complaint: Dialysis Shunt Problem Stated Complaint: SENT BY PCP/LAB WORK Time Seen by Provider: 01/11/19 10:33 - History of Present Illness Initial Comments: Mary Knapp is a 68 yo f w a hx of HTN, ESRD on dialysis TuThSa, NIDDM, and glaucoma PCP: Chanda Schultz Vascular: Dr. Cuellar Social Hx: Denies smoking, drinking, or other substance usage Allergies: NKA, NKDA PSH: Left AV graft Past History - Past Medical History Allergies/Adverse Reactions: Allergies Allergy/AdvReac Type Severity Reaction Status Date / Time No Known Allergies Allergy Verified 01/11/19 10:10 Home Medications: Ambulatory Orders Sitagliptin Phosphate [Januvia -] 25 mg PO DAILY@0700 #30 tab 10/26/16 Calcium Acetate 667 mg PO TID 01/16/17 Brimonidine Tartrate/Timolol [Combigan 0.2%-0.5% Eye Drops] 1 drop OU BID Latanoprost 0.005% Eye Drops [Xalatan 0.005% Eye Drops -] 1 drop OU HS 08/28/17 Anemia: Yes Asthma: No Cancer: No Cardiac Disorders: No CVA: No COPD: No CHF: No DVT: No Dementia: No Diabetes: Yes Dialysis: Yes (tues, thurs, sat) GI Disorders: No Disorders: No HTN: Yes Hypercholesterolemia: Yes Liver Disease: No Seizures: No Thyroid Disease: No - Surgical History Abdominal Surgery: No Appendectomy: No Cardiac Surgery: No Cholecystectomy: No Lung Surgery: No Neurologic Surgery: No Orthopedic Surgery: No - Immunization History Td Vaccination: Yes Immunization Up to Date: Yes - Suicide/Smoking/Psychosocial Hx Smoking Status: No Smoking History: Never smoked Have you smoked in the past 12 months: No Number of Cigarettes Smoked Daily: 0 Hx Alcohol Use: No Drug/Substance Use Hx: No Substance Use Type: None Hx Substance Use Treatment: No *Physical Exam - Vital Signs Last Vital Signs Temp Pulse Resp BP Pulse Ox 98 F 75 18 158/64 99 01/11/19 10:07 01/11/19 10:07 01/11/19 10:07 01/11/19 10:07 01/11/19 10:07
--- NOTE | 2019-01-11 10:50 | PDOC ---
History of Present Illness - General Chief Complaint: Dialysis Shunt Problem Stated Complaint: SENT BY PCP/LAB WORK Time Seen by Provider: 01/11/19 10:33 - History of Present Illness Initial Comments: 01/11/19 10:50 CHIEF COMPLAINT: Fistula not working HISTORY OF PRESENT ILLNESS: This is a 68-year-old female with a ESRD on HD Tue/ [facility]/Sat at [facility], HTN, and NIDDM referred from dialysis today for non- functioning Av graft. The patient has had this problem several times before and last underwent suction thrombectomy with Dr. Cuellar on 11/04/18. She has not missed any HD treatments before today and denies any symptoms including SOB, chest pain, and edema. Vital signs on arrival are notable for BP 158/64. PCP is Dr. Schultz Commodity Lead is Dr. Covarrubias REVIEW OF SYSTEMS: GENERAL/CONSTITUTIONAL: No fever or chills. No weakness. No weight change. HEAD, EYES, EARS, NOSE AND THROAT: No change in vision. No ear pain or discharge. No sore throat. CARDIOVASCULAR: No chest pain or palpitations. RESPIRATORY: No cough, wheezing, or shortness of breath. GASTROINTESTINAL: No nausea, vomiting, diarrhea or constipation. GENITOURINARY: No dysuria, frequency, or change in urination. MUSCULOSKELETAL: No joint or muscle swelling or pain. No neck or back pain. SKIN: No rash or easy bruising. NEUROLOGIC: No headache, vertigo, loss of consciousness, or loss of sensation. PSYCHIATRIC: No depression or anxiety. ENDOCRINE: No increased thirst. No abnormal weight change. HEMATOLOGIC/LYMPHATIC: No anemia, easy bleeding, or history of blood clots. ALLERGIC/IMMUNOLOGIC: No hives or skin allergy. No latex allergy. PHYSICAL EXAM: GENERAL: The patient is awake, alert, and fully oriented, in no acute distress. HEAD: Normal with no signs of trauma. ENT: Pupils equal, round and reactive to light, extraocular movements intact, sclera anicteric, conjunctiva clear. Neck supple. LUNGS: Clear to auscultation bilaterally. Normal excursion. No respiratory distress or use of accessory muscles. CV: RRR, S1/S2, no MRG. Cap refill < 2 sec. ABDOMEN: Soft, non-distended, non-tender. EXTREMITIES: Normal range of motion, no edema. LUE fistula without thrill or bruit. NEUROLOGICAL: Normal speech, normal gait. CN II-XII grossly intact. PSYCH: Normal mood, normal affect. SKIN: Warm, dry, normal turgor, no rashes or lesions noted. Past History - Past Medical History Allergies/Adverse Reactions: Allergies Allergy/AdvReac Type Severity Reaction Status Date / Time No Known Allergies Allergy Verified 01/11/19 10:10 Home Medications: Ambulatory Orders Sitagliptin Phosphate [Januvia -] 25 mg PO DAILY@0700 #30 tab 10/26/16 Calcium Acetate 667 mg PO TID 01/16/17 Brimonidine Tartrate/Timolol [Combigan 0.2%-0.5% Eye Drops] 1 drop OU BID Latanoprost 0.005% Eye Drops [Xalatan 0.005% Eye Drops -] 1 drop OU HS 08/28/17 Anemia: Yes Asthma: No Cancer: No Cardiac Disorders: No CVA: No COPD: No CHF: No DVT: No Dementia: No Diabetes: Yes Dialysis: Yes (tues, thurs, sat) GI Disorders: No Disorders: No HTN: Yes Hypercholesterolemia: Yes Liver Disease: No Seizures: No Thyroid Disease: No - Surgical History Abdominal Surgery: No Appendectomy: No Cardiac Surgery: No Cholecystectomy: No Lung Surgery: No Neurologic Surgery: No Orthopedic Surgery: No - Immunization History Td Vaccination: Yes Immunization Up to Date: Yes - Suicide/Smoking/Psychosocial Hx Smoking Status: No Smoking History: Never smoked Have you smoked in the past 12 months: No Number of Cigarettes Smoked Daily: 0 Hx Alcohol Use: No Drug/Substance Use Hx: No Substance Use Type: None Hx Substance Use Treatment: No *Physical Exam - Vital Signs Last Vital Signs Temp Pulse Resp BP Pulse Ox 98 F 75 18 158/64 99 01/11/19 10:07 01/11/19 10:07 01/11/19 10:07 01/11/19 10:07 01/11/19 10:07 ED Treatment Course - LABORATORY CBC & Chemistry Diagram: 01/11/19 11:15 01/11/19 12:41 Medical Decision Making - Medical Decision Making 01/11/19 11:04 A/P: 68-year-old female with non-function LUE HD fistula. -Pre-op labs -EKG, CXR -Consult nephrology, vascular surgery 01/11/19 12:[address] Carreno covering for Dr. Covarrubias. Discussed with Dr. Cuellar who is away and being covered by Dr. Sosa. 01/11/19 13:37 K 5.7 01/11/19 14:02 Patient seen and examined by Dr. Sosa in ED. Will take to OR at 9am tomorrow. PCP Dr. Schultz's service paged and awaiting callback. Kayexelate given. Instructions reviewed with patient. *DC/Admit/Observation/Transfer Diagnosis at time of Disposition: AV graft malfunction, Hyperkalemia - Discharge Dispostion Disposition: HOME Condition at time of disposition: Stable Decision to Admit order: Yes - Referrals Referrals: Chanda Schultz MD [Primary Care Provider] - - Patient Instructions Printed Discharge Instructions: Hemodialysis Diet, DI for Arteriovenous Fistula for Dialysis Additional Instructions: -Return to the ED tomorrow at 6am for surgery -Do not eat or drink anything after midnight - Post Discharge Activity
--- NOTE | 2019-01-11 11:42 | PDOC ---
*Physical Exam - Vital Signs Last Vital Signs Temp Pulse Resp BP Pulse Ox 98 F 75 18 158/64 99 01/11/19 10:07 01/11/19 10:07 01/11/19 10:07 01/11/19 10:07 01/11/19 10:07 ED Treatment Course - LABORATORY CBC & Chemistry Diagram: 01/11/19 11:15 01/11/19 12:41 Medical Decision Making - Medical Decision Making 01/11/19 11:41 Pt seen by Midlevel Provider Agree with plan per IMPROVEMENT INTERN Katerine Pt interviewed and examined Ancillary studies reviewed I agree with plan as outlined by Midlevel Provider 01/11/19 11:42 EKG - Twelve-lead EKG was performed and reviewed by me. There is normal sinus rhythm with a normal rate of 72 bpm. The axis is normal. The intervals are normal. There are no ST or T wave abnormalities. Impression: Normal twelve-lead EKG *DC/Admit/Observation/Transfer Diagnosis at time of Disposition: AV graft malfunction, Hyperkalemia - Discharge Dispostion Disposition: HOME Condition at time of disposition: Stable - Referrals Referrals: Chanda Schultz MD [Primary Care Provider] - - Patient Instructions Printed Discharge Instructions: Hemodialysis Diet, DI for Arteriovenous Fistula for Dialysis Additional Instructions: -Return to the ED tomorrow at 6am for surgery -Do not eat or drink anything after midnight - Post Discharge Activity
[2019-01-11 11:44] LABS: INR 0.94 (0.83-1.09); PROTHROMBIN TIME (PATIENT) 11.1 SEC (9.7-13.0)
[2019-01-11 11:50] LABS: EOS % 7.2 % (0-4.5); HEMATOCRIT 36.8 % (32.4-45.2); HEMOGLOBIN 11.6 GM/dL (10.7-15.3); LYMPH % 28.3 % (8-40); MCH 24.4 pg (25.7-33.7); MCHC 31.6 g/dl (32.0-36.0); MEAN CELL VOLUME 77.1 fl (80-96); MEAN PLT VOLUME 8.9 fl (7.5-11.1); NEUT % 57.5 % (42.8-82.8); RBC 4.77 M/mm3 (3.60-5.2); RDW 15.9 % (11.6-15.6)
[2019-01-11 12:27] LABS: PLATELET COUNT 250 K/MM3 (134-434)
[2019-01-11 13:31] LABS: ALBUMIN 3.7 g/dl (3.4-5.0); BILIRUBIN,TOTAL 0.3 mg/dL (0.2-1); BLOOD UREA NITROGEN 55.5 mg/dL (7-18); CALCIUM 9.2 mg/dL (8.5-10.1); POTASSIUM 5.7 mmol/L (3.5-5.1); TOT PROT 7.5 g/dl (6.4-8.2)
[2019-01-11 13:34] LABS: CREATININE 11.6 mg/dL (0.55-1.3)
[2019-01-11] MEDS ORDERED: SODIUM POLYSTYRENE SULFONATE 15 GM/60 ML BOTTLE PO ONE (14:02)
--- NOTE | 2019-01-11 14:07 | PDOC ---
ED Treatment Course - LABORATORY CBC & Chemistry Diagram: 01/11/19 11:15 01/11/19 12:41 - ADDITIONAL ORDERS Additional order review: Laboratory Results 01/11/19 01/11/19 01/11/19 12:41 11:15 11:15 PT with INR 11.10 INR 0.94 Sodium 136 Potassium 5.7 H Chloride 103 Carbon Dioxide 24 Anion Gap 8 BUN 55.5 H Creatinine 11.6 H* Est GFR (CKD-EPI)AfAm 3.44 Est GFR (CKD-EPI)NonAf 2.97 Random Glucose 107 H Calcium 9.2 Total Bilirubin 0.3 AST 10 L ALT 12 L Alkaline Phosphatase 56 Total Protein 7.5 Albumin 3.7 Blood Type O POSITIVE Antibody Screen Negative 01/11/19 11:15 PT with INR INR Sodium Cancelled Potassium Cancelled Chloride Cancelled Carbon Dioxide Cancelled Anion Gap Cancelled BUN Cancelled Creatinine Cancelled Est GFR (CKD-EPI)AfAm Cancelled Est GFR (CKD-EPI)NonAf Cancelled Random Glucose Cancelled Calcium Cancelled Total Bilirubin Cancelled AST Cancelled ALT Cancelled Alkaline Phosphatase Cancelled Total Protein Cancelled Albumin Cancelled Blood Type Antibody Screen 01/11/19 11:15 RBC 4.77 MCV 77.1 L MCHC 31.6 L RDW 15.9 H MPV 8.9 Neutrophils % 57.5 Lymphocytes % 28.3 Monocytes % 6.0 Eosinophils % 7.2 H Basophils % 1.0 - RADIOLOGY Radiology Studies Ordered: Category Date Time Status CHEST PA & LAT [RAD] Stat Radiology 01/11/19 10:51 Completed *DC/Admit/Observation/Transfer Diagnosis at time of Disposition: AV graft malfunction, Hyperkalemia - Discharge Dispostion Disposition: HOME Condition at time of disposition: Stable - Referrals Referrals: Chanda Schultz MD [Primary Care Provider] - - Patient Instructions Printed Discharge Instructions: DI for Arteriovenous Fistula for Dialysis, Hemodialysis Diet Additional Instructions: -Return to the ED tomorrow at 6am for surgery -Do not eat or drink anything after midnight - Post Discharge Activity
[2019-01-11] MEDS ORDERED: SODIUM POLYSTYRENE SULFONATE 15 GM/60 ML BOTTLE ONE (14:13)
[2019-01-11 14:21] VITALS: BP 147/82; PULSE 79
--- NOTE | 2019-01-12 13:10 | EKG ---
Test Reason : Blood Pressure : / mmHG Vent. Rate : 072 BPM Atrial Rate : 072 BPM P-R Int : 162 ms QRS Dur : 068 ms QT Int : 364 ms P-R-T Axes : 056 026 051 degrees QTc Int : 398 ms NORMAL SINUS RHYTHM NORMAL ECG WHEN COMPARED WITH ECG OF 29-OCT-2018 11:45, NO SIGNIFICANT CHANGE WAS FOUND Confirmed by MD DAISY, JACEK ([id number]) on 01/12/2019 1:10:37 PM Referred By: Confirmed By:JACEK VILLA MD
== END 2019-01-11 14:21 | disposition home or self-care (01) ==
LOC: JER 10:02 → UNDOADMIN 13:42 → JERBED 13:42 → JER 14:21
DX: T82.590A Other mechanical complication of surgically created arteriovenous fistula, initial encounter (principal); E87.5 Hyperkalemia; I12.0 Hypertensive chronic kidney disease with stage 5 chronic kidney disease or end stage renal disease; E11.22 Type 2 diabetes mellitus with diabetic chronic kidney disease; N18.6 End stage renal disease; N17.8 Other acute kidney failure; Z99.2 Dependence on renal dialysis; Z79.84 Long term (current) use of oral hypoglycemic drugs; D64.9 Anemia, unspecified; E78.00 Pure hypercholesterolemia, unspecified; E78.5 Hyperlipidemia, unspecified
CPT/HCPCS: 36415; 71046-TC-FY; 80053; 85025; 85610; 86850; 86900; 86901; 93005; 93010; 99282-25

== ENCOUNTER 2019-01-12 06:57 | Inpatient (IN) | payer OTHER ==
[2019-01-12 07:03] VITALS: BMI 34.9
--- NOTE | 2019-01-12 07:15 | PDOC ---
History of Present Illness - General Chief Complaint: Dialysis Shunt Problem Stated Complaint: SENT BY Time Seen by Provider: 01/12/19 07:14 History Source: Patient, Old Records Exam Limitations: No Limitations - History of Present Illness Initial Comments: 01/12/19 07:21 CHIEF COMPLAINT: AV graft malfunction HISTORY OF PRESENT ILLNESS: This is a 68-year-old female with a ESRD on HD Tue/ [facility]/Sat at [facility], HTN, and NIDDM referred from dialysis yesterday for non- functioning Av graft. The patient has had this problem several times before and last underwent suction thrombectomy with Dr. Cuellar on 11/04/18. She has not missed any HD treatments before today and denies any symptoms including SOB, chest pain, and edema. She was evaluated by covering vascular surgeon Dr. Sosa in the ED yesterday and scheduled for surgery this morning. She was treated with Kayexalate yesterday for K 5.7. Vital signs on arrival are notable for BP 178/61. PCP [address] Schultz [place] Worker is Dr. Covarrubias REVIEW OF SYSTEMS: GENERAL/CONSTITUTIONAL: No fever or chills. No weakness. No weight change. HEAD, EYES, EARS, NOSE AND THROAT: No change in vision. No ear pain or discharge. No sore throat. CARDIOVASCULAR: No chest pain or palpitations. RESPIRATORY: No cough, wheezing, or shortness of breath. GASTROINTESTINAL: No nausea, vomiting, diarrhea or constipation. GENITOURINARY: No dysuria, frequency, or change in urination. MUSCULOSKELETAL: No joint or muscle swelling or pain. No neck or back pain. SKIN: No rash or easy bruising. NEUROLOGIC: No headache, vertigo, loss of consciousness, or loss of sensation. PSYCHIATRIC: No depression or anxiety. ENDOCRINE: No increased thirst. No abnormal weight change. HEMATOLOGIC/LYMPHATIC: No anemia, easy bleeding, or history of blood clots. ALLERGIC/IMMUNOLOGIC: No hives or skin allergy. No latex allergy. PHYSICAL EXAM: GENERAL: The patient is awake, alert, and fully oriented, in no acute distress. HEAD: Normal with no signs of trauma. ENT: Pupils equal, round and reactive to light, extraocular movements intact, sclera anicteric, conjunctiva clear. Neck supple. LUNGS: Clear to auscultation bilaterally. Normal excursion. No respiratory distress or use of accessory muscles. CV: RRR, S1/S2, grade III systolic murmur. Cap refill < 2 sec. ABDOMEN: Soft, non-distended, non-tender. EXTREMITIES: Normal range of motion, no edema. LUE fistula without thrill or bruit. NEUROLOGICAL: Normal speech, normal gait. CN II-XII grossly intact. PSYCH: Normal mood, normal affect. SKIN: Warm, dry, normal turgor, no rashes or lesions noted. Past History - Past Medical History Allergies/Adverse Reactions: Allergies Allergy/AdvReac Type Severity Reaction Status Date / Time No Known Allergies Allergy Verified 01/11/19 10:10 Home Medications: Ambulatory Orders Sitagliptin Phosphate [Januvia -] 25 mg PO DAILY@0700 #30 tab 10/26/16 Calcium Acetate 667 mg PO TID 01/16/17 Brimonidine Tartrate/Timolol [Combigan 0.2%-0.5% Eye Drops] 1 drop OU BID Latanoprost 0.005% Eye Drops [Xalatan 0.005% Eye Drops -] 1 drop OU HS 08/28/17 Anemia: Yes Asthma: No Cancer: No Cardiac Disorders: No CVA: No COPD: No CHF: No DVT: No Dementia: No Diabetes: Yes Dialysis: Yes (tues, th, sat) GI Disorders: No Disorders: No HTN: Yes Hypercholesterolemia: Yes Liver Disease: No Seizures: No Thyroid Disease: No - Surgical History Abdominal Surgery: No Appendectomy: No Cardiac Surgery: No Cholecystectomy: No Lung Surgery: No Neurologic Surgery: No Orthopedic Surgery: No - Immunization History Td Vaccination: Yes Immunization Up to Date: Yes - Suicide/Smoking/Psychosocial Hx Smoking Status: No Smoking History: Never smoked Have you smoked in the past 12 months: No Number of Cigarettes Smoked Daily: 0 Information on smoking cessation initiated: No Hx Alcohol Use: No Drug/Substance Use Hx: No Substance Use Type: None Hx Substance Use Treatment: No *Physical Exam - Vital Signs Last Vital Signs Temp Pulse Resp BP Pulse Ox 98.2 F 73 18 178/61 H 98 01/12/19 06:58 01/12/19 06:58 01/12/19 06:58 01/12/19 06:58 01/12/19 06:58 Heart Score/ECG Review - ECG Intrepretation Comment:: 01/12/19 07:36 NSR 76bpm ED Treatment Course - LABORATORY CBC & Chemistry Diagram: 01/12/19 14:06 01/12/19 07:38 Medical Decision Making - Medical Decision Making 01/12/19 07:24 A/P: 68-year-old female with nonfunctioning AV graft, one missed HD treatment. -EKG -Preop labs -Scheduled for surgery at 9 AM today, then admit to dialysis bed -Dr. Schultz service notified (we discussed the patient and plan 01/11) *DC/Admit/Observation/Transfer Diagnosis at time of Disposition: AV graft malfunction - Discharge Dispostion Condition at time of disposition: Guarded Decision to Admit order: Yes - Referrals - Patient Instructions - Post Discharge Activity
[2019-01-12 07:52] LABS: EOS % 7.3 % (0-4.5); HEMATOCRIT 36.7 % (32.4-45.2); HEMOGLOBIN 11.3 GM/dL (10.7-15.3); LYMPH % 21.2 % (8-40); MCHC 30.9 g/dl (32.0-36.0); MEAN CELL VOLUME 77.7 fl (80-96); MEAN PLT VOLUME 8.5 fl (7.5-11.1); MONO % 7.3 % (3.8-10.2); NEUT % 63.2 % (42.8-82.8); PLATELET COUNT 212 K/MM3 (134-434); RBC 4.73 M/mm3 (3.60-5.2); RDW 15.7 % (11.6-15.6); WHITE BLOOD COUNT 6.3 K/mm3 (4.0-10.0)
[2019-01-12 08:25] LABS: ALBUMIN 3.5 g/dl (3.4-5.0); BILIRUBIN,TOTAL 0.4 mg/dL (0.2-1); BLOOD UREA NITROGEN 65.7 mg/dL (7-18); CALCIUM 9.1 mg/dL (8.5-10.1); POTASSIUM 5.6 mmol/L (3.5-5.1); TOT PROT 6.8 g/dl (6.4-8.2)
[2019-01-12 08:30] LABS: INR 0.94 (0.83-1.09); PROTHROMBIN TIME (PATIENT) 11.1 SEC (9.7-13.0)
[2019-01-12 08:50] LABS: CREATININE 12.6 mg/dL (0.55-1.3)
--- NOTE | 2019-01-12 09:19 | HP ---
[facility] [place] - Past Medical History Allergies/Adverse Reactions: Allergies Allergy/AdvReac Type Severity Reaction Status Date / Time No Known Allergies Allergy Verified 01/11/19 10:10 Cardiovascular: Yes: HTN Renal/: Yes: Renal Failure - Current Medications Current Medications: Home Medications Medication Instructions Recorded Sitagliptin Phosphate [Januvia -] 25 mg PO DAILY@0700 #30 tab 10/26/16 Calcium Acetate 667 mg PO TID 01/16/17 Brimonidine Tartrate/Timolol 1 drop OU BID 08/28/17 [Combigan 0.2%-0.5% Eye Drops] Latanoprost 0.005% Eye Drops 1 drop OU HS 08/28/17 [Xalatan 0.005% Eye Drops -] Satellite Physical Exam - Physical Examination Vital Signs: Vital Signs Period Temp Pulse Resp BP Sys/Rolle Pulse Ox Last 24 Hr 98.2 F 73 18 178/61 98
[2019-01-12] MEDS ORDERED: PROMETHAZINE HCL 25 MG/1 ML VIAL IVPUSH PRN ×2 (09:28→12:14)
[2019-01-12] MEDS ORDERED: oxyCODONE HCL 5 MG TABLET PO PRN ×2 (09:28→12:14)
[2019-01-12] MEDS ORDERED: ONDANSETRON 4 MG/2 ML VIAL IVPUSH PRN ×2 (09:28→12:14)
[2019-01-12] MEDS ORDERED: LIDOCAINE HCL 1%, 10 MG/ML (20ML VIAL) ONE (09:37)
[2019-01-12] MEDS ORDERED: HEPARIN NA (PORCINE) 5,000 UNITS/ML 1ML VIAL ONE ×2 (09:38→11:29)
[2019-01-12] MEDS ORDERED: MIDAZOLAM HCL 2 MG/2 ML SINGLE DOSE VIAL ONE ×2 (09:49→10:21)
[2019-01-12] MEDS ORDERED: ceFAZolin SODIUM 1 GM VIAL ONE (09:49)
[2019-01-12] MEDS ORDERED: PROPOFOL 20 ML ONE (09:49)
[2019-01-12] MEDS ORDERED: PATIENT'S OWN MEDICATION (NON-FORMULARY) (Brimonidine Tartrate/Timolol [Combigan 0.2%-0.5% OU SCH (10:00)
[2019-01-12] MEDS ORDERED: LIDOCAINE HCL/PF 2% SDV 5ML VIAL ONE (10:31)
[2019-01-12] MEDS ORDERED: POVIDONE-IODINE OINTMENT 10% - 28.4 GM TUBE ONE (11:08)
--- NOTE | 2019-01-12 11:20 | CONSULT ---
Consult - text type - Consultation Consultation Note: 68 year old woman with ESRD on HD via a left arm AV graft placed January 2017. She has required multiple thrombectomy procedures every 2-3 months. She had dialysis without incident but was thrombosed yesterday. PMH reviewed. Left upper arm graft without pulse Brachial pulse 2+ Imp: Thrombosed AV graft, possible hypercoagulable syndrome Plan: Open thrombectomy, venogram.
--- NOTE | 2019-01-12 11:20 | OP ---
Operative Note - Note: Operative Date: 01/12/19 Pre-Operative Diagnosis: Thrombosed AV graft left arm Operation: Open thrombectomy AV graft. Placement stent axillary vein. 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
--- NOTE | 2019-01-12 11:42 | CON.NEP ---
Consult Consult Specialty:: nephrology Reason for Consultation:: esrd - History of Present Illness History of Present Illness: This is a 68 yeatr old woman with a history of diabetes and hypertension who presents with a clotted avg. She had a suction thrombectomy in November and has been able to continue dialysis but yesterday was found to have a clot again. She denies specific complaints. Already went to OR for repeat suction thrombectomy but her access has reclotted. She will have a temporary access inserted and will have hd today - History Source History Provided By: Patient Limitations to Obtaining History: No Limitations - Past Medical History Cardio/Vascular: Yes: HTN Renal/: Yes: Renal Failure - Alcohol/Substance Use Hx Alcohol Use: No - Smoking History Smoking history: Never smoked Have you smoked in the past 12 months: No Aproximately how many cigarettes per day: 0 Home Medications - Allergies Allergies/Adverse Reactions: Allergies Allergy/AdvReac Type Severity Reaction Status Date / Time No Known Allergies Allergy Verified 01/11/19 10:10 - Home Medications Home Medications: Ambulatory Orders Sitagliptin Phosphate [Januvia -] 25 mg PO DAILY@0700 #30 tab 10/26/16 Calcium Acetate 667 mg PO TID 01/16/17 Brimonidine Tartrate/Timolol [Combigan 0.2%-0.5% Eye Drops] 1 drop OU BID Latanoprost 0.005% Eye Drops [Xalatan 0.005% Eye Drops -] 1 drop OU HS 08/28/17 Review of Systems - Review of Systems Constitutional: reports: No Symptoms Eyes: reports: No Symptoms HENT: reports: No Symptoms Neck: reports: No Symptoms Cardiovascular: reports: No Symptoms Respiratory: reports: No Symptoms Gastrointestinal: reports: No Symptoms Genitourinary: reports: No Symptoms Breasts: reports: No Symptoms Reported Musculoskeletal: reports: No Symptoms Integumentary: reports: No Symptoms Neurological: reports: No Symptoms Nephrology Consult - Height Height: 5 ft - Weight Weight: 179 lb - BMI Body Mass Index (BMI): 34.9 - Lab Results CBC,BMP: CBC, BMP 01/12/19 07:38 01/12/19 07:38 Anion Gap: Anion Gap Anion Gap 9 MMOL/L (8-16) 01/12/19 07:38 - Physical Examination Vital Signs: Vital Signs Temperature 98.2 F 01/12/19 06:58 Pulse Rate 73 01/12/19 06:58 Respiratory Rate 18 01/12/19 06:58 Blood Pressure 178/61 H 01/12/19 06:58 O2 Sat by Pulse Oximetry (%) 98 01/12/19 06:58 Constitutional: Yes: Well Nourished, No Distress, Calm Eyes: Yes: Conjunctiva Clear, EOM Intact HENT: Yes: Atraumatic, Normocephalic Neck: Yes: Supple, Trachea Midline Cardiovascular: Yes: Regular Rate and Rhythm Respiratory: Yes: Regular, CTA Bilaterally Gastrointestinal: Yes: Normal Bowel Sounds Renal/: Yes: WNL. No: Bladder Distention Extremities: Yes: WNL Edema: No Integumentary: Yes: WNL Wound/Incision: Yes: Clean/Dry Neurological: Yes: Alert, Oriented Psychiatric: Yes: Alert, Oriented Assessment/Plan IMPRESSION ESRD HTN clotted access htn probably worsened since she has not had hd and was in or PLAN will need to restart previous meds will dialyze today using temporary access Dr Schroeder will follow tomorrow will need a new avg MV
--- NOTE | 2019-01-12 11:50 | HP ---
Admitting History and Physical - Primary Care Physician PCP: Dea Adams - Admission Chief Complaint: clotted AVF History of Present Illness: Came in for malfunction AVF Last dialysis was No c/o chest pain , sob History Source: Patient Limitations to Obtaining History: No Limitations - Past Medical History Cardiovascular: Yes: HTN Renal/: Yes: Renal Failure - Smoking History Smoking history: Never smoked Have you smoked in the past 12 months: No Aproximately how many cigarettes per day: 0 - Alcohol/Substance Use Hx Alcohol Use: No Home Medications - Allergies Allergies/Adverse Reactions: Allergies Allergy/AdvReac Type Severity Reaction Status Date / Time No Known Allergies Allergy Verified 01/11/19 10:10 - Home Medications Home Medications: Ambulatory Orders Sitagliptin Phosphate [Januvia -] 25 mg PO DAILY@0700 #30 tab 10/26/16 Calcium Acetate 667 mg PO TID 01/16/17 Brimonidine Tartrate/Timolol [Combigan 0.2%-0.5% Eye Drops] 1 drop OU BID Latanoprost 0.005% Eye Drops [Xalatan 0.005% Eye Drops -] 1 drop OU HS 08/28/17 Review of Systems - Review of Systems Constitutional: denies: Chills, Fever Cardiovascular: denies: Chest Pain, Shortness of Breath Respiratory: denies: Cough Physical Examination Vital Signs: Vital Signs Temperature 98.2 F 01/12/19 06:58 Pulse Rate 73 01/12/19 06:58 Respiratory Rate 18 01/12/19 06:58 Blood Pressure 178/61 H 01/12/19 06:58 O2 Sat by Pulse Oximetry (%) 98 01/12/19 06:58 Constitutional: Yes: No Distress, Calm Cardiovascular: Yes: Regular Rate and Rhythm Respiratory: Yes: Diminished Gastrointestinal: Yes: Normal Bowel Sounds, Soft, Abdomen, Obese. No: Tenderness Extremities: Yes: Other (AVF -- left -- no thrill) Edema: No Labs: CBC, BMP 01/12/19 07:38 01/12/19 07:38 Problem List - Problems (1) AV graft malfunction Code(s): T82.590A - [facility] COMPL OF SURGICALLY CREATED ARTERIOVENOUS FISTULA, INIT (2) AV fistula occlusion Code(s): T82.898A - [facility] COMPLICATION OF VASCULAR PROSTH DEV/GRFT, INIT Qualifiers: (3) ESRD (end stage renal disease) Code(s): N18.6 - END STAGE RENAL DISEASE (4) ESRD (end stage renal disease) on dialysis Code(s): N18.6 - END STAGE RENAL DISEASE; Z99.2 - DEPENDENCE ON RENAL DIALYSIS (5) Hyperkalemia Code(s): E87.5 - HYPERKALEMIA Assessment/Plan PLAN Had underwent thrombectomy today but still unable to appreciate bruit or thrill Femoral shiley being placed today -- she will need dialysis afterwards Vascular will follow for further interventions for access-- may need permacath for now continue with meds
[2019-01-12] MEDS ORDERED: HEPARIN NA (PORCINE) 5,000 UNITS/ML 1ML VIAL IVPUSH ONE ×2 (11:52→12:14)
[2019-01-12] MEDS ORDERED: SODIUM CHLORIDE 250 ML IV PRN ×2 (11:52→12:14)
[2019-01-12] MEDS ORDERED: CALCIUM ACETATE 667 MG CAPSULE (FP) PO SCH (12:00)
--- NOTE | 2019-01-12 12:13 | PROC ---
Central Line Insertion Indication: Other (Dialysis access) Risks and Benefits Explained: Yes Consent on Chart: Yes Central Line: Dialysis Cath, Dual Lumen Anesthesia: 1% Lidocaine Sterile Technique: Yes Ultrasound Guided Assistance: Yes Position: Right Femoral Sterile Dressing Applied: Yes
--- NOTE | 2019-01-12 13:12 | RAPID ---
Physical Examination Vital Signs: Vital Signs Temperature 98.2 F 01/12/19 06:58 Pulse Rate 73 01/12/19 06:58 Respiratory Rate 18 01/12/19 06:58 Blood Pressure 178/61 H 01/12/19 06:58 O2 Sat by Pulse Oximetry (%) 98 01/12/19 06:58 Findings/Remarks: A rapid response was called due to bleeding in the Left AV fistula and Rt shiley femoral catheter. Pt endorses that she could not undergo dialysis in Lt AV fistula due to clots. Dr Queen was trying to declot the Left AV fistula and a right sided shiley was placed. A cbc was done to assess her H&H. Pt is hemodynamically stable and afebrile. Vital signs: 179/62, 72, 100% SaO2. Physical Exam: General: no acute distress, AOX3. Heart- NL S1,S2 no murmurs rubs or gallops. Lungs- CTA b/l no wheezing, rhonchi, or stridor. Skin- Rt femoral shiley, clotted Lt AV fistula in upper arm with new gauze in place, Rt sided IV placed. Extremities: pulses 2+b/l lower extremities, no pitting edema appreciated. 0.94-INR, PLT- 212. Plan:Repeat cbc, INR/PT and monitoring her mental status. ICU was called to evaluate. Will consider ICU management if bleeding worsens. Spoke to Dr. Mendenhall(nephrology): patient will receive ddavp. Constitutional: Yes: Calm Eyes: Yes: WNL HENT: Yes: Atraumatic, Normocephalic Neck: Yes: Supple Labs: CBC, BMP 01/12/19 07:38 01/12/19 07:38
--- NOTE | 2019-01-12 13:38 | EKG ---
Test Reason : Blood Pressure : / mmHG Vent. Rate : 076 BPM Atrial Rate : 076 BPM P-R Int : 166 ms QRS Dur : 072 ms QT Int : 362 ms P-R-T Axes : 063 027 048 degrees QTc Int : 407 ms NORMAL SINUS RHYTHM NORMAL ECG WHEN COMPARED WITH ECG OF 11-JAN-2019 11:25, NO SIGNIFICANT CHANGE WAS FOUND Confirmed by MD VILLA MOYSES ([id number]) on 01/12/2019 1:38:18 PM Referred By: Confirmed By:JACEK VILLA MD
[2019-01-12] MEDS ORDERED: PATIENT'S OWN MEDICATION (NON-FORMULARY) (Calcium Acetate [Calcium Acetate] 667 MG) PO SCH (14:00)
[2019-01-12 14:26] LABS: HEMATOCRIT 35.9 % (32.4-45.2); HEMOGLOBIN 11.1 GM/dL (10.7-15.3); MCH 24.2 pg (25.7-33.7); MEAN PLT VOLUME 8.7 fl (7.5-11.1); PLATELET COUNT 215 K/MM3 (134-434); RDW 15.9 % (11.6-15.6); WHITE BLOOD COUNT 5.4 K/mm3 (4.0-10.0)
[2019-01-12 14:28] LABS: INR 1.11 (0.83-1.09); PROTHROMBIN TIME (PATIENT) 13.1 SEC (9.7-13.0)
[2019-01-12] MEDS ORDERED: DESMOPRESSIN ACETATE 4 MCG/ML AMP IVPB ONE (14:30)
[2019-01-12 16:01] LABS: HEMOGLOBIN 10.7 GM/dL (10.7-15.3)
[2019-01-12 16:15] LABS: HEMATOCRIT 34.5 % (32.4-45.2); MCHC 30.9 g/dl (32.0-36.0); MEAN CELL VOLUME 77.6 fl (80-96); PLATELET COUNT 206 K/MM3 (134-434); RBC 4.45 M/mm3 (3.60-5.2); RDW 15.2 % (11.6-15.6); WHITE BLOOD COUNT 7.1 K/mm3 (4.0-10.0)
[2019-01-12 17:19] LABS: INR > 15.00 (0.83-1.09); PROTHROMBIN TIME (PATIENT) > 230.00 SEC (9.7-13.0)
[2019-01-12] MEDS: CALCIUM ACETATE 667 MG CAPSULE (FP) PO SCH (18:58)
[2019-01-12 21:52] LABS: BASO % 0.4 % (0-2.0); EOS % 3.2 % (0-4.5); HEMATOCRIT 35.9 % (32.4-45.2); HEMOGLOBIN 11.2 GM/dL (10.7-15.3); MCH 24.3 pg (25.7-33.7); MCHC 31.1 g/dl (32.0-36.0); MEAN CELL VOLUME 78.3 fl (80-96); MEAN PLT VOLUME 9.6 fl (7.5-11.1); MONO % 7.2 % (3.8-10.2); NEUT % 70.2 % (42.8-82.8); RBC 4.58 M/mm3 (3.60-5.2); RDW 15.7 % (11.6-15.6); WHITE BLOOD COUNT 7.4 K/mm3 (4.0-10.0)
[2019-01-12] MEDS ORDERED: BRIMONIDINE TARTRATE 0.2% OPHTHALMIC 5 ML BOTTLE OU SCH (22:00)
[2019-01-12] MEDS ORDERED: LATANOPROST 0.005% OPHTH SOLN 2.5ML BOTTLE OU SCH (22:00)
[2019-01-12] MEDS ORDERED: TIMOLOL 0.5% OPHTHALMIC SOL 5 ML BOTTLE OU SCH (22:00)
[2019-01-12 22:07] LABS: INR 1.03 (0.83-1.09); PROTHROMBIN TIME (PATIENT) 12.2 SEC (9.7-13.0)
[2019-01-12] MEDS: BRIMONIDINE TARTRATE 0.2% OPHTHALMIC 5 ML BOTTLE OU SCH (22:50)
[2019-01-12] MEDS: LATANOPROST 0.005% OPHTH SOLN 2.5ML BOTTLE OU SCH (22:51)
[2019-01-12] MEDS: TIMOLOL 0.5% OPHTHALMIC SOL 5 ML BOTTLE OU SCH (22:51)
[2019-01-13] MEDS ORDERED: PT OWN MED DRAWER 7, Y5N ONE (09:03)
[2019-01-13] MEDS: BRIMONIDINE TARTRATE 0.2% OPHTHALMIC 5 ML BOTTLE OU SCH ×2 (09:08→21:28)
[2019-01-13] MEDS: CALCIUM ACETATE 667 MG CAPSULE (FP) PO SCH ×3 (09:08→17:42)
[2019-01-13] MEDS: TIMOLOL 0.5% OPHTHALMIC SOL 5 ML BOTTLE OU SCH ×2 (09:09→21:29)
--- NOTE | 2019-01-13 14:55 | PN ---
Progress Note (short form) - Note Progress Note: Renal follow up for ESRD on HD Pt seen and examined at the bedside awake and alert no acute complaints no further bleeding noted from AVG or femoral catheter site no sob, cp, abd pain, fever or chills Vital Signs Temperature 98.8 F 01/13/19 10:00 Pulse Rate 77 01/13/19 10:00 Respiratory Rate 20 01/13/19 10:00 Blood Pressure 140/57 L 01/13/19 10:00 O2 Sat by Pulse Oximetry (%) 98 01/13/19 09:00 Intake & Output 01/10/19 01/11/19 01/12/19 01/13/19 23:59 23:59 23:59 23:59 Intake Total 650 200 Output Total 35 Balance 615 200 Weight 81.193 kg NAD awake and alert RRR CTA soft NT/ND no LE edema right femoral shiley catheter left arm AVG with + bruit, dressing in place CBC, BMP 01/12/19 20:46 01/12/19 07:38 Current Medications Brimonidine Tartrate (Alphagan 0.2% -) 1 drop OU BID [facility] Last Admin: 01/13/19 09:08 Dose: 1 drop Calcium Acetate (Phoslo -) 667 mg PO TIDCM [facility] Last Admin: 01/13/19 12:05 Dose: 667 mg Heparin Sodium (Porcine) (Heparin -) 1,000 unit IVPUSH ONCE ONE Stop: 01/12/19 12:15 Sodium Chloride (Normal Saline -) 250 mls @ 3,000 mls/hr IV PRN PRN PRN Reason: Hypotension during Dialysis Stop: 01/13/19 11:52 Latanoprost (Xalatan 0.005% Eye Drops -) 1 drop OU HS [facility] Last Admin: 01/12/19 22:51 Dose: 1 drop Ondansetron HCl (Zofran Injection) 4 mg IVPUSH Q6H PRN PRN Reason: NAUSEA AND/OR VOMITING Timolol Maleate (Timoptic 0.5%) 1 drop OU BID [facility] Last Admin: 01/13/19 09:09 Dose: 1 drop 68 year old woman with history of ESRD on HD (TTS), DM, hypertension, renal osteodystrophy presents with non-functioning AVG. 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
[2019-01-13] MEDS ORDERED: SODIUM CHLORIDE 250 ML IV PRN (15:04)
--- NOTE | 2019-01-13 15:18 | PN ---
Progress Note (short form) - Note Progress Note: pt seen/ examined chart reviewed awake/ comfortable all f/u noted denies cp/sob Vital Signs Temp 98.8 F 01/13/19 10:00 Pulse 77 01/13/19 10:00 Resp 20 01/13/19 10:00 BP 140/57 L 01/13/19 10:00 Pulse Ox 98 01/13/19 09:00 Intake & Output 01/12/19 01/13/19 01/13/19 23:59 11:59 23:59 Intake Total 350 200 Balance 350 200 Weight 179 lb Intake: Oral 350 200 Other: Voiding Method Bedpan Bedpan Bedpan # Unmeasured Voids Void 1 1 1 Bowel Movement No No Height 5 ft Body Mass Index (BMI) 34.9 Weight Measurement Method Estimated by Patient Active Medications Brimonidine Tartrate (Alphagan 0.2% -) 1 drop OU BID [facility] Last Admin: 01/13/19 09:08 Dose: 1 drop Calcium Acetate (Phoslo -) 667 mg PO TIDCM [facility] Last Admin: 01/13/19 12:05 Dose: 667 mg Heparin Sodium (Porcine) (Heparin -) 1,000 unit IVPUSH ONCE ONE Stop: 01/12/19 12:15 Sodium Chloride (Normal Saline -) 250 mls @ 3,000 mls/hr IV PRN PRN PRN Reason: Hypotension during Dialysis Stop: 01/13/19 11:52 Sodium Chloride (Normal Saline -) 250 mls @ 3,000 mls/hr IV PRN PRN PRN Reason: Hypotension during Dialysis Stop: 01/14/19 15:04 Latanoprost (Xalatan 0.005% Eye Drops -) 1 drop OU HS [facility] Last Admin: 01/12/19 22:51 Dose: 1 drop Ondansetron HCl (Zofran Injection) 4 mg IVPUSH Q6H PRN PRN Reason: NAUSEA AND/OR VOMITING Timolol Maleate (Timoptic 0.5%) 1 drop OU BID [facility] Last Admin: 01/13/19 09:09 Dose: 1 drop CBC, BMP 01/12/19 20:46 01/12/19 07:38 Physical Examination Constitutional: Yes: No Distress, Calm and comfortable Cardiovascular: Yes: Regular Rate and Rhythm Respiratory: Yes: Diminished Gastrointestinal: Yes: Normal Bowel Sounds, Soft, Abdomen, Obese. No: Tenderness Extremities: Yes: Other-- lue- Dressing +/ Shiley Edema: No Problem List - Problems (1) AV graft malfunction Code(s): T82.590A - [facility] COMPL OF SURGICALLY CREATED ARTERIOVENOUS FISTULA, INIT (2) AV fistula occlusion Code(s): T82.898A - [facility] COMPLICATION OF VASCULAR PROSTH DEV/GRFT, INIT Qualifiers: (3) ESRD (end stage renal disease) Code(s): N18.6 - END STAGE RENAL DISEASE (4) ESRD (end stage renal disease) on dialysis Code(s): N18.6 - END STAGE RENAL DISEASE; Z99.2 - DEPENDENCE ON RENAL DIALYSIS (5) Hyperkalemia Code(s): E87.5 - HYPERKALEMIA Assessment/Plan Had underwent thrombectomy today but still unable to appreciate bruit or thrill Vascular will follow for further interventions for access-- will need permacath for now continue with meds k 5.6 yesterday -- will repeat BMP today Next dialysis tomorrow as per renal Will follow
--- NOTE | 2019-01-13 15:30 | PN ---
Progress Note (short form) - Note Progress Note: Anesthesia postop note 68 y/o F s/p mac for open thrombectomy POD#1, vss, aaox3, no complaints no anesthesia complications.
--- NOTE | 2019-01-13 15:53 | PN ---
Progress Note (short form) - Note Progress Note: Pt seen and examined with attending Dr Cuellar. POD 1, s/p Open thrombectomy AV graft. Placement stent axillary vein. Angioplasty brachial artery stent with Dr Sosa. States she is feeling well, has minimal pain in her arm. Per Dr Cuellar AVG with +bruit and thrill Plan for HD through [facility] tomorrow, 01/14, if successful will remove shiley in the afternoon. Message sent to Dr Schroeder regarding above Pt will need to f/u with Dr Cuellar in 10-14 days for staple removal
[2019-01-13 17:26] LABS: BLOOD UREA NITROGEN 36.7 mg/dL (7-18); CALCIUM 8.4 mg/dL (8.5-10.1)
[2019-01-13 17:28] LABS: CREATININE 9.8 mg/dL (0.55-1.3)
[2019-01-13] MEDS: LATANOPROST 0.005% OPHTH SOLN 2.5ML BOTTLE OU SCH (21:30)
[2019-01-14] MEDS: CALCIUM ACETATE 667 MG CAPSULE (FP) PO SCH ×3 (08:10→17:22)
--- NOTE | 2019-01-14 11:36 | PN ---
Progress Note (short form) - Note Progress Note: see dc note Problem List - Problems (1) AV graft malfunction Code(s): T82.590A - [facility] COMPL OF SURGICALLY CREATED ARTERIOVENOUS FISTULA, INIT (2) AV fistula occlusion Code(s): T82.898A - [facility] COMPLICATION OF VASCULAR PROSTH DEV/GRFT, INIT Qualifiers: (3) ESRD (end stage renal disease) Code(s): N18.6 - END STAGE RENAL DISEASE (4) ESRD (end stage renal disease) on dialysis Code(s): N18.6 - END STAGE RENAL DISEASE; Z99.2 - DEPENDENCE ON RENAL DIALYSIS (5) Hyperkalemia Code(s): E87.5 - HYPERKALEMIA
--- NOTE | 2019-01-14 12:07 | PN ---
Progress Note (short form) - Note Progress Note: Renal follow up for ESRD on HD Pt seen and examined during dialysis BP stable able to use AVG for dialysis, blood flow at goal UF 2L as tolerated pt w/o any acute complaints Vital Signs Temperature 97.3 F L 01/14/19 15:11 Pulse Rate 79 01/14/19 15:11 Respiratory Rate 20 01/14/19 15:11 Blood Pressure 116/66 01/14/19 15:11 O2 Sat by Pulse Oximetry (%) 98 01/14/19 09:00 Intake & Output 01/11/19 01/12/19 01/13/19 01/14/19 23:59 23:59 23:59 23:59 Intake Total 650 200 Output Total 35 Balance 615 200 Weight 81.193 kg 78.154 kg NAD awake and alert RRR CTA soft NT/ND no LE edema right femoral shiley catheter left arm AVG with + bruit, dressing in place CBC, BMP 01/14/19 10:30 Current Medications Brimonidine Tartrate (Alphagan 0.2% -) 1 drop OU BID [facility] Last Admin: 01/14/19 14:29 Dose: 1 drop Calcium Acetate (Phoslo -) 667 mg PO TIDCM [facility] Last Admin: 01/14/19 14:27 Dose: 667 mg Heparin Sodium (Porcine) (Heparin -) 1,000 unit IVPUSH ONCE ONE Stop: 01/12/19 12:15 Sodium Chloride (Normal Saline -) 250 mls @ 3,000 mls/hr IV PRN PRN PRN Reason: Hypotension during Dialysis Stop: 01/13/19 11:52 Sodium Chloride (Normal Saline -) 250 mls @ 3,000 mls/hr IV PRN PRN PRN Reason: Hypotension during Dialysis Stop: 01/14/19 15:04 Latanoprost (Xalatan 0.005% Eye Drops -) 1 drop OU HS [facility] Last Admin: 01/13/19 21:30 Dose: 1 drop Ondansetron HCl (Zofran Injection) 4 mg IVPUSH Q6H PRN PRN Reason: NAUSEA AND/OR VOMITING Timolol Maleate (Timoptic 0.5%) 1 drop OU BID [facility] Last Admin: 01/14/19 14:30 Dose: 1 drop 68 year old woman with history of ESRD on HD (TTS), DM, hypertension, renal osteodystrophy presents with non-functioning AVG. #AV graft dysfunction #Bleeding from AVG site/Femoral catheter site #ESRD on HD #Renal Osteodystrophy Tolerating dialysis well via AVG femoral catheter can be removed s/p dialysis case discussed with vascular surgery discharge planning can resume dialysis as outpatient on Thank you David Gonsales DO
[2019-01-14] MEDS: BRIMONIDINE TARTRATE 0.2% OPHTHALMIC 5 ML BOTTLE OU SCH (14:29)
[2019-01-14] MEDS: TIMOLOL 0.5% OPHTHALMIC SOL 5 ML BOTTLE OU SCH (14:30)
[2019-01-14 15:48] LABS: HEMATOCRIT 31.6 % (32.4-45.2); HEMOGLOBIN 9.9 GM/dL (10.7-15.3); MCH 24.2 pg (25.7-33.7); MCHC 31.2 g/dl (32.0-36.0); MEAN CELL VOLUME 77.6 fl (80-96); PLATELET COUNT 151 K/MM3 (134-434); RBC 4.08 M/mm3 (3.60-5.2); RDW 15.3 % (11.6-15.6); WHITE BLOOD COUNT 5.8 K/mm3 (4.0-10.0)
[2019-01-14 16:10] LABS: BLOOD UREA NITROGEN 41.6 mg/dL (7-18); CALCIUM 8.2 mg/dL (8.5-10.1); PHOSPHOROUS 5.5 mg/dL (2.5-4.9); POTASSIUM 4.5 mmol/L (3.5-5.1)
[2019-01-14 16:14] LABS: CREATININE 10.6 mg/dL (0.55-1.3)
--- NOTE | 2019-01-14 16:15 | PN ---
Progress Note (short form) - Note Progress Note: Pt dialyzed successfully through LUE AVG. No issues. R femoral shiley removed, tip intact. Pressure held x 5 minutes. No bleeding noted from groin. Pressure dressing placed. Pt instructed to remove tomorrow. Also instructed to avoid straining/increased intra-abdo pressure for the next few days. Should f/u in the office with Dr Cuellar next week for staple removal. Please call with any questions or concerns.
--- NOTE | 2019-01-14 16:36 | DS ---
Physical Examination Vital Signs: Vital Signs Temperature 97.3 F L 01/14/19 15:11 Pulse Rate 79 01/14/19 15:11 Respiratory Rate 20 01/14/19 15:11 Blood Pressure 116/66 01/14/19 15:11 O2 Sat by Pulse Oximetry (%) 98 01/14/19 09:00 Constitutional: Yes: No Distress, Calm Cardiovascular: Yes: Regular Rate and Rhythm Respiratory: Yes: CTA Bilaterally Gastrointestinal: Yes: Normal Bowel Sounds, Soft. No: Tenderness Edema: No Labs: CBC, BMP 01/14/19 10:30 01/14/19 10:30 Discharge Summary Reason For Visit: MALFUNCTION OF ARTERIOVENOUS GRAFT Current Active Problems AV graft malfunction (Acute) Hospital Course: Admitted for AVF malfunction underwent thrombectomy but was still not functioning well Had femoral shiley placed Now had hd through AFV-- functioning well femoral shiley removed today by vascular stable for dc home Condition: Improved - Instructions Diet, Activity, Other Instructions: Keep dressing clean dry and intact. Change daily. You may shower in 48 hours. When showering allow soap and water to run over your incisions and pat dry afterwards. Follow up with Dr Cuellar next week for staple removal. Contact Dr Cuellar immediately if you have any further bleeding from your surgical sites. Disposition: HOME - Home Medications Comprehensive Discharge Medication List: Ambulatory Orders Sitagliptin Phosphate [Januvia -] 25 mg PO DAILY@0700 #30 tab 10/26/16 Calcium Acetate 667 mg PO TID 01/16/17 Brimonidine Tartrate/Timolol [Combigan 0.2%-0.5% Eye Drops] 1 drop OU BID Latanoprost 0.005% Eye Drops [Xalatan 0.005% Eye Drops -] 1 drop OU HS 08/28/17
--- NOTE | 2019-01-14 16:53 | PATH ---
Surgical Pathology Report Patient Name: JERAMIE VENTURA Med. Rec. #: [id number] /Age/Gender: 1950 (Age: 68) / F Account: [id number] Location: [facility] MED/SURG Taken: 01/12/2019 Received: 01/13/2019 Reported: 01/14/2019 Physicians: Maurice Sosa M.D. PHYSICIAN EMERGENCY DEPT Specimen(s) Received CLOT, LEFT ARM Clinical History Clot left arm AV graft/malfunction, arteriovenous graft left arm Final Diagnosis CLOT LEFT ARM AV GRAFT, EXCISION: BLOOD CLOT, CONSISTENT WITH THROMBUS. SEPARATE MINUTE FRAGMENT OF LOOSE FIBROCONNECTIVE TISSUE. Electronically Signed Dionicio Waddell M.D. Gross Description Received in formalin labeled "clot left AV graft," is a 1.5 x 1.0 x 0.2 cm portion of red-brown blood clot. The specimen is submitted in toto in one cassette. /01/13/2019 saudi01/13/2019
[2019-01-14 17:18] VITALS: BP 122/53; PULSE 74; TEMP 99.5
--- NOTE | 2019-01-15 20:12 | OP ---
DATE OF OPERATION: DATE OF DICTATION: 01/15/2019 PROCEDURE: Open thrombectomy of left arm arteriovenous graft. Placement of stent in axillary vein. Angioplasty and brachial artery stent. PREOPERATIVE DIAGNOSIS: Thrombosed arteriovenous graft left arm. POSTOPERATIVE DIAGNOSIS: Thrombosed arteriovenous graft left arm. 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 ANESTHESIA: Fractional. ANESTHESIOLOGIST: Colin Coelho M.D. OPERATIVE FINDINGS: Following graft thrombectomy, a stenosis of the left axillary vein was identified of approximately 70 to 80 percent. There was also a stent present in the distal brachial artery which appeared to have a 50 to 60 percent stenosis at the proximal end. OPERATIVE PROCEDURE: Following routine patient identification with side and site verification, intravenous sedation was established. The left arm was prepped with ChloraPrep. Timeout was performed. 1% lidocaine was infiltrated over the proximal aspect of the AV graft in the left upper arm, and a longitudinal incision was made. Subcutaneous tissues were divided using cautery for hemostasis. The graft was mobilized and secured proximally just with Vesseloops. IV heparin was administered. The graft was then incised transversely. #4 Jesús catheter was passed proximally and withdrawn with removal of thrombus and return of venous back bleeding. A 7 [place] sheath was placed in the graft and arteriography performed with the above noted findings. A wire was advanced through the sheath through the stenosis, and the area was balloon dilated with an 8-mm balloon. A considerable residual stenosis remained after this, and so decision was made to place a stent. A Lifestar stent 8 x 60 was placed and post dilated with the 8-mm balloon with good result. The graft line was filled with heparin solution and was occluded with a vascular clamp. Thrombectomy at the arterial inflow was then performed with return of arterial bleeding. Sheath was placed, and arteriogram performed. A wire was then advanced through the arteriovenous anastomosis and into the proximal brachial artery. The stenosis in the brachial artery stent was then dilated with a 4-mm balloon. Repeat imaging showed resolution of the stenosis. The lumen of the graft was irregular with retained old thrombus. Attempts to remove this with the Jesús was partially successful. There was good arterial inflow, so decision was made to complete the procedure. The graft incision was closed with a running suture of 6-0 Prolene. Clamps were removed, and there was good flow through the graft with palpable pulse present. Bleeding from the suture line was controlled with Surgicel. The wound was then closed with interrupted suture of 3-0 Vicryl and skin olga. A sterile dressing was applied, and the patient was taken to the recovery room in stable condition. RAPHAEL OSPINA M.D. [id number] MTDD
--- NOTE | 2019-01-15 20:18 | OP ---
DATE OF OPERATION: 01/12/2019 PROCEDURE: Placement of double-lumen dialysis catheter, right femoral vein. INDICATION: End-stage renal disease. ANESTHESIA: Local. PROCEDURE: Following informed consent, the right groin was prepped with ChloraPrep. Timeout was performed. Then 1% lidocaine was infiltrated in the groin. Using duplex imaging, the right femoral vein was identified and cannulated with a micropuncture needle. A wire was passed proximally and the needle exchanged for a 5-Russian catheter. A J-tip wire was then advanced through the catheter into the iliac vein. The tract around the wire was dilated, and a double-lumen dialysis catheter advanced over the wire. The wire was removed. Each lumen was aspirated for blood and flushed with saline and heparin solution. The catheter was sutured to the skin at the access site with 3-0 nylon. Sterile dressing was applied and the patient was sent to dialysis. RAPHAEL OSPINA M.D. [id number]
== END 2019-01-14 18:52 | disposition home or self-care (01) | DRG 252 ==
LOC: JER 06:57 → JERBED 07:15 → J8W 12:53
PROVIDERS: ADMIT Internal Medicine; ATTEND Internal Medicine
PROC: 05780DZ Dilation of Left Axillary Vein with Intraluminal Device, Open Approach (ICD-10-PCS; 2019-01-12)
PROC: 03783DZ Dilation of Left Brachial Artery with Intraluminal Device, Percutaneous Approach (ICD-10-PCS; 2019-01-12)
PROC: 06HM33Z Insertion of Infusion Device into Right Femoral Vein, Percutaneous Approach (ICD-10-PCS; 2019-01-12)
PROC: B54BZZA Ultrasonography of Right Lower Extremity Veins, Guidance (ICD-10-PCS; 2019-01-12)
PROC: 5A1D70Z Performance of Urinary Filtration, Intermittent, Less than 6 Hours Per Day (ICD-10-PCS; 2019-01-12)
PROC: 05C80ZZ Extirpation of Matter from Left Axillary Vein, Open Approach (ICD-10-PCS; principal; 2019-01-12 09:30)
DX: T82.868A Thrombosis due to vascular prosthetic devices, implants and grafts, initial encounter (principal); N18.6 End stage renal disease; I12.0 Hypertensive chronic kidney disease with stage 5 chronic kidney disease or end stage renal disease; T82.856A Stenosis of peripheral vascular stent, initial encounter; T82.838A Hemorrhage due to vascular prosthetic devices, implants and grafts, initial encounter; Z79.84 Long term (current) use of oral hypoglycemic drugs; E87.5 Hyperkalemia; E11.22 Type 2 diabetes mellitus with diabetic chronic kidney disease; Z99.2 Dependence on renal dialysis; Y83.8 Other surgical procedures as the cause of abnormal reaction of the patient, or of later complication, without mention of misadventure at the time of the procedure
CPT/HCPCS: 36415; 76000-TC-FY; 80048; 80053; 84100; 85025; 85027; 85610; 86803; 86850; 86900; 86901; 87340; 88304-TC; 93005; 93010; 94760; 99282-25; J1644

== ENCOUNTER 2019-01-16 10:44 | Observation (INO) | payer OTHER ==
[2019-01-16 11:40] LABS: EOS % 8.1 % (0-4.5); HEMATOCRIT 29.6 % (32.4-45.2); HEMOGLOBIN 9.3 GM/dL (10.7-15.3); LYMPH % 30.8 % (8-40); MCH 24.2 pg (25.7-33.7); MCHC 31.3 g/dl (32.0-36.0); MEAN CELL VOLUME 77.2 fl (80-96); MEAN PLT VOLUME 8.2 fl (7.5-11.1); MONO % 6.7 % (3.8-10.2); NEUT % 53.4 % (42.8-82.8); RBC 3.84 M/mm3 (3.60-5.2); WHITE BLOOD COUNT 6.1 K/mm3 (4.0-10.0)
[2019-01-16 11:50] LABS: PLATELET COUNT 155 K/MM3 (134-434)
[2019-01-16 11:54] LABS: PROTHROMBIN TIME (PATIENT) 11.8 SEC (9.7-13.0)
[2019-01-16 12:22] LABS: ALBUMIN 3.3 g/dl (3.4-5.0); BILIRUBIN,TOTAL 0.4 mg/dL (0.2-1); BLOOD UREA NITROGEN 47.1 mg/dL (7-18); CALCIUM 8.9 mg/dL (8.5-10.1); POTASSIUM 4.9 mmol/L (3.5-5.1); TOT PROT 6.5 g/dl (6.4-8.2)
[2019-01-16 12:31] LABS: CREATININE 11.3 mg/dL (0.55-1.3)
--- NOTE | 2019-01-16 12:47 | PDOC ---
History of Present Illness - General Chief Complaint: Dialysis Shunt Problem Stated Complaint: FISTULA NOT WORKING Time Seen by Provider: 01/16/19 11:05 History Source: Patient Exam Limitations: No Limitations - History of Present Illness Initial Comments: 01/16/19 11:55 68-year-old female presents to ED for evaluation of an occluded left upper arm graft which did not function at dialysis today. Patient does receive dialysis Sunday and Sunday at [facility]. Patient's last dialysis was 2 days ago, Sunday. Patient has no complaints of shortness of breath, chest pain, lower extremity edema weakness, palpitations or dizziness. Patient is followed by Dr. Cuellar Timing/Duration: constant Severity: mild Associated Symptoms: reports: denies symptoms Past History - Travel Traveled outside of the country in the last 30 days: No Close contact w/someone who was outside of country & ill: No - Past Medical History Allergies/Adverse Reactions: Allergies Allergy/AdvReac Type Severity Reaction Status Date / Time No Known Allergies Allergy Verified 01/16/19 10:57 Home Medications: Ambulatory Orders Sitagliptin Phosphate [Januvia -] 25 mg PO DAILY@0700 #30 tab 10/26/16 Calcium Acetate 667 mg PO TID 01/16/17 Brimonidine Tartrate/Timolol [Combigan 0.2%-0.5% Eye Drops] 1 drop OU BID Latanoprost 0.005% Eye Drops [Xalatan 0.005% Eye Drops -] 1 drop OU HS 08/28/17 Anemia: Yes Asthma: No Cancer: No Cardiac Disorders: No CVA: No COPD: No CHF: No DVT: No Dementia: No Diabetes: Yes Dialysis: Yes (, , sun) GI Disorders: No Disorders: No HTN: Yes Hypercholesterolemia: Yes Liver Disease: No Seizures: No Thyroid Disease: No - Surgical History Abdominal Surgery: No Appendectomy: No Cardiac Surgery: No Cholecystectomy: No Lung Surgery: No Neurologic Surgery: No Orthopedic Surgery: No - Immunization History Td Vaccination: Yes Immunization Up to Date: Yes - Suicide/Smoking/Psychosocial Hx Smoking Status: No Smoking History: Never smoked Have you smoked in the past 12 months: No Number of Cigarettes Smoked Daily: 0 Information on smoking cessation initiated: No Hx Alcohol Use: No Drug/Substance Use Hx: No Substance Use Type: None Hx Substance Use Treatment: No Patient Lives Alone: No Lives with/in: spouse/SO Review of Systems - Review of Systems Able to Perform ROS?: Yes Constitutional: No: Symptoms Reported HEENTM: No: Symptoms Reported Respiratory: No: Symptoms reported Cardiac (ROS): No: Symptoms Reported ABD/GI: No: Symptoms Reported : No: Symptoms Reported Musculoskeletal: No: Symptoms Reported Integumentary: No: Symptoms Reported Neurological: No: Symptoms reported *Physical Exam - Vital Signs Last Vital Signs Temp Pulse Resp BP Pulse Ox 98.5 F 72 19 145/72 99 01/16/19 10:55 01/16/19 10:55 01/16/19 10:55 01/16/19 10:55 01/16/19 10:55 - Physical Exam General Appearance: Yes: Nourished, Appropriately Dressed. No: Apparent Distress HEENT: positive: EOMI. negative: Pale Conjunctivae Neck: positive: Supple Respiratory/Chest: positive: Lungs Clear, Normal Breath Sounds. negative: Respiratory Distress, Accessory Muscle Use Cardiovascular: positive: Regular Rhythm, Regular Rate. negative: Murmur Extremity: positive: Normal Range of Motion, Other (noted left upper arm graft with no palpable or audible thrill. Area above with intact olga) Integumentary: positive: Normal Color, Warm, Moist Neurologic: positive: Motor Strength 5/5 (ambulatory) ED Treatment Course - LABORATORY CBC & Chemistry Diagram: 01/16/19 11:30 01/16/19 11:30 - ADDITIONAL ORDERS Additional order review: Laboratory Results 01/16/19 01/16/19 11:30 11:30 PT with INR 11.80 INR 1.00 Sodium 138 Potassium 4.9 Chloride 101 Carbon Dioxide 32 Anion Gap 5 L BUN 47.1 H Creatinine 11.3 H* Est GFR (CKD-EPI)AfAm 3.55 Est GFR (CKD-EPI)NonAf 3.06 Random Glucose 101 Calcium 8.9 Total Bilirubin 0.4 AST 7 L ALT 9 L Alkaline Phosphatase 47 Total Protein 6.5 Albumin 3.3 L 01/16/19 11:30 RBC 3.84 MCV 77.2 L MCHC 31.3 L RDW 15.0 MPV 8.2 Neutrophils % 53.4 D Lymphocytes % 30.8 D Monocytes % 6.7 Eosinophils % 8.1 H D Basophils % 1.0 Medical Decision Making - Medical Decision Making 01/16/19 11:57 CC: occluded left upper extremity hemodialysis graft which was recently accessed and cleaned out by Dr. Sosa earlier this week patient is asymptomatic. Last dialysis was 2 days ago. Patient is followed by Dr. Cuellar usually . Exam: Vital signs stable lungs clear to auscultation no palpable or audible thrill to left upper arm graft . olga above intact Plan: Labs, IV access coags and consult Dr. Cuellar 01/16/19 13:58 Laboratory Tests 01/16/19 01/16/19 11:30 11:30 WBC 6.1 Hgb 9.3 L Hct 29.6 L Neutrophils % 53.4 D Sodium 138 Potassium 4.9 Anion Gap 5 L BUN 47.1 H Random Glucose 101 AST 7 L ALT 9 L Albumin 3.[address] Cuellar and will have patient placed on scheduled for permacath at around 6 PM. Patient has been nothing by mouth since midnight. Case also discussed the patient's primary care physician, Dr. Root and agrees with plan. Patient admitted to [facility] observation status *DC/Admit/Observation/Transfer Diagnosis at time of Disposition: AV fistula occlusion - Discharge Dispostion Decision to Admit order: Yes - Referrals Referrals: Chanda Schultz MD [Primary Care Provider] - - Patient Instructions - Post Discharge Activity
--- NOTE | 2019-01-16 15:18 | HP ---
Satellite [facility] - Chief Complaint Chief Complaint: malfunction AVF History of Present Illness: Malfunction AVF. recent declotting a few days ago History Source: Patient Limitations to Obtaining History: No Limitations - Past Medical History Allergies/Adverse Reactions: Allergies Allergy/AdvReac Type Severity Reaction Status Date / Time No Known Allergies Allergy Verified 01/16/19 10:57 Cardiovascular: Yes: HTN Renal/: Yes: Renal Failure - Current Medications Current Medications: Home Medications Medication Instructions Recorded Sitagliptin Phosphate [Januvia -] 25 mg PO DAILY@0700 #30 tab 10/26/16 Calcium Acetate 667 mg PO TID 01/16/17 Brimonidine Tartrate/Timolol 1 drop OU BID 08/28/17 [Combigan 0.2%-0.5% Eye Drops] Latanoprost 0.005% Eye Drops 1 drop OU HS 08/28/17 [Xalatan 0.005% Eye Drops -] Brimonidine Tartrate [Alphagan 1 drop OU BID drops 01/17/19 0.2% -] Timolol 0.5% [Timoptic 0.5%] 1 drop OU BID drops 01/17/19 Satellite Physical Exam - Physical Examination Vital Signs: Vital Signs Period Temp Pulse Resp BP Sys/Rolle Pulse Ox Last 24 Hr 98.5 F-98.5 F 72-89 19-19 135-145/72-76 99-100 General Appearance: Alert & Oriented x3 Lung: Clear to auscultation Heart: Regular rate & rhythm, Normal S1, Normal S2 Abdomen: Soft, No tenderness, Normal bowel sounds Extremities: No tenderness/swelling Satellite Impression/Plan - Impression/Plan Impression: clotted AVF, ESRD on HD Operative Procedure: permacath placement, Vascular eval. HD per renal
--- NOTE | 2019-01-16 16:16 | PN ---
Progress Note (short form) - Note Progress Note: 68yo F presents to the ED from her HD center for complaint of clotted LUE AV graft. Pt was recently declotted on 01/12/[address] Sosa. Pt was unable to do any of her HD today, and was sent to the ED for new access. Pt denies any pain or swelling around the arm. Last Vital Signs Temp Pulse Resp BP Pulse Ox 98.5 F 89 19 135/76 100 01/16/19 14:55 01/16/19 14:55 01/16/19 14:55 01/16/19 14:55 01/16/19 14:55 CBC, BMP 01/16/19 11:30 01/16/19 11:30 PE: Gen: A&O x 3 Resp: breathing comfortably LUE: AV graft in place with no palpable thrill, no erythema or discharge. Problem List - Problems (1) AV graft malfunction Assessment/Plan: Plan -plan for pt to go to OR tomorrow morning for permacath placement -please make NPO after midnight -medical optimization Case discussed with Dr. Cuellar who agrees. Code(s): T82.590A - [facility] COMPL OF SURGICALLY CREATED ARTERIOVENOUS FISTULA, INIT
[2019-01-16 16:41] VITALS: BMI 34.1
[2019-01-16] MEDS ORDERED: LATANOPROST 0.005% OPHTH SOLN 2.5ML BOTTLE OU SCH (22:00)
[2019-01-16] MEDS: CALCIUM ACETATE 667 MG CAPSULE (FP) PO SCH (22:26)
[2019-01-16] MEDS: TIMOLOL 0.5% OPHTHALMIC SOL 5 ML BOTTLE OU SCH ×2 (22:26)
[2019-01-16] MEDS: BRIMONIDINE TARTRATE 0.2% OPHTHALMIC 5 ML BOTTLE OU SCH (22:27)
[2019-01-17] MEDS ORDERED: SUCCINYLCHOLINE CHLORIDE 200 MG/10 ML SYRINGE ONE (07:13)
[2019-01-17] MEDS ORDERED: SODIUM CHLORIDE 0.9% P/F 10 ML VIAL IJ ONE (07:15)
[2019-01-17] MEDS ORDERED: ceFAZolin SODIUM 1 GM VIAL ONE (07:15)
[2019-01-17] MEDS ORDERED: MIDAZOLAM HCL 2 MG/2 ML SINGLE DOSE VIAL ONE (07:51)
[2019-01-17] MEDS ORDERED: PROPOFOL 20 ML ONE (07:51)
[2019-01-17] MEDS ORDERED: LIDOCAINE HCL/PF 2% SDV 5ML VIAL ONE (07:52)
[2019-01-17] MEDS ORDERED: ceFAZolin SODIUM 1 GM VIAL IVPB ONE (07:57)
[2019-01-17] MEDS: CALCIUM ACETATE 667 MG CAPSULE (FP) PO SCH ×3 (08:00→18:31)
[2019-01-17] MEDS ORDERED: ESMOLOL HCL 100,000 MCG/10 ML VIAL ONE (08:00)
[2019-01-17] MEDS ORDERED: LIDOCAINE HCL 1%, 10 MG/ML (20ML VIAL) NR ONE (08:30)
--- NOTE | 2019-01-17 08:49 | OP ---
Operative Note - Note: Operative Date: 01/17/19 Pre-Operative Diagnosis: ESRD Operation: Insertion of permacath Post-Operative Diagnosis: Same as Pre-op Surgeon: Bandar Cuellar Anesthesia: Fractional Estimated Blood Loss (mls): 20 Operative Report Dictated: Yes
[2019-01-17] MEDS: BRIMONIDINE TARTRATE 0.2% OPHTHALMIC 5 ML BOTTLE OU SCH (12:31)
[2019-01-17] MEDS: TIMOLOL 0.5% OPHTHALMIC SOL 5 ML BOTTLE OU SCH (12:37)
[2019-01-17] MEDS ORDERED: SODIUM CHLORIDE 250 ML IV PRN (13:02)
--- NOTE | 2019-01-17 14:29 | PN ---
Progress Note (short form) - Note Progress Note: Renal follow up for ESRD on HD Pt readmitted for non-functioning AVG. s/p recent admission for same issue. New tunneled catheter was placed by vascular. Pt is without complaints. For dialysis today Denies any sob, cp, abd pain, fever or chills Vital Signs Temperature 98.1 F 01/17/19 17:00 Pulse Rate 79 01/17/19 17:00 Respiratory Rate 18 01/17/19 17:00 Blood Pressure 157/66 01/17/19 17:00 O2 Sat by Pulse Oximetry (%) 100 01/17/19 10:45 Intake & Output 01/14/19 01/15/19 01/16/19 01/17/19 23:59 23:59 23:59 23:59 Intake Total 600 120 Output Total 5 Balance 600 115 Weight 79.243 kg NAD awake and alert RRR CTA soft NT/ND no LE edema CBC, BMP 01/16/19 11:30 01/16/19 11:30 Current Medications Brimonidine Tartrate (Alphagan 0.2% -) 1 drop OU BID [facility] Calcium Acetate (Phoslo -) 667 mg PO TIDCM [facility] Last Admin: 01/17/19 12:26 Dose: 667 mg Sodium Chloride (Normal Saline -) 250 mls @ 3,000 mls/hr IV PRN PRN PRN Reason: Hypotension during Dialysis Stop: 01/18/19 13:02 Latanoprost (Xalatan 0.005% Eye Drops -) 1 drop OU HS [facility] Timolol Maleate (Timoptic 0.5%) 1 drop OU BID [facility] 68 year old woman with history of ESRD on HD (TTS), DM, hypertension, renal osteodystrophy presents with non-functioning AVG. #AV graft dysfunction #ESRD on HD #Renal Osteodystrophy for dialysis today via tunneled catheter. Will have abridged tx today. can be discharged home following HD to resume outpatient dialysis tomorrow Thank you David Gonsales DO
[2019-01-17 17:32] VITALS: BP 157/66; PULSE 79; TEMP 98.1
--- NOTE | 2019-01-17 17:47 | DS ---
Physical Examination Vital Signs: Vital Signs Temperature 98.1 F 01/17/19 17:00 Pulse Rate 79 01/17/19 17:00 Respiratory Rate 18 01/17/19 17:00 Blood Pressure 157/66 01/17/19 17:00 O2 Sat by Pulse Oximetry (%) 100 01/17/19 10:45 Findings/Remarks: comfortable seen earlier today and had discussed with Dr. Schroeder/ / Polo S/p permacath insertion. denies pain Constitutional: Yes: No Distress Neck: Yes: Supple Cardiovascular: Yes: Regular Rate and Rhythm Respiratory: Yes: Diminished Gastrointestinal: Yes: Soft Edema: No Neurological: Yes: Alert Psychiatric: Yes: Alert Labs: CBC, BMP 01/16/19 11:30 01/16/19 11:30 Discharge Summary Reason For Visit: MALFUNCTION OF ARTERIOVENOUS GRAFT Current Active Problems AV fistula occlusion (Acute) Hospital Course: s/p permacath dialysis today d/c home out pt dialysis--from tomorrow as scheduled discussed with pt / and nursing staff Condition: Stable - Instructions Diet, Activity, Other Instructions: Resume dialysis via permacath Keep permacath clean and Dry. Follow up with Dr Cuellar next week as out patient for vein mapping of right UE for AVF placement planning. Disposition: HOME - Home Medications Comprehensive Discharge Medication List: Ambulatory Orders Sitagliptin Phosphate [Januvia -] 25 mg PO DAILY@0700 #30 tab 10/26/16 Calcium Acetate 667 mg PO TID 01/16/17 Brimonidine Tartrate/Timolol [Combigan 0.2%-0.5% Eye Drops] 1 drop OU BID Latanoprost 0.005% Eye Drops [Xalatan 0.005% Eye Drops -] 1 drop OU HS 08/28/17 Brimonidine Tartrate [Alphagan 0.2% -] 1 drop OU BID drops 01/17/19 Timolol 0.5% [Timoptic 0.5%] 1 drop OU BID drops 01/17/19
[2019-01-17] MEDS ORDERED: LATANOPROST 0.005% OPHTH SOLN 2.5ML BOTTLE OU SCH (22:00)
[2019-01-17] MEDS ORDERED: BRIMONIDINE TARTRATE 0.2% OPHTHALMIC 5 ML BOTTLE OU SCH (22:00)
[2019-01-17] MEDS ORDERED: TIMOLOL 0.5% OPHTHALMIC SOL 5 ML BOTTLE OU SCH (22:00)
--- NOTE | 2019-01-25 16:25 | OP ---
DATE OF OPERATION: 01/17/2019 PREOPERATIVE DIAGNOSIS: End-stage renal disease. POSTOPERATIVE DIAGNOSIS: End-stage renal disease. PROCEDURE: Insertion of PermCath. SURGEON: Bandar Galeano DO ANESTHESIA: Fractional. BLOOD LOSS: 20 mL. The patient is a 68-year-old female who comes in with a clotted left AV graft. It was decided that she would need a PermCath placement now. Patient was consented for the procedure, understanding all risks, benefits, and alternatives, was then taken to the operating room. Once in the operating room, was laid on the operating table in supine manner, and the area of the right neck and chest was prepped and draped in a sterile surgical manner. We then went ahead and injected 10 mL of lidocaine 1% over the right internal jugular vein. We then used our micropuncture needle and punctured the right internal jugular vein under ultrasound guidance. Micropuncture wire was inserted. Micropuncture sheath was inserted, and 0.035 floppy guidewire was inserted. Next, 10 mL of lidocaine 1% was injected above and below the clavicle. We then used our 11 blade and made a 1-cm incision at the puncture site. We then used our 15 blade and made a 1-cm incision below the clavicle. We then tunneled the PermCath up to the puncture site. We then placed our break-away sheath over the guidewire into the vein under fluoroscopy, and the cannula and guidewire were removed. Catheter was placed inside the sheath. Sheath was broken away as the catheter was placed inside the vein. Neck of the catheter was nice and smooth. Tip of the catheter was located outside the right atrium. We then franky back on each port of the catheter, and there was good flow. Heparinized saline was injected, and 2000 units of IV heparin were injected into each port. We then used 4-0 Biosyn, and 2 simple stitches were placed at the puncture site; 3-0 nylon used, and the catheter was secured to the skin. BIOPATCH, Steri-Strips, 4 x 4, Tegaderms were placed. Patient tolerated the procedure with no complications. Patient transferred to PACU in stable condition, where a chest x-ray will be ordered. BANDAR GALEANO DO BANDAGE WINDING MACHINE OPERATOR/[id number]
== END 2019-01-17 07:00 | disposition home or self-care (01) ==
LOC: JER 10:44 → JERBED 13:29 → J5S 15:57
PROVIDERS: ADMIT Internal Medicine; ATTEND Internal Medicine
PROC: 0JH63XZ Insertion of Tunneled Vascular Access Device into Chest Subcutaneous Tissue and Fascia, Percutaneous Approach (ICD-10-PCS; principal; 2019-01-16)
PROC: 3E03329 Introduction of Other Anti-infective into Peripheral Vein, Percutaneous Approach (ICD-10-PCS; 2019-01-16)
DX: T82.858A Stenosis of other vascular prosthetic devices, implants and grafts, initial encounter (principal); Y82.8 Other medical devices associated with adverse incidents; Y92.9 Unspecified place or not applicable; E11.22 Type 2 diabetes mellitus with diabetic chronic kidney disease; I12.0 Hypertensive chronic kidney disease with stage 5 chronic kidney disease or end stage renal disease; N18.6 End stage renal disease; Z99.2 Dependence on renal dialysis; N25.0 Renal osteodystrophy
CPT/HCPCS: 36415; 71045-TC-FY; 76000-TC-FY; 80053; 82962; 85025; 85610; 94760; 96374; 99285-25; G0378; J1644

== ENCOUNTER → 2019-02-20 | Day surgery (SDC) | payer OTHER | END | disposition home or self-care (01) | LOC: JASU-SURG 10:33 ==

== ENCOUNTER 2019-04-18 07:10 | Day surgery (SDC) | payer OTHER ==
[2019-04-17 10:34] VITALS: BMI 35.2
[2019-04-18] MEDS ORDERED: MIDAZOLAM HCL 2 MG/2 ML SINGLE DOSE VIAL ONE (09:47)
[2019-04-18] MEDS ORDERED: LIDOCAINE HCL 1%, 10 MG/ML (20ML VIAL) NR ONE (09:55)
[2019-04-18] MEDS ORDERED: HEPARIN NA (PORCINE) 5,000 UNITS/ML 1ML VIAL SQ ONE (09:56)
[2019-04-18] MEDS ORDERED: ceFAZolin SODIUM 1 GM VIAL IVPB ONE ×2 (10:01)
--- NOTE | 2019-04-18 10:24 | HP ---
Admitting History and Physical - Admission Chief Complaint: Stenosis right avf. For venogram today Limitations to Obtaining History: No Limitations - Past Medical History Cardiovascular: Yes: HTN Renal/: Yes: Renal Failure ...: No - Smoking History Smoking history: Never smoked Have you smoked in the past 12 months: No Aproximately how many cigarettes per day: 0 - Alcohol/Substance Use Hx Alcohol Use: No Home Medications - Allergies Allergies/Adverse Reactions: Allergies Allergy/AdvReac Type Severity Reaction Status Date / Time No Known Allergies Allergy Verified 04/17/19 10:14 - Home Medications Home Medications: Ambulatory Orders Sitagliptin Phosphate [Januvia -] 25 mg PO DAILY@0700 #30 tab 10/26/16 Calcium Acetate 667 mg PO TID 01/16/17 Brimonidine Tartrate/Timolol [Combigan 0.2%-0.5% Eye Drops] 1 drop OU BID Latanoprost 0.005% Eye Drops [Xalatan 0.005% Eye Drops -] 1 drop OU HS 08/28/17 Review of Systems - Review of Systems Constitutional: reports: No Symptoms Eyes: reports: No Symptoms HENT: reports: No Symptoms Neck: reports: No Symptoms Respiratory: reports: No Symptoms Gastrointestinal: reports: No Symptoms Genitourinary: reports: No Symptoms Musculoskeletal: reports: No Symptoms Integumentary: reports: No Symptoms Neurological: reports: No Symptoms Endocrine: reports: No Symptoms Hematology/Lymphatic: reports: No Symptoms Psychiatric: reports: No Symptoms Physical Examination Vital Signs: Vital Signs Temperature 98.7 F 04/18/19 08:13 Pulse Rate 68 04/18/19 08:13 Respiratory Rate 20 04/18/19 08:13 Blood Pressure 139/52 L 04/18/19 08:13 O2 Sat by Pulse Oximetry (%) 100 04/18/19 08:13 Constitutional: Yes: Well Nourished, No Distress, Calm Eyes: Yes: WNL, Conjunctiva Clear, EOM Intact HENT: Yes: WNL, Atraumatic, Normocephalic Neck: Yes: WNL, Supple, Trachea Midline Cardiovascular: Yes: WNL, Regular Rate and Rhythm Respiratory: Yes: WNL, Regular, CTA Bilaterally Gastrointestinal: Yes: WNL, Normal Bowel Sounds Musculoskeletal: Yes: WNL Extremities: Yes: WNL Edema: No Peripheral Pulses WNL: Yes Integumentary: Yes: WNL Neurological: Yes: WNL, Alert, Oriented ...Motor Strength: WNL Psychiatric: Yes: WNL Labs: CBC, BMP 04/18/19 07:23 Problem List - Problems (1) AV fistula stenosis Assessment/Plan: for venogram , venoplasty today Code(s): T82.858A - STENOSIS OF OTHER VASCULAR PROSTH DEV/GRFT, INIT
[2019-04-18] MEDS ORDERED: oxyCODONE HCL 5 MG TABLET PO PRN (10:32)
[2019-04-18] MEDS ORDERED: PROMETHAZINE HCL 25 MG/1 ML VIAL IVPUSH PRN (10:32)
[2019-04-18] MEDS ORDERED: ONDANSETRON 4 MG/2 ML VIAL IVPUSH PRN (10:32)
[2019-04-18 11:45] VITALS: TEMP 98.2
[2019-04-18 13:52] VITALS: BP 154/71; PULSE 75
--- NOTE | 2019-04-29 14:51 | OP ---
DATE OF OPERATION: 04/18/2019 PREOPERATIVE DIAGNOSIS: Stenosis, right arteriovenous fistula. POSTOPERATIVE DIAGNOSIS: Stenosis, right arteriovenous fistula. PROCEDURE: Venogram, venoplasty right arteriovenous fistula. INDICATIONS: Patient is a 69-year-old female that has a newly created right AV fistula, which has stenosis in the body of the fistula. On preoperative ultrasound, it was found that she would need a venoplasty. Patient was consented for the procedure understanding all risks, benefits, and alternatives then taken to the operating room. DESCRIPTION OF PROCEDURE: Once in the operative room, patient was laid on the operating table in supine manner, and the area of the right arm was prepped and draped in a sterile surgical manner. We then went ahead and injected 5 mL of lidocaine 1% in the proximal AV fistula above the anastomosis. We then took our micropuncture needle and punctured the AV fistula. Micropuncture wire was inserted. Micropuncture sheath was inserted, and a traditional short 6-Lithuanian sheath was inserted. We then shot our venogram via hand injection showing that the fistula was patent; however, it was severely stenosed about 80% in the body of the AV fistula. We then administered 5000 units of IV heparin to the patient. We then took an 8 x 8 Claiborne balloon and performed venoplasty of the entire body of the AV fistula. Once completed, the fistula had a great thrill. There was no extravasation of contrast. The fistula had dilated up appropriately, and there was good flow all the way up into the central veins. At this point, no intervention was needed. We used a 4-0 Biosyn stitch, and a [id number] stitch was placed around our sheath, and the sheath was pulled. The area was wet and dried, and Dermabond was placed. Patient tolerated the procedure with no complication. Total blood loss 10 mL. Patient transferred to PACU in stable condition. JOSE GALEANO DO NP/[id number]
== END 2019-04-18 13:30 | disposition home or self-care (01) ==
LOC: JASU-SURG 07:10
PROVIDERS: ATTEND Surgery Vascular Surgery
PROC: 057F3ZZ Dilation of Left Cephalic Vein, Percutaneous Approach (ICD-10-PCS; principal; 2019-04-18 09:00)
DX: T82.858A Stenosis of other vascular prosthetic devices, implants and grafts, initial encounter (principal); I12.0 Hypertensive chronic kidney disease with stage 5 chronic kidney disease or end stage renal disease; N18.6 End stage renal disease; Z99.2 Dependence on renal dialysis
CPT/HCPCS: 36415; 76000-TC-FY; 82962; 84132; 94760; J1644

== ENCOUNTER 2019-05-20 10:36 | Emergency (ER) | payer OTHER ==
[2019-05-20 10:46] VITALS: BMI 34.0
--- NOTE | 2019-05-20 11:32 | PDOC ---
History of Present Illness - General Chief Complaint: Injury Stated Complaint: FALL Time Seen by Provider: 05/20/19 11:17 - History of Present Illness Initial Comments: 05/20/19 11:42 Pt is a 69 y/o F with a significant past medical history ESRD on dialysis, HTN , and DM who presents to our emergency department due to a mechanical fall. Pt endorses she was at her dialysis session today. After her dialysis session, pt went to tie her shoe laces and then lost her balance and fell. Pt states she hit her head and right hand. Denies any LOC, denies lightheadedness, palpitations, chest pain, nausea/vomiting, numbness or tingling. PMH as above Social-Denies tobacco or alcohol use PMD- Dr Root Past History - Past Medical History Allergies/Adverse Reactions: Allergies Allergy/AdvReac Type Severity Reaction Status Date / Time No Known Allergies Allergy Verified 05/20/19 10:43 Home Medications: Ambulatory Orders Sitagliptin Phosphate [Januvia -] 25 mg PO DAILY@0700 #30 tab 10/26/16 Calcium Acetate 667 mg PO TID 01/16/17 Brimonidine Tartrate/Timolol [Combigan 0.2%-0.5% Eye Drops] 1 drop OU BID Latanoprost 0.005% Eye Drops [Xalatan 0.005% Eye Drops -] 1 drop OU HS 08/28/17 Anemia: Yes (MANY YRS AGO) Asthma: No Cancer: No Cardiac Disorders: No CVA: No COPD: No CHF: No DVT: No Dementia: No Diabetes: Yes Dialysis: Yes (, , sun) GI Disorders: No Disorders: No HTN: No Hypercholesterolemia: No Liver Disease: No Seizures: No Thyroid Disease: No - Surgical History Abdominal Surgery: No Appendectomy: No Cardiac Surgery: No Cholecystectomy: No Lung Surgery: No Neurologic Surgery: No Orthopedic Surgery: No - Immunization History Td Vaccination: Yes Immunization Up to Date: Yes - Psycho Social/Smoking Cessation Hx Smoking Status: No Smoking History: Former smoker Have you smoked in the past 12 months: No Number of Cigarettes Smoked Daily: 0 Information on smoking cessation initiated: No Hx Alcohol Use: No Drug/Substance Use Hx: No Substance Use Type: None Hx Substance Use Treatment: No Review of Systems - Review of Systems Able to Perform ROS?: Yes Is the patient limited Persian proficient: No Constitutional: No: Fever, Weakness HEENTM: No: Blurred Vision, Double Vision Respiratory: No: Shortness of Breath Cardiac (ROS): No: Chest Pain ABD/GI: No: Constipated, Diarrhea : No: Burning, Dysuria Integumentary: Yes: Rash (Rash near permacath site ) Neurological: No: Headache, Seizure *Physical Exam - Vital Signs Last Vital Signs Temp Pulse Resp BP Pulse Ox 98 F 69 18 180/64 H 96 05/20/19 10:44 05/20/19 10:44 05/20/19 10:44 05/20/19 10:44 05/20/19 10:44 - Physical Exam General Appearance: Yes: Nourished, Appropriately Dressed HEENT: positive: EOMI. negative: Scleral Icterus (R), Scleral Icterus (L) Respiratory/Chest: positive: Lungs Clear, Normal Breath Sounds. negative: Respiratory Distress Cardiovascular: positive: Regular Rate, S1, S2 Gastrointestinal/Abdominal: positive: Soft. negative: Tender, Rebound, Tenderness Musculoskeletal: negative: Decreased Range of Motion Neurologic: positive: wool washer feeder II-XII NML intact, Fully Oriented, Alert, Normal Mood/ Affect, Normal Response, Motor Strength 5/5 ED Treatment Course - LABORATORY CBC & Chemistry Diagram: 05/20/19 12:40 05/20/19 12:40 Medical Decision Making - Medical Decision Making 05/20/19 11:32 Pt is a 69 y/o F presenting to our Ed due to a mechanical fall. Endorses head injury. Will order Head CT w/o contrast to assess for possible bleed. 05/20/19 11:46 Will also order routine labs including cbc and cmp to assess for possible elevated wbc in light of endorsed rash along permacath insertion site. Spoke with Dr Cuellar. Advises pt to follow up this week in office to pull line out. Will inform patient. 05/20/19 15:[address] negative. Will d/c patient home with instruction to follow up with Dr Cuellar this to remove Permacath. Discharge - Discharge Information Problems reviewed: Yes Clinical Impression/Diagnosis: Fall Disposition: HOME - Admission No - Follow up/Referral Referrals: Chanda Schultz MD [Primary Care Provider] - Bandar Cuellar DO [Staff Physician] - - Patient Discharge Instructions Patient Printed Discharge Instructions: How to Prevent Falls Additional Instructions: You presented to our Emergency Department due to a mechanical fall. Please follow up with your Primary Care Doctor in 1 week. Please follow up with Dr Bandar Cuellar to remove the Permacath in your right neck. Please return to the emergency department immediately if you begin to experience fever, chills, nausea/vomiting, chest pain, shortness of breath, or any other abnormal symptoms. - Post Discharge Activity
[2019-05-20] MEDS ORDERED: ACETAMINOPHEN 325 MG TABLET (FP) PO ONE (11:33)
[2019-05-20 13:05] LABS: BASO % 1.4 % (0-2.0); EOS % 4.6 % (0-4.5); HEMOGLOBIN 13.7 GM/dL (10.7-15.3); LYMPH % 29.3 % (8-40); MCH 23.6 pg (25.7-33.7); MCHC 31.2 g/dl (32.0-36.0); MEAN CELL VOLUME 75.5 fl (80-96); MEAN PLT VOLUME 10.1 fl (7.5-11.1); MONO % 8.7 % (3.8-10.2); PLATELET COUNT 205 K/MM3 (134-434); RBC 5.83 M/mm3 (3.60-5.2); RDW 16.6 % (11.6-15.6); WHITE BLOOD COUNT 4.5 K/mm3 (4.0-10.0)
[2019-05-20] MEDS ORDERED: ACETAMINOPHEN 325 MG TABLET (FP) ONE (13:25)
[2019-05-20 13:52] LABS: ALBUMIN 3.7 g/dl (3.4-5.0); BILIRUBIN,TOTAL 0.3 mg/dL (0.2-1); BLOOD UREA NITROGEN 27.4 mg/dL (7-18); CALCIUM 8.6 mg/dL (8.5-10.1); CREATININE 6.7 mg/dL (0.55-1.3); POTASSIUM 4.6 mmol/L (3.5-5.1); TOT PROT 7.6 g/dl (6.4-8.2)
[2019-05-20 14:27] VITALS: BP 149/64; PULSE 63; TEMP 97.9
--- NOTE | 2019-05-20 15:48 | PDOC ---
Documentation entered by Jaxson Ansari SCRIBE, acting as scribe for Jez Cervantes MD. Jez Cervantes MD: This documentation has been prepared by the [employer] [employer], SCRIBE, under my direction and personally reviewed by me in its entirety. I confirm that the documentation accurately reflects all work, treatment, procedures, and medical decision making performed by me. Attending Attestation - Resident Resident Name: Jakub Harp - ED Attending Attestation I have performed the following: I have examined & evaluated the patient, The case was reviewed & discussed with the resident, I agree w/resident's findings & plan, Exceptions are as noted - HPI HPI: 05/20/19 12:05 The patient is a 69 year old female with a significant PMH of ESRD on dialysis, HTN, and DM who presents to the emergency department s/p mechanical fall. The patient states she was at dialysis, finished her dialysis session, got up to tie her shoes, lost her balance, fell and hit her head and R arm. Patient denies any LOC, lightheadedness or dizziness. The patient denies chest pain, shortness of breath, headache. Denies fever, chills, cough, nausea, vomiting, diarrhea and constipation. Denies dysuria, frequency, urgency and hematuria. Allergies: NKDA PCP: Dr Root - Physicial Exam PE: 05/20/19 12:06 GENERAL: The patient is awake, alert, and fully oriented, Nontoxic - in no acute distress. HEAD: Normocephalic, atraumatic. EYES: extraocular movements intact, sclera anicteric, conjunctiva clear. ENT: Normal voice, Moist mucous membranes. NECK: Normal range of motion, supple without lymphadenopathy, JVD, or masses. LUNGS: Breath sounds equal, clear to auscultation bilaterally. No wheezes, no crackles, no rales. HEART: Regular rate and rhythm, normal S1 and S2 without murmur, rub or gallop. ABDOMEN: Soft, nontender, normoactive bowel sounds. No guarding, no rebound. No masses. EXTREMITIES: Normal range of motion, no edema. No clubbing or cyanosis. No cords, erythema, or tenderness. NEUROLOGICAL: No facial asymmetry, Normal speech, normal gait. PSYCH: Normal mood, normal affect. SKIN: Warm, Dry, normal turgor, no rashes or lesions noted. Back: No midline tenderness to the cervical, thoracic or lumbar spine Musculoskelatal: FROM of b/l shoulders, elbows, wrist. FROM of hips, knees, ankles - No signs of ecchymosis, erythema, or crepitus noted on palpation extremities, chest wall, clavicals, ribs, back. - Medical Decision Making 05/20/19 13:34 69-year-old female history of end-stage renal disease status post dialysis earlier had a mechanical trip and fall hitting her head without any other LOC, vision changes, nausea, vomiting, neck pain, focal neuro complaints, chest pain , palpitations, lightheadedness. Patient is currently asymptomatic. Exam was unremarkable, will obtain CT head as the patient did hit her head and was on heparin. If negative anticipate discharge with PMD follow-up
== END 2019-05-20 14:45 | disposition home or self-care (01) ==
LOC: JER 10:36
DX: S09.8XXA Other specified injuries of head, initial encounter (principal); S69.81XA Other specified injuries of right wrist, hand and finger(s), initial encounter; W18.39XA Other fall on same level, initial encounter; Y93.89 Activity, other specified; Y92.538 Other ambulatory health services establishments as the place of occurrence of the external cause; Y99.8 Other external cause status; I12.0 Hypertensive chronic kidney disease with stage 5 chronic kidney disease or end stage renal disease; E11.22 Type 2 diabetes mellitus with diabetic chronic kidney disease; N18.6 End stage renal disease; N17.8 Other acute kidney failure; Z99.2 Dependence on renal dialysis; Z79.84 Long term (current) use of oral hypoglycemic drugs; Z86.2 Personal history of diseases of the blood and blood-forming organs and certain disorders involving the immune mechanism
CPT/HCPCS: 36415; 70450-TC; 80053; 85025; 99282-25

== ENCOUNTER 2020-09-06 04:47 | Day surgery (SDC) | payer OTHER ==
[2020-09-03 10:37] VITALS: BMI 33.1
[2020-09-06] MEDS ORDERED: LIDOCAINE HCL 1%, 10 MG/ML (20ML VIAL) ONE (07:15)
[2020-09-06] MEDS ORDERED: HEPARIN NA (PORCINE) 5,000 UNITS/ML 1ML VIAL ONE (07:15)
[2020-09-06] MEDS ORDERED: EPHEDRINE SULFATE/0.9% NACL/PF 50 MG/10 ML SYRINGE NR ONE (07:34)
[2020-09-06] MEDS ORDERED: PROPOFOL 20 ML ONE (07:35)
[2020-09-06] MEDS ORDERED: SUCCINYLCHOLINE CHLORIDE 200 MG/10 ML SYRINGE ONE (07:35)
[2020-09-06] MEDS ORDERED: MIDAZOLAM HCL 2 MG/2 ML SINGLE DOSE VIAL ONE (07:35)
[2020-09-06] MEDS ORDERED: POVIDONE-IODINE OINTMENT 10% - 28.4 GM TUBE ONE (07:44)
[2020-09-06] MEDS ORDERED: ceFAZolin SODIUM 1 GM VIAL IVPB ONE (08:40)
[2020-09-06] MEDS ORDERED: LIDOCAINE HCL 1%, 10 MG/ML (20ML VIAL) INF ONE ×2 (08:43)
[2020-09-06] MEDS ORDERED: IOVERSOL 320 MG/ML ML IV ONE (08:43)
[2020-09-06] MEDS ORDERED: ONDANSETRON 4 MG/2 ML VIAL IVPUSH PRN (09:16)
[2020-09-06 10:52] VITALS: TEMP 98
[2020-09-06 11:49] VITALS: BP 130/60; PULSE 76
== END 2020-09-06 11:58 | disposition home or self-care (01) ==
LOC: JASU-SURG 04:47
PROVIDERS: ATTEND Surgery Vascular Surgery
PROC: 057D3ZZ Dilation of Right Cephalic Vein, Percutaneous Approach (ICD-10-PCS; principal; 2020-09-06 08:00)
DX: T82.858A Stenosis of other vascular prosthetic devices, implants and grafts, initial encounter (principal); I12.0 Hypertensive chronic kidney disease with stage 5 chronic kidney disease or end stage renal disease; E11.22 Type 2 diabetes mellitus with diabetic chronic kidney disease; N18.6 End stage renal disease; Z99.2 Dependence on renal dialysis
CPT/HCPCS: 76000-TC-FY; 82962; 94760; J1644

== ENCOUNTER 2020-09-21 07:58 | Inpatient (IN) | payer OTHER ==
[2020-09-21 11:16] LABS: BASO % 0.9 % (0-2.0); EOS % 8.4 % (0-4.5); HEMATOCRIT 33.5 % (32.4-45.2); HEMOGLOBIN 10.4 GM/dL (10.7-15.3); LYMPH % 25.3 % (8-40); MCH 23.9 pg (25.7-33.7); MCHC 31.1 g/dl (32.0-36.0); MEAN CELL VOLUME 76.8 fl (80-96); MEAN PLT VOLUME 8.7 fl (7.5-11.1); MONO % 7.6 % (3.8-10.2); NEUT % 57.8 % (42.8-82.8); PLATELET COUNT 233 K/MM3 (134-434); RBC 4.36 M/mm3 (3.60-5.2); RDW 16.6 % (11.6-15.6); WHITE BLOOD COUNT 6.6 K/mm3 (4.0-10.0)
[2020-09-21 11:18] LABS: INR 1.01 (0.83-1.09); PROTHROMBIN TIME (PATIENT) 12.2 SEC (9.7-13.0)
[2020-09-21 11:21] LABS: ACTIVATED PTT 30.9 SECONDS (25.2-36.5)
[2020-09-21 11:29] LABS: POTASSIUM 5.7 mmol/L (3.5-5.1)
[2020-09-21 11:31] LABS: ALBUMIN 3.6 g/dl (3.4-5.0); BLOOD UREA NITROGEN 61.8 mg/dL (7-18); CALCIUM 8.9 mg/dL (8.5-10.1)
[2020-09-21 11:32] LABS: MAGNESIUM 2.1 mg/dL (1.8-2.4)
[2020-09-21 11:35] LABS: PHOSPHOROUS 4.8 mg/dL (2.5-4.9)
[2020-09-21 11:36] LABS: BILIRUBIN,TOTAL 0.4 mg/dL (0.2-1); TOT PROT 7.5 g/dl (6.4-8.2)
[2020-09-21] MEDS ORDERED: SODIUM ZIRCONIUM CYCLOSILICATE (LOKELMA) 5 GM PACKET PO ONE (11:38)
[2020-09-21] MEDS ORDERED: SODIUM ZIRCONIUM CYCLOSILICATE (LOKELMA) 5 GM PACKET ONE (11:45)
[2020-09-21 12:16] LABS: CREATININE 11.9 mg/dL (0.55-1.3)
[2020-09-21] MEDS ORDERED: CALCIUM GLUC IN NACL, ISO-OSM 1 GM/50 ML BAG IVPB ONE (13:34)
[2020-09-21] MEDS: CALCIUM GLUC IN NACL, ISO-OSM 1 GM/50 ML BAG IVPB ONE ×2 (13:34→13:39)
[2020-09-21] MEDS ORDERED: SODIUM CHLORIDE 250 ML IV PRN (13:50)
[2020-09-21 18:20] VITALS: BMI 34.9
[2020-09-21] MEDS ORDERED: LATANOPROST 0.005% OPHTH SOLN 2.5ML BOTTLE OU SCH (22:00)
[2020-09-21] MEDS ORDERED: TIMOLOL 0.5% OPHTHALMIC SOL 5 ML BOTTLE OU SCH (22:00)
[2020-09-21] MEDS ORDERED: BRIMONIDINE TARTRATE 0.2% OPHTHALMIC 5 ML BOTTLE OU SCH (22:00)
[2020-09-21] MEDS ORDERED: PATIENT'S OWN MEDICATION (NON-FORMULARY) (Brimonidine Tartrate/Timolol [Combigan 0.2%-0.5% OU SCH (22:00)
[2020-09-22] MEDS ORDERED: HEPARIN NA (PORCINE) 5,000 UNITS/ML 1ML VIAL IVPUSH ONE
[2020-09-22] MEDS ORDERED: IOHEXOL 300 MG/ML INFUS..BTL IV ONE
[2020-09-22] MEDS ORDERED: LIDOCAINE HCL 1% PRESERVATIVE FREE - 30ML VIAL IJ ONE
[2020-09-22] MEDS: CALCIUM ACETATE 667 MG CAPSULE (FP) PO SCH ×2 (08:00→11:59)
[2020-09-22] MEDS ORDERED: LIDOCAINE HCL 1%, 10 MG/ML (20ML VIAL) ONE (10:02)
[2020-09-22] MEDS ORDERED: HEPARIN NA (PORCINE) 5,000 UNITS/ML 1ML VIAL ONE ×2 (10:02→11:13)
[2020-09-22] MEDS ORDERED: ONDANSETRON 4 MG/2 ML VIAL IVPUSH PRN ×2 (10:23→12:58)
[2020-09-22] MEDS ORDERED: SODIUM CHLORIDE 1,000 ML IV SCH ×2 (10:30→12:58)
[2020-09-22] MEDS ORDERED: MIDAZOLAM HCL 2 MG/2 ML SINGLE DOSE VIAL ONE (10:32)
[2020-09-22] MEDS ORDERED: ceFAZolin SODIUM 1 GM VIAL ONE (11:07)
[2020-09-22] MEDS ORDERED: EPHEDRINE SULFATE/0.9% NACL/PF 50 MG/10 ML SYRINGE NR ONE (12:01)
[2020-09-22] MEDS ORDERED: SODIUM CHLORIDE 250 ML IV PRN ×3 (12:40→12:58)
[2020-09-22 13:44] LABS: BASO % 0.3 % (0-2.0); EOS % 1.6 % (0-4.5); HEMATOCRIT 31.7 % (32.4-45.2); HEMOGLOBIN 9.6 GM/dL (10.7-15.3); MCH 23.8 pg (25.7-33.7); MCHC 30.2 g/dl (32.0-36.0); MEAN CELL VOLUME 78.8 fl (80-96); MEAN PLT VOLUME 9.4 fl (7.5-11.1); MONO % 5.4 % (3.8-10.2); NEUT % 82.7 % (42.8-82.8); PLATELET COUNT 197 K/MM3 (134-434); RBC 4.02 M/mm3 (3.60-5.2); RDW 16.6 % (11.6-15.6); WHITE BLOOD COUNT 9.4 K/mm3 (4.0-10.0)
[2020-09-22 14:26] LABS: BLOOD UREA NITROGEN 64.7 mg/dL (7-18); CALCIUM 8.8 mg/dL (8.5-10.1); CREATININE 12.7 mg/dL (0.55-1.3); MAGNESIUM 2.1 mg/dL (1.8-2.4); PHOSPHOROUS 6.5 mg/dL (2.5-4.9); POTASSIUM 5.1 mmol/L (3.5-5.1)
[2020-09-22 17:11] VITALS: TEMP 98.2
[2020-09-22] MEDS ORDERED: CALCIUM ACETATE 667 MG CAPSULE (FP) PO SCH (17:30)
[2020-09-22 19:04] VITALS: BP 118/61; PULSE 76
[2020-09-22] MEDS ORDERED: LATANOPROST 0.005% OPHTH SOLN 2.5ML BOTTLE OU SCH (22:00)
[2020-09-22] MEDS ORDERED: TIMOLOL 0.5% OPHTHALMIC SOL 5 ML BOTTLE OU SCH (22:00)
[2020-09-22] MEDS ORDERED: BRIMONIDINE TARTRATE 0.2% OPHTHALMIC 5 ML BOTTLE OU SCH (22:00)
== END 2020-09-22 21:08 | disposition home or self-care (01) | DRG 252 ==
LOC: JER 07:58 → JERBED 13:46 → J4W 17:30
PROVIDERS: ADMIT Internal Medicine; ATTEND Internal Medicine
PROC: 5A1D70Z Performance of Urinary Filtration, Intermittent, Less than 6 Hours Per Day (ICD-10-PCS; 2020-09-21)
PROC: B50MYZZ Plain Radiography of Right Upper Extremity Veins using Other Contrast (ICD-10-PCS; 2020-09-22)
PROC: 057Y3ZZ Dilation of Upper Vein, Percutaneous Approach (ICD-10-PCS; principal; 2020-09-22 16:00)
DX: T82.898A Other specified complication of vascular prosthetic devices, implants and grafts, initial encounter (principal); N18.6 End stage renal disease; I12.0 Hypertensive chronic kidney disease with stage 5 chronic kidney disease or end stage renal disease; E87.5 Hyperkalemia; E11.22 Type 2 diabetes mellitus with diabetic chronic kidney disease; N25.0 Renal osteodystrophy; Z99.2 Dependence on renal dialysis; Y83.9 Surgical procedure, unspecified as the cause of abnormal reaction of the patient, or of later complication, without mention of misadventure at the time of the procedure
CPT/HCPCS: 36415; 71045-TC-FY; 76000-TC-FY; 76937; 80048; 80053; 80061; 83721; 83735; 84100; 84443; 85025; 85610; 85730; 86803; 86850; 86900; 86901; 87340; 93005; 93010; 93931; 93971; 94760; 99285-25; C9803; J1644; U0003

== ENCOUNTER 2021-05-18 04:32 | Day surgery (SDC) | payer OTHER ==
[2021-05-17 17:46] VITALS: BMI 34.2
[~2021-05-18 04:32] MED LIST changes: -LIDOCAINE HCL 1%, 10 MG/ML (20ML VIAL) IJ ONE; +LIDOCAINE HCL 1%, 10 MG/ML (20ML VIAL) PNB ONE
[2021-05-18] MEDS ORDERED: MIDAZOLAM HCL 2 MG/2 ML SINGLE DOSE VIAL ONE (10:15)
[2021-05-18] MEDS ORDERED: PROPOFOL 20 ML ONE ×2 (10:15)
[2021-05-18] MEDS ORDERED: LIDOCAINE HCL 1%, 10 MG/ML (20ML VIAL) ONE (10:29)
[2021-05-18] MEDS ORDERED: HEPARIN NA (PORCINE) 5,000 UNITS/ML 1ML VIAL ONE (10:57)
[2021-05-18] MEDS ORDERED: ceFAZolin SODIUM 1 GM VIAL IVPB ONE (11:00)
[2021-05-18] MEDS ORDERED: LIDOCAINE HCL 1%, 10 MG/ML (20ML VIAL) PNB ONE ×2 (11:05)
[2021-05-18] MEDS ORDERED: ceFAZolin SODIUM 1 GM VIAL ONE (11:21)
[2021-05-18] MEDS ORDERED: oxyCODONE HCL 5 MG TABLET PO PRN (11:22)
[2021-05-18] MEDS ORDERED: ONDANSETRON 4 MG/2 ML VIAL IVPUSH PRN (11:22)
[2021-05-18 13:54] VITALS: BP 140/50; PULSE 69; TEMP 97.6
== END 2021-05-18 13:45 | disposition home or self-care (01) ==
LOC: JASU-SURG 04:32
PROVIDERS: ATTEND Surgery Vascular Surgery
PROC: 037Y3ZZ Dilation of Upper Artery, Percutaneous Approach (ICD-10-PCS; principal; 2021-05-18 10:30)
DX: T82.858A Stenosis of other vascular prosthetic devices, implants and grafts, initial encounter (principal); I12.0 Hypertensive chronic kidney disease with stage 5 chronic kidney disease or end stage renal disease; E11.22 Type 2 diabetes mellitus with diabetic chronic kidney disease; N18.6 End stage renal disease; Z99.2 Dependence on renal dialysis
CPT/HCPCS: 36415; 76000-TC-FY; 82947; 84132; J1644

== ENCOUNTER 2021-07-07 15:49 | Emergency (ER) | payer OTHER ==
[2021-07-07 16:02] VITALS: BP 147/67; PULSE 80; TEMP 99; BMI 34.9
== END 2021-07-07 17:10 | disposition home or self-care (01) ==
LOC: JER 15:49
DX: J02.9 Acute pharyngitis, unspecified (principal)
CPT/HCPCS: 87070; 87804; 87807; 99283-25; C9803; U0003; U0005

== ENCOUNTER 2021-07-09 10:23 | Inpatient (IN) | payer SELFPAY ==
[2021-07-09 11:32] VITALS: BMI 34.9
[2021-07-09 12:29] LABS: BASO % 1.2 % (0-2.0); EOS % 4.2 % (0-4.5); HEMATOCRIT 36.7 % (32.4-45.2); HEMOGLOBIN 11.1 GM/dL (10.7-15.3); MCH 23.4 pg (25.7-33.7); MCHC 30.1 g/dl (32.0-36.0); MEAN CELL VOLUME 77.6 fl (80-96); MEAN PLT VOLUME 9.7 fl (7.5-11.1); MONO % 13.5 % (3.8-10.2); NEUT % 58.1 % (42.8-82.8); PLATELET COUNT 228 10^3/uL (134-434); RBC 4.74 M/mm3 (3.60-5.2); RDW 16.4 % (11.6-15.6); WHITE BLOOD COUNT 4.3 K/mm3 (4.0-10.0)
[2021-07-09 12:38] LABS: VENOUS BASE EXCESS -6.7 mmol/L (-2-2); VENOUS O2 SATURATION 64.3 % (70-80); VENOUS PCO2 49.3 mmHg (38-52); VENOUS PH 7.241 (7.310-7.410)
[2021-07-09 12:53] LABS: CHLORIDE 106 mmol/L (98-107); SODIUM 136 mmol/L (136-145)
[2021-07-09 12:55] LABS: CALCIUM 8.6 mg/dL (8.5-10.1)
[2021-07-09 12:56] LABS: ALBUMIN 3.1 g/dl (3.4-5.0); CO2 18 mmol/L (21-32); GLUCOSE,RANDOM 70 mg/dL (74-106)
[2021-07-09 12:59] LABS: SGOT/AST 20 U/L (15-37); SGPT/ALT 11 U/L (13-61)
[2021-07-09 13:00] LABS: BILIRUBIN,TOTAL 0.4 mg/dL (0.2-1); TOT PROT 7.2 g/dl (6.4-8.2)
[2021-07-09] MEDS ORDERED: SODIUM CHLORIDE 250 ML IV PRN (13:02)
[2021-07-09 13:03] LABS: ALK PHOS 83 U/L (45-117)
[2021-07-09 13:31] LABS: ANION GAP 12 MMOL/L (8-16); CREATININE 13.8 mg/dL (0.55-1.3)
[2021-07-09] MEDS ORDERED: ALBUTEROL SO4 0.042% IH SOL 1.25 MG/3 ML VIAL.NEB NEB ONE (13:48)
[2021-07-09] MEDS ORDERED: SODIUM ZIRCONIUM CYCLOSILICATE (LOKELMA) 5 GM PACKET PO ONE (14:00)
[2021-07-09] MEDS ORDERED: SODIUM ZIRCONIUM CYCLOSILICATE (LOKELMA) 5 GM PACKET ONE (14:01)
[2021-07-09 16:03] VITALS: TEMP 97.4
[2021-07-09 19:19] VITALS: BP 161/67; PULSE 59
== END 2021-07-09 20:00 | disposition left against medical advice (07) | DRG 137 ==
LOC: JER 10:23 → JERBED 14:14
PROVIDERS: ADMIT Internal Medicine; ATTEND Internal Medicine
PROC: 5A1D70Z Performance of Urinary Filtration, Intermittent, Less than 6 Hours Per Day (ICD-10-PCS; principal; 2021-07-09)
DX: U07.1 COVID-19 (principal); I12.0 Hypertensive chronic kidney disease with stage 5 chronic kidney disease or end stage renal disease; N18.6 End stage renal disease; E11.22 Type 2 diabetes mellitus with diabetic chronic kidney disease; E87.5 Hyperkalemia; Z99.2 Dependence on renal dialysis
CPT/HCPCS: 36415; 71045-TC-FY; 80053; 82550; 82803; 84484; 85025; 86803; 87340; 93005; 93010; 99285-25

== ENCOUNTER 2022-01-26 04:13 | Day surgery (SDC) | payer OTHER ==
[2022-01-25 14:47] VITALS: BMI 34.0
[2022-01-26] MEDS ORDERED: MIDAZOLAM HCL 2 MG/2 ML SINGLE DOSE VIAL ONE (11:22)
[2022-01-26] MEDS ORDERED: PROPOFOL 20 ML ONE (11:22)
[2022-01-26] MEDS ORDERED: HEPARIN NA (PORCINE) 5,000 UNITS/ML 1ML VIAL ONE (11:25)
[2022-01-26] MEDS ORDERED: LIDOCAINE HCL 2% (20ML MULTI-DOSE VIAL) ONE (11:25)
[2022-01-26] MEDS ORDERED: LIDOCAINE HCL 1%, 10 MG/ML (20ML VIAL) ONE (11:29)
[2022-01-26] MEDS ORDERED: ONDANSETRON 4 MG/2 ML VIAL ONE (11:37)
[2022-01-26] MEDS ORDERED: DEXAMETHASONE SOD PHOSPHATE 4 MG/1 ML VIAL ONE (11:37)
[2022-01-26] MEDS ORDERED: ceFAZolin SODIUM 1 GM VIAL ONE (11:49)
[2022-01-26] MEDS ORDERED: ceFAZolin SODIUM 1 GM VIAL IVPB ONE (11:50)
[2022-01-26] MEDS ORDERED: LIDOCAINE HCL 1%, 10 MG/ML (20ML VIAL) INF ONE (12:02)
[2022-01-26] MEDS ORDERED: LACTATED RINGERS SOLUTION 1,000 ML IV SCH (12:45)
[2022-01-26 13:38] VITALS: TEMP 98.2
[2022-01-26 14:13] VITALS: BP 150/56; PULSE 84
== END 2022-01-26 14:00 | disposition home or self-care (01) ==
LOC: JASU-SURG 04:13
PROVIDERS: ATTEND Surgery Vascular Surgery
PROC: 057D3DZ Dilation of Right Cephalic Vein with Intraluminal Device, Percutaneous Approach (ICD-10-PCS; principal; 2022-01-26 11:00)
PROC: 03C83ZZ Extirpation of Matter from Left Brachial Artery, Percutaneous Approach (ICD-10-PCS; 2022-01-26 11:00)
DX: T82.858A Stenosis of other vascular prosthetic devices, implants and grafts, initial encounter (principal); I12.0 Hypertensive chronic kidney disease with stage 5 chronic kidney disease or end stage renal disease; E11.22 Type 2 diabetes mellitus with diabetic chronic kidney disease; N18.6 End stage renal disease; Z99.2 Dependence on renal dialysis
CPT/HCPCS: 36415; 76000-TC-FY; 82962; 84132; 94760; J1644

== ENCOUNTER → 2023-08-06 | Day surgery (SDC) | payer OTHER ==
[2023-08-03 15:07] VITALS: BMI 35.1
[~2023-08-06] MED LIST changes: +HEPARIN NA (PORCINE) 5,000 UNITS/ML 1ML VIAL ONE; +LIDOCAINE HCL 1%, 10 MG/ML (20ML VIAL) ONE; -LIDOCAINE HCL 1%, 10 MG/ML (20ML VIAL) PNB ONE; +PAPAVERINE HCL 30 MG/1 ML 10 ML VIAL NR ONE
== END | disposition home or self-care (01) ==
LOC: JASU-SURG 04:33
PROVIDERS: ATTEND Surgery Vascular Surgery
DX: Z53.8 Procedure and treatment not carried out for other reasons (principal)
CPT/HCPCS: J1644

== ENCOUNTER 2025-01-02 17:33 | Inpatient (IN) | payer OTHER ==
[2025-01-02 19:03] LABS: ABSOLUTE IMMATURE GRANULOCYTES 0.02 x10^3/uL (0.0-0.031); BASOPHILS # 0.02 x10^3/uL (0.01-0.08)
[2025-01-02 19:05] LABS: EOSINOPHIL % 1.5 % (0.7-5.8); EOSINOPHILS # 0.09 x10^3/uL (0.04-0.36); HEMATOCRIT 39.5 % (34.1-44.9); MCHC 30.4 g/dl (32.2-35.5); MEAN CELL VOLUME 77.8 fl (79.4-94.8); MONOCYTE # 0.36 x10^3/uL (0.24-0.86); MONOCYTE % 5.9 % (4.7-12.5); PLATELET COUNT 136 x10^3/uL (182-369); RDW 15.7 % (12.4-16.6)
[2025-01-02 19:16] LABS: ACTIVATED PTT 31.4 SECONDS (25.2-36.5)
[2025-01-02 19:24] LABS: CHLORIDE 102 mmol/L (98-107); SODIUM 136 mmol/L (136-145)
[2025-01-02 19:26] LABS: CALCIUM 9.5 mg/dL (8.5-10.1)
[2025-01-02 19:27] LABS: ALBUMIN 3.6 g/dl (3.4-5.0); ANION GAP 11 mmol/L (4-13); BLOOD UREA NITROGEN 86.8 mg/dL (7-18); CO2 23 mmol/L (21-32); GLUCOSE,RANDOM 127 mg/dL (74-106)
[2025-01-02 19:30] LABS: PHOSPHOROUS 5.4 mg/dL (2.5-4.9); SGOT/AST 12 U/L (15-37); SGPT/ALT 13 U/L (13-61)
[2025-01-02 19:31] LABS: BILIRUBIN,TOTAL 0.5 mg/dL (0.2-1)
[2025-01-02 19:32] LABS: CREATININE 13.4 mg/dL (0.55-1.3); TOT PROT 7.2 g/dl (6.4-8.2)
[2025-01-02 19:33] LABS: ALK PHOS 95 U/L (45-117)
[2025-01-02] MEDS: CALCIUM GLUCONATE 10% - 1,000 MG/10 ML VIAL IVPB ONE (19:41)
[2025-01-02] MEDS ORDERED: CALCIUM GLUC IN NACL, ISO-OSM 2 GM/100 ML BAG IVPB ONE (19:42)
[2025-01-02] MEDS ORDERED: DEXTROSE 50%-WATER 25 GM/50 ML DISP.SYRIN ONE (19:42)
[2025-01-02] MEDS ORDERED: SODIUM ZIRCONIUM CYCLOSILICATE (LOKELMA) 10 GM PACKET ONE (19:42)
[2025-01-02] MEDS: SODIUM ZIRCONIUM CYCLOSILICATE (LOKELMA) 5 GM PACKET PO ONE (20:07)
[2025-01-02] MEDS: DEXTROSE 50%-WATER 25 GM/50 ML DISP.SYRIN IVPUSH ONE (20:07)
[2025-01-02] MEDS: CALCIUM GLUCONATE 10% - 1,000 MG/10 ML VIAL IVPUSH ONE (20:07)
[2025-01-03] MEDS ORDERED: SODIUM ZIRCONIUM CYCLOSILICATE (LOKELMA) 10 GM PACKET ONE (00:11)
[2025-01-03] MEDS: SODIUM ZIRCONIUM CYCLOSILICATE (LOKELMA) 5 GM PACKET PO ONE (00:15)
[2025-01-03 01:43] VITALS: BMI 36.5
[2025-01-03] MEDS ORDERED: POVIDONE-IODINE OINTMENT 10% - 28.4 GM TUBE ONE (08:05)
[2025-01-03] MEDS ORDERED: LIDOCAINE HCL 1%, 10 MG/ML (20ML VIAL) ONE (08:05)
[2025-01-03] MEDS ORDERED: HEPARIN NA (PORCINE) 5,000 UNITS/ML 1ML VIAL ONE (08:05)
[2025-01-03 10:03] LABS: ABSOLUTE IMMATURE GRANULOCYTES 0.01 x10^3/uL (0.0-0.031); BASOPHILS # 0.02 x10^3/uL (0.01-0.08); EOSINOPHIL % 6.5 % (0.7-5.8); EOSINOPHILS # 0.29 x10^3/uL (0.04-0.36); HEMOGLOBIN 10.3 g/dL (11.2-15.7); MCHC 30.3 g/dl (32.2-35.5); MEAN CELL VOLUME 78.2 fl (79.4-94.8); MONOCYTE # 0.37 x10^3/uL (0.24-0.86); MONOCYTE % 8.2 % (4.7-12.5); PLATELET COUNT 118 x10^3/uL (182-369); RDW 15.7 % (12.4-16.6)
[2025-01-03 10:30] LABS: ANION GAP 13 mmol/L (4-13); BLOOD UREA NITROGEN 89.4 mg/dL (7-18); CALCIUM 9.6 mg/dL (8.5-10.1); CHLORIDE 102 mmol/L (98-107); CO2 23 mmol/L (21-32); CREATININE 14.7 mg/dL (0.55-1.3); GLUCOSE,RANDOM 88 mg/dL (74-106); POTASSIUM 5.6 mmol/L (3.5-5.1); SODIUM 137 mmol/L (136-145)
[2025-01-03] MEDS ORDERED: LIDOCAINE HCL 2% 100 MG/5 ML DISP.SYRIN ONE (10:57)
[2025-01-03] MEDS ORDERED: PROPOFOL 20 ML ONE (10:57)
[2025-01-03] MEDS ORDERED: MIDAZOLAM HCL 2 MG/2 ML SINGLE DOSE VIAL ONE (10:57)
[2025-01-03] MEDS: ceFAZolin SODIUM 1 GM VIAL IVPB ONE (11:00)
[2025-01-03] MEDS ORDERED: ONDANSETRON 4 MG/2 ML VIAL IVPUSH PRN (11:29)
[2025-01-03] MEDS ORDERED: SODIUM CHLORIDE 1,000 ML IV SCH (11:30)
[2025-01-03] MEDS: HEPARIN NA (PORCINE) PF 1,000 UNITS/ML - 2ML VIAL SQ ONE (11:37)
[2025-01-03] MEDS: LIDOCAINE HCL 1%, 10 MG/ML (50 mL VIAL) INF ONE (11:37)
[2025-01-03] MEDS ORDERED: PATIENT'S OWN MEDICATION (NON-FORMULARY) (Brimonidine Tartrate/Timolol [Combigan 0.2%-0.5% OU SCH (11:46)
[2025-01-03] MEDS ORDERED: ACETAMINOPHEN WITH CODEINE 300MG/30MG TABLET PO PRN (11:46)
[2025-01-03 12:14] LABS: HCV DIAGNOSTIC IN-HOUSE W/RFLX NON-REACTIVE (NONREACTIVE)
[2025-01-03 12:17] LABS: HIV INTERPRETATION NEGATIVE (NEGATIVE)
[2025-01-03] MEDS: CALCIUM ACETATE 667 MG CAPSULE (FP) PO SCH (13:57)
[2025-01-03 17:40] LABS: HEPATITIS B SURF AG NON-MATERN NON-REACTIVE (NONREACTIVE)
[2025-01-03] MEDS: TIMOLOL 0.5% OPHTHALMIC SOL 5 ML BOTTLE OU SCH (21:06)
[2025-01-03] MEDS: BRIMONIDINE TARTRATE 0.2% OPHTHALMIC 5 ML BOTTLE OU SCH (21:07)
[2025-01-03] MEDS: LATANOPROST 0.005% OPHTH SOLN 2.5ML BOTTLE OU SCH (21:07)
[2025-01-04 07:07] VITALS: RESP 17
[2025-01-04 10:18] VITALS: BP 133/56; PULSE 77; TEMP 99
== END 2025-01-04 13:10 | disposition home or self-care (01) | DRG 314 ==
LOC: JER 17:33 → JERBED 22:11 → J4W 01-03 00:54
PROVIDERS: ADMIT Internal Medicine; ATTEND Internal Medicine
PROC: 02HV33Z Insertion of Infusion Device into Superior Vena Cava, Percutaneous Approach (ICD-10-PCS; 2025-01-03)
PROC: 5A1D70Z Performance of Urinary Filtration, Intermittent, Less than 6 Hours Per Day (ICD-10-PCS; 2025-01-03)
PROC: 0JH63XZ Insertion of Tunneled Vascular Access Device into Chest Subcutaneous Tissue and Fascia, Percutaneous Approach (ICD-10-PCS; principal; 2025-01-03 10:00)
DX: T82.868A Thrombosis due to vascular prosthetic devices, implants and grafts, initial encounter (principal); N18.6 End stage renal disease; I12.0 Hypertensive chronic kidney disease with stage 5 chronic kidney disease or end stage renal disease; E11.22 Type 2 diabetes mellitus with diabetic chronic kidney disease; Z99.2 Dependence on renal dialysis; E66.9 Obesity, unspecified; Z68.36 Body mass index [BMI] 36.0-36.9, adult; H40.9 Unspecified glaucoma; E87.5 Hyperkalemia; Y83.9 Surgical procedure, unspecified as the cause of abnormal reaction of the patient, or of later complication, without mention of misadventure at the time of the procedure
CPT/HCPCS: 36415; 71045-TC-FY; 76000-TC-FY; 80048; 80053; 82962; 83735; 84100; 85025; 85610; 85730; 86803; 86850; 86900; 86901; 87340; 87389; 93005; 93010; 94760; 99291; C1750; C1757; J1644